=== PATIENT | male | born 1945 | race African-American/Black ===

== ENCOUNTER 2018-05-26 09:36 | Inpatient (IN) | payer BC, OTHER ==
--- NOTE | 2018-05-26 09:48 | PDOC ---
History of Present Illness - General Chief Complaint: Bleeding from Anus Stated Complaint: GI BLEED Time Seen by Provider: 05/26/18 09:47 - History of Present Illness Initial Comments: 05/26/18 09:48 Mr. Marina is a 73 yo male w/ pmh of Dementia, COPD, aflutter (on Eliquis), and prostate cancer who presents from [facility] for evaluation of episode of krunal red blood from rectum. Patient reports this has happened before however was very painful at this time when he has a bowel movement. Patient denies any abdominal pain, nausea, or vomiting. The patient denies chest pain, shortness of breath, headache and dizziness. Denies fever, chills, diarrhea and constipation. Denies dysuria, frequency, urgency and hematuria. Allergies: Penicillins, Sulfa drugs Past History - Past Medical History Allergies/Adverse Reactions: Allergies Allergy/AdvReac Type Severity Reaction Status Date / Time Penicillins Allergy Unknown "SWELL UP" Verified 05/26/18 09:41 Sulfa (Sulfonamide Allergy Unknown "SWELL UP" Verified 05/26/18 09:41 Antibiotics) Home Medications: Ambulatory Orders Acetaminophen [Tylenol] 650 mg PO Q6H PRN 05/26/18 Albuterol 2.5/Ipratropium 0.5 [Duoneb -] 1 neb NEB Q4H PRN 05/26/18 Apixaban [Eliquis] 5 mg PO BID 05/26/18 Atorvastatin Ca [Lipitor] 20 mg PO HS 05/26/18 Diltiazem HCl [Cardizem LA] 180 mg PO DAILY 05/26/18 Docusate Sodium 300 mg PO HS 05/26/18 Fluticasone Propionate [Flovent Diskus] 50 mcg IH DAILY PRN 05/26/18 Montelukast Sodium [Singulair] 10 mg PO HS 05/26/18 Nicotine [Nicoderm Cq] 1 each TD DAILY 05/26/18 Ranitidine HCl [Zantac] 150 mg PO DAILY 05/26/18 Sennosides [Senokot] 8.6 mg PO HS PRN 05/26/18 Travoprost [Travatan Z] 5 ml OP DAILY 05/26/18 Cancer: Yes (PROSTATE) Cardiac Disorders: Yes (A FLUTTER) CVA: Yes (NO RESIDUAL) COPD: Yes (SLEEP APNEA-USES CPAP) Dementia: Yes - Suicide/Smoking/Psychosocial Hx Smoking History: Former smoker Have you smoked in the past 12 months: Yes Number of Cigarettes Smoked Daily: 0 If you are a former smoker, when did you quit?: 1 YEAR Information on smoking cessation initiated: Yes 'Breaking Loose' booklet given: 03/20/15 Hx Alcohol Use: No Drug/Substance Use Hx: No Hx Substance Use Treatment: No Review of Systems - Review of Systems Comments:: 05/26/18 10:24 GENERAL/CONSTITUTIONAL: No fever or chills. No weakness. HEAD, EYES, EARS, NOSE AND THROAT: No change in vision. No ear pain or discharge. No sore throat. CARDIOVASCULAR: No chest pain or shortness of breath RESPIRATORY: No cough, wheezing, or hemoptysis. GASTROINTESTINAL: +Blood in stool with painful defacation. No nausea, vomiting, diarrhea or constipation. GENITOURINARY: No dysuria, frequency, or change in urination. MUSCULOSKELETAL: No joint or muscle swelling or pain. No neck or back pain. SKIN: No rash NEUROLOGIC: No headache, vertigo, loss of consciousness, or change in strength/ sensation. ENDOCRINE: No increased thirst. No abnormal weight change HEMATOLOGIC/LYMPHATIC: No anemia, easy bleeding, or history of blood clots. ALLERGIC/IMMUNOLOGIC: No hives or skin allergy. *Physical Exam - Vital Signs Last Vital Signs Temp Pulse Resp BP Pulse Ox 97.4 F L 122 H 22 121/78 97 05/26/18 09:41 05/26/18 09:41 05/26/18 09:41 05/26/18 09:41 05/26/18 09:41 - Physical Exam Comments: 05/26/18 10:25 GENERAL: Awake, alert, and fully oriented, in no acute distress HEAD: No signs of trauma, normocephalic, atraumatic EYES: PERRLA, EOMI, sclera anicteric, conjunctiva clear ENT: Auricles normal inspection, hearing grossly normal, nares patent, oropharynx clear without exudates. Moist mucosa NECK: Normal ROM, supple, no lymphadenopathy, JVD, or masses LUNGS: No distress, speaks full sentences, clear to auscultation bilaterally HEART: Regular rate and rhythm, normal S1 and S2, no murmurs, rubs or gallops, peripheral pulses normal and equal bilaterally. ABDOMEN: Soft, nontender, normoactive bowel sounds. No guarding, no rebound. No masses EXTREMITIES: Normal inspection, Normal range of motion, no edema. No clubbing or cyanosis. NEUROLOGICAL: Cranial nerves II through XII grossly intact. Normal speech, normal gait, no focal sensorimotor deficits SKIN: Warm, Dry, normal turgor, no rashes or lesions noted. RECTAL: Patient reporting significant pain w/ evaluation of rectum. No external hemmorhoids appreciated however exam limited by patient cooperation and masserated skin surrounding anus making further evaluation difficult. Foul smelling stool appreciated. ED Treatment Course - LABORATORY CBC & Chemistry Diagram: 05/26/18 10:27 05/26/18 10:27 Medical Decision Making - Medical Decision Making 05/26/18 10:40 Mr. Marina is a 73 yo male w/ pmh as described who presents for evaluation of bloody bowel movement w/ pain with defecation. Patient has no other complaints however endorses having a CT several weeks ago at [facility] although he does not know why. Discussed patient with [facility] who relates patient evaluated in February after a syncope and fall and had resultant MRI w/ no focal findings. Patient also was noted to have chest CT w/ RUL nodule elucidated. While in hospital patient developed ESBL UTI and was treated with immepenem. Hemoglobin in March at discharge was 14. 05/26/18 12:31 Patient continues to have rectal pain; also experienced additional episode of foul smelling stool with blood intermixed. CT abd/pelvis ordered for further evaluation of patient pain to r/o collection as well as evaluate for GI bleed. 05/26/18 13:09 Patient noted to have 3.5x2.7x2.3 cm fluid / air containing structure thought to be in prostate gland and possibly representing abscess. Also 3mm metallic body seen along left posterior lateral border of collection thought to be postsurgical finding vs. posttraumatic foreign body vs. radiation seed. Also, diffuse urinary bladder wall thickening acute or chronic cystitis and or chronic outlet obstruction. Air accumulation seen within urinary bladder lumen possibly post procedural and/or infectious. No rectal/perirectal pathology identified. Patient given IV ABX for prophylaxis; PCP paged for admission for further care. 05/26/18 14:44 Patient had E coli ESBL at [place] in past. Updating to contact bed. *DC/Admit/Observation/Transfer Diagnosis at time of Disposition: Rectal bleed, Abscess - Discharge Dispostion Decision to Admit order: Yes - Referrals - Patient Instructions - Post Discharge Activity
--- NOTE | 2018-05-26 10:18 | PDOC ---
Attending Attestation - Resident Resident Name: Joseph Ruiz - ED Attending Attestation I have performed the following: I have examined & evaluated the patient, The case was reviewed & discussed with the resident, I agree w/resident's findings & plan, Exceptions are as noted - HPI HPI: 05/26/18 11:02 73y M hx of dementia, copd, aflutter on eliquis, from [facility] presents from [facility], blood noticed in his diaper by aides. Reports pain around his rectal area. denies n/v, abd pain, f/c. on exam pt noted to have a soft abdomen unable to perform true rectal exam - as he was in significant pain when i moved his buttocks - there was significant tenderness/induration on his b/l buttocks ther was diarrhea that was blood tinged. ?abscess vs celluitis - unclear source of GIB will obtain blood work, ct abdomen, hbg stable here - Physicial Exam PE: 05/26/18 20:21 see above - Medical Decision Making ct showed nonspecific fliud and air containing tructure in the prostate gland - ?abscess vs collection. will admit for further management pt given abx. urology notified Heart Score/ECG Review - ECG Impressions Comment:: 05/26/18 13:08 Twelve-lead EKG was performed and reviewed by me. There is normal sinus rhythm with a normal rate. Rate of 90 Left axis deviation
[2018-05-26 10:32] LABS: BASO % 0.5 % (0-2.0); EOS % 3.4 % (0-4.5); HEMATOCRIT 41.1 % (35.4-49); HEMOGLOBIN 13.8 GM/dL (11.7-16.9); LYMPH % 23.3 % (8-40); MCHC 33.5 g/dl (32.0-35.9); MEAN CELL VOLUME 98.5 fl (80-96); MONO % 9.4 % (3.8-10.2); NEUT % 63.4 % (42.8-82.8); PLATELET COUNT 219 K/MM3 (134-434); RBC 4.17 M/mm3 (4.00-5.60); WHITE BLOOD COUNT 6.3 K/mm3 (4.0-10.0)
[2018-05-26 10:57] LABS: INR 1.19 (0.83-1.09); PROTHROMBIN TIME (PATIENT) 13.4 SEC (9.7-13.0)
[2018-05-26 11:06] LABS: ALBUMIN 3.6 g/dl (3.4-5.0); ALK PHOS 105 U/L (45-117); ANION GAP 9 MMOL/L (8-16); BILIRUBIN,TOTAL 0.8 mg/dL (0.2-1.0); BLOOD UREA NITROGEN 19 mg/dL (7-18); CALCIUM 9.1 mg/dL (8.5-10.1); CHLORIDE 110 mmol/L (98-107); CO2 28 mmol/L (21-32); CREATININE 1.1 mg/dL (0.7-1.3); GLUCOSE,RANDOM 101 mg/dL (74-106); SGOT/AST 15 U/L (15-37); SGPT/ALT 16 U/L (12-78); SODIUM 147 mmol/L (136-145); TOT PROT 6.2 g/dl (6.4-8.2)
[2018-05-26] MEDS ORDERED: morphine SULFATE 4 MG/ML VIAL ONE (11:40)
[2018-05-26] MEDS ORDERED: morphine CARPU-JECT 4 MG/1 ML DISP.SYRIN IVPUSH ONE (11:40)
[2018-05-26] MEDS ORDERED: VANCOMYCIN 1,500 MG in DEXTROSE 5%-WATER - 500 ML IVPB ONE (13:06)
--- NOTE | 2018-05-26 13:41 | EKG ---
Test Reason : Blood Pressure : / mmHG Vent. Rate : 090 BPM Atrial Rate : 090 BPM P-R Int : 146 ms QRS Dur : 080 ms QT Int : 362 ms P-R-T Axes : 077 -40 070 degrees QTc Int : 442 ms SINUS RHYTHM WITH PREMATURE ATRIAL COMPLEXES LEFT AXIS DEVIATION LOW VOLTAGE QRS NONSPECIFIC T WAVE ABNORMALITY ABNORMAL ECG NO PREVIOUS ECGS AVAILABLE Confirmed by AZRA ECHOLS MD ([id number]) on 05/26/2018 1:41:22 PM Referred By: Confirmed By:AZRA ECHOLS MD
--- NOTE | 2018-05-26 13:41 | HP ---
Admitting History and Physical - Primary Care Physician PCP: Shekhar Joseph - Admission History of Present Illness: Mr. Marina is a 73 yo male w/ pmh of Dementia, COPD, aflutter (on Eliquis), and prostate cancer who presents from [facility] for evaluation of episode of krunal red blood from rectum. Patient reports this has happened before however was very painful at this time when he has a bowel movement. Patient denies any abdominal pain, nausea, or vomiting.per patient the rectal bleeding started a few days ago with pain. The patient denies chest pain, shortness of breath, headache and dizziness. Denies fever, chills, diarrhea and constipation. Denies dysuria, frequency, urgency and hematuria. Allergies: Penicillins, Sulfa drugs History Source: Patient - Past Medical History OCCUPATIONAL THER: Yes: Dementia Cardiovascular: Yes: Other (aflutter) Pulmonary: Yes: COPD Heme/Onc: Yes: Other (prostate cancer) - Smoking History Smoking history: Former smoker Have you smoked in the past 12 months: Yes Aproximately how many cigarettes per day: 0 If you are a former smoker, when did you quit?: 1 YEAR - Alcohol/Substance Use Hx Alcohol Use: No Home Medications - Allergies Allergies/Adverse Reactions: Allergies Allergy/AdvReac Type Severity Reaction Status Date / Time Penicillins Allergy Unknown "SWELL UP" Verified 05/26/18 09:41 Sulfa (Sulfonamide Allergy Unknown "SWELL UP" Verified 05/26/18 09:41 Antibiotics) - Home Medications Home Medications: Ambulatory Orders Acetaminophen [Tylenol] 650 mg PO Q6H PRN 05/26/18 Albuterol 2.5/Ipratropium 0.5 [Duoneb -] 1 neb NEB Q4H PRN 05/26/18 Apixaban [Eliquis] 5 mg PO BID 05/26/18 Atorvastatin Ca [Lipitor] 20 mg PO HS 05/26/18 Diltiazem HCl [Cardizem LA] 180 mg PO DAILY 05/26/18 Docusate Sodium 300 mg PO HS 05/26/18 Fluticasone Propionate [Flovent Diskus] 50 mcg IH DAILY PRN 05/26/18 Montelukast Sodium [Singulair] 10 mg PO HS 05/26/18 Nicotine [Nicoderm Cq] 1 each TD DAILY 05/26/18 Ranitidine HCl [Zantac] 150 mg PO DAILY 05/26/18 Sennosides [Senokot] 8.6 mg PO HS PRN 05/26/18 Travoprost [Travatan Z] 5 ml OP DAILY 05/26/18 Review of Systems - Review of Systems Gastrointestinal: reports: Rectal Bleeding, Other (rectal pain) Physical Examination Vital Signs: Vital Signs Temperature 97.4 F L 05/26/18 09:41 Pulse Rate 73 05/26/18 12:00 Respiratory Rate 22 05/26/18 12:00 Blood Pressure 126/76 05/26/18 12:00 O2 Sat by Pulse Oximetry (%) 98 05/26/18 12:00 Constitutional: Yes: Mild Distress Cardiovascular: Yes: Regular Rate and Rhythm, S1, S2 Respiratory: Yes: CTA Bilaterally Gastrointestinal: Yes: Normal Bowel Sounds, Soft Renal/: Yes: Other (rectal and gluteal tenderness, diaper red stain) Labs: CBC, BMP 05/26/18 10:27 05/26/18 10:27 Imaging - Results Cat Scan: Report Reviewed (3/2.7/3 cm fluid and air containing structure seen within the prostate gland) Problem List - Problems (1) Abscess Assessment/Plan: surgical and urology evaluation broad spectrum iv abx ID consult pain control Code(s): L02.91 - CUTANEOUS ABSCESS, UNSPECIFIED (2) Rectal bleed Assessment/Plan: hold eliquis monitor h/h gi eval NPO till cleared by Gi Code(s): K62.5 - HEMORRHAGE OF ANUS AND RECTUM (3) Atrial flutter Assessment/Plan: hold eliquis given rectal bleed cardizem SCD cardio consult Code(s): I48.92 - UNSPECIFIED ATRIAL FLUTTER
--- NOTE | 2018-05-26 14:32 | PN ---
Progress Note (short form) - Note Progress Note: ID Consult dictated 73 y/o male admitted with rectal pain and bleeding. CT Abdomen /pelvis shows suspected prostatic abscess Hx ESBL UTI at [facility] ? Chronic postatitis/ prostate abscess secondary to ESBL Obtain BC, Urine c/s Empric ertapenem Urology evaluation
[2018-05-26] MEDS: DEXTROSE 5%-0.45% SALINE 1,000 ML IV SCH (14:35)
[2018-05-26] MEDS ORDERED: ERTAPENEM SODIUM 1 GM VIAL ONE (14:46)
--- NOTE | 2018-05-26 15:29 | CONS ---
DATE OF CONSULTATION: 05/26/2018 The patient is a 73-year-old male who is evaluated for a suspected prostatic abscess. History was obtained from the patient and from the chart. According to the notes, the patient had been hospitalized at [facility] in February of 2018, for a syncopal episode. According to the history, he was treated for an ESBL urinary tract infection at that time. He now is admitted from the senior living with rectal pain and bleeding. He was noted by the nursing staff to have blood in his diapers and was complaining of severe perirectal pain, especially on defecation. In the emergency room, a CAT scan of the abdomen and pelvis was performed and showed what appeared to be a prostatic abscess and thickened urinary bladder. Cultures are pending. He was empirically treated with vancomycin, Levaquin, and Flagyl. At the present time, he complains of perirectal pain and continued bleeding. He denies any dysuria or hematuria, and no complaints of fever or chills. Past medical history positive for prostate cancer, status post cystoscopy and cryoablation in 2014, history of mild dementia, COPD, atrial flutter. Allergies to PENICILLIN and SULFA. Patient is not aware of the nature of the allergy; he states it happened many years ago. According the notes, he has tolerated imipenem in the past. Medications include DuoNeb, Eliquis, Lipitor, Cardizem, Flomax, Singulair. SOCIAL HISTORY: He resides in a alf facility. He is a former smoker. SYSTEMS REVIEW: Neurologic: Positive for mild dementia. No loss of consciousness, seizure activity, or focal weakness. Cardiac: Negative chest pain or palpitations. Respiratory: Negative cough or sputum production. Gastrointestinal: As per HPI. Genitourinary: As per HPI. LABORATORY DATA: White count 8.3, hematocrit 41, platelet count 219, BUN 19, creatinine 1.1. PHYSICAL EXAMINATION: General: He is awake and alert. He is in moderate distress secondary to perirectal pain. Vital Signs: Temperature 97.4. Blood pressure 127/61. Pulse 72, regular. Respiration 22 per minute. Eyes: Sclerae anicteric. Heart Sounds: S1, S2. Lungs: Clear. Abdomen: Soft. Some mild suprapubic tenderness. Unable to examine the rectal area secondary to exquisite pain. Extremities: Positive for edema. IMPRESSION: 1. Suspected prostate abscess. 2. Possible urinary tract infection/sepsis secondary to urinary tract focus. 3. Rectal bleeding. Concern about the possibility of an ESBL, prostatic abscess, and urinary tract infection, in light of prior history of ESBL UTI. Obtain blood cultures, urine culture. Urology evaluation. Empiric antibiotic coverage with ertapenem 1 g IV piggyback daily. Thank you for the kind referral. CONCHA DICKERSON M.D. [id number]
--- NOTE | 2018-05-26 15:58 | CON.GI ---
Consult Consult Specialty:: GI Reason for Consultation:: hematochezia x 2 days - History of Present Illness History of Present Illness: Chart reviewed. Hematochezia x 2 days. described as pinkish discharge leading to BRBP. No abdominal pain, urgency, tenismus, fever, chills, nausea, vomiting, melena, hematemesis. Incontinent of stool at baseline. Very painful perianal exam with excoriated skin. Pt thinks he was bleeding "outside" the rectum. Last colonoscopy 5 y ago was normal. On Eliquis Home Medications Medication Instructions Recorded Acetaminophen [Tylenol] 650 mg PO Q6H PRN 05/26/18 Albuterol 2.5/Ipratropium 0.5 1 neb NEB Q4H PRN 05/26/18 [Duoneb -] Apixaban [Eliquis] 5 mg PO BID 05/26/18 Atorvastatin Ca [Lipitor] 20 mg PO HS 05/26/18 Diltiazem HCl [Cardizem LA] 180 mg PO DAILY 05/26/18 Docusate Sodium 300 mg PO HS 05/26/18 Fluticasone Propionate [Flovent 50 mcg IH DAILY PRN 05/26/18 Diskus] Montelukast Sodium [Singulair] 10 mg PO HS 05/26/18 Nicotine [Nicoderm Cq] 1 each TD DAILY 05/26/18 Ranitidine HCl [Zantac] 150 mg PO DAILY 05/26/18 Sennosides [Senokot] 8.6 mg PO HS PRN 05/26/18 Travoprost [Travatan Z] 5 ml OP DAILY 05/26/18 CT/ABDOMEN & PELVIS CT WITH CONTR Abdomen and pelvis CT (with contrast) Clinical information given: rectal pain, evaluate for collection/GI bleed Multiplanar imaging was performed following the intravenous administration of nonionic contrast. As requested enteric contrast was not administered. No prior imaging studies are available at this facility for direct comparison. An approximately 3.5 x 2.7 x 2.3 cm fluid and air containing structure is seen within the prostate gland. A 3 mm metallic density is seen along the left posterior lateral border of this fluid collection. Air accumulation is also seen within the urinary bladder lumen. There is mild diffuse urinary bladder wall thickening which may be acute and/or chronic in nature. Incidental note is made of several small air-filled urinary bladder diverticula. There is no definite CT evidence of rectal/perirectal pathology. No evidence of pneumoperitoneum, free intraperitoneal fluid, or bowel obstruction. The liver, spleen, pancreas, gallbladder, adrenal glands and kidneys demonstrate no discrete abnormality. There is no aortic aneurysm. There is probable partial visualization of the appendix which demonstrates no obvious pathology. No CT evidence of acute diverticulitis or colitis. Mild posterior bibasilar bronchiectasis. Minimal to mild right middle lobe discoid atelectasis/linear parenchymal scarring. The visualized osseous structures demonstrate no gross acute pathology. IMPRESSION: A 3.5 x 2.7 x 2.3 cm nonspecific fluid and air-containing structure is seen within the prostate gland - ? postsurgical collection and/or representing an abscess. A 3 mm metallic density seen along the left posterior lateral border of this fluid collection - ? postsurgical finding, posttraumatic foreign body, radiation seed. There is diffuse urinary bladder wall thickening which may be on the basis of acute and/or chronic cystitis and/or chronic outlet obstruction. Air accumulation is also seen within the urinary bladder lumen may be on a post procedural basis and/or infection. No obvious rectal/perirectal pathology is identified. - History Source History Provided By: Patient, Medical Record - Past Medical History AMBULANCE PARAMEDIC: Yes: Dementia Cardio/Vascular: Yes: Other (aflutter) Pulmonary: Yes: COPD - Alcohol/Substance Use Hx Alcohol Use: No - Smoking History Smoking history: Former smoker Have you smoked in the past 12 months: Yes Aproximately how many cigarettes per day: 0 If you are a former smoker, when did you quit?: 1 YEAR Home Medications - Allergies Allergies/Adverse Reactions: Allergies Allergy/AdvReac Type Severity Reaction Status Date / Time Penicillins Allergy Unknown "SWELL UP" Verified 05/26/18 09:41 Sulfa (Sulfonamide Allergy Unknown "SWELL UP" Verified 05/26/18 09:41 Antibiotics) - Home Medications Home Medications: Ambulatory Orders Acetaminophen [Tylenol] 650 mg PO Q6H PRN 05/26/18 Albuterol 2.5/Ipratropium 0.5 [Duoneb -] 1 neb NEB Q4H PRN 05/26/18 Apixaban [Eliquis] 5 mg PO BID 05/26/18 Atorvastatin Ca [Lipitor] 20 mg PO HS 05/26/18 Diltiazem HCl [Cardizem LA] 180 mg PO DAILY 05/26/18 Docusate Sodium 300 mg PO HS 05/26/18 Fluticasone Propionate [Flovent Diskus] 50 mcg IH DAILY PRN 05/26/18 Montelukast Sodium [Singulair] 10 mg PO HS 05/26/18 Nicotine [Nicoderm Cq] 1 each TD DAILY 05/26/18 Ranitidine HCl [Zantac] 150 mg PO DAILY 05/26/18 Sennosides [Senokot] 8.6 mg PO HS PRN 05/26/18 Travoprost [Travatan Z] 5 ml OP DAILY 05/26/18 Family Disease History - Family Disease History Family History: Unremarkable Review of Systems Findings/Remarks: as per HPI, ED, H&P Physical Exam-GI Vital Signs: Vital Signs Temperature 97.4 F L 05/26/18 09:41 Pulse Rate 71 05/26/18 13:30 Respiratory Rate 22 05/26/18 13:30 Blood Pressure 127/61 05/26/18 13:30 O2 Sat by Pulse Oximetry (%) 97 05/26/18 14:08 Constitutional: Yes: Well Nourished, No Distress, Calm Eyes: Yes: Conjunctiva Clear HENT: Yes: Atraumatic Neck: Yes: Supple Cardiovascular: Yes: Regular Rate and Rhythm Respiratory: Yes: Regular Gastrointestinal Inspection: No: Ascites, Distention ...Auscultate: Yes: Normoactive Bowel Sounds ...Palpate: Yes: Soft. No: Firm/Rigid, Guarding, Mass, Tenderness ...Rectal Exam: Yes: Other (see HPI) Neurological: Yes: Alert, Oriented Labs: CBC, BMP 05/26/18 10:27 05/26/18 10:27 INR, PTT INR 1.19 (0.83-1.09) H 05/26/18 10:27 Laboratory Last Values WBC 6.3 K/mm3 (4.0-10.0) 05/26/18 10:27 RBC 4.17 M/mm3 (4.00-5.60) 05/26/18 10:27 Hgb 13.8 GM/dL (11.7-16.9) 05/26/18 10:27 Hct 41.1 % (35.4-49) 05/26/18 10:27 MCV 98.5 fl (80-96) H 05/26/18 10:27 MCH 33.0 pg (25.7-33.7) 05/26/18 10:27 MCHC 33.5 g/dl (32.0-35.9) 05/26/18 10:27 RDW 14.0 % (11.9-15.9) 05/26/18 10:27 Plt Count 219 K/MM3 (134-434) 05/26/18 10:27 MPV 8.0 fl (7.5-11.1) 05/26/18 10:27 Absolute Neuts (auto) 4.0 K/mm3 (1.5-8.0) 05/26/18 10:27 Neutrophils % 63.4 % (42.8-82.8) 05/26/18 10:27 Lymphocytes % 23.3 % (8-40) 05/26/18 10:27 Monocytes % 9.4 % (3.8-10.2) 05/26/18 10:27 Eosinophils % 3.4 % (0-4.5) 05/26/18 10:27 Basophils % 0.5 % (0-2.0) 05/26/18 10:27 Nucleated RBC % 0 % (0-0) 05/26/18 10:27 PT with INR 13.40 SEC (9.7-13.0) H 05/26/18 10:27 INR 1.19 (0.83-1.09) H 05/26/18 10:27 Sodium 147 mmol/L (136-145) H 05/26/18 10:27 Potassium 4.0 mmol/L (3.5-5.1) 05/26/18 10:27 Chloride 110 mmol/L (98-107) H 05/26/18 10:27 Carbon Dioxide 28 mmol/L (21-32) 05/26/18 10:27 Anion Gap 9 MMOL/L (8-16) 05/26/18 10:27 BUN 19 mg/dL (7-18) H 05/26/18 10:27 Creatinine 1.1 mg/dL (0.7-1.3) 05/26/18 10:27 Creat Clearance w eGFR > 60 (>60) 05/26/18 10:27 Random Glucose 101 mg/dL (74-106) 05/26/18 10:27 Calcium 9.1 mg/dL (8.5-10.1) 05/26/18 10:27 Total Bilirubin 0.8 mg/dL (0.2-1.0) 05/26/18 10:27 AST 15 U/L (15-37) 05/26/18 10:27 ALT 16 U/L (12-78) 05/26/18 10:27 Alkaline Phosphatase 105 U/L (45-117) 05/26/18 10:27 Total Protein 6.2 g/dl (6.4-8.2) L 05/26/18 10:27 Albumin 3.6 g/dl (3.4-5.0) 05/26/18 10:27 Stool Occult Blood Positive (NEGATIVE) 05/26/18 10:06 Blood Type O POSITIVE 05/26/18 10:27 Antibody Screen Negative 05/26/18 10:27 Imaging - Results Cat Scan: Report Reviewed Assessment/Plan A 73M with the above prostate and urinary bladder CT findings. Normal hemoglobin , CMV, RDW, loiver chemistry. Hold Eliquis is possible Urology evaluation close monitoring for recurrent bleeding Colonoscopy was discussed with the patient. Will follow.
[2018-05-26] MEDS ORDERED: MORPHINE SULFATE 2 MG/ML VIAL ONE (16:34)
--- NOTE | 2018-05-26 16:52 | CON.CARD ---
Consult Consult Specialty:: Cardiology Referred by:: Dr. Miller Reason for Consultation:: rectal bleed on eliquis - History of Present Illness Chief Complaint: rectal bleeding History of Present Illness: 73 year old man pmh Dementia, COPD, aflutter on eliquis and prostate cancer admitted with rectal bleeding. pt seen and examined today in nad. states he continues to have loose stools with blood in them. denies chest pain, sob, palpitations, pnd, orthopnea, or LE edema. 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 Cardio/Vascular: Yes: Other (aflutter) Pulmonary: Yes: COPD - Alcohol/Substance Use Hx Alcohol Use: No - Smoking History Smoking history: Former smoker Have you smoked in the past 12 months: Yes Aproximately how many cigarettes per day: 0 If you are a former smoker, when did you quit?: 1 YEAR - Social History ADL: Independent History of Recent Travel: No Home Medications - Allergies Allergies/Adverse Reactions: Allergies Allergy/AdvReac Type Severity Reaction Status Date / Time Penicillins Allergy Unknown "SWELL UP" Verified 05/26/18 09:41 Sulfa (Sulfonamide Allergy Unknown "SWELL UP" Verified 05/26/18 09:41 Antibiotics) - Home Medications Home Medications: Ambulatory Orders Acetaminophen [Tylenol] 650 mg PO Q6H PRN 05/26/18 Albuterol 2.5/Ipratropium 0.5 [Duoneb -] 1 neb NEB Q4H PRN 05/26/18 Apixaban [Eliquis] 5 mg PO BID 05/26/18 Atorvastatin Ca [Lipitor] 20 mg PO HS 05/26/18 Diltiazem HCl [Cardizem LA] 180 mg PO DAILY 05/26/18 Docusate Sodium 300 mg PO HS 05/26/18 Fluticasone Propionate [Flovent Diskus] 50 mcg IH DAILY PRN 05/26/18 Montelukast Sodium [Singulair] 10 mg PO HS 05/26/18 Nicotine [Nicoderm Cq] 1 each TD DAILY 05/26/18 Ranitidine HCl [Zantac] 150 mg PO DAILY 05/26/18 Sennosides [Senokot] 8.6 mg PO HS PRN 05/26/18 Travoprost [Travatan Z] 5 ml OP DAILY 05/26/18 Family Disease History - Family Disease History Family History: Denies Review of Systems - Review of Systems Constitutional: denies: No Symptoms, Chills, Diaphoresis, Fever, Lethargy, Loss of Appetite, Malaise, Night Sweats, Unintentional Wgt. Loss, Weakness, Other Eyes: denies: No Symptoms, Blind Spots, Blurred Vision, Double Vision, Eye Pain , Floaters, Photophobia, Recent Change in Vision, Other HENT: denies: No Symptoms, Difficult Swallowing, Ear Discharge, Ear Pain, Epistaxis, Gingival Bleeding, Hearing Loss, Mouth Swelling, Nasal Congestion, Ocular Prosthesis, Throat Pain, Toothache, Ringing in Ears, Other Neck: denies: No Symptoms, Decreased ROM, Lumps, Pain on Movement, Stiffness, Swollen Glands, Tenderness, Other Cardiovascular: denies: No Symptoms, Chest Pain, Edema, Palpitations, Shortness of Breath, Other Respiratory: denies: No Symptoms, Cough, Exercise Intolerance, Hemoptysis, Orthopnea, PND, Snoring, SOB, SOB on Exertion, Wheezing, Other Gastrointestinal: reports: Diarrhea, Rectal Bleeding. denies: No Symptoms, Abdominal Pain, Bloating, Constipation, Dysphagia, Indigestion, Melena, Nausea, Vomiting, Vomiting Blood, Other Genitourinary: denies: No Symptoms, Burning, Discharge, Dysuria, Flank Pain, Frequency, Hematuria, Incontinence, Lesions, Menses, Pain, Testicular Mass, Testicular Pain, Testicular Swelling, Urgency, Vaginal Bleeding, Other Breasts: denies: No Symptoms Reported, See HPI, Breast Implants, Discharge from Nipple, Lumps, Pain, Skin Changes, Other Musculoskeletal: denies: No Symptoms, Back Pain, Crepitus, Decreased ROM, Extremity Pain, Joint Pain, Joint Swelling, Muscle Pain, Muscle Cramps, Muscle Weakness, Other Integumentary: denies: No Symptoms, Blister, Bruising, Change in Color, Eczema, Erythema, Incision, Lesions, Lump, Pallor, Pruritis, Rash, Wound, Other Neurological: denies: No Symptoms, Change in LOC, Change in Speech, Confusion, Dizziness, Headache, Incoordination, Numbness, Parasthesia, Pre-Existing Deficit , Seizure, Syncope, Tremors, Unsteady Gait, Weakness, Other Endocrine: denies: No Symptoms, Excessive Sweating, Flushing, Increased Hunger, Increased Thirst, Intolerance to Cold, Intolerance to Heat, Unexplained Weight Gain, Unexplained Weight Loss, Other Hematology/Lymphatic: reports: Excessive Bleeding. denies: No Symptoms, Easily Bruised, Swollen Glands, Other Psychiatric: denies: No Symptoms, Altered Sleep Pattern, Anxiety, Depression, Hallucinations, Panic, Paranoia, Suicidal, Other - Risk Factors Known Risk Factors: Yes: Age Vital Signs: Vital Signs Temperature 97.4 F L 05/26/18 09:41 Pulse Rate 71 05/26/18 13:30 Respiratory Rate 22 05/26/18 13:30 Blood Pressure 127/61 05/26/18 13:30 O2 Sat by Pulse Oximetry (%) 97 05/26/18 14:08 Constitutional: Yes: Well Nourished, No Distress, Calm Eyes: Yes: WNL, Conjunctiva Clear, EOM Intact, PERRL HENT: Yes: WNL, Atraumatic, Normocephalic Neck: Yes: WNL, Supple, Trachea Midline Respiratory: Yes: WNL, Regular, CTA Bilaterally. No: Rales, Rhonchi, Wheezes Gastrointestinal: Yes: WNL, Normal Bowel Sounds, Soft. No: Distention, Tenderness Cardiovascular: Yes: Regular Rate and Rhythm. No: Bradycardia, Tachycardia, Pulse Irregular, Gallop, Rub, Varicosities JVD: No Carotid Bruit: No PMI: Non-Displaced Heart Sounds: Yes: S1, S2. No: Split S2, S3, S4, Clicks, Gallop, Rub, Bruit Murmur: No: Systolic Murmur, Diastolic Murmur Musculoskeletal: Yes: WNL Extremities: Yes: WNL Edema: No Peripheral Pulses WNL: Yes Peripheral Pulses: 2+ Left Doralis Pedis, 2+ Right Dorsalis Pedis Neurological: Yes: Alert, Oriented Psychiatric: Yes: Alert, Oriented - Other Data Labs, Other Data: CBC, BMP 05/26/18 10:27 05/26/18 10:27 INR, PTT INR 1.19 (0.83-1.09) H 05/26/18 10:27 ekg-NSR with apcs 90bpm Imaging - Results Chest X-ray: Report Reviewed, Image Reviewed EKG: Report Reviewed, Image Reviewed Other: Report Reviewed, Image Reviewed Assessment/Plan 73 year old man pmh Dementia, COPD, aflutter on eliquis and prostate cancer admitted with rectal bleeding. H/o aflutter -NSR on admission ekg -stop AC in setting of rectal bleed -IVF and PRBC support if needed -cont home Cardizem dose of CD 180mg daily, if HR uncontrolled uptitrate Cardizem as needed -would not resume AC until source of bleed is determined and treated No additional cardiac work up is needed at this time. Please call with any additional questions.
[2018-05-26] MEDS ORDERED: ACETAMINOPHEN 1000 MG/100 ML VIAL (NON FORMULARY) IVPB ONE (17:10)
[2018-05-26] MEDS ORDERED: ACETAMINOPHEN INJECTION 100 ML IVPB ONE (17:11)
[2018-05-26] MEDS: ERTAPENEM SODIUM 1 GM in SODIUM CHLORIDE 50 ML IVPB SCH (17:38)
[2018-05-26] MEDS ORDERED: ATORVASTATIN CA 40 MG TABLET (FP) ONE (22:12)
[2018-05-26] MEDS: ATORVASTATIN CA 20 MG TABLET (FP) PO SCH (22:17)
[2018-05-27 07:05] LABS: BASO % 0.4 % (0-2.0); EOS % 4.4 % (0-4.5); HEMATOCRIT 39.5 % (35.4-49); HEMOGLOBIN 13.2 GM/dL (11.7-16.9); LYMPH % 20.7 % (8-40); MCH 32.5 pg (25.7-33.7); MCHC 33.3 g/dl (32.0-35.9); MEAN CELL VOLUME 97.6 fl (80-96); MEAN PLT VOLUME 7.8 fl (7.5-11.1); MONO % 9.5 % (3.8-10.2); PLATELET COUNT 195 K/MM3 (134-434); RBC 4.05 M/mm3 (4.00-5.60); WHITE BLOOD COUNT 6.2 K/mm3 (4.0-10.0)
[2018-05-27 07:32] LABS: INR 1.1 (0.83-1.09); PROTHROMBIN TIME (PATIENT) 12.4 SEC (9.7-13.0)
[2018-05-27 07:34] LABS: ACTIVATED PTT 32.5 SECONDS (25.2-36.5); ALBUMIN 3.4 g/dl (3.4-5.0); ANION GAP 6 MMOL/L (8-16); BLOOD UREA NITROGEN 12 mg/dL (7-18); CALCIUM 8.5 mg/dL (8.5-10.1); CHLORIDE 108 mmol/L (98-107); CO2 29 mmol/L (21-32); GLUCOSE,RANDOM 89 mg/dL (74-106); POTASSIUM 4.1 mmol/L (3.5-5.1); SODIUM 143 mmol/L (136-145)
[2018-05-27 07:39] LABS: ALK PHOS 101 U/L (45-117); BILIRUBIN,TOTAL 1.2 mg/dL (0.2-1.0); CREATININE 0.9 mg/dL (0.7-1.3); MAGNESIUM 1.8 mg/dL (1.8-2.4); PHOSPHOROUS 3.1 mg/dL (2.5-4.9); SGOT/AST 19 U/L (15-37); SGPT/ALT 14 U/L (12-78)
[2018-05-27] MEDS ORDERED: PANTOPRAZOLE SODIUM 40 MG VIAL ONE (07:39)
[2018-05-27] MEDS: PANTOPRAZOLE SODIUM 40 MG VIAL IVPUSH SCH (08:00)
[2018-05-27] MEDS: ERTAPENEM SODIUM 1 GM in SODIUM CHLORIDE 50 ML IVPB SCH (09:47)
--- NOTE | 2018-05-27 11:09 | PN ---
Progress Note, Physician Chief Complaint: patient seen and examined in bed no distress h/h stable - Current Medication List Current Medications: Active Medications Atorvastatin Calcium (Lipitor -) 20 mg PO HS [facility] Last Admin: 05/26/18 22:17 Dose: 20 mg Diltiazem HCl (Cardizem Cd -) 180 mg PO DAILY [facility] Last Admin: 05/27/18 10:00 Dose: 180 mg Dextrose/Sodium Chloride (D5-1/2ns -) 1,000 mls @ 75 mls/hr IV ASDIR [facility] Last Admin: 05/26/18 14:35 Dose: 75 mls/hr Metronidazole (Flagyl 500mg Premixed Ivpb -) 500 mg in 100 mls @ 100 mls/hr IVPB Q8H-IV [facility] Last Admin: 05/27/18 09:47 Dose: 100 mls/hr Ertapenem 1 gm/ Sodium (Chloride) 50 mls @ 50 mls/hr IVPB DAILY [facility]; Protocol Last Admin: 05/27/18 09:47 Dose: 50 mls/hr Morphine Sulfate (Morphine Sulfate) 4 mg IVPUSH Q4H PRN PRN Reason: PAIN LEVEL 7 - 10 Pantoprazole Sodium (Protonix Iv) 40 mg IVPUSH DAILY@0800 [facility] Last Admin: 05/27/18 08:00 Dose: 40 mg - Objective Vital Signs: Vital Signs Temperature 97.6 F 05/27/18 06:52 Pulse Rate 58 L 05/27/18 06:52 Respiratory Rate 20 05/27/18 06:52 Blood Pressure 126/82 05/27/18 06:52 O2 Sat by Pulse Oximetry (%) 98 05/27/18 06:52 Constitutional: Yes: Calm Neck: Yes: Trachea Midline Cardiovascular: Yes: Regular Rate and Rhythm, S1, S2 Respiratory: Yes: CTA Bilaterally Gastrointestinal: Yes: Normal Bowel Sounds, Soft Edema: No Neurological: Yes: Alert, Oriented Labs: CBC, BMP 05/27/18 06:20 05/27/18 06:20 INR, PTT INR 1.10 (0.83-1.09) H 05/27/18 06:20 Problem List - Problems (1) Abscess Assessment/Plan: awaiting urology evaluation ID consult note emperic ertrapenem pain control Code(s): L02.91 - CUTANEOUS ABSCESS, UNSPECIFIED (2) Rectal bleed Assessment/Plan: hold eliquis monitor h/h gi eval noted awaiting urology eval NPO till cleared by Gi Code(s): K62.5 - HEMORRHAGE OF ANUS AND RECTUM (3) Atrial flutter Assessment/Plan: hold eliquis given rectal bleed cardizem SCD cardio consult appreciated Code(s): I48.92 - UNSPECIFIED ATRIAL FLUTTER
[2018-05-27] MEDS ORDERED: morphine SULFATE 4 MG/ML VIAL ONE (11:11)
[2018-05-27] MEDS: morphine SULFATE 4 MG/ML VIAL IVPUSH PRN (11:27)
--- NOTE | 2018-05-27 11:35 | CON.GU ---
Consult Consult Specialty:: Referred by:: Jake Reason for Consultation:: prostatic abscess, rectal bleeding - History of Present Illness Chief Complaint: rectal bleeding History of Present Illness: 73 yo male w/ pmh of Dementia, COPD, aflutter (on Eliquis), and prostate cancer s/p cyber knife who presents from [facility] for evaluation of episode of krunal red blood from rectum. Patient reports this has happened before however was very painful at this time when he has a bowel movement. Patient denies any abdominal pain, nausea, or vomiting.per patient the rectal bleeding started a few days ago with pain. The patient denies chest pain, shortness of breath, headache and dizziness. Denies fever, chills, diarrhea and constipation. Denies dysuria, frequency, urgency and hematuria. He was found to have air in the bladder and possible prostatic abscess on CT A/P and cons req. 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 Cardio/Vascular: Yes: Other (aflutter) Pulmonary: Yes: COPD - Alcohol/Substance Use Hx Alcohol Use: No - Smoking History Smoking history: Former smoker Have you smoked in the past 12 months: Yes Aproximately how many cigarettes per day: 0 If you are a former smoker, when did you quit?: 1 YEAR - Social History ADL: Independent History of Recent Travel: No Home Medications - Allergies Allergies/Adverse Reactions: Allergies Allergy/AdvReac Type Severity Reaction Status Date / Time Penicillins Allergy Unknown "SWELL UP" Verified 05/26/18 09:41 Sulfa (Sulfonamide Allergy Unknown "SWELL UP" Verified 05/26/18 09:41 Antibiotics) - Home Medications Home Medications: Ambulatory Orders Acetaminophen [Tylenol] 650 mg PO Q6H PRN 05/26/18 Albuterol 2.5/Ipratropium 0.5 [Duoneb -] 1 neb NEB Q4H PRN 05/26/18 Apixaban [Eliquis] 5 mg PO BID 05/26/18 Atorvastatin Ca [Lipitor] 20 mg PO HS 05/26/18 Diltiazem HCl [Cardizem LA] 180 mg PO DAILY 05/26/18 Docusate Sodium 300 mg PO HS 05/26/18 Fluticasone Propionate [Flovent Diskus] 50 mcg IH DAILY PRN 05/26/18 Montelukast Sodium [Singulair] 10 mg PO HS 05/26/18 Nicotine [Nicoderm Cq] 1 each TD DAILY 05/26/18 Ranitidine HCl [Zantac] 150 mg PO DAILY 05/26/18 Sennosides [Senokot] 8.6 mg PO HS PRN 05/26/18 Travoprost [Travatan Z] 5 ml OP DAILY 05/26/18 Review of Systems - Review of Systems Genitourinary: reports: Incontinence Physical Exam- Vital Signs: Vital Signs Temperature 98.3 F 05/27/18 11:21 Pulse Rate 69 05/27/18 11:21 Respiratory Rate 16 05/27/18 11:21 Blood Pressure 125/73 05/27/18 11:21 O2 Sat by Pulse Oximetry (%) 93 L 05/27/18 11:22 Kidneys: Yes: WNL Pelvis: Yes: WNL Testicles: Yes: WNL Scrotum: Yes: WNL Penis: Yes: WNL Prostate Exam: Yes: Swollen, Tenderness Labs: CBC, BMP 05/27/18 06:20 05/27/18 06:20 Imaging - Results Cat Scan: Report Reviewed, Image Reviewed Problem List - Problems (1) Prostatic abscess Assessment/Plan: cont iv abxs, transurethral drainage of prostatic abscess Wednesday 05/30 Code(s): N41.2 - ABSCESS OF PROSTATE (2) Rectal bleed Code(s): K62.5 - HEMORRHAGE OF ANUS AND RECTUM (3) Prostate CA Assessment/Plan: PSA Code(s): C61 - MALIGNANT NEOPLASM OF PROSTATE
--- NOTE | 2018-05-27 11:43 | OP ---
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
--- NOTE | 2018-05-27 12:25 | CONSULT ---
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 Cardio/Vascular: Yes: Other (aflutter) Pulmonary: Yes: COPD - Alcohol/Substance Use Hx Alcohol Use: No - Smoking History Smoking history: Former smoker Have you smoked in the past 12 months: Yes Aproximately how many cigarettes per day: 0 If you are a former smoker, when did you quit?: 1 YEAR - Social History ADL: Independent History of Recent Travel: No Home Medications - Allergies Allergies/Adverse Reactions: Allergies Allergy/AdvReac Type Severity Reaction Status Date / Time Penicillins Allergy Unknown "SWELL UP" Verified 05/26/18 09:41 Sulfa (Sulfonamide Allergy Unknown "SWELL UP" Verified 05/26/18 09:41 Antibiotics) - Home Medications Home Medications: Ambulatory Orders Acetaminophen [Tylenol] 650 mg PO Q6H PRN 05/26/18 Albuterol 2.5/Ipratropium 0.5 [Duoneb -] 1 neb NEB Q4H PRN 05/26/18 Apixaban [Eliquis] 5 mg PO BID 05/26/18 Atorvastatin Ca [Lipitor] 20 mg PO HS 05/26/18 Diltiazem HCl [Cardizem LA] 180 mg PO DAILY 05/26/18 Docusate Sodium 300 mg PO HS 05/26/18 Fluticasone Propionate [Flovent Diskus] 50 mcg IH DAILY PRN 05/26/18 Montelukast Sodium [Singulair] 10 mg PO HS 05/26/18 Nicotine [Nicoderm Cq] 1 each TD DAILY 05/26/18 Ranitidine HCl [Zantac] 150 mg PO DAILY 05/26/18 Sennosides [Senokot] 8.6 mg PO HS PRN 05/26/18 Travoprost [Travatan Z] 5 ml OP DAILY 05/26/18 Family Disease History - Family Disease History Family History: Denies Review of Systems - Review of Systems Cardiovascular: reports: No Symptoms Respiratory: reports: No Symptoms Gastrointestinal: denies: Abdominal Pain Neurological: reports: No Symptoms Pain Intensity: 3 Physical Exam Vital Signs: Vital Signs Temperature 98.3 F 05/27/18 11:21 Pulse Rate 69 05/27/18 11:21 Respiratory Rate 16 05/27/18 11:21 Blood Pressure 125/73 05/27/18 11:21 O2 Sat by Pulse Oximetry (%) 93 L 05/27/18 11:22 Constitutional: Yes: Calm Cardiovascular: Yes: WNL Respiratory: Yes: Regular Gastrointestinal: Yes: Soft, Other (No rectal abscess noted). No: Distention Labs: CBC, BMP 05/27/18 06:20 05/27/18 06:20 Imaging - Results Cat Scan: Report Reviewed, Image Reviewed Assessment/Plan Prostate abscess No rectal abscess Urology consult No general surgery intervention Thank you
[2018-05-27] MEDS: DEXTROSE 5%-0.45% SALINE 1,000 ML IV SCH (21:58)
[2018-05-27] MEDS: ATORVASTATIN CA 20 MG TABLET (FP) PO SCH (21:58)
[2018-05-28 07:37] LABS: BASO % 0.5 % (0-2.0); HEMATOCRIT 39.7 % (35.4-49); HEMOGLOBIN 13.3 GM/dL (11.7-16.9); LYMPH % 23.4 % (8-40); MCH 32.9 pg (25.7-33.7); MCHC 33.5 g/dl (32.0-35.9); MEAN CELL VOLUME 98.1 fl (80-96); MEAN PLT VOLUME 8.2 fl (7.5-11.1); MONO % 9.4 % (3.8-10.2); NEUT % 60.7 % (42.8-82.8); PLATELET COUNT 199 K/MM3 (134-434); RBC 4.05 M/mm3 (4.00-5.60); RDW 13.7 % (11.9-15.9)
[2018-05-28 08:05] LABS: ALBUMIN 3.1 g/dl (3.4-5.0); ANION GAP 7 MMOL/L (8-16); BLOOD UREA NITROGEN 7 mg/dL (7-18); CALCIUM 8.3 mg/dL (8.5-10.1); CHLORIDE 109 mmol/L (98-107); CO2 30 mmol/L (21-32); CREATININE 0.8 mg/dL (0.7-1.3); GLUCOSE,RANDOM 92 mg/dL (74-106); POTASSIUM 3.7 mmol/L (3.5-5.1); SGOT/AST 15 U/L (15-37); SGPT/ALT 12 U/L (12-78); SODIUM 146 mmol/L (136-145)
[2018-05-28 08:06] LABS: ALK PHOS 96 U/L (45-117); BILIRUBIN,TOTAL 0.9 mg/dL (0.2-1.0); TOT PROT 5.7 g/dl (6.4-8.2)
[2018-05-28] MEDS ORDERED: PT OWN MED DRAWER 7, Y5N ONE (08:42)
[2018-05-28] MEDS: PANTOPRAZOLE SODIUM 40 MG VIAL IVPUSH SCH (09:02)
[2018-05-28] MEDS: ERTAPENEM SODIUM 1 GM in SODIUM CHLORIDE 50 ML IVPB SCH (10:12)
--- NOTE | 2018-05-28 11:29 | PN ---
Progres Note Chief Complaint: pt w/o c/o - Objective Vital Signs: Vital Signs Temperature 98 F 05/28/18 09:00 Pulse Rate 57 L 05/28/18 09:00 Respiratory Rate 05/28/18 09:00 Blood Pressure 113/66 05/28/18 09:00 O2 Sat by Pulse Oximetry (%) 96 05/28/18 09:00 Gastrointestinal: Yes: WNL Genitourinary: Yes: WNL Kidneys: Yes: WNL Pelvis: Yes: WNL Testicles: Yes: WNL Scrotum: Yes: WNL Penis: Yes: WNL Prostate Exam: Yes: WNL, Swollen Labs/Additional Data: CBC, BMP 05/28/18 06:00 05/28/18 06:00 INR, PTT INR 1.10 (0.83-1.09) H 05/27/18 06:20 Blood Type Blood Type O POSITIVE 05/26/18 15:20 Antibody Screen Negative 05/26/18 10:27 Problem List - Problems (1) Prostatic abscess Assessment/Plan: cont iv abxs, transurethral drainage of prostatic abscess Wednesday 05/30 Code(s): N41.2 - ABSCESS OF PROSTATE (2) Rectal bleed Code(s): K62.5 - HEMORRHAGE OF ANUS AND RECTUM (3) Prostate CA Assessment/Plan: PSA Code(s): C61 - MALIGNANT NEOPLASM OF PROSTATE
[2018-05-28] MEDS: morphine SULFATE 4 MG/ML VIAL IVPUSH PRN (11:39)
--- NOTE | 2018-05-28 12:59 | PN ---
Progress Note, Physician - Current Medication List Current Medications: Active Medications Atorvastatin Calcium (Lipitor -) 20 mg PO HS [facility] Last Admin: 05/27/18 21:58 Dose: 20 mg Diltiazem HCl (Cardizem Cd -) 180 mg PO DAILY [facility] Last Admin: 05/28/18 09:02 Dose: 180 mg Dextrose/Sodium Chloride (D5-1/2ns -) 1,000 mls @ 75 mls/hr IV ASDIR [facility] Last Admin: 05/27/18 21:58 Dose: 75 mls/hr Metronidazole (Flagyl 500mg Premixed Ivpb -) 500 mg in 100 mls @ 100 mls/hr IVPB Q8H-IV [facility] Last Admin: 05/28/18 09:02 Dose: 100 mls/hr Ertapenem 1 gm/ Sodium (Chloride) 50 mls @ 50 mls/hr IVPB DAILY [facility]; Protocol Last Admin: 05/28/18 10:12 Dose: 50 mls/hr Morphine Sulfate (Morphine Sulfate) 4 mg IVPUSH Q4H PRN PRN Reason: PAIN LEVEL 7 - 10 Last Admin: 05/28/18 11:39 Dose: 4 mg Pantoprazole Sodium (Protonix Iv) 40 mg IVPUSH DAILY@0800 [facility] Last Admin: 05/28/18 09:02 Dose: 40 mg - Objective Vital Signs: Vital Signs Temperature 98 F 05/28/18 09:00 Pulse Rate 57 L 05/28/18 09:00 Respiratory Rate 18 05/28/18 09:00 Blood Pressure 113/66 05/28/18 09:00 O2 Sat by Pulse Oximetry (%) 96 05/28/18 09:00 Cardiovascular: Yes: S1, S2 Respiratory: Yes: Regular, CTA Bilaterally Gastrointestinal: Yes: Normal Bowel Sounds, Soft Genitourinary: Yes: Hogan Present Labs: CBC, BMP 05/28/18 06:00 05/28/18 06:00 INR, PTT INR 1.10 (0.83-1.09) H 05/27/18 06:20 Problem List - Problems (1) Prostatic abscess Assessment/Plan: awaiting urology evaluation noted ID consult noted emperic ertrapenem pain control Code(s): N41.2 - ABSCESS OF PROSTATE (2) Atrial flutter Assessment/Plan: hold eliquis given rectal bleed cardizem SCD cardio consult appreciated Code(s): I48.92 - UNSPECIFIED ATRIAL FLUTTER (3) Rectal bleed Assessment/Plan: hold eliquis monitor h/h gi eval noted diet per gi Code(s): K62.5 - HEMORRHAGE OF ANUS AND RECTUM
[2018-05-28] MEDS: DEXTROSE 5%-0.45% SALINE 1,000 ML IV SCH (14:09)
[2018-05-28] MEDS: ATORVASTATIN CA 20 MG TABLET (FP) PO SCH (22:26)
[2018-05-29 07:19] LABS: BASO % 0.5 % (0-2.0); EOS % 4.9 % (0-4.5); HEMATOCRIT 40.9 % (35.4-49); HEMOGLOBIN 13.8 GM/dL (11.7-16.9); LYMPH % 31.3 % (8-40); MCH 32.6 pg (25.7-33.7); MCHC 33.7 g/dl (32.0-35.9); MEAN CELL VOLUME 96.7 fl (80-96); MONO % 8.9 % (3.8-10.2); NEUT % 54.4 % (42.8-82.8); PLATELET COUNT 215 K/MM3 (134-434); RBC 4.23 M/mm3 (4.00-5.60); RDW 13.6 % (11.9-15.9); WHITE BLOOD COUNT 5.3 K/mm3 (4.0-10.0)
[2018-05-29 08:33] LABS: ALBUMIN 3.2 g/dl (3.4-5.0); ANION GAP 9 MMOL/L (8-16); BLOOD UREA NITROGEN 5 mg/dL (7-18); CALCIUM 8.6 mg/dL (8.5-10.1); CHLORIDE 109 mmol/L (98-107); CO2 27 mmol/L (21-32); CREATININE 0.7 mg/dL (0.7-1.3); GLUCOSE,RANDOM 93 mg/dL (74-106); POTASSIUM 3.7 mmol/L (3.5-5.1); SGOT/AST 14 U/L (15-37); SGPT/ALT 13 U/L (12-78); SODIUM 145 mmol/L (136-145)
[2018-05-29 08:35] LABS: ALK PHOS 99 U/L (45-117); BILIRUBIN,TOTAL 0.8 mg/dL (0.2-1.0); TOT PROT 5.8 g/dl (6.4-8.2)
[2018-05-29] MEDS: PANTOPRAZOLE SODIUM 40 MG VIAL IVPUSH SCH (09:47)
[2018-05-29] MEDS: DEXTROSE 5%-0.45% SALINE 1,000 ML IV SCH (09:47)
[2018-05-29] MEDS: ERTAPENEM SODIUM 1 GM in SODIUM CHLORIDE 50 ML IVPB SCH (11:10)
--- NOTE | 2018-05-29 15:11 | PN ---
Progress Note, Physician - Current Medication List Current Medications: Active Medications Atorvastatin Calcium (Lipitor -) 20 mg PO HS [facility] Last Admin: 05/28/18 22:26 Dose: 20 mg Diltiazem HCl (Cardizem Cd -) 180 mg PO DAILY [facility] Last Admin: 05/29/18 09:47 Dose: 180 mg Dextrose/Sodium Chloride (D5-1/2ns -) 1,000 mls @ 75 mls/hr IV ASDIR [facility] Last Admin: 05/29/18 09:47 Dose: 75 mls/hr Metronidazole (Flagyl 500mg Premixed Ivpb -) 500 mg in 100 mls @ 100 mls/hr IVPB Q8H-IV [facility] Last Admin: 05/29/18 09:47 Dose: 100 mls/hr Ertapenem 1 gm/ Sodium (Chloride) 50 mls @ 50 mls/hr IVPB DAILY [facility]; Protocol Last Admin: 05/29/18 11:10 Dose: 50 mls/hr Morphine Sulfate (Morphine Sulfate) 4 mg IVPUSH Q4H PRN PRN Reason: PAIN LEVEL 7 - 10 Last Admin: 05/28/18 11:39 Dose: 4 mg Pantoprazole Sodium (Protonix Iv) 40 mg IVPUSH DAILY@0800 [facility] Last Admin: 05/29/18 09:47 Dose: 40 mg - Objective Vital Signs: Vital Signs Temperature 98.6 F 05/29/18 14:48 Pulse Rate 67 05/29/18 14:48 Respiratory Rate 20 05/29/18 14:48 Blood Pressure 106/73 05/29/18 14:48 O2 Sat by Pulse Oximetry (%) 95 05/29/18 09:00 Cardiovascular: Yes: S1, S2 Respiratory: Yes: Regular, CTA Bilaterally Gastrointestinal: Yes: Normal Bowel Sounds, Soft Labs: CBC, BMP 05/29/18 06:00 05/29/18 06:00 INR, PTT INR 1.10 (0.83-1.09) H 05/27/18 06:20 Problem List - Problems (1) Prostatic abscess Assessment/Plan: awaiting urology evaluation noted ID consult noted emperic ertrapenem pain control Code(s): N41.2 - ABSCESS OF PROSTATE (2) Atrial flutter Assessment/Plan: hold eliquis given rectal bleed cardizem SCD cardio consult appreciated Code(s): I48.92 - UNSPECIFIED ATRIAL FLUTTER (3) Rectal bleed Assessment/Plan: [facility]is monitor h[facility]h gi eval noted diet per gi Code(s): K62.5 - HEMORRHAGE OF ANUS AND RECTUM
[2018-05-29] MEDS: ATORVASTATIN CA 20 MG TABLET (FP) PO SCH (22:26)
[2018-05-30 07:27] LABS: BASO % 0.6 % (0-2.0); EOS % 5.1 % (0-4.5); HEMATOCRIT 41.1 % (35.4-49); HEMOGLOBIN 13.9 GM/dL (11.7-16.9); LYMPH % 35.5 % (8-40); MCH 32.9 pg (25.7-33.7); MCHC 33.8 g/dl (32.0-35.9); MEAN CELL VOLUME 97.1 fl (80-96); MONO % 9.6 % (3.8-10.2); NEUT % 49.2 % (42.8-82.8); PLATELET COUNT 220 K/MM3 (134-434); RBC 4.23 M/mm3 (4.00-5.60); RDW 13.6 % (11.9-15.9); WHITE BLOOD COUNT 4.6 K/mm3 (4.0-10.0)
[2018-05-30] MEDS: PANTOPRAZOLE SODIUM 40 MG VIAL IVPUSH SCH (07:48)
[2018-05-30 07:59] LABS: ALBUMIN 3.1 g/dl (3.4-5.0); ANION GAP 8 MMOL/L (8-16); BILIRUBIN,TOTAL 0.7 mg/dL (0.2-1.0); BLOOD UREA NITROGEN 5 mg/dL (7-18); CALCIUM 8.6 mg/dL (8.5-10.1); CHLORIDE 110 mmol/L (98-107); CO2 26 mmol/L (21-32); CREATININE 0.7 mg/dL (0.7-1.3); GLUCOSE,RANDOM 92 mg/dL (74-106); INR 1.13 (0.83-1.09); POTASSIUM 3.8 mmol/L (3.5-5.1); PROTHROMBIN TIME (PATIENT) 12.8 SEC (9.7-13.0); SGOT/AST 16 U/L (15-37); SGPT/ALT 13 U/L (12-78); SODIUM 144 mmol/L (136-145)
[2018-05-30 08:00] LABS: ALK PHOS 95 U/L (45-117); TOT PROT 5.5 g/dl (6.4-8.2)
[2018-05-30] MEDS ORDERED: PT OWN MED DRAWER 7, Y5N ONE (09:05)
[2018-05-30] MEDS: ERTAPENEM SODIUM 1 GM in SODIUM CHLORIDE 50 ML IVPB SCH (10:36)
[2018-05-30] MEDS: DEXTROSE 5%-0.45% SALINE 1,000 ML IV SCH ×2 (10:48→15:30)
[2018-05-30] MEDS ORDERED: LIDOCAINE HCL 2% JELLY 10 ML CARTRIDGE ONE (12:14)
[2018-05-30] MEDS ORDERED: MIDAZOLAM HCL 2 MG/2 ML SINGLE DOSE VIAL ONE (13:02)
--- NOTE | 2018-05-30 13:30 | OP ---
Operative Note - Note: Operative Date: 05/30/18 Pre-Operative Diagnosis: prostatic abscess Operation: SP cystostomy Findings: rectourethral fistula Post-Operative Diagnosis: Other (rectourethral fistula) Surgeon: Aurelio Amaral Anesthesiologist/SPRAY DRIER OPERATOR HELPER: Charlotte Londono Anesthesia: General Specimens Removed: none Estimated Blood Loss (mls): 0 Drains & Tubes with Location: 12 fr SP tube Operative Report Dictated: Yes
[2018-05-30] MEDS ORDERED: morphine SULFATE 4 MG/ML VIAL IVPUSH PRN (13:31)
--- NOTE | 2018-05-30 17:29 | PN ---
Progress Note, Physician Chief Complaint: NOTES REVIEWED AND EVENTS NOTED AWAKE ALERT PROSTATE MASS RECTAL FISTULA SCHEDULE TO SEE DR BRIDGES FOR POSSIBLE COLOSTOMY AND RESECTION - Current Medication List Current Medications: Active Medications Atorvastatin Calcium (Lipitor -) 20 mg PO HS [facility] Diltiazem HCl (Cardizem Cd -) 180 mg PO DAILY [facility] Fentanyl (Sublimaze Injection -) 25 mcg IVPUSH [id number] PRN PRN Reason: PAIN-PACU ORDER X 4 DOSES ONLY Dextrose/Sodium Chloride (D5-1/2ns -) 1,000 mls @ 75 mls/hr IV ASDIR [facility] Last Admin: 05/30/18 15:30 Dose: 0 mls Ertapenem 1 gm/ Sodium (Chloride) 100 mls @ 200 mls/hr IVPB DAILY [facility]; Protocol Metronidazole (Flagyl 500mg Premixed Ivpb -) 500 mg in 100 mls @ 100 mls/hr IVPB Q8H-IV [facility] Last Admin: 05/30/18 17:24 Dose: Not Given Morphine Sulfate (Morphine Sulfate) 4 mg IVPUSH Q4H PRN PRN Reason: PAIN LEVEL 7 - 10 Pantoprazole Sodium (Protonix Iv) 40 mg IVPUSH DAILY@0800 [facility] - Objective Vital Signs: Vital Signs Temperature 97.8 F 05/30/18 16:04 Pulse Rate 75 05/30/18 16:04 Respiratory Rate 20 05/30/18 16:04 Blood Pressure 141/81 05/30/18 16:04 O2 Sat by Pulse Oximetry (%) 96 05/30/18 16:04 Constitutional: Yes: Mild Distress Eyes: Yes: WNL HENT: Yes: WNL Neck: Yes: WNL Cardiovascular: Yes: WNL Respiratory: Yes: WNL Gastrointestinal: Yes: WNL Genitourinary: Yes: Koch Present, Other Musculoskeletal: Yes: Muscle Weakness Extremities: Yes: Other Edema: No Peripheral Pulses WNL: Yes Integumentary: Yes: Other Wound/Incision: Yes: Other Neurological: Yes: Pre-Existing Deficit ...Motor Strength: LLE, RLE Psychiatric: Yes: WNL Labs: CBC, BMP 05/30/18 06:00 05/30/18 06:00 INR, PTT INR 1.13 (0.83-1.09) H 05/30/18 06:00 Problem List - Problems (1) Abscess Code(s): L02.91 - CUTANEOUS ABSCESS, UNSPECIFIED (2) Atrial flutter Code(s): I48.92 - UNSPECIFIED ATRIAL FLUTTER (3) Prostate CA Code(s): C61 - MALIGNANT NEOPLASM OF PROSTATE (4) Prostatic abscess Code(s): N41.2 - ABSCESS OF PROSTATE (5) Rectal bleed Code(s): K62.5 - HEMORRHAGE OF ANUS AND RECTUM Assessment/Plan SURGICAL EVAL DR BRIDGES EVALUATION FOR COLOSTOMY [place] FOR RETENTION DVT PROPHYLAXIS CHECK LABS PT EVAL OOB TO CHAIR
--- NOTE | 2018-05-30 17:33 | PN ---
Progress Note, Physician - Current Medication List Current Medications: Active Medications Atorvastatin Calcium (Lipitor -) 20 mg PO HS [facility] Diltiazem HCl (Cardizem Cd -) 180 mg PO DAILY [facility] Fentanyl (Sublimaze Injection -) 25 mcg IVPUSH [id number] PRN PRN Reason: PAIN-PACU ORDER X 4 DOSES ONLY Dextrose/Sodium Chloride (D5-1/2ns -) 1,000 mls @ 75 mls/hr IV ASDIR [facility] Last Admin: 05/30/18 15:30 Dose: 0 mls Ertapenem 1 gm/ Sodium (Chloride) 100 mls @ 200 mls/hr IVPB DAILY [facility]; Protocol Metronidazole (Flagyl 500mg Premixed Ivpb -) 500 mg in 100 mls @ 100 mls/hr IVPB Q8H-IV [facility] Last Admin: 05/30/18 17:24 Dose: Not Given Morphine Sulfate (Morphine Sulfate) 4 mg IVPUSH Q4H PRN PRN Reason: PAIN LEVEL 7 - 10 Nystatin/Triamcinolone Acetonide (Mycolog Ii Cream -) 1 applic TP BID [facility] Pantoprazole Sodium (Protonix Iv) 40 mg IVPUSH DAILY@0800 [facility] - Objective Vital Signs: Vital Signs Temperature 97.8 F 05/30/18 16:04 Pulse Rate 75 05/30/18 16:04 Respiratory Rate 20 05/30/18 16:04 Blood Pressure 141/81 05/30/18 16:04 O2 Sat by Pulse Oximetry (%) 96 05/30/18 16:04 Labs: CBC, BMP 05/30/18 06:00 05/30/18 06:00 INR, PTT INR 1.13 (0.83-1.09) H 05/30/18 06:00
--- NOTE | 2018-05-30 20:27 | OP ---
DATE OF OPERATION: 05/30/2018 PREOPERATIVE DIAGNOSIS: Prostatic abscess. POSTOPERATIVE DIAGNOSIS: Rectourethral fistula. PROCEDURE: Suprapubic cystostomy. SURGEON: Aurelio Amaral MD NURSE PRACTITIONER HOSPITALIST: None. ANESTHESIA: General via laryngeal mask. ANESTHESIOLOGIST: SPECIMENS: None. CULTURES: None. DRAINS: A 12-Malawian suprapubic tube. ESTIMATED BLOOD LOSS: None. COMPLICATIONS: None. DESCRIPTION OF PROCEDURE: Patient was brought in the operating room, placed on the operating table in supine position after administration of general anesthesia via laryngeal mask. Intravenous antibiotics had been administered on the floor. The 26-Malawian resectoscope sheath with visualizing obturator was inserted into the anterior urethra. The anterior urethra was normal. At the level of the prostatic urethra, the posterior wall was noted a fistula into the rectum. The scope was now advanced into the bladder, and cystoscopy was performed. This demonstrated no foreign bodies, tumors, stones, inflammation. Both ureteral orifices were in their usual location with clear efflux bilaterally. There was significant cloudy, proteinaceous-appearing debris in the bladder, which was evacuated. Now, the bladder was left full. The lower abdomen had been previously prepped. Now, 2 fingerbreadths cephalad to the pubic bone in the midline, an 18-gauge needle was passed under direct vision into the bladder and clear irrigation fluid was aspirated. Now, a stab wound incision was placed in the same location, carried down through the fascia. Now, a 12-Malawian trocar suprapubic tube was inserted under cystoscopic guidance. The catheter was placed into the bladder, the trocar was removed, and the coil was tightened with its suture. Suprapubic tube was placed on gravity drainage. Decision was made not to drain the prostatic abscess at this time as the patient will need a diverting colostomy and will continue IV antibiotics. Teri [id number] cc: MD Russ Emerson MD
[2018-05-30] MEDS: NYSTATIN/TRIAMCINOLONE TOPICAL CREAM 15 GM TUBE TP SCH (22:15)
[2018-05-30] MEDS: ATORVASTATIN CA 20 MG TABLET (FP) PO SCH (22:15)
[2018-05-31] MEDS ORDERED: oxyCODONE HCL 5 MG TABLET PO ONE (00:39)
[2018-05-31] MEDS ORDERED: PT OWN MED DRAWER 7, Y5N ONE ×2 (05:15→10:16)
[2018-05-31] MEDS ORDERED: PANTOPRAZOLE SODIUM 40 MG VIAL IVPUSH SCH (08:00)
--- NOTE | 2018-05-31 09:25 | PN ---
Progres Note Chief Complaint: pt w/o c/o History of Present Illness: POD # 1 s/p sp cystostomy - Objective Vital Signs: Vital Signs Temperature 98 F 05/31/18 06:05 Pulse Rate 62 05/31/18 06:05 Respiratory Rate 18 05/31/18 06:05 Blood Pressure 104/60 05/31/18 06:05 O2 Sat by Pulse Oximetry (%) 96 05/30/18 21:00 Constitutional: Yes: Well Nourished Gastrointestinal: Yes: WNL, Normal Bowel Sounds, Soft Genitourinary: Yes: WNL (spt w clear yellow urine) Kidneys: Yes: WNL Pelvis: Yes: WNL Testicles: Yes: WNL Labs/Additional Data: CBC, BMP 05/30/18 06:00 05/30/18 06:00 INR, PTT INR 1.13 (0.83-1.09) H 05/30/18 06:00 Blood Type Blood Type O POSITIVE 05/26/18 15:20 Antibody Screen Negative 05/26/18 10:27 Problem List - Problems (1) Prostatic abscess Code(s): N41.2 - ABSCESS OF PROSTATE (2) Rectal bleed Code(s): K62.5 - HEMORRHAGE OF ANUS AND RECTUM (3) Prostate CA Code(s): C61 - MALIGNANT NEOPLASM OF PROSTATE (4) Rectourethral fistula Assessment/Plan: gen surg cons re diverting colostomy Code(s): N36.0 - URETHRAL FISTULA
[2018-05-31] MEDS: oxyCODONE HCL 5 MG TABLET PO PRN ×3 (09:40→22:03)
[2018-05-31] MEDS: ERTAPENEM SODIUM 1 GM in SODIUM CHLORIDE 100 ML IVPB SCH (09:45)
[2018-05-31] MEDS: NYSTATIN/TRIAMCINOLONE TOPICAL CREAM 15 GM TUBE TP SCH ×2 (10:00→21:15)
--- NOTE | 2018-05-31 11:19 | PN ---
Progress Note (short form) - Note Progress Note: Anesthesia post op Pt seen and examined S:Alert and awake O: Vital Signs Temperature 98.2 F 05/31/18 09:42 Pulse Rate 60 05/31/18 09:42 Respiratory Rate 18 05/31/18 09:42 Blood Pressure 111/61 05/31/18 09:42 O2 Sat by Pulse Oximetry (%) 96 05/30/18 21:00 CBC, BMP 05/30/18 06:00 05/30/18 06:00 A/P: Current Active Problems Abscess (Acute) Atrial flutter (Acute) Prostate CA (Acute) Prostatic abscess (Acute) Rectal bleed (Acute) Rectourethral fistula (Acute) s/p Supra pubic cystostomy, cysto Doing well post op Continue current care Shlomo Davidson MD
--- NOTE | 2018-05-31 16:10 | PN ---
Progress Note, Physician Chief Complaint: AWAKE ALERT DENIED IV ACCESS ATTEMPT BY NURSE DENIES FEVER OR CHILLS - Current Medication List Current Medications: Active Medications Atorvastatin Calcium (Lipitor -) 20 mg PO HS [facility] Last Admin: 05/30/18 22:15 Dose: 20 mg Diltiazem HCl (Cardizem Cd -) 180 mg PO DAILY [facility] Last Admin: 05/31/18 09:40 Dose: 180 mg Fentanyl (Sublimaze Injection -) 25 mcg IVPUSH [id number] PRN PRN Reason: PAIN-PACU ORDER X 4 DOSES ONLY Dextrose/Sodium Chloride (D5-1/2ns -) 1,000 mls @ 75 mls/hr IV ASDIR [facility] Last Admin: 05/30/18 15:30 Dose: 0 mls Ertapenem 1 gm/ Sodium (Chloride) 100 mls @ 200 mls/hr IVPB DAILY [facility]; Protocol Last Admin: 05/31/18 09:45 Dose: Not Given Metronidazole (Flagyl 500mg Premixed Ivpb -) 500 mg in 100 mls @ 100 mls/hr IVPB Q8H-IV [facility] Last Admin: 05/31/18 09:45 Dose: Not Given Morphine Sulfate (Morphine Sulfate) 4 mg IVPUSH Q4H PRN PRN Reason: PAIN LEVEL 7 - 10 Nystatin/Triamcinolone Acetonide (Mycolog Ii Cream -) 1 applic TP BID [facility] Last Admin: 05/31/18 10:00 Dose: 1 applic Oxycodone HCl (Roxicodone -) 5 mg PO Q6H PRN PRN Reason: PAIN SCALE 5-10 Last Admin: 05/31/18 15:48 Dose: 5 mg Pantoprazole Sodium (Protonix Iv) 40 mg IVPUSH DAILY@0800 [facility] Last Admin: 05/31/18 09:44 Dose: Not Given - Objective Vital Signs: Vital Signs Temperature 98.0 F 05/31/18 14:53 Pulse Rate 59 L 05/31/18 14:53 Respiratory Rate 18 05/31/18 14:53 Blood Pressure 99/53 05/31/18 14:53 O2 Sat by Pulse Oximetry (%) 96 05/31/18 09:00 Constitutional: Yes: Mild Distress Eyes: Yes: WNL HENT: Yes: WNL Neck: Yes: WNL Cardiovascular: Yes: WNL Respiratory: Yes: WNL Gastrointestinal: Yes: WNL Genitourinary: Yes: Koch Present Musculoskeletal: Yes: Muscle Weakness Extremities: Yes: WNL Edema: Yes Edema: LLE: Trace, RLE: Trace Peripheral Pulses WNL: Yes Integumentary: Yes: WNL Wound/Incision: Yes: Clean/Dry Neurological: Yes: Pre-Existing Deficit ...Motor Strength: LLE, RLE Psychiatric: Yes: Agitated Labs: CBC, BMP 05/30/18 06:00 05/30/18 06:00 INR, PTT INR 1.13 (0.83-1.09) H 05/30/18 06:00 Problem List - Problems (1) Abscess Code(s): L02.91 - CUTANEOUS ABSCESS, UNSPECIFIED (2) Atrial flutter Code(s): I48.92 - UNSPECIFIED ATRIAL FLUTTER (3) Prostate CA Code(s): C61 - MALIGNANT NEOPLASM OF PROSTATE (4) Prostatic abscess Code(s): N41.2 - ABSCESS OF PROSTATE (5) Rectal bleed Code(s): K62.5 - HEMORRHAGE OF ANUS AND RECTUM Assessment/Plan SURGICAL EVAL DR BRIDGES EVALUATION FOR COLOSTOMY KOCH FOR RETENTION DVT PROPHYLAXIS CHECK LABS PT EVAL OOB TO CHAIR D/W PATIENT FOR 20 MINS THE NEED FOR IV ACCESS FOR IV ABX HE AGREED TO ALLOW NURSES
[2018-05-31] MEDS: AMINO ACIDS/PROTEIN HYDROLYS 30 ML LIQUID.PKT PO SCH (17:46)
[2018-05-31] MEDS: DEXTROSE 5%-0.45% SALINE 1,000 ML IV SCH (17:55)
[2018-05-31] MEDS: ATORVASTATIN CA 20 MG TABLET (FP) PO SCH (21:09)
[2018-06-01] MEDS: oxyCODONE HCL 5 MG TABLET PO PRN ×3 (06:14→22:58)
[2018-06-01 07:03] LABS: HEMATOCRIT 38.3 % (35.4-49); HEMOGLOBIN 12.9 GM/dL (11.7-16.9); MCHC 33.8 g/dl (32.0-35.9); MEAN CELL VOLUME 97.7 fl (80-96); PLATELET COUNT 206 K/MM3 (134-434); RBC 3.92 M/mm3 (4.00-5.60); RDW 13.9 % (11.9-15.9); WHITE BLOOD COUNT 10.4 K/mm3 (4.0-10.0)
[2018-06-01 08:01] LABS: CHLORIDE 110 mmol/L (98-107); POTASSIUM 4.2 mmol/L (3.5-5.1); SODIUM 146 mmol/L (136-145)
[2018-06-01 08:09] LABS: ALBUMIN 2.8 g/dl (3.4-5.0); ALK PHOS 109 U/L (45-117); ANION GAP 8 MMOL/L (8-16); BILIRUBIN,TOTAL 0.4 mg/dL (0.2-1.0); BLOOD UREA NITROGEN 14 mg/dL (7-18); CALCIUM 8.2 mg/dL (8.5-10.1); CO2 28 mmol/L (21-32); CREATININE 0.8 mg/dL (0.7-1.3); GLUCOSE,RANDOM 94 mg/dL (74-106); SGOT/AST 15 U/L (15-37); SGPT/ALT 13 U/L (12-78)
[2018-06-01] MEDS: AMINO ACIDS/PROTEIN HYDROLYS 30 ML LIQUID.PKT PO SCH ×2 (08:19→16:30)
[2018-06-01] MEDS: ERTAPENEM SODIUM 1 GM in SODIUM CHLORIDE 100 ML IVPB SCH (09:05)
[2018-06-01] MEDS: NYSTATIN/TRIAMCINOLONE TOPICAL CREAM 15 GM TUBE TP SCH ×2 (09:07→23:04)
[2018-06-01] MEDS: PANTOPRAZOLE 40 MG TABLET (FP) PO SCH (09:26)
--- NOTE | 2018-06-01 11:53 | PN ---
Progress Note, Physician History of Present Illness: Developed generalized pruritis and noted to have hives on UE Last received flagyl at 1am Did not receive ertapenem today No c/o rectal pain or bleeding No fever/ chills WBC 10.4 BC (-) - Current Medication List Current Medications: Active Medications Amino Acids (Prosource No Carb Liquid Pkt) 30 ml PO BID@0800,1730 [facility] Last Admin: 06/01/18 08:19 Dose: 30 ml Atorvastatin Calcium (Lipitor -) 20 mg PO HS [facility] Last Admin: 05/31/18 21:09 Dose: 20 mg Diltiazem HCl (Cardizem Cd -) 180 mg PO DAILY [facility] Last Admin: 06/01/18 09:06 Dose: 180 mg Fentanyl (Sublimaze Injection -) 25 mcg IVPUSH [id number] PRN PRN Reason: PAIN-PACU ORDER X 4 DOSES ONLY Dextrose/Sodium Chloride (D5-1/2ns -) 1,000 mls @ 75 mls/hr IV ASDIR [facility] Last Admin: 05/31/18 17:55 Dose: 75 mls/hr Ertapenem 1 gm/ Sodium (Chloride) 100 mls @ 200 mls/hr IVPB DAILY [facility]; Protocol Last Admin: 06/01/18 09:05 Dose: 200 mls/hr Metronidazole (Flagyl 500mg Premixed Ivpb -) 500 mg in 100 mls @ 100 mls/hr IVPB Q8H-IV [facility] Last Admin: 06/01/18 09:07 Dose: 100 mls/hr Nystatin/Triamcinolone Acetonide (Mycolog Ii Cream -) 1 applic TP BID [facility] Last Admin: 06/01/18 09:07 Dose: 1 applic Oxycodone HCl (Roxicodone -) 5 mg PO Q6H PRN PRN Reason: PAIN SCALE 5-10 Last Admin: 06/01/18 06:14 Dose: 5 mg Pantoprazole Sodium (Protonix -) 40 mg PO DAILY [facility] Last Admin: 06/01/18 09:26 Dose: 40 mg - Objective Vital Signs: Vital Signs Temperature 98.1 F 06/01/18 08:25 Pulse Rate 57 L 06/01/18 09:48 Respiratory Rate 20 06/01/18 09:48 Blood Pressure 96/48 06/01/18 09:48 O2 Sat by Pulse Oximetry (%) 98 06/01/18 11:07 Constitutional: Yes: No Distress Eyes: Yes: Conjunctiva Clear Cardiovascular: Yes: Regular Rate and Rhythm, S1, S2 Respiratory: Yes: CTA Bilaterally Gastrointestinal: Yes: Normal Bowel Sounds, Soft. No: Tenderness Edema: Yes Edema: LLE: 1+, RLE: 1+ Integumentary: Yes: Other (No rash noted) Labs: CBC, BMP 06/01/18 06:15 06/01/18 06:15 INR, PTT INR 1.13 (0.83-1.09) H 05/30/18 06:00 Assessment/Plan ? Adverse drug reaction ?? agent POD#2 cysto, SPT Rectoureathral fistula PCN/ Sulfa allergies ? Carbapenem allergy Hold antibiotics Benadryl prn
[2018-06-01] MEDS ORDERED: diphenhydrAMINE HCL 25 MG CAPSULE (FP) PO PRN (11:54)
--- NOTE | 2018-06-01 12:09 | PN ---
Progress Note, Physician Chief Complaint: AWAKE ALERT LOST IV ACCESS DENIES FEVER OR CHILLS +APPETITE - Current Medication List Current Medications: Active Medications Amino Acids (Prosource No Carb Liquid Pkt) 30 ml PO BID@0800,1730 [facility] Last Admin: 06/01/18 08:19 Dose: 30 ml Atorvastatin Calcium (Lipitor -) 20 mg PO HS [facility] Last Admin: 05/31/18 21:09 Dose: 20 mg Diltiazem HCl (Cardizem Cd -) 180 mg PO DAILY [facility] Last Admin: 06/01/18 09:06 Dose: 180 mg Diphenhydramine HCl (Benadryl -) 25 mg PO Q8H PRN PRN Reason: FOR ITCHING Dextrose/Sodium Chloride (D5-1/2ns -) 1,000 mls @ 75 mls/hr IV ASDIR [facility] Last Admin: 05/31/18 17:55 Dose: 75 mls/hr Nystatin/Triamcinolone Acetonide (Mycolog Ii Cream -) 1 applic TP BID [facility] Last Admin: 06/01/18 09:07 Dose: 1 applic Oxycodone HCl (Roxicodone -) 5 mg PO Q6H PRN PRN Reason: PAIN SCALE 5-10 Last Admin: 06/01/18 06:14 Dose: 5 mg Pantoprazole Sodium (Protonix -) 40 mg PO DAILY [facility] Last Admin: 06/01/18 09:26 Dose: 40 mg - Objective Vital Signs: Vital Signs Temperature 98.1 F 06/01/18 08:25 Pulse Rate 57 L 06/01/18 09:48 Respiratory Rate 20 06/01/18 09:48 Blood Pressure 96/48 06/01/18 09:48 O2 Sat by Pulse Oximetry (%) 98 06/01/18 11:07 Constitutional: Yes: No Distress Eyes: Yes: WNL HENT: Yes: WNL Neck: Yes: WNL Cardiovascular: Yes: WNL Respiratory: Yes: WNL Gastrointestinal: Yes: Other Genitourinary: Yes: Koch Present Musculoskeletal: Yes: Muscle Weakness Extremities: Yes: WNL Edema: No Peripheral Pulses WNL: Yes Integumentary: Yes: Other Wound/Incision: Yes: Clean/Dry Neurological: Yes: Pre-Existing Deficit ...Motor Strength: LLE, RLE Psychiatric: Yes: Agitated Labs: CBC, BMP 06/01/18 06:15 06/01/18 06:15 INR, PTT INR 1.13 (0.83-1.09) H 05/30/18 06:00 Problem List - Problems (1) Abscess Code(s): L02.91 - CUTANEOUS ABSCESS, UNSPECIFIED (2) Atrial flutter Code(s): I48.92 - UNSPECIFIED ATRIAL FLUTTER (3) Prostate CA Code(s): C61 - MALIGNANT NEOPLASM OF PROSTATE (4) Prostatic abscess Code(s): N41.2 - ABSCESS OF PROSTATE (5) Rectal bleed Code(s): K62.5 - HEMORRHAGE OF ANUS AND RECTUM Assessment/Plan SURGICAL EVAL DR TOSCANO FOR EVALUATION FOR COLOSTOMY [place] FOR RETENTION DVT PROPHYLAXIS CHECK LABS PT EVAL OOB TO CHAIR D/W PATIENT FOR 20 MINS THE NEED FOR IV ACCESS FOR IV ABX HE AGREED TO ALLOW NURSES IV ABX PER ID PT EVAL
--- NOTE | 2018-06-01 14:54 | PN ---
Progress Note (short form) - Note Progress Note: Pain-free. No bleeding. Tolerating reg. diet. Urology findings noted. The fistula management as per urology and surgery.
[2018-06-01] MEDS: DEXTROSE 5%-0.45% SALINE 1,000 ML IV SCH (15:07)
--- NOTE | 2018-06-01 18:46 | PN ---
Progress Note (short form) - Note Progress Note: Patient seen + Prostate abscess Discussed with Urology- recommended diverting colostomy for enterocutaneous fistula seen No pain On diet AVSS Abd soft, NT Recommend colorectal surgery evaluation
[2018-06-01] MEDS: ATORVASTATIN CA 20 MG TABLET (FP) PO SCH (22:59)
[2018-06-02] MEDS: oxyCODONE HCL 5 MG TABLET PO PRN ×3 (04:39→22:03)
[2018-06-02] MEDS: AMINO ACIDS/PROTEIN HYDROLYS 30 ML LIQUID.PKT PO SCH ×2 (08:48→16:38)
[2018-06-02] MEDS ORDERED: PT OWN MED DRAWER 7, Y5N ONE (09:07)
--- NOTE | 2018-06-02 09:31 | PN ---
Progress Note, Physician Chief Complaint: AWAKE MORE ALERT D/W PATIENT THAT HE MAY NEED A DIVERTING COLOSTOMY FOR RECTAL/COLO FISTULA HE UNDERSTANDS AND IS PROCESSING INFORMATION ASKED I SPEAK TO GAVI HIS DAUGHTER - Current Medication List Current Medications: Active Medications Amino Acids (Prosource No Carb Liquid Pkt) 30 ml PO BID@0800,1730 [facility] Last Admin: 06/02/18 08:48 Dose: 30 ml Atorvastatin Calcium (Lipitor -) 20 mg PO HS [facility] Last Admin: 06/01/18 22:59 Dose: 20 mg Diltiazem HCl (Cardizem Cd -) 180 mg PO DAILY [facility] Last Admin: 06/01/18 09:06 Dose: 180 mg Diphenhydramine HCl (Benadryl -) 25 mg PO Q8H PRN PRN Reason: FOR ITCHING Last Admin: 06/01/18 16:25 Dose: 25 mg Nystatin/Triamcinolone Acetonide (Mycolog Ii Cream -) 1 applic TP BID [facility] Last Admin: 06/01/18 23:04 Dose: 1 applic Oxycodone HCl (Roxicodone -) 5 mg PO Q6H PRN PRN Reason: PAIN SCALE 5-10 Last Admin: 06/02/18 04:39 Dose: 5 mg Pantoprazole Sodium (Protonix -) 40 mg PO DAILY [facility] Last Admin: 06/01/18 09:26 Dose: 40 mg - Objective Vital Signs: Vital Signs Temperature 98.1 F 06/02/18 05:53 Pulse Rate 61 06/02/18 05:53 Respiratory Rate 20 06/02/18 05:53 Blood Pressure 110/72 06/02/18 05:53 O2 Sat by Pulse Oximetry (%) 97 06/01/18 21:00 Constitutional: Yes: Mild Distress Eyes: Yes: WNL HENT: Yes: WNL Neck: Yes: WNL Cardiovascular: Yes: WNL Respiratory: Yes: WNL Gastrointestinal: Yes: WNL Genitourinary: Yes: Hogan Present Musculoskeletal: Yes: Muscle Weakness Extremities: Yes: Other Edema: No Peripheral Pulses WNL: Yes Integumentary: Yes: WNL, Tenting Neurological: Yes: Pre-Existing Deficit ...Motor Strength: LLE, RLE Psychiatric: Yes: Other Labs: CBC, BMP 06/01/18 06:15 06/01/18 06:15 INR, PTT INR 1.13 (0.83-1.09) H 05/30/18 06:00 Problem List - Problems (1) Abscess Code(s): L02.91 - CUTANEOUS ABSCESS, UNSPECIFIED (2) Atrial flutter Code(s): I48.92 - UNSPECIFIED ATRIAL FLUTTER (3) Prostate CA Code(s): C61 - MALIGNANT NEOPLASM OF PROSTATE (4) Prostatic abscess Code(s): N41.2 - ABSCESS OF PROSTATE (5) Rectal bleed Code(s): K62.5 - HEMORRHAGE OF ANUS AND RECTUM (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 Assessment/Plan DISCUSSED WITH GAVI ABRAHAM THE DAUGHTER OF THE PATIENT I EXPLAINED THAT HER DAD MAY NEED A DIVERTING COLOSTOMY DUE TO THE RECTOFISTULA AND IS A MEDIUM RISK-HIGH RISK SURGERY AT HIS AGE AND COMORBIDITIES DR TOSCANO WAS CALLED FOR SURGERY AND I DISCUSSED WITH HER BRIEFLY THE OUTCOMES OF OBSERVING VS HAVING THE SURGERY SHE WILL BE HERE TODAY TO EVALUATE THE PATIENT AND THEN DECIDE WITH FAMILY HOW TO PROCEED AND IF THEIR ARE ANY OTHER OPTIONS. CONTINUE CURRENT MANAGEMENT AT THIS TIME
[2018-06-02] MEDS: NYSTATIN/TRIAMCINOLONE TOPICAL CREAM 15 GM TUBE TP SCH ×2 (09:33→22:03)
[2018-06-02] MEDS: PANTOPRAZOLE 40 MG TABLET (FP) PO SCH (09:33)
[2018-06-02] MEDS ORDERED: BISACODYL 5 MG TABLET.DR (FP) PO ONE (11:19)
[2018-06-02] MEDS ORDERED: PEG 3350/NA SULF BICARB CL/KCL 4000 ML SOLN.RECON PO ONE (11:19)
[2018-06-02 13:03] VITALS: BMI 23.3
--- NOTE | 2018-06-02 17:19 | CONSULT ---
Consult Consult Specialty:: General Surgery Referred by:: Dr. Joseph Reason for Consultation:: rectourethral fistula - History of Present Illness Chief Complaint: pain with BM, rectal bleeding (on admission) History of Present Illness: 73yoM with multiple medical problems, including atrial flutter on Eliquis - currently held - (pt thinks he was on aspirin but not every day), and prostate CA treated ~5yrs ago with Cyberknife radiation therapy, had recent UTI with ESBL organism and was at [facility], then at [facility], from where he was sent in with rectal bleeding last week. Since then, workup has included GI and urologic consultation after CT showed possible prostatic abscess and air in bladder. He had cystoscopy with Dr. Amaral, which revealed a rectourethral fistula at the level of the prostatic urethra, and in lieu of abscess drainage at this time, a suprapubic catheter was placed percutaneously intraoperatively. Surgery is consulted to evaluate for diverting colostomy. The patient is currently stable, without fever or elevated wbc, but reports incontinence of urine and stool at baseline. He is seen and examined in bed. He is only a fair historian, forgetful but cooperative. He speaks slowly and is slow to answer questions at times. He denies fever or chills, nausea or vomiting associated with admitting complaint of rectal bleeding, but admits to pain with defecation at the time. No significant abdominal pain prior to recent procedure, but he does now have pain there at the SP site. He notes an episode of dizziness a few weeks ago, during which he fell, but no recent headache or dizziness now. He is tolerating diet. His daughter Miriam is not currently present, and the nurse left voicemail to inquire as to when she might be here for discussion. The patient is aware of the possibility of colostomy, but insight seems only fair, and he does want it discussed with his daughter as well. - History Source History Provided By: Patient, Medical Record, Caregiver Limitations to Obtaining History: Poor Historian - Past Medical History SECURITY AND PRIVACY CONSULTANT: Yes: CVA (no residual), Dementia Cardio/Vascular: Yes: HTN, Hyperlipdemia, Other (aflutter) Pulmonary: Yes: COPD Renal/: Yes: Cancer (prostate s/p cyberknife/radiation ~5 yrs ago and "some other surgery"), UTI, Other (incontinence) Infectious Disease: Yes: Other (ESBL) Psych: Yes: Depression - Past Surgical History Past Surgical History: Yes: Colonoscopy Additional Surgical History: ? some kind of prostate surgery? - pt thinks he had something but cannot recall what (after radiation treatment); cystoscopy with percutaneous SP tube placement few days ago - Alcohol/Substance Use Hx Alcohol Use: Yes (occasional but not for a while) History of Substance Use: reports: None - Smoking History Smoking history: Former smoker Have you smoked in the past 12 months: No Aproximately how many cigarettes per day: 0 (1+ppd for 40+ yrs) If you are a former smoker, when did you quit?: 4-5 mos ago - Social History Usual Living Arrangement: [facility] (came from [facility]) ADL: Independent History of Recent Travel: No Home Medications - Allergies Allergies/Adverse Reactions: Allergies Allergy/AdvReac Type Severity Reaction Status Date / Time Penicillins Allergy Unknown "SWELL UP" Verified 05/26/18 09:41 Sulfa (Sulfonamide Allergy Unknown "SWELL UP" Verified 05/26/18 09:41 Antibiotics) - Home Medications Home Medications: Ambulatory Orders Acetaminophen [Tylenol] 650 mg PO Q6H PRN 05/26/18 Albuterol 2.5/Ipratropium 0.5 [Duoneb -] 1 neb NEB Q4H PRN 05/26/18 Apixaban [Eliquis] 5 mg PO BID 05/26/18 Atorvastatin Ca [Lipitor] 20 mg PO HS 05/26/18 Diltiazem HCl [Cardizem LA] 180 mg PO DAILY 05/26/18 Docusate Sodium 300 mg PO HS 05/26/18 Fluticasone Propionate [Flovent Diskus] 50 mcg IH DAILY PRN 05/26/18 Montelukast Sodium [Singulair] 10 mg PO HS 05/26/18 Nicotine [Nicoderm Cq] 1 each TD DAILY 05/26/18 Ranitidine HCl [Zantac] 150 mg PO DAILY 05/26/18 Sennosides [Senokot] 8.6 mg PO HS PRN 05/26/18 Travoprost [Travatan Z] 5 ml OP DAILY 05/26/18 Family Disease History - Family Disease History Family History: Unable to Obtain (noncontributory to fistula) Review of Systems - Review of Systems Constitutional: denies: Chills, Fever Eyes: denies: Blurred Vision, Recent Change in Vision HENT: denies: Difficult Swallowing, Throat Pain Neck: denies: Swollen Glands, Tenderness Cardiovascular: denies: Chest Pain, Palpitations Respiratory: denies: Cough, SOB Gastrointestinal: reports: Abdominal Pain, Rectal Bleeding. denies: Constipation, Diarrhea, Nausea, Vomiting Genitourinary: reports: Incontinence, Other (doesn't know if discolored or air bubbles). denies: Burning Musculoskeletal: denies: Back Pain, Joint Pain, Muscle Pain Integumentary: denies: Change in Color, Rash Neurological: reports: Dizziness (couple weeks ago, fell). denies: Headache Psychiatric: reports: Depression. denies: Anxiety Physical Exam Vital Signs: Vital Signs Temperature 98.4 F 06/02/18 14:26 Pulse Rate 62 06/02/18 14:26 Respiratory Rate 18 06/02/18 14:26 Blood Pressure 103/57 06/02/18 14:26 O2 Sat by Pulse Oximetry (%) 3 L 06/02/18 09:00 Constitutional: Yes: Well Nourished, No Distress, Calm Eyes: Yes: Conjunctiva Clear, EOM Intact HENT: Yes: Atraumatic, Normocephalic Neck: Yes: Supple, Trachea Midline Cardiovascular: Yes: Regular Rate and Rhythm. No: Murmur Respiratory: Yes: Regular, CTA Bilaterally Gastrointestinal: Yes: Soft, Tenderness (mild incisional/lower near SP site), Other (ABD pad/dressing over suprapubic area, not removed). No: Distention, Tenderness, Epigastrium, Tenderness, Rebound ...Rectal Exam: Yes: Deferred (no FELICIA), Other (barrier cream present in area, skin moist). No: Hemorrhoids/External Renal/: Yes: Other (suprapubic catheter present). No: Hematuria Musculoskeletal: No: Joint Stiffness, Joint Swelling Extremities: No: Cool, Cyanosis Edema: No Peripheral Pulses WNL: Yes Integumentary: No: Jaundice, Rash Wound/Incision: Yes: Dressing Dry and Intact. No: Dressing Removed Neurological: Yes: Alert, Oriented (mostly), Confusion (forgetful) Psychiatric: Yes: Alert, Other (slow speech, slow to answer) Labs: CBC, BMP 06/01/18 06:15 06/01/18 06:15 INR, PTT INR 1.13 (0.83-1.09) H 05/30/18 06:00 no more current labs Imaging - Results Cat Scan: Report Reviewed (prostatic abscess/collection noted), Image Reviewed ( images (from admission) personally reviewed - air in bladder, suggestion of close association of rectum with prostate, no free fluid or air) Problem List - Problems (1) Rectourethral fistula Assessment/Plan: rectourethral fistula at level of prostatic urethra by cystoscopy urine diverted by suprapubic catheter no current systemic symptoms of infection, though urine is contaminated antibiotics per ID discussed with Dr. Amaral (urology) - no plans for fistula takedown at this time would need to be referred for that procedure could drain abscess cystoscopically once diverted at time of open colostomy procedure, he would consider formalizing suprapubic cystostomy pt may benefit from fecal diversion, but would most likely involve permanent end colostomy, requiring daily ostomy care and management, which I'm not sure patient will be able to do himself I can offer open procedure, not laparoscopic, and it is not emergent pt seems unsure of what he wants to do will need to discuss with daughter as well, and talk with both about R/B/A depending on when last colonoscopy was, would consider having that done before proceeding Code(s): N36.0 - URETHRAL FISTULA (2) Presence of suprapubic catheter Assessment/Plan: see above Code(s): Z93.59 - OTHER CYSTOSTOMY STATUS (3) Prostatic abscess Assessment/Plan: not drained abx per ID see above Code(s): N41.2 - ABSCESS OF PROSTATE (4) H/O prostate cancer Assessment/Plan: elevated PSA s/p Cyberknife defer to urology Code(s): Z85.46 - PERSONAL HISTORY OF MALIGNANT NEOPLASM OF PROSTATE (5) Atrial flutter Assessment/Plan: Eliquis currently being held would need to continue holding for surgery and until cleared after to resume Code(s): I48.92 - UNSPECIFIED ATRIAL FLUTTER Qualifiers: Atrial flutter type: typical Qualified Code(s): I48.3 - Typical atrial flutter (6) Hypertension Assessment/Plan: controlled on meds Code(s): I10 - ESSENTIAL (PRIMARY) HYPERTENSION Qualifiers: Hypertension type: essential hypertension Qualified Code(s): I10 - Essential (primary) hypertension
[2018-06-02] MEDS: ATORVASTATIN CA 20 MG TABLET (FP) PO SCH (22:03)
[2018-06-03] MEDS: oxyCODONE HCL 5 MG TABLET PO PRN ×3 (04:56→21:59)
--- NOTE | 2018-06-03 08:21 | PN ---
Progress Note, Physician - Current Medication List Current Medications: Active Medications Amino Acids (Prosource No Carb Liquid Pkt) 30 ml PO BID@0800,1730 [facility] Last Admin: 06/02/18 16:38 Dose: 30 ml Atorvastatin Calcium (Lipitor -) 20 mg PO HS [facility] Last Admin: 06/02/18 22:03 Dose: 20 mg Diltiazem HCl (Cardizem Cd -) 180 mg PO DAILY [facility] Last Admin: 06/02/18 09:33 Dose: 180 mg Diphenhydramine HCl (Benadryl -) 25 mg PO Q8H PRN PRN Reason: FOR ITCHING Last Admin: 06/01/18 16:25 Dose: 25 mg Nystatin/Triamcinolone Acetonide (Mycolog Ii Cream -) 1 applic TP BID [facility] Last Admin: 06/02/18 22:03 Dose: 1 applic Oxycodone HCl (Roxicodone -) 5 mg PO Q6H PRN PRN Reason: PAIN SCALE 5-10 Last Admin: 06/03/18 04:56 Dose: 5 mg Pantoprazole Sodium (Protonix -) 40 mg PO DAILY [facility] Last Admin: 06/02/18 09:33 Dose: 40 mg - Objective Vital Signs: Vital Signs Temperature 97.6 F 06/03/18 05:45 Pulse Rate 59 L 06/03/18 05:45 Respiratory Rate 18 06/03/18 05:45 Blood Pressure 116/65 06/03/18 05:45 O2 Sat by Pulse Oximetry (%) 95 06/02/18 21:00 Labs: CBC, BMP 06/01/18 06:15 06/01/18 06:15 INR, PTT INR 1.13 (0.83-1.09) H 05/30/18 06:00 Problem List - Problems (1) Abscess Code(s): L02.91 - CUTANEOUS ABSCESS, UNSPECIFIED (2) Atrial flutter Code(s): I48.92 - UNSPECIFIED ATRIAL FLUTTER (3) Prostate CA Code(s): C61 - MALIGNANT NEOPLASM OF PROSTATE (4) Prostatic abscess Code(s): N41.2 - ABSCESS OF PROSTATE (5) Rectal bleed Code(s): K62.5 - HEMORRHAGE OF ANUS AND RECTUM (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
[2018-06-03] MEDS: AMINO ACIDS/PROTEIN HYDROLYS 30 ML LIQUID.PKT PO SCH ×2 (08:33→17:01)
[2018-06-03] MEDS: PANTOPRAZOLE 40 MG TABLET (FP) PO SCH (09:54)
[2018-06-03] MEDS: NYSTATIN/TRIAMCINOLONE TOPICAL CREAM 15 GM TUBE TP SCH ×2 (09:54→22:00)
--- NOTE | 2018-06-03 14:40 | DS ---
Physical Examination Vital Signs: Vital Signs Temperature 98.0 F 06/03/18 13:42 Pulse Rate 71 06/03/18 13:42 Respiratory Rate 18 06/03/18 13:42 Blood Pressure 107/58 06/03/18 13:42 O2 Sat by Pulse Oximetry (%) 92 L 06/03/18 09:00 Constitutional: Yes: No Distress Eyes: Yes: WNL HENT: Yes: WNL Neck: Yes: WNL Cardiovascular: Yes: Pulse Irregular Respiratory: Yes: WNL Gastrointestinal: Yes: WNL Renal/: Yes: WNL Musculoskeletal: Yes: Muscle Weakness Extremities: Yes: WNL Edema: No Peripheral Pulses WNL: Yes Integumentary: Yes: WNL Wound/Incision: Yes: Clean/Dry Neurological: Yes: Pre-Existing Deficit ...Motor Strength: LLE, RLE Psychiatric: Yes: Other Labs: CBC, BMP 06/01/18 06:15 06/01/18 06:15 Discharge Summary Reason For Visit: ABSCESS,RECTAL HEMORRHAGE Current Active Problems Abscess (Acute) Atrial flutter (Acute) H/O prostate cancer (Acute) Hypertension (Acute) Presence of suprapubic catheter (Acute) Prostate CA (Acute) Prostatic abscess (Acute) Rectal bleed (Acute) Rectourethral fistula (Acute) Procedures: Principal: CT SCAN Hospital Course: CYSTOSCOPY DONE AND UROLOGY WORKUP, WILL NEED COLOSTOMY. CAN MONITOR FOR NOW AND WORKUP WITH UROLOGY OUTPATIENT CONTINUED UNTIL DECISION MADE BY UROLOGY AND SURGERY Condition: Improved - Instructions Diet, Activity, Other Instructions: UROLGOY F/U DR TAMEZ FOR URETHROFISTULA Referrals: Rio Bernal MD [Primary Care Provider] - [facility] - Home Medications Comprehensive Discharge Medication List: Ambulatory Orders Acetaminophen [Tylenol] 650 mg PO Q6H PRN 05/26/18 Albuterol 2.5/Ipratropium 0.5 [Duoneb -] 1 neb NEB Q4H PRN 05/26/18 Apixaban [Eliquis] 5 mg PO BID 05/26/18 Atorvastatin Ca [Lipitor] 20 mg PO HS 05/26/18 Diltiazem HCl [Cardizem LA] 180 mg PO DAILY 05/26/18 Docusate Sodium 300 mg PO HS 05/26/18 Fluticasone Propionate [Flovent Diskus] 50 mcg IH DAILY PRN 05/26/18 Montelukast Sodium [Singulair] 10 mg PO HS 05/26/18 Nicotine [Nicoderm Cq] 1 each TD DAILY 05/26/18 Ranitidine HCl [Zantac] 150 mg PO DAILY 05/26/18 Sennosides [Senokot] 8.6 mg PO HS PRN 05/26/18 Travoprost [Travatan Z] 5 ml OP DAILY 05/26/18 Amino Acids/Protein Hydrolys [Prosource No Carb Liquid Pkt] 30 ml PO BID@0800, 1730 packet 06/03/18 Atorvastatin Ca [Lipitor] 20 mg PO HS tablet 06/03/18 Diltiazem Cd [Cardizem Cd -] 180 mg PO DAILY cap.cd.24h 06/03/18 Diphenhydramine HCl [Benadryl Capsule -] 25 mg PO Q8H PRN capsule 06/03/18 Nystatin/Triamcinolone Top Cr [Mycolog II -] 1 applic TP BID applic 06/03/18 oxyCODONE HCL [Roxicodone -] 5 mg PO Q6H PRN tablet MDD 4 06/03/18
--- NOTE | 2018-06-03 16:09 | PN ---
Progress Note (short form) - Note Progress Note: Gen. Surgical assessment noted. A Colonoscopy was discussed with the surgeon and pt's daughter, Miriam. She is leaving the final decision to the patient. 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 No records of colonoscopy on file.
--- NOTE | 2018-06-03 17:04 | PN ---
Progress Note, Physician History of Present Illness: Pt with rectourethral fistula and prostate abscess, s/p Cyberknife radiation therapy for prostate cancer at least 5 yrs ago. Now with suprapubic catheter s/ p cystoscopy by Dr. Amaral. Last colonoscopy is unknown by pt or daughter. He is being evaluated for possible diverting (permanent end) colostomy, with no plan for fistula takedown at this time. He is seen and examined in bed, eating dinner. No specific complaints other than pain from the SP tube site. Asked if he has been out of bed, he states, "they don't want me to walk." He was ambulating with PT at rehab with assistance. SP catheter is draining light yellow urine. Spoke with his daughter Miriam at length by phone to discuss his diagnosis, possible interventions, and postoperative care needs associated with these. She expressed her concern that her father currently has no long-term stable housing plan in place for when he is able to leave a rehab setting, regardless of interventions. They are working on finding him a place to live with appropriate care assistance/attendants as he is eligible and to ensure his needs are met, but are having trouble achieving that goal. - Current Medication List Current Medications: Active Medications Amino Acids (Prosource No Carb Liquid Pkt) 30 ml PO BID@0800,1730 [facility] Last Admin: 06/03/18 08:33 Dose: 30 ml Atorvastatin Calcium (Lipitor -) 20 mg PO HS [facility] Last Admin: 06/02/18 22:03 Dose: 20 mg Bisacodyl (Dulcolax -) 20 mg PO ONCE ONE Stop: 06/05/18 15:01 Diltiazem HCl (Cardizem Cd -) 180 mg PO DAILY [facility] Last Admin: 06/03/18 09:54 Dose: 180 mg Diphenhydramine HCl (Benadryl -) 25 mg PO Q8H PRN PRN Reason: FOR ITCHING Last Admin: 06/01/18 16:25 Dose: 25 mg Nystatin/Triamcinolone Acetonide (Mycolog Ii Cream -) 1 applic TP BID [facility] Last Admin: 06/03/18 09:54 Dose: 1 applic Oxycodone HCl (Roxicodone -) 5 mg PO Q6H PRN PRN Reason: PAIN SCALE 5-10 Last Admin: 06/03/18 15:18 Dose: 5 mg Pantoprazole Sodium (Protonix -) 40 mg PO DAILY [facility] Last Admin: 06/03/18 09:54 Dose: 40 mg Polyethylene Glycol/Electrolytes (Golytely Solution -) 4,000 ml PO ONCE ONE Stop: 06/05/18 18:01 - Objective Vital Signs: Vital Signs Temperature 98.0 F 06/03/18 13:42 Pulse Rate 71 06/03/18 13:42 Respiratory Rate 18 06/03/18 13:42 Blood Pressure 107/58 06/03/18 13:42 O2 Sat by Pulse Oximetry (%) 92 L 06/03/18 09:00 Constitutional: Yes: Well Nourished, No Distress, Calm Eyes: Yes: Conjunctiva Clear, EOM Intact HENT: Yes: Atraumatic, Normocephalic Gastrointestinal: Yes: Soft, Tenderness (suprapubic area), Other (SP tube in place, lt yellow urine in tubing and bag) ...Rectal Exam: Yes: Deferred Genitourinary: Yes: Other (suprapubic catheter present). No: Hematuria Extremities: No: Cool, Cyanosis Integumentary: No: Jaundice, Rash Wound/Incision: Yes: Dressing Dry and Intact (suprapubic). 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 Mata and Jake pt seems unsure of what he wants to do Had long discussion (~20 minutes) with Miriam Marina, pt's daughter by phone, including explaining the fistula, current status of urinary diversion with suprapubic catheter, and possibility of colostomy placement for fecal diversion. We discussed that it would almost certainly be permanent, and would require regular stoma care and management for bag emptying, appliance/base changes and to protect skin from irritation/breakdown. She agreed he would not be able to manage this himself. Her primary concern at this point is determining a living situation for Mr. Marina for when he leaves rehab, with whatever care and assistance he requires on a regular basis, as she does not live close to him, and he has care needs related to his dementia, incontinence, ambulation and now the new catheter , which require outside help. Although she agrees that colonoscopy may be appropriate in any case, she feels she cannot advise her father regarding any other invasive interventions resulting in additional care needs, until they can be sure of his long-term housing stability. She plans to ask further questions of case management when they are available regarding this. We also discussed that although he may not currently have a designated health care proxy or surrogate, he may not fully be capable of understanding and retaining an explanation of the risks, benefits and alternatives of procedures, along with their implications for postop care, in order to give his fully informed consent. She will discuss some of these issues with her father, and have him consider the colonoscopy with GI while in the hospital, though would likely defer decision on further interventions at this time. She has my office number and can reach me through there or through her father's nurse if needed for any other questions. Will follow up peripherally and remain available as needed by primary team. Code(s): N36.0 - URETHRAL FISTULA (2) Presence of suprapubic catheter Assessment/Plan: see above Code(s): Z93.59 - OTHER CYSTOSTOMY STATUS (3) Prostatic abscess Assessment/Plan: not drained off abx per ID at this time see above Code(s): N41.2 - ABSCESS OF PROSTATE (4) H/O prostate cancer Assessment/Plan: elevated PSA s/p Cyberknife several years ago defer to urology Code(s): Z85.46 - PERSONAL HISTORY OF MALIGNANT NEOPLASM OF PROSTATE (5) Atrial flutter Assessment/Plan: Eliquis currently being held would need to continue holding for colonoscopy and/or surgery and until cleared after to resume Code(s): I48.92 - UNSPECIFIED ATRIAL FLUTTER Qualifiers: Atrial flutter type: typical Qualified Code(s): I48.3 - Typical atrial flutter (6) Hypertension Assessment/Plan: controlled on meds Code(s): I10 - ESSENTIAL (PRIMARY) HYPERTENSION Qualifiers: Hypertension type: essential hypertension Qualified Code(s): I10 - Essential (primary) hypertension (7) Dementia without behavioral disturbance Code(s): F03.90 - UNSPECIFIED DEMENTIA WITHOUT BEHAVIORAL DISTURBANCE Qualifiers: Dementia type: unspecified type Qualified Code(s): F03.90 - Unspecified dementia without behavioral disturbance
[2018-06-03] MEDS: ATORVASTATIN CA 20 MG TABLET (FP) PO SCH (21:59)
--- NOTE | 2018-06-04 07:51 | PN ---
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
[2018-06-04] MEDS ORDERED: PT OWN MED DRAWER 7, Y5N ONE (10:48)
[2018-06-04] MEDS: PANTOPRAZOLE 40 MG TABLET (FP) PO SCH (10:50)
[2018-06-04] MEDS: AMINO ACIDS/PROTEIN HYDROLYS 30 ML LIQUID.PKT PO SCH ×2 (10:51→18:40)
[2018-06-04] MEDS: NYSTATIN/TRIAMCINOLONE TOPICAL CREAM 15 GM TUBE TP SCH ×2 (10:52→22:56)
--- NOTE | 2018-06-04 13:15 | PN ---
Progress Note, Physician History of Present Illness: awake and alert. Appears comfortable at rest in bed No c/o rectal pain or bleeding No fever/ chills WBC 10.4 BC (-) - Current Medication List Current Medications: Active Medications Amino Acids (Prosource No Carb Liquid Pkt) 30 ml PO BID@0800,1730 [facility] Last Admin: 06/04/18 10:51 Dose: 30 ml Atorvastatin Calcium (Lipitor -) 20 mg PO HS [facility] Last Admin: 06/03/18 21:59 Dose: 20 mg Bisacodyl (Dulcolax -) 20 mg PO ONCE ONE Stop: 06/05/18 15:01 Diltiazem HCl (Cardizem Cd -) 180 mg PO DAILY [facility] Last Admin: 06/04/18 10:50 Dose: 180 mg Diphenhydramine HCl (Benadryl -) 25 mg PO Q8H PRN PRN Reason: FOR ITCHING Last Admin: 06/01/18 16:25 Dose: 25 mg Nystatin/Triamcinolone Acetonide (Mycolog Ii Cream -) 1 applic TP BID [facility] Last Admin: 06/04/18 10:52 Dose: 1 applic Oxycodone HCl (Roxicodone -) 5 mg PO Q6H PRN PRN Reason: PAIN SCALE 5-10 Last Admin: 06/03/18 21:59 Dose: 5 mg Pantoprazole Sodium (Protonix -) 40 mg PO DAILY [facility] Last Admin: 06/04/18 10:50 Dose: 40 mg Polyethylene Glycol/Electrolytes (Golytely Solution -) 4,000 ml PO ONCE ONE Stop: 06/05/18 18:01 - Objective Vital Signs: Vital Signs Temperature 98.1 F 06/04/18 09:54 Pulse Rate 74 06/04/18 09:54 Respiratory Rate 18 06/04/18 09:54 Blood Pressure 122/63 06/04/18 09:54 O2 Sat by Pulse Oximetry (%) 98 06/04/18 09:00 Constitutional: Yes: No Distress, Thin Eyes: Yes: Conjunctiva Clear Cardiovascular: Yes: Regular Rate and Rhythm, S1, S2 Respiratory: Yes: CTA Bilaterally Gastrointestinal: Yes: Normal Bowel Sounds, Soft. No: Tenderness Genitourinary: Yes: Other (+ suprapubic catheter) Edema: No Labs: CBC, BMP 06/01/18 06:15 06/01/18 06:15 INR, PTT INR 1.13 (0.83-1.09) H 05/30/18 06:00 Assessment/Plan Rectoureathral fistula Prostatic abscess S/P cysto/ SPT PCN/ Sulfa allergies ? Carbapenem allergy CT scans reviewed with radiologist IR drainage does not appear to be an option Pt afebrile. Not septic appearing Will continue to observe off antibiotics
--- NOTE | 2018-06-04 17:34 | PN ---
Progress Note (short form) - Note Progress Note: Go events. No gross bleeding. Comfortable. Benign abdomen on exam. Agreed to colonoscopy on Wednesday. Will follow tomorrow.
[2018-06-04] MEDS: ATORVASTATIN CA 20 MG TABLET (FP) PO SCH (22:56)
[2018-06-05] MEDS: AMINO ACIDS/PROTEIN HYDROLYS 30 ML LIQUID.PKT PO SCH ×2 (08:05→16:57)
--- NOTE | 2018-06-05 10:22 | PN ---
Progress Note, Physician Chief Complaint: AWAKE AND MORE ALERT READY FOR COLONOSCOPY TOMORROW PATIENT IS ALLOWED OOB TO CHAIR WITH ASSIST - Current Medication List Current Medications: Active Medications Amino Acids (Prosource No Carb Liquid Pkt) 30 ml PO BID@0800,1730 [facility] Last Admin: 06/05/18 08:05 Dose: Not Given Atorvastatin Calcium (Lipitor -) 20 mg PO HS [facility] Last Admin: 06/04/18 22:56 Dose: 20 mg Bisacodyl (Dulcolax -) 20 mg PO ONCE ONE Stop: 06/05/18 15:01 Diltiazem HCl (Cardizem Cd -) 180 mg PO DAILY [facility] Last Admin: 06/04/18 10:50 Dose: 180 mg Diphenhydramine HCl (Benadryl -) 25 mg PO Q8H PRN PRN Reason: FOR ITCHING Last Admin: 06/01/18 16:25 Dose: 25 mg Nystatin/Triamcinolone Acetonide (Mycolog Ii Cream -) 1 applic TP BID [facility] Last Admin: 06/04/18 22:56 Dose: 1 applic Pantoprazole Sodium (Protonix -) 40 mg PO DAILY [facility] Last Admin: 06/04/18 10:50 Dose: 40 mg Polyethylene Glycol/Electrolytes (Golytely Solution -) 4,000 ml PO ONCE ONE Stop: 06/05/18 18:01 - Objective Vital Signs: Vital Signs Temperature 97.8 F 06/04/18 22:00 Pulse Rate 88 06/04/18 22:00 Respiratory Rate 18 06/04/18 22:00 Blood Pressure 127/60 06/04/18 22:00 O2 Sat by Pulse Oximetry (%) 96 06/04/18 21:00 Constitutional: Yes: Mild Distress Eyes: Yes: WNL HENT: Yes: WNL Neck: Yes: WNL Cardiovascular: Yes: WNL Respiratory: Yes: WNL Gastrointestinal: Yes: WNL Genitourinary: Yes: Hogan Present Musculoskeletal: Yes: Muscle Weakness Extremities: Yes: Other Edema: No Peripheral Pulses WNL: Yes Integumentary: Yes: WNL Wound/Incision: Yes: Clean/Dry Neurological: Yes: Pre-Existing Deficit ...Motor Strength: LLE, RLE Psychiatric: Yes: Agitated Labs: CBC, BMP 06/01/18 06:15 06/01/18 06:15 INR, PTT INR 1.13 (0.83-1.09) H 05/30/18 06:00 Problem List - Problems (1) Abscess Code(s): L02.91 - CUTANEOUS ABSCESS, UNSPECIFIED (2) Atrial flutter Code(s): I48.92 - UNSPECIFIED ATRIAL FLUTTER Qualifiers: Atrial flutter type: typical Qualified Code(s): I48.3 - Typical atrial flutter (3) Prostate CA Code(s): C61 - MALIGNANT NEOPLASM OF PROSTATE (4) Prostatic abscess Code(s): N41.2 - ABSCESS OF PROSTATE (5) Rectal bleed Code(s): K62.5 - HEMORRHAGE OF ANUS AND RECTUM (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
[2018-06-05] MEDS: PANTOPRAZOLE 40 MG TABLET (FP) PO SCH (11:10)
[2018-06-05] MEDS: NYSTATIN/TRIAMCINOLONE TOPICAL CREAM 15 GM TUBE TP SCH ×2 (11:11→21:57)
[2018-06-05] MEDS ORDERED: BISACODYL 5 MG TABLET.DR (FP) PO ONE (15:00)
--- NOTE | 2018-06-05 15:54 | PN ---
Progress Note (short form) - Note Progress Note: Go events. No gross bleeding. Comfortable. Benign abdomen on exam. Agreed to colonoscopy on Wednesday. Prep as ordered.
[2018-06-05] MEDS ORDERED: PEG 3350/NA SULF BICARB CL/KCL 4000 ML SOLN.RECON PO ONE (18:00)
[2018-06-05] MEDS: ATORVASTATIN CA 20 MG TABLET (FP) PO SCH (21:57)
[2018-06-06] MEDS ORDERED: ACETAMINOPHEN 1000 MG/100 ML VIAL (NON FORMULARY) IVPB ONE (04:44)
[2018-06-06 06:42] LABS: HEMATOCRIT 44.1 % (35.4-49); HEMOGLOBIN 14.8 GM/dL (11.7-16.9); MCH 32.8 pg (25.7-33.7); MCHC 33.5 g/dl (32.0-35.9); MEAN CELL VOLUME 97.9 fl (80-96); MEAN PLT VOLUME 8.4 fl (7.5-11.1); PLATELET COUNT 225 K/MM3 (134-434); WHITE BLOOD COUNT 10.1 K/mm3 (4.0-10.0)
[2018-06-06 07:09] LABS: ALBUMIN 3.3 g/dl (3.4-5.0); ANION GAP 13 MMOL/L (8-16); BLOOD UREA NITROGEN 14 mg/dL (7-18); CALCIUM 8.8 mg/dL (8.5-10.1); CHLORIDE 105 mmol/L (98-107); CO2 25 mmol/L (21-32); GLUCOSE,RANDOM 119 mg/dL (74-106); POTASSIUM 3.4 mmol/L (3.5-5.1); SODIUM 143 mmol/L (136-145)
[2018-06-06 07:14] LABS: ALK PHOS 99 U/L (45-117); BILIRUBIN,TOTAL 1.7 mg/dL (0.2-1.0); CREATININE 0.9 mg/dL (0.55-1.3); SGOT/AST 11 U/L (15-37); SGPT/ALT 10 U/L (13-61); TOT PROT 6.4 g/dl (6.4-8.2)
--- NOTE | 2018-06-06 08:34 | PN ---
Progress Note, Physician Chief Complaint: DIFFICULTY WITH PREP BECAUSE HE IS NOT SURE WHAT IT WAS FOR I EXPLAINED TO HIM HE NEEDS THE PREP TO BE COMPLETED BEFORE WE CAN MOVE FORWARD WITH OUR WORKUP BEGINNING WITH A COLONOSCOPY - Current Medication List Current Medications: Active Medications Amino Acids (Prosource No Carb Liquid Pkt) 30 ml PO BID@0800,1730 [facility] Last Admin: 06/05/18 16:57 Dose: Not Given Atorvastatin Calcium (Lipitor -) 20 mg PO HS [facility] Last Admin: 06/05/18 21:57 Dose: 20 mg Diltiazem HCl (Cardizem Cd -) 180 mg PO DAILY [facility] Last Admin: 06/05/18 11:11 Dose: 180 mg Diphenhydramine HCl (Benadryl -) 25 mg PO Q8H PRN PRN Reason: FOR ITCHING Last Admin: 06/01/18 16:25 Dose: 25 mg Nystatin/Triamcinolone Acetonide (Mycolog Ii Cream -) 1 applic TP BID [facility] Last Admin: 06/05/18 21:57 Dose: 1 applic Pantoprazole Sodium (Protonix -) 40 mg PO DAILY [facility] Last Admin: 06/05/18 11:10 Dose: 40 mg - Objective Vital Signs: Vital Signs Temperature 98.2 F 06/06/18 06:00 Pulse Rate 99 H 06/06/18 06:00 Respiratory Rate 18 06/06/18 06:00 Blood Pressure 118/71 06/06/18 06:00 O2 Sat by Pulse Oximetry (%) 98 06/05/18 21:00 Constitutional: Yes: Mild Distress Eyes: Yes: WNL HENT: Yes: WNL Neck: Yes: WNL Cardiovascular: Yes: WNL Respiratory: Yes: WNL Gastrointestinal: Yes: WNL Genitourinary: Yes: Hogan Present Musculoskeletal: Yes: Muscle Weakness Edema: Yes Edema: LLE: Trace, RLE: Trace Peripheral Pulses WNL: Yes Integumentary: Yes: WNL Wound/Incision: Yes: Clean/Dry Neurological: Yes: Pre-Existing Deficit ...Motor Strength: LLE, RLE Psychiatric: Yes: Other Labs: CBC, BMP 06/06/18 06:00 06/06/18 06:00 INR, PTT INR 1.13 (0.83-1.09) H 05/30/18 06:00 Problem List - Problems (1) Abscess Code(s): L02.91 - CUTANEOUS ABSCESS, UNSPECIFIED (2) Atrial flutter Code(s): I48.92 - UNSPECIFIED ATRIAL FLUTTER Qualifiers: Atrial flutter type: typical Qualified Code(s): I48.3 - Typical atrial flutter (3) Prostate CA Code(s): C61 - MALIGNANT NEOPLASM OF PROSTATE (4) Prostatic abscess Code(s): N41.2 - ABSCESS OF PROSTATE (5) Rectal bleed Code(s): K62.5 - HEMORRHAGE OF ANUS AND RECTUM (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
[2018-06-06] MEDS: AMINO ACIDS/PROTEIN HYDROLYS 30 ML LIQUID.PKT PO SCH ×3 (08:59→17:23)
[2018-06-06] MEDS: morphine SULFATE 4 MG/ML VIAL IVPUSH PRN ×2 (09:49→18:07)
[2018-06-06] MEDS: NYSTATIN/TRIAMCINOLONE TOPICAL CREAM 15 GM TUBE TP SCH ×3 (10:10→22:47)
[2018-06-06] MEDS: PANTOPRAZOLE 40 MG TABLET (FP) PO SCH (10:10)
--- NOTE | 2018-06-06 11:43 | PN ---
Progress Note (short form) - Note Progress Note: Refused to compete bowel prep. Had solid bm this am, per nurse. Resumde previous diet. Colonoscopy prep as OP.
--- NOTE | 2018-06-06 12:26 | PN ---
Progress Note, Physician History of Present Illness: Pt with rectourethral fistula and prostate abscess, s/p Cyberknife radiation therapy for prostate cancer at least 5 yrs ago. Now with suprapubic catheter s/ p cystoscopy by Dr. Amaral. Last colonoscopy is unknown by pt or daughter. He is being evaluated for possible diverting (permanent end) colostomy, with no plan for fistula takedown at this time. He is seen and examined in bed, eating lunch. No specific complaints other than pain from the SP tube site. SP catheter is draining yellow urine. Per Dr. Mata' s note, he did not complete bowel prep (refused) and had solid BM this am. Asked if he had a BM this morning, the pt states, "No, I wish I had." Asked what happened with the plan for colonoscopy, he does not know, only that his diet was changed. He thought it was rescheduled for tomorrow. I explained that it would not be possible if he was eating today; that the prep and clear liquids were required the day before. I told him that the same prep required for the colonoscopy would also be required for surgery, and he said, "it would have to be cleaned out by IV." I clarified to say 'no, by drinking all that fluid until the stool comes out as clear as it goes in.' He said simply, "I get confused." Per nursing, GI plans to try again for Wednesday. - Current Medication List Current Medications: Active Medications Amino Acids (Prosource No Carb Liquid Pkt) 30 ml PO BID@0800,1730 [facility] Last Admin: 06/06/18 10:10 Dose: 30 ml Atorvastatin Calcium (Lipitor -) 20 mg PO HS [facility] Last Admin: 06/05/18 21:57 Dose: 20 mg Bisacodyl (Dulcolax -) 20 mg PO ONCE ONE Stop: 06/07/18 12:04 Diltiazem HCl (Cardizem Cd -) 180 mg PO DAILY [facility] Last Admin: 06/06/18 10:10 Dose: 180 mg Diphenhydramine HCl (Benadryl -) 25 mg PO Q8H PRN PRN Reason: FOR ITCHING Last Admin: 06/01/18 16:25 Dose: 25 mg Morphine Sulfate (Morphine Sulfate) 4 mg IVPUSH Q6H PRN PRN Reason: PAIN LEVEL 7 - 10 Last Admin: 06/06/18 09:49 Dose: 4 mg Nystatin/Triamcinolone Acetonide (Mycolog Ii Cream -) 1 applic TP BID [facility] Last Admin: 06/06/18 10:10 Dose: Not Given Pantoprazole Sodium (Protonix -) 40 mg PO DAILY [facility] Last Admin: 06/06/18 10:10 Dose: 40 mg Polyethylene Glycol/Electrolytes (Golytely Solution -) 4,000 ml PO ONCE ONE Stop: 06/07/18 17:01 - Objective Vital Signs: Vital Signs Temperature 97.5 F L 06/06/18 09:10 Pulse Rate 84 06/06/18 09:10 Respiratory Rate 18 06/06/18 09:10 Blood Pressure 146/89 06/06/18 09:10 O2 Sat by Pulse Oximetry (%) 92 L 06/06/18 09:00 Constitutional: Yes: Well Nourished, No Distress, Calm Eyes: Yes: Conjunctiva Clear, EOM Intact HENT: Yes: Atraumatic, Normocephalic Gastrointestinal: Yes: Soft, Tenderness (mild, suprapubic) ...Rectal Exam: Yes: Deferred Genitourinary: Yes: Other (suprapubic catheter in place). No: Hematuria Extremities: No: Cool, Cyanosis Integumentary: No: Jaundice, Rash Wound/Incision: Yes: Dressing Dry and Intact (suprapubic). No: Dressing Removed Neurological: Yes: Alert, Confusion Psychiatric: Yes: Alert, Other (flat affect) Labs: CBC, BMP 06/06/18 06:00 06/06/18 06:00 Problem List - Problems (1) Rectourethral fistula Assessment/Plan: rectourethral fistula at level of prostatic urethra by cystoscopy urine diverted by suprapubic catheter no current systemic symptoms of infection currently off antibiotics per ID pain meds prn - avoid NSAIDs Pt may benefit from fecal diversion, which would involve permanent end colostomy , requiring daily ostomy care and ongoing management, which would require skilled assistance - pt would not be able to manage independently. His daughter is working on a permanent housing arrangement for him, which is not in place at this time, for when he gets out of rehab. Pt should have colonoscopy prior to operation; pt agreeable, but refused to drink prep yesterday per nursing. He doesn't seem to remember this today, and may not even remember in the moment why he needs to be drinking...GI plans to retry prep tomorrow for scope on Wednesday. Would start prep early in day to be able to continue, anticipating difficulty with cooperation. I can offer open procedure, not laparoscopic, and it is not emergent. He does not seem at all sure of wanting the operation or to have a full understanding of its ramifications and aftercare. He does not retain information well at all. I am concerned about him being able to make an informed decision for consent, even if he decides to go ahead with colostomy. I left my card with Mr. Marina. Will follow up peripherally and remain available as needed by primary team. Code(s): N36.0 - URETHRAL FISTULA (2) Presence of suprapubic catheter Assessment/Plan: per nursing, he gets confused at night, and has been disconnecting catheter from [place] most likely, will need supervision and an escalated level of care in a home situation Code(s): Z93.59 - OTHER CYSTOSTOMY STATUS (3) Prostatic abscess Assessment/Plan: not drained off abx per ID at this time see above Code(s): N41.2 - ABSCESS OF PROSTATE (4) H/O prostate cancer Assessment/Plan: elevated PSA s/p Cyberknife several years ago defer to urology Code(s): Z85.46 - PERSONAL HISTORY OF MALIGNANT NEOPLASM OF PROSTATE (5) Atrial flutter Assessment/Plan: Eliquis currently being held would need to continue holding for colonoscopy and/or surgery and until cleared after to resume Code(s): I48.92 - UNSPECIFIED ATRIAL FLUTTER Qualifiers: Atrial flutter type: typical Qualified Code(s): I48.3 - Typical atrial flutter (6) Hypertension Assessment/Plan: controlled on meds Code(s): I10 - ESSENTIAL (PRIMARY) HYPERTENSION Qualifiers: Hypertension type: essential hypertension Qualified Code(s): I10 - Essential (primary) hypertension (7) Dementia without behavioral disturbance Code(s): F03.90 - UNSPECIFIED DEMENTIA WITHOUT BEHAVIORAL DISTURBANCE Qualifiers: Dementia type: unspecified type Qualified Code(s): F03.90 - Unspecified dementia without behavioral disturbance
[2018-06-06] MEDS: ATORVASTATIN CA 20 MG TABLET (FP) PO SCH (22:47)
[2018-06-07] MEDS: morphine SULFATE 4 MG/ML VIAL IVPUSH PRN ×3 (03:32→23:56)
--- NOTE | 2018-06-07 08:54 | PN ---
Progress Note (short form) - Note Progress Note: DISCUSSED WITH PATIENT AND NURSE TO COMPLETE HIS BOWEL PREP TODAY FOR COLONOSCOPY TOMORROW NO FURTHER ISSUES AT THIS TIME Problem List - Problems (1) Abscess Code(s): L02.91 - CUTANEOUS ABSCESS, UNSPECIFIED (2) Atrial flutter Code(s): I48.92 - UNSPECIFIED ATRIAL FLUTTER Qualifiers: Atrial flutter type: typical Qualified Code(s): I48.3 - Typical atrial flutter (3) Prostate CA Code(s): C61 - MALIGNANT NEOPLASM OF PROSTATE (4) Prostatic abscess Code(s): N41.2 - ABSCESS OF PROSTATE (5) Rectal bleed Code(s): K62.5 - HEMORRHAGE OF ANUS AND RECTUM (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
[2018-06-07] MEDS: AMINO ACIDS/PROTEIN HYDROLYS 30 ML LIQUID.PKT PO SCH ×2 (09:43→17:31)
[2018-06-07] MEDS: NYSTATIN/TRIAMCINOLONE TOPICAL CREAM 15 GM TUBE TP SCH ×2 (09:43→21:28)
[2018-06-07] MEDS: PANTOPRAZOLE 40 MG TABLET (FP) PO SCH (09:43)
[2018-06-07 10:11] LABS: ANION GAP 9 MMOL/L (8-16); BLOOD UREA NITROGEN 19 mg/dL (7-18); CALCIUM 8.6 mg/dL (8.5-10.1); CHLORIDE 106 mmol/L (98-107); CO2 30 mmol/L (21-32); CREATININE 0.9 mg/dL (0.55-1.3); GLUCOSE,RANDOM 107 mg/dL (74-106); POTASSIUM 4.1 mmol/L (3.5-5.1); SODIUM 145 mmol/L (136-145)
[2018-06-07] MEDS ORDERED: BISACODYL 5 MG TABLET.DR (FP) PO ONE (12:03)
[2018-06-07] MEDS: PEG 3350/NA SULF BICARB CL/KCL 4000 ML SOLN.RECON PO ONE ×2 (15:01→16:47)
[2018-06-07] MEDS: ATORVASTATIN CA 20 MG TABLET (FP) PO SCH (21:28)
[2018-06-08 07:38] LABS: ANION GAP 6 MMOL/L (8-16); BLOOD UREA NITROGEN 18 mg/dL (7-18); CALCIUM 8.6 mg/dL (8.5-10.1); CHLORIDE 105 mmol/L (98-107); CO2 33 mmol/L (21-32); CREATININE 0.9 mg/dL (0.55-1.3); GLUCOSE,RANDOM 102 mg/dL (74-106); MAGNESIUM 2.3 mg/dL (1.8-2.4); POTASSIUM 3.8 mmol/L (3.5-5.1); SODIUM 144 mmol/L (136-145)
[2018-06-08] MEDS: AMINO ACIDS/PROTEIN HYDROLYS 30 ML LIQUID.PKT PO SCH ×2 (07:47→17:25)
--- NOTE | 2018-06-08 09:25 | PN ---
Progress Note, Physician Chief Complaint: SCHEDULED COLONOSCOPY TODAY DRINKING PREP NAD - Current Medication List Current Medications: Active Medications Amino Acids (Prosource No Carb Liquid Pkt) 30 ml PO BID@0800,1730 [facility] Last Admin: 06/08/18 07:47 Dose: Not Given Atorvastatin Calcium (Lipitor -) 20 mg PO HS [facility] Last Admin: 06/07/18 21:28 Dose: 20 mg Diltiazem HCl (Cardizem Cd -) 180 mg PO DAILY [facility] Last Admin: 06/07/18 09:43 Dose: 180 mg Diphenhydramine HCl (Benadryl -) 25 mg PO Q8H PRN PRN Reason: FOR ITCHING Last Admin: 06/01/18 16:25 Dose: 25 mg Morphine Sulfate (Morphine Sulfate) 4 mg IVPUSH Q6H PRN PRN Reason: PAIN LEVEL 7 - 10 Last Admin: 06/07/18 23:56 Dose: 4 mg Nystatin/Triamcinolone Acetonide (Mycolog Ii Cream -) 1 applic TP BID [facility] Last Admin: 06/07/18 21:28 Dose: 1 applic Pantoprazole Sodium (Protonix -) 40 mg PO DAILY [facility] Last Admin: 06/07/18 09:43 Dose: 40 mg - Objective Vital Signs: Vital Signs Temperature 97.8 F 06/08/18 05:28 Pulse Rate 80 06/08/18 05:28 Respiratory Rate 20 06/08/18 05:28 Blood Pressure 115/60 06/08/18 05:28 O2 Sat by Pulse Oximetry (%) 92 L 06/07/18 21:31 Constitutional: Yes: Mild Distress Eyes: Yes: WNL HENT: Yes: WNL Neck: Yes: WNL Cardiovascular: Yes: WNL Respiratory: Yes: WNL Gastrointestinal: Yes: WNL Genitourinary: Yes: Other Musculoskeletal: Yes: Muscle Weakness Extremities: Yes: Other Edema: Yes Edema: LLE: 1+, RLE: 1+ Integumentary: Yes: Other Wound/Incision: Yes: Clean/Dry Neurological: Yes: Pre-Existing Deficit ...Motor Strength: LLE, RLE Psychiatric: Yes: Other Labs: CBC, BMP 06/06/18 06:00 06/08/18 06:30 INR, PTT INR 1.13 (0.83-1.09) H 05/30/18 06:00 Problem List - Problems (1) Abscess Code(s): L02.91 - CUTANEOUS ABSCESS, UNSPECIFIED (2) Atrial flutter Code(s): I48.92 - UNSPECIFIED ATRIAL FLUTTER Qualifiers: Atrial flutter type: typical Qualified Code(s): I48.3 - Typical atrial flutter (3) Prostate CA Code(s): C61 - MALIGNANT NEOPLASM OF PROSTATE (4) Prostatic abscess Code(s): N41.2 - ABSCESS OF PROSTATE (5) Rectal bleed Code(s): K62.5 - HEMORRHAGE OF ANUS AND RECTUM (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
[2018-06-08] MEDS: PANTOPRAZOLE 40 MG TABLET (FP) PO SCH (09:58)
[2018-06-08] MEDS: NYSTATIN/TRIAMCINOLONE TOPICAL CREAM 15 GM TUBE TP SCH ×2 (09:58→23:18)
[2018-06-08] MEDS ORDERED: HALOPERIDOL LACTATE 5 MG/ML IM ONE (10:30)
[2018-06-08] MEDS ORDERED: MIDAZOLAM HCL 2 MG/2 ML SINGLE DOSE VIAL ONE (12:01)
--- NOTE | 2018-06-08 12:48 | PROC ---
Endoscopy Procedure Endoscopy procedure completed. Please see scanned procedure report. Rectal fistula with friable, bleeding on contact mucosa, otherwise normal colonoscopy to the rectum Clear liquid diet SX follow up (findings discussed)
[2018-06-08 21:10] LABS: BASO % 0.3 % (0-2.0); HEMOGLOBIN 13.6 GM/dL (11.7-16.9); LYMPH % 14.4 % (8-40); MCH 33.4 pg (25.7-33.7); MEAN CELL VOLUME 98.5 fl (80-96); MEAN PLT VOLUME 8.5 fl (7.5-11.1); MONO % 13.3 % (3.8-10.2); PLATELET COUNT 180 K/MM3 (134-434); RBC 4.06 M/mm3 (4.00-5.60); RDW 13.9 % (11.9-15.9); WHITE BLOOD COUNT 10.5 K/mm3 (4.0-10.0)
[2018-06-08 21:38] LABS: ALBUMIN 2.9 g/dl (3.4-5.0); ALK PHOS 91 U/L (45-117); ANION GAP 10 MMOL/L (8-16); BILIRUBIN,TOTAL 1.4 mg/dL (0.2-1); BLOOD UREA NITROGEN 15 mg/dL (7-18); CALCIUM 8.7 mg/dL (8.5-10.1); CHLORIDE 107 mmol/L (98-107); CO2 28 mmol/L (21-32); CREATININE 0.8 mg/dL (0.55-1.3); GLUCOSE,RANDOM 104 mg/dL (74-106); MAGNESIUM 2.2 mg/dL (1.8-2.4); POTASSIUM 3.3 mmol/L (3.5-5.1); SGOT/AST 22 U/L (15-37); SGPT/ALT 18 U/L (13-61); SODIUM 145 mmol/L (136-145)
[2018-06-08] MEDS ORDERED: POTASSIUM CHLORIDE ORAL LIQUID 20 MEQ/15 ML PO ONE ×2 (21:53→21:54)
--- NOTE | 2018-06-08 23:15 | HOSP ---
Subjective - Review of Symptoms Events since last encounter: Hospitalist Encounter Notified by RN to read EKG that was done tonight Subjective: 22:15-Arrived to bedside, patient is awake, alert oriented to name- baseline. Patient has no complaints, denies CP, palpitations, SOB, AP. EKG reviewed- ST 144, poor quality tracing Will obtain repeat EKG showed-Atrial Flutter 154 bpm with 2:1 AV conduction 73 y/o man with a PMHx: Dementia, Aflutter (on Cardizem), CVA, COPD, Prostate Ca. Admitted for GI Bleed. s/p colonoscopy today- Rectal Fistula Plan: Repeat EKG Add on Troponin I Transfer pt to Telemetry Call placed to [facility]- awaiting call back Physical Examination Vital Signs: Vital Signs Temperature 99.8 F H 06/08/18 18:51 Pulse Rate 131 H 06/08/18 18:51 Respiratory Rate 20 06/08/18 18:51 Blood Pressure 133/97 06/08/18 18:51 O2 Sat by Pulse Oximetry (%) 98 06/08/18 13:10 Constitutional: Yes: No Distress, Calm Eyes: Yes: Conjunctiva Clear, PERRL HENT: Yes: WNL, Atraumatic, Normocephalic Neck: Yes: WNL, Supple, Trachea Midline Cardiovascular: Yes: Pulse Irregular, S1, S2 Respiratory: Yes: WNL, Regular, CTA Bilaterally Gastrointestinal: Yes: Normal Bowel Sounds, Soft. No: Tenderness, Tenderness, Epigastrium Edema: Yes Edema: LLE: Trace, RLE: Trace Peripheral Pulses WNL: Yes Psychiatric: Yes: Alert, Oriented (to name) Labs: CBC, BMP 06/08/18 20:25 06/08/18 20:25 Laboratory Results - last 24 hr 06/08/18 06/08/18 06/08/18 06:30 20:25 20:25 WBC 10.5 H RBC 4.06 Hgb 13.6 Hct 40.0 MCV 98.5 H MCH 33.4 MCHC 34.0 RDW 13.9 Plt Count 180 MPV 8.5 Absolute Neuts (auto) 7.4 Neutrophils % 71.0 D Lymphocytes % 14.4 D Monocytes % 13.3 H Eosinophils % 1.0 D Basophils % 0.3 Nucleated RBC % 0 Sodium 144 145 Potassium 3.8 3.3 L Chloride 105 107 Carbon Dioxide 33 H 28 Anion Gap 6 L 10 BUN 18 15 Creatinine 0.9 0.8 Creat Clearance w eGFR > 60 > 60 Random Glucose 102 104 Calcium 8.6 8.7 Magnesium 2.3 2.2 Total Bilirubin 1.4 H AST 22 ALT 18 Alkaline Phosphatase 91 Troponin I < 0.02 Total Protein 6.0 L Albumin 2.9 L Blood Type Antibody Screen 06/08/18 06/08/18 20:25 23:02 WBC RBC Hgb Hct MCV MCH MCHC RDW Plt Count MPV Absolute Neuts (auto) Neutrophils % Lymphocytes % Monocytes % Eosinophils % Basophils % Nucleated RBC % Sodium Potassium Chloride Carbon Dioxide Anion Gap BUN Creatinine Creat Clearance w eGFR Random Glucose Calcium Magnesium Total Bilirubin AST ALT Alkaline Phosphatase Troponin I < 0.02 Total Protein Albumin Blood Type O POSITIVE Antibody Screen Negative Hospitalist Encounter Outcome: 23:40- Patient pending transfer to Telemetry, resting comfortably at bedside Vitals taken by RN: BP 104/56, P 98, R 18, T 97.5
[2018-06-08] MEDS: ATORVASTATIN CA 20 MG TABLET (FP) PO SCH (23:19)
[2018-06-09 06:25] LABS: HEMATOCRIT 40.6 % (35.4-49); HEMOGLOBIN 13.6 GM/dL (11.7-16.9); MCH 33.1 pg (25.7-33.7); MCHC 33.5 g/dl (32.0-35.9); MEAN CELL VOLUME 98.8 fl (80-96); MEAN PLT VOLUME 8.5 fl (7.5-11.1); PLATELET COUNT 182 K/MM3 (134-434); RBC 4.11 M/mm3 (4.00-5.60); WHITE BLOOD COUNT 10.2 K/mm3 (4.0-10.0)
[2018-06-09 06:44] LABS: ANION GAP 8 MMOL/L (8-16); BLOOD UREA NITROGEN 15 mg/dL (7-18); CALCIUM 8.8 mg/dL (8.5-10.1); CHLORIDE 109 mmol/L (98-107); CO2 30 mmol/L (21-32); GLUCOSE,RANDOM 111 mg/dL (74-106); POTASSIUM 3.7 mmol/L (3.5-5.1); SODIUM 147 mmol/L (136-145)
[2018-06-09 06:48] LABS: CREATININE 0.9 mg/dL (0.55-1.3)
--- NOTE | 2018-06-09 07:49 | PN ---
Progress Note, Physician History of Present Illness: had an episode of atrial flutter--concerted to sinus pt in bed - Current Medication List Current Medications: Active Medications Amino Acids (Prosource No Carb Liquid Pkt) 30 ml PO BID@0800,1730 [facility] Atorvastatin Calcium (Lipitor -) 20 mg PO HS [facility] Diltiazem HCl (Cardizem Cd -) 180 mg PO DAILY [facility] Diphenhydramine HCl (Benadryl -) 25 mg PO Q8H PRN PRN Reason: FOR ITCHING Morphine Sulfate (Morphine Sulfate) 4 mg IVPUSH Q6H PRN PRN Reason: PAIN LEVEL 7 - 10 Nystatin/Triamcinolone Acetonide (Mycolog Ii Cream -) 1 applic TP BID [facility] Pantoprazole Sodium (Protonix -) 40 mg PO DAILY [facility] - Objective Vital Signs: Vital Signs Temperature 98.1 F 06/09/18 06:00 Pulse Rate 89 06/09/18 06:00 Respiratory Rate 20 06/09/18 06:00 Blood Pressure 127/69 06/09/18 06:00 O2 Sat by Pulse Oximetry (%) 97 06/09/18 01:39 Cardiovascular: Yes: Murmur, S1, S2 Respiratory: Yes: Regular, CTA Bilaterally Gastrointestinal: Yes: Normal Bowel Sounds, Soft Labs: CBC, BMP 06/09/18 06:00 06/09/18 06:00 INR, PTT INR 1.13 (0.83-1.09) H 05/30/18 06:00 Problem List - Problems (1) Prostatic abscess Code(s): N41.2 - ABSCESS OF PROSTATE (2) Atrial flutter Assessment/Plan: ac on hold cardizem cardio follow up Code(s): I48.92 - UNSPECIFIED ATRIAL FLUTTER Qualifiers: Atrial flutter type: typical Qualified Code(s): I48.3 - Typical atrial flutter (3) Rectal bleed Assessment/Plan: monitor h/h gi eval noted ---colon--friable rectal area diet per gi Code(s): K62.5 - HEMORRHAGE OF ANUS AND RECTUM (4) Rectourethral fistula Assessment/Plan: Had colonoscopy results noted --surgical follow up Code(s): N36.0 - URETHRAL FISTULA
[2018-06-09] MEDS ORDERED: PT OWN MED DRAWER 7, Y5N ONE (08:35)
[2018-06-09] MEDS: AMINO ACIDS/PROTEIN HYDROLYS 30 ML LIQUID.PKT PO SCH ×2 (09:00→17:42)
--- NOTE | 2018-06-09 09:56 | EKG ---
Test Reason : Blood Pressure : / mmHG Vent. Rate : 090 BPM Atrial Rate : 090 BPM P-R Int : 146 ms QRS Dur : 080 ms QT Int : 344 ms P-R-T Axes : 076 -56 081 degrees QTc Int : 420 ms NORMAL SINUS RHYTHM LOW VOLTAGE QRS LEFT ANTERIOR FASCICULAR BLOCK ABNORMAL ECG WHEN COMPARED WITH ECG OF 08-JUN-2018 22:37, SIGNIFICANT CHANGES HAVE OCCURRED Confirmed by ONESIMO MCGUIRE, AZRA ([id number]) on 06/09/2018 9:56:21 AM Referred By: INGE SCHULZ Confirmed By:AZRA ECHOLS MD
--- NOTE | 2018-06-09 09:56 | EKG ---
Test Reason : Blood Pressure : / mmHG Vent. Rate : 154 BPM Atrial Rate : 308 BPM P-R Int : 000 ms QRS Dur : 076 ms QT Int : 318 ms P-R-T Axes : 000 -60 010 degrees QTc Int : 509 ms ATRIAL FLUTTER WITH 2:1 A-V CONDUCTION LEFT AXIS DEVIATION INFERIOR INFARCT , AGE UNDETERMINED ABNORMAL ECG WHEN COMPARED WITH ECG OF 26-MAY-2018 10:05, SIGNIFICANT CHANGES HAVE OCCURRED Confirmed by ONESIMO MCGUIRE, AZRA ([id number]) on 06/09/2018 9:56:05 AM Referred By: Confirmed By:AZRA ECHOLS MD
[2018-06-09] MEDS: PANTOPRAZOLE 40 MG TABLET (FP) PO SCH (11:16)
[2018-06-09] MEDS: NYSTATIN/TRIAMCINOLONE TOPICAL CREAM 15 GM TUBE TP SCH ×2 (11:20→21:41)
[2018-06-09] MEDS ORDERED: POTASSIUM CHLORIDE ORAL LIQUID 20 MEQ/15 ML PO ONE (13:49)
--- NOTE | 2018-06-09 14:35 | PN ---
Progress Note, Physician Chief Complaint: Cardiology FU Had transient rapid Aflutter converted to NSR History of Present Illness: 73 year old man pmh Dementia, COPD, aflutter on eliquis and prostate cancer admitted with rectal bleeding. denies chest pain, sob, palpitations, pnd, orthopnea, or LE edema. He underwent EGD without complications. Had recurrent rapid Aflutter post procedure. - Current Medication List Current Medications: Active Medications Amino Acids (Prosource No Carb Liquid Pkt) 30 ml PO BID@0800,1730 [facility] Last Admin: 06/09/18 09:00 Dose: Not Given Atorvastatin Calcium (Lipitor -) 20 mg PO HS [facility] Diltiazem HCl (Cardizem Cd -) 180 mg PO DAILY [facility] Last Admin: 06/09/18 11:16 Dose: 180 mg Diphenhydramine HCl (Benadryl -) 25 mg PO Q8H PRN PRN Reason: FOR ITCHING Morphine Sulfate (Morphine Sulfate) 4 mg IVPUSH Q6H PRN PRN Reason: PAIN LEVEL 7 - 10 Nystatin/Triamcinolone Acetonide (Mycolog Ii Cream -) 1 applic TP BID [facility] Last Admin: 06/09/18 11:20 Dose: 1 applic Pantoprazole Sodium (Protonix -) 40 mg PO DAILY [facility] Last Admin: 06/09/18 11:16 Dose: 40 mg Potassium Chloride (Potassium Chloride Oral Liquid) 40 meq PO ONCE ONE Stop: 06/09/18 13:50 - Objective Vital Signs: Vital Signs Temperature 98.1 F 06/09/18 06:00 Pulse Rate 89 06/09/18 06:00 Respiratory Rate 20 06/09/18 06:00 Blood Pressure 127/69 06/09/18 06:00 O2 Sat by Pulse Oximetry (%) 95 06/09/18 09:00 Constitutional: Yes: No Distress, Calm Eyes: Yes: Conjunctiva Clear, EOM Intact HENT: Yes: Atraumatic, Normocephalic Neck: Yes: Supple, Trachea Midline Cardiovascular: Yes: Regular Rate and Rhythm Respiratory: Yes: Regular, CTA Bilaterally Gastrointestinal: Yes: Normal Bowel Sounds, Soft Edema: No Labs: CBC, BMP 06/09/18 06:00 06/09/18 06:00 INR, PTT INR 1.13 (0.83-1.09) H 05/30/18 06:00 Problem List - Problems (1) Atrial flutter Code(s): I48.92 - UNSPECIFIED ATRIAL FLUTTER Qualifiers: Atrial flutter type: typical Qualified Code(s): I48.3 - Typical atrial flutter Assessment/Plan 73 year old man pmh Dementia, COPD, aflutter on eliquis and prostate cancer admitted with rectal bleeding. Paroxysmal Aflutter in setting of hypokalemia and post procedure. -Suggest increasing Diltiazem CD 240mg qd. If recurrent arrhythmia, may need to consider antiarrhythmics therapy. -Check Mg and phos level. Follow K. -would not resume AC until source of bleed is determined and treated
--- NOTE | 2018-06-09 18:11 | PN ---
Progress Note, Physician History of Present Illness: Pt with rectourethral fistula and prostate abscess, s/p Cyberknife radiation therapy for prostate cancer at least 5 yrs ago. Now with suprapubic catheter s/ p cystoscopy by Dr. Amaral. Had colonoscopy yesterday by Dr. Mata showing no remarkable findings except large rectal fistula, very low, consistent with known rectourethral fistula, with friable mucosa at edges. He is being evaluated for possible diverting (permanent end) colostomy, with no plan for fistula takedown at this time. Events noted of aflutter post-scope, transfer to telemetry, and reversion to sinus rhythm this morning. Cardiology note seen. He is seen and examined in bed, eating dinner. No specific complaints other than pain from the SP tube site. SP catheter is draining yellow urine. He does not engage well, and seems frustrated about not having been given more than clear liquids yet. He is observed to cough strongly, with some clear phlegm brought up, after drinking thin liquids, multiple times. He states that is not new, it has been going on "for a while." When asked if he had thought more about the colostomy, he stated, "No." Asked to clarify if that meant he wasn't thinking about it, or had thought but decided against it, he asked, "is there a deadline?" I explained that there is not, but that if surgery would not happen soon, and he resumed a diet instead of clear liquids, he would need to repeat the bowel prep again before surgery itself, if decided upon. He had no answer to that. I also called and spoke with his daughter Miriam, who visited him yesterday and spoke with MICHAELLE/EMIL. She is comfortable with him going back to [facility] from [facility], but long-term housing plans are not yet in place. She would like to consider having a conversation with him and myself in person, but may not be able to do so until Wednesday. I am happy to meet with her then, or over the weekend, if that becomes possible, to discuss possible surgery. She will talk to him again, but does not think he is ready to make a decision yet. She is also hoping someone from psychiatry or psychology will be able to meet with him on an ongoing basis. She also mentioned that he usually uses CPAP for sleep apnea, which has not been utilized thus far this admission. - Current Medication List Current Medications: Active Medications Amino Acids (Prosource No Carb Liquid Pkt) 30 ml PO BID@0800,1730 [facility] Last Admin: 06/09/18 17:42 Dose: 30 ml Atorvastatin Calcium (Lipitor -) 20 mg PO HS [facility] Diltiazem HCl (Cardizem Cd -) 240 mg PO DAILY [facility] Diphenhydramine HCl (Benadryl -) 25 mg PO Q8H PRN PRN Reason: FOR ITCHING Morphine Sulfate (Morphine Sulfate) 4 mg IVPUSH Q6H PRN PRN Reason: PAIN LEVEL 7 - 10 Nystatin/Triamcinolone Acetonide (Mycolog Ii Cream -) 1 applic TP BID [facility] Last Admin: 06/09/18 11:20 Dose: 1 applic Pantoprazole Sodium (Protonix -) 40 mg PO DAILY [facility] Last Admin: 06/09/18 11:16 Dose: 40 mg - Objective Vital Signs: Vital Signs Temperature 98.1 F 06/09/18 06:00 Pulse Rate 89 06/09/18 06:00 Respiratory Rate 20 06/09/18 06:00 Blood Pressure 127/69 06/09/18 06:00 O2 Sat by Pulse Oximetry (%) 95 06/09/18 09:00 Constitutional: Yes: Well Nourished, No Distress, Calm Eyes: Yes: Conjunctiva Clear, EOM Intact HENT: Yes: Atraumatic, Normocephalic Respiratory: Yes: Cough (productive of clear sputum, after drinking thin liquids ), On Nasal O2 Gastrointestinal: Yes: Soft, Tenderness (at SP site) ...Rectal Exam: Yes: Deferred Genitourinary: Yes: Other (suprapubic catheter present, yellow urine draining). No: Hematuria Extremities: No: Cool, Cyanosis Integumentary: No: Jaundice, Rash Wound/Incision: Yes: Dressing Dry and Intact (at SP site). No: Dressing Removed Neurological: Yes: Alert, Confusion Labs: CBC, BMP 06/09/18 06:00 06/09/18 06:00 - ....Imaging Cat Scan: Report Reviewed (head CT without evidence of acute process) Problem List - Problems (1) Rectourethral fistula Assessment/Plan: rectourethral fistula at level of prostatic urethra by cystoscopy and now colonoscopy Pt's colonoscopy showed no lesions except low, large rectal fistula with friable edges. urine diverted by suprapubic catheter no current systemic symptoms of infection currently off antibiotics per ID pain meds prn - avoid NSAIDs Pt may benefit from fecal diversion, which would involve permanent end colostomy , requiring daily ostomy care and ongoing management, which would require skilled assistance - pt would not be able to manage independently. His daughter is working on a permanent housing arrangement for him, which is not in place at this time, for when he gets out of rehab. I can offer open procedure, not laparoscopic, and it is not emergent. He does not seem at all sure of wanting the operation or to have a full understanding of its ramifications and aftercare. He does not retain information well at all. I am concerned about him being able to make an informed decision for consent, even if he decides to go ahead with colostomy. Will plan to meet with him and daughter Wednesday to discuss surgical options. Ordered regular diet for am, as operation would not happen tomorrow. He would need bowel prep repeated prior to surgery if it is pursued. Code(s): N36.0 - URETHRAL FISTULA (2) Presence of suprapubic catheter Code(s): Z93.59 - OTHER CYSTOSTOMY STATUS (3) Prostatic abscess Assessment/Plan: not drained off abx per ID at this time see above Code(s): N41.2 - ABSCESS OF PROSTATE (4) H/O prostate cancer Assessment/Plan: elevated PSA s/p Cyberknife several years ago defer to urology Code(s): Z85.46 - PERSONAL HISTORY OF MALIGNANT NEOPLASM OF PROSTATE (5) Atrial flutter Assessment/Plan: Eliquis currently being held Cardiology note indicates would hold until bleeding source is definitively addressed - presuming it is the rectal side of the fistula, that would mean extensive surgery, not currently being considered. Will need to be held for colostomy operation as well, if he decides to have it. Would continue to hold for now. Cardiology following On telemetry Code(s): I48.92 - UNSPECIFIED ATRIAL FLUTTER Qualifiers: Atrial flutter type: typical Qualified Code(s): I48.3 - Typical atrial flutter (6) Hypertension Assessment/Plan: controlled on meds Code(s): I10 - ESSENTIAL (PRIMARY) HYPERTENSION Qualifiers: Hypertension type: essential hypertension Qualified Code(s): I10 - Essential (primary) hypertension (7) Dementia without behavioral disturbance Assessment/Plan: consider Psychiatry evaluation consider swallow study/evaluation for possible aspiration Code(s): F03.90 - UNSPECIFIED DEMENTIA WITHOUT BEHAVIORAL DISTURBANCE Qualifiers: Dementia type: unspecified type Qualified Code(s): F03.90 - Unspecified dementia without behavioral disturbance
--- NOTE | 2018-06-09 18:18 | HOSP ---
Subjective - Review of Symptoms General: Yes: Malaise Neurological: Yes: Confusion Physical Examination Vital Signs: Vital Signs Temperature 98.1 F 06/09/18 06:00 Pulse Rate 89 06/09/18 06:00 Respiratory Rate 20 06/09/18 06:00 Blood Pressure 127/69 06/09/18 06:00 O2 Sat by Pulse Oximetry (%) 95 06/09/18 09:00 Constitutional: Yes: Anxious Cardiovascular: Yes: Pulse Irregular Respiratory: Yes: Accessory Muscle Use, Cough, Other (refused lung auscultation) Labs: CBC, BMP 06/09/18 06:00 06/09/18 06:00 Hospitalist Encounter Assessment: called to see patient for acute respiratory distress after drinking thin liquids. patient is s/p colonoscopy yesterday and transferred to for atrial flutter. On exam, patient is laying in the bed, respiratory therapist at the bedside. NRB placed for shortness of breath. Patient yelling., agitated "get out of here", "everyone leave me alone" did not allow me to auscultate lungs vitals: nrb 95% @ 15 liters, 22 breaths per minute, atrial fib on residential housekeeper 107 afib, 155/75 bp approached patient again, he allowed a limited exam: lungs diminished bilaterally, dyspnea on exam with nrb. patient has thin liquid iced tea at bedside and was drinking it, developed respiratory distress after. denies chest pain. plan stat chest xray swallow eval for increased coughing with thin liquids (kelly cadet consulted) duoneb x 1 continuous pulse ox ordered monitor
--- NOTE | 2018-06-09 18:50 | CONSULT ---
Consult - text type - Consultation Consultation Note: NEUROLOGY CONSULTATION is greatly appreciated: This 73 yo RH, div man is a [facility] resident with h/o HTN, Chol, COPD, ASHD, AFib and "dementia." Maintained on: Acetaminophen; Albuterol; Apixaban; Atorvastatin; Diltiazem; Fluticasone; Montelukast; Nicotine; Ranitidine; Travoprost. Admitted with GI bleeding. CT of head (reviewed): Mild atrophy and scattered microvascular changes. SOLO: Thin. RR=25. No bruits. Cor irreg. NEURO: Awake, alert, cooperative. Ox [facility], [place], 2017. No frontal release findings. Recalls 2 of 3 @ 3. CN: II-XII: Normal. Full kirby. No facial. Gag OK Motor: No drift or tremor. Normal strength, bulk and tone. Normal reflexes except decreased AJ's.. Toes downgoing. Coord: No FTN dystaxia Sensory: Reduced vib over toes. Normal at ankles. IMP: Non-focal neurological exam. A significant OMS (dementia) is NOT present. A mild peripheral neuropathy may be present. Changes in cognition or LOC most likely suggest Toxic-Metabolic encephalopathy (ie: Infection, hypoxemia, drugs/morphine) SUGGEST: Continue current regimen. Consider possible, occult, infection Check B12, TSH, T4, RPR, ABG Avoid opioid analgesics and sedative/hypnotics. Thank you very much, Daniel Dallas MD
[2018-06-09] MEDS ORDERED: ALBUTEROL SO4 2.5/IPRATROPIUM 0.5 INH SOL 3 ML VIAL.NEB. NEB ONE (19:35)
[2018-06-09] MEDS: ATORVASTATIN CA 20 MG TABLET (FP) PO SCH (21:41)
[2018-06-09 21:58] LABS: ALBUMIN 2.8 g/dl (3.4-5.0); ALK PHOS 109 U/L (45-117); ANION GAP 9 MMOL/L (8-16); BILIRUBIN,TOTAL 1.2 mg/dL (0.2-1); BLOOD UREA NITROGEN 16 mg/dL (7-18); CALCIUM 8.8 mg/dL (8.5-10.1); CHLORIDE 109 mmol/L (98-107); CO2 27 mmol/L (21-32); CREATININE 0.9 mg/dL (0.55-1.3); GLUCOSE,RANDOM 120 mg/dL (74-106); POTASSIUM 4.3 mmol/L (3.5-5.1); SGOT/AST 55 U/L (15-37); SGPT/ALT 41 U/L (13-61); SODIUM 146 mmol/L (136-145)
[2018-06-10] MEDS: morphine SULFATE 4 MG/ML VIAL IVPUSH PRN ×2 (02:08→17:30)
[2018-06-10] MEDS: diphenhydrAMINE HCL 25 MG CAPSULE (FP) PO PRN (03:32)
[2018-06-10 07:18] LABS: MAGNESIUM 2.3 mg/dL (1.8-2.4); PHOSPHOROUS 3.6 mg/dL (2.5-4.9)
[2018-06-10] MEDS ORDERED: PT OWN MED DRAWER 7, Y5N ONE (09:23)
[2018-06-10] MEDS: PANTOPRAZOLE 40 MG TABLET (FP) PO SCH (10:10)
[2018-06-10] MEDS: AMINO ACIDS/PROTEIN HYDROLYS 30 ML LIQUID.PKT PO SCH ×2 (10:13→17:10)
--- NOTE | 2018-06-10 10:50 | CONSULT ---
Admitting History and Physical - Primary Care Physician PCP: Shekhar Joseph - Admission History of Present Illness: Chart reviewed/Pt examined. Pt referred for swallowing evaluation, after observed coughing while drinking. 06/09/18 06/09/18 06/09/18 01:42 06:00 12:06 Breakfast 0 Lunch 50% Supper Temperature 97.6 F 98.1 F 06/09/18 06/09/18 06/10/18 18:00 19:20 02:00 Breakfast Lunch Supper 0 Temperature 98.0 F 98.8 F 06/10/18 06:00 Breakfast Lunch Supper Temperature 98.2 F Laboratory Tests 06/06/18 06/08/18 06/09/18 06:00 20:25 06:00 WBC 10.1 H 10.5 H 10.2 H Pt reports that he has coughed while eating solid food daily for the last 4-5 months. History Source: Patient Limitations to Obtaining History: No Limitations ([id number] to questions but seems oriented.) - Past Medical History [employer]: Yes: CVA (no residual), Dementia Cardiovascular: Yes: HTN, Hyperlipdemia, Other (aflutter) Pulmonary: Yes: COPD Renal/: Yes: Cancer (prostate s/p cyberknife/radiation ~5 yrs ago and "some other surgery"), UTI, Other (incontinence) Heme/Onc: Yes: Other (prostate cancer) Infectious Disease: Yes: Other (ESBL) Psych: Yes: Depression - Past Surgical History Past Surgical History: Yes: Colonoscopy - Advance Directives Advance Directives: Yes: Health Care Proxy - Smoking History Smoking history: Former smoker Have you smoked in the past 12 months: No Aproximately how many cigarettes per day: 0 (1+ppd for 40+ yrs) If you are a former smoker, when did you quit?: 4-5 mos ago - Alcohol/Substance Use Hx Alcohol Use: Yes (occasional but not for a while) History of Substance Use: reports: None - Social History ADL: Independent History of Recent Travel: No History - Admission Reason For Visit: ABSCESS,RECTAL HEMORRHAGE - Diagnostics X-ray: Report Reviewed (NAD. On non rebreather after desatting last night.) - General Mental Status: Alert and Oriented, Awake and Alert, Able to Follow Commands, Vague Attention: Intact Ability to Follow Directions: Good Head/Neck Control: WFL - Hearing Hearing: Normal Hearing Aide: No With Patient: No Speech Evaluation - Communication Primary Language: SPANISH Communication: Yes: Within Normal Limits Oral Expression Ability: Yes: No Impairment - Speech Production Able to Make Needs Known: Yes: WNL Intelligibility: Yes: WNL - Speech Characteristics Voice Loudness: Normal Voice Pitch: Yes: Normal Voice Phonatory-based Quality: Yes: Normal Speech Pattern: Normal Speech Clarity: < 100% Nasal Resonance: Normal Articulation: Yes: Precise Rate of Speech: Intact - Language/Auditory Comprehension Follows: Yes: 2 Stage Simple Commands - Language/Verbal Expression Able to Respond to Simple Queries: Yes: WNL Able to Communicate Wants and Needs: Yes: WNL Functional Communication Status: Yes: WNL Attention: Yes: Intact - Swallow Evaluation/Bedside Assessment Current Nutritional Intake: Regular, Thin Liquids Dentition: Yes: Missing Teeth (posteriorally bilaterally, adversely affecting masication.) Facial Symmetry at Rest: Symmetrical Facial Symmetry on Retraction: Symmetrical Facial Movement: Controlled Against Resistance Opening: Normal Against Resistance Closing: Normal Pucker Lips: Normal Smile: Normal Lingual Movement: Normal, Symmetric Lingual Speed of Movement: Normal Lingual Movement Strgth Against Opposition: Normal Lingual Movement Characteristics: Normal Velopharyngeal Movement: Normal Laryngeal Elevation: WFL Laryngeal Movement: Able to Palpate Rate of Intake: WFL, Impulsive (Took huge bite of bread, chewed indefinitely, ( atleast 2 full minutes), c/o of it stickinhg in his throat when questioned.) Bolus Size: Large Labial Seal: WFL Chewing: Impaired Oral Prep Time: Increased A-P Transit: WFL Pocketing: None Timing of Swallow: WFL Coughing/Throat Clear: No Change in Voice: No Recommendations - Speech Evaluation, Impression/Plan Impression: Missing dentition posteriorally, bilaterally, adversely affecting masication. Took huge bite of bread, chewed indefinitely, (atleast 2 full minutes), c/o of it sticking in his throat when questioned. Resistent to questions.Insight? - Dysphagia Impressions/Plan Swallowing Skills: Impaired *Silent aspiration: cannot be R/O at bedside Dysphagia Treatment Plan: Small Bites, Chin Tuck/Down, Facilitative Feeding, Safe Rate, OOB for meals, OOB for 1 h. after meals Recommendations: Modified Barium Swallow (Refused for today.) - Recommendations Diet Consistency: Other (Chopped diet) Liquids: Thin Liquids Supplement: Ensure, Magic Cup
--- NOTE | 2018-06-10 10:59 | PN ---
Progress Note, Physician Chief Complaint: AWAKE ALERT PASSED SWALLOW EVAL WITH CHOPPED DIET RECOMMENDATION NO FEVERS +BM - Current Medication List Current Medications: Active Medications Amino Acids (Prosource No Carb Liquid Pkt) 30 ml PO BID@0800,1730 [facility] Last Admin: 06/10/18 10:13 Dose: 30 ml Atorvastatin Calcium (Lipitor -) 20 mg PO HS [facility] Last Admin: 06/09/18 21:41 Dose: 20 mg Diltiazem HCl (Cardizem Cd -) 240 mg PO DAILY [facility] Last Admin: 06/10/18 10:10 Dose: 240 mg Diphenhydramine HCl (Benadryl -) 25 mg PO Q8H PRN PRN Reason: FOR ITCHING Morphine Sulfate (Morphine Sulfate) 4 mg IVPUSH Q6H PRN PRN Reason: PAIN LEVEL 7 - 10 Last Admin: 06/10/18 02:08 Dose: 4 mg Nystatin/Triamcinolone Acetonide (Mycolog Ii Cream -) 1 applic TP BID [facility] Last Admin: 06/09/18 21:41 Dose: 1 applic Pantoprazole Sodium (Protonix -) 40 mg PO DAILY [facility] Last Admin: 06/10/18 10:10 Dose: 40 mg - Objective Vital Signs: Vital Signs Temperature 98.2 F 06/10/18 06:00 Pulse Rate 96 H 06/10/18 06:00 Respiratory Rate 18 06/10/18 06:00 Blood Pressure 105/64 06/10/18 06:00 O2 Sat by Pulse Oximetry (%) 95 06/09/18 21:00 Constitutional: Yes: No Distress Eyes: Yes: WNL HENT: Yes: WNL Neck: Yes: WNL Cardiovascular: Yes: WNL Respiratory: Yes: On Nasal O2, Wheezes Gastrointestinal: Yes: WNL Genitourinary: Yes: Hogan Present Musculoskeletal: Yes: Muscle Weakness Extremities: Yes: Other Edema: No Peripheral Pulses WNL: Yes Integumentary: Yes: WNL Wound/Incision: Yes: Clean/Dry Neurological: Yes: Pre-Existing Deficit ...Motor Strength: LLE, RLE Psychiatric: Yes: Agitated Labs: CBC, BMP 06/09/18 06:00 06/09/18 20:15 INR, PTT INR 1.13 (0.83-1.09) H 05/30/18 06:00 Problem List - Problems (1) Abscess Code(s): L02.91 - CUTANEOUS ABSCESS, UNSPECIFIED (2) Atrial flutter Code(s): I48.92 - UNSPECIFIED ATRIAL FLUTTER Qualifiers: Atrial flutter type: typical Qualified Code(s): I48.3 - Typical atrial flutter (3) Prostate CA Code(s): C61 - MALIGNANT NEOPLASM OF PROSTATE (4) Prostatic abscess Code(s): N41.2 - ABSCESS OF PROSTATE (5) Rectal bleed Code(s): K62.5 - HEMORRHAGE OF ANUS AND RECTUM (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 Assessment/Plan OFF ABX [facility] NO FEVERS IN PAST 48HRS ON 02 SUPPORT FOR RESPIRATORY DISTRESS DENIES CHEST PAIN SWALLOE EVAL APPRECIATED ON CHOPPED DIET ONCE RESPIRATORY STATUS STABLE CAN DW DR TOSCANO ABOUT SURGICAL RECOMMENDATIONS FOR GI FISTULA
[2018-06-10] MEDS: NYSTATIN/TRIAMCINOLONE TOPICAL CREAM 15 GM TUBE TP SCH ×2 (13:33→21:38)
--- NOTE | 2018-06-10 14:30 | PN ---
Progress Note, Physician Chief Complaint: Cardiology FU Telem showing Aflutter with HR 150s. No palpitations History of Present Illness: 73 year old man pmh Dementia, COPD, aflutter on eliquis and prostate cancer admitted with rectal bleeding. denies chest pain, sob, palpitations, pnd, orthopnea, or LE edema. He underwent EGD without complications. Had recurrent rapid Aflutter post procedure. - Current Medication List Current Medications: Active Medications Amino Acids (Prosource No Carb Liquid Pkt) 30 ml PO BID@0800,1730 [facility] Last Admin: 06/10/18 10:13 Dose: 30 ml Atorvastatin Calcium (Lipitor -) 20 mg PO HS [facility] Last Admin: 06/09/18 21:41 Dose: 20 mg Diltiazem HCl (Cardizem Cd -) 240 mg PO DAILY [facility] Last Admin: 06/10/18 10:10 Dose: 240 mg Diphenhydramine HCl (Benadryl -) 25 mg PO Q8H PRN PRN Reason: FOR ITCHING Haloperidol (Haldol Injection (Fast Acting) -) 2 mg IM Q4H PRN PRN Reason: AGITATION Morphine Sulfate (Morphine Sulfate) 4 mg IVPUSH Q6H PRN PRN Reason: PAIN LEVEL 7 - 10 Last Admin: 06/10/18 02:08 Dose: 4 mg Nystatin/Triamcinolone Acetonide (Mycolog Ii Cream -) 1 applic TP BID [facility] Last Admin: 06/10/18 13:33 Dose: 1 applic Pantoprazole Sodium (Protonix -) 40 mg PO DAILY [facility] Last Admin: 06/10/18 10:10 Dose: 40 mg - Objective Vital Signs: Vital Signs Temperature 97.7 F 06/10/18 10:00 Pulse Rate 137 H 06/10/18 10:00 Respiratory Rate 20 06/10/18 10:00 Blood Pressure 93/69 06/10/18 10:00 O2 Sat by Pulse Oximetry (%) 95 06/09/18 21:00 Constitutional: Yes: No Distress, Calm Eyes: Yes: Conjunctiva Clear HENT: Yes: Atraumatic, Normocephalic Neck: Yes: Trachea Midline Cardiovascular: Yes: Tachycardia, S1, S2 Respiratory: Yes: Regular, CTA Bilaterally Gastrointestinal: Yes: Normal Bowel Sounds, Soft Edema: No Labs: CBC, BMP 06/09/18 06:00 06/09/18 20:15 INR, PTT INR 1.13 (0.83-1.09) H 05/30/18 06:00 Problem List - Problems (1) Atrial flutter Code(s): I48.92 - UNSPECIFIED ATRIAL FLUTTER Qualifiers: Atrial flutter type: typical Qualified Code(s): I48.3 - Typical atrial flutter Assessment/Plan 73 year old man pmh Dementia, COPD, aflutter on eliquis and prostate cancer admitted with rectal bleeding. Persistent Aflutter with RVR and mild hypotension. -Amiodarone 400mg TID Reduce Diltiazem dose. Check ECG daily. -Monitor LFT -Off AC due to risk of bleeding.
[2018-06-10] MEDS: AMIODARONE HCL 200 MG TABLET (FP) PO SCH ×2 (15:51→21:38)
[2018-06-10] MEDS: ATORVASTATIN CA 20 MG TABLET (FP) PO SCH (21:38)
[2018-06-11] MEDS: morphine SULFATE 4 MG/ML VIAL IVPUSH PRN ×3 (01:15→15:16)
[2018-06-11] MEDS: AMIODARONE HCL 200 MG TABLET (FP) PO SCH ×3 (06:14→22:00)
[2018-06-11] MEDS: PANTOPRAZOLE 40 MG TABLET (FP) PO SCH (09:15)
[2018-06-11] MEDS: NYSTATIN/TRIAMCINOLONE TOPICAL CREAM 15 GM TUBE TP SCH ×2 (09:15→22:01)
[2018-06-11] MEDS: AMINO ACIDS/PROTEIN HYDROLYS 30 ML LIQUID.PKT PO SCH ×2 (09:15→17:42)
--- NOTE | 2018-06-11 15:27 | EKG ---
Test Reason : Blood Pressure : / mmHG Vent. Rate : 133 BPM Atrial Rate : 286 BPM P-R Int : 000 ms QRS Dur : 088 ms QT Int : 384 ms P-R-T Axes : 000 -61 065 degrees QTc Int : 571 ms ATRIAL FLUTTER LEFT AXIS DEVIATION LOW VOLTAGE QRS INFERIOR INFARCT , AGE UNDETERMINED T WAVE ABNORMALITY, CONSIDER ANTERIOR ISCHEMIA ABNORMAL ECG WHEN COMPARED WITH ECG OF 09-JUN-2018 08:12, SIGNIFICANT CHANGES HAVE OCCURRED Confirmed by MD Carson, Farshad ([id number]) on 06/11/2018 3:26:41 PM Referred By: Mauro IVEY Confirmed By:Farshad Byrd MD
--- NOTE | 2018-06-11 16:38 | PN ---
Progress Note, Physician Chief Complaint: Atrial Flutter History of Present Illness: This is a 73 year old man pmh Dementia, COPD, aflutter on eliquis and prostate cancer admitted with rectal bleeding. denies chest pain, sob, palpitations, pnd , orthopnea, or LE edema. He underwent EGD without complications. Had recurrent rapid Aflutter post procedure. - Current Medication List Current Medications: Active Medications Amino Acids (Prosource No Carb Liquid Pkt) 30 ml PO BID@0800,1730 [facility] Last Admin: 06/11/18 09:15 Dose: 30 ml Amiodarone HCl (Cordarone -) 400 mg PO TID [facility] Last Admin: 06/11/18 14:59 Dose: 400 mg Atorvastatin Calcium (Lipitor -) 20 mg PO HS [facility] Last Admin: 06/10/18 21:38 Dose: 20 mg Diltiazem HCl (Cardizem Cd -) 180 mg PO DAILY [facility] Last Admin: 06/11/18 09:14 Dose: 180 mg Diphenhydramine HCl (Benadryl -) 25 mg PO Q8H PRN PRN Reason: FOR ITCHING Haloperidol (Haldol Injection (Fast Acting) -) 2 mg IM Q4H PRN PRN Reason: AGITATION Morphine Sulfate (Morphine Sulfate) 4 mg IVPUSH Q6H PRN PRN Reason: PAIN LEVEL 7 - 10 Last Admin: 06/11/18 15:16 Dose: 4 mg Nystatin/Triamcinolone Acetonide (Mycolog Ii Cream -) 1 applic TP BID [facility] Last Admin: 06/11/18 09:15 Dose: Not Given Pantoprazole Sodium (Protonix -) 40 mg PO DAILY [facility] Last Admin: 06/11/18 09:15 Dose: 40 mg - Objective Vital Signs: Vital Signs Temperature 98.7 F 06/11/18 14:49 Pulse Rate 142 H 06/11/18 14:49 Respiratory Rate 20 06/11/18 14:49 Blood Pressure 114/74 06/11/18 14:49 O2 Sat by Pulse Oximetry (%) 92 L 06/11/18 10:00 Constitutional: Yes: No Distress Eyes: Yes: WNL HENT: Yes: WNL Neck: Yes: WNL Cardiovascular: Yes: Regular Rate and Rhythm Respiratory: Yes: CTA Bilaterally Gastrointestinal: Yes: Soft Extremities: Yes: WNL Edema: No Neurological: Yes: Alert (Dementia as noted) Labs: CBC, BMP 06/09/18 06:00 06/09/18 20:15 INR, PTT INR 1.13 (0.83-1.09) H 05/30/18 06:00 Assessment/Plan 73 year old man pmh Dementia, COPD, aflutter on eliquis and prostate cancer admitted with rectal bleeding. Persistent Aflutter with RVR and mild hypotension. Continue Amiodarone 400mg TID Continue Diltiazem 180 mg PO daily. Check ECG daily. Monitor LFT Off AC due to risk of bleeding.
--- NOTE | 2018-06-11 21:14 | PN ---
Progress Note, Physician Chief Complaint: Rectourethral fistula Prostatic abscess History of Present Illness: NAD in bed replies in short answers, no c/o pain Seen by Surgery, cardiology and GI Suprapubic tube by Urology Dr Amaral on 05/30/18 Colonoscopy on 06/09/[address] Mata- showing large bleeding fistula H/H stable, although guaiac positive - Current Medication List Current Medications: Active Medications Amino Acids (Prosource No Carb Liquid Pkt) 30 ml PO BID@0800,1730 [facility] Last Admin: 06/11/18 17:42 Dose: 30 ml Amiodarone HCl (Cordarone -) 400 mg PO TID [facility] Last Admin: 06/11/18 14:59 Dose: 400 mg Atorvastatin Calcium (Lipitor -) 20 mg PO HS [facility] Last Admin: 06/10/18 21:38 Dose: 20 mg Diltiazem HCl (Cardizem Cd -) 180 mg PO DAILY [facility] Last Admin: 06/11/18 09:14 Dose: 180 mg Diphenhydramine HCl (Benadryl -) 25 mg PO Q8H PRN PRN Reason: FOR ITCHING Haloperidol (Haldol Injection (Fast Acting) -) 2 mg IM Q4H PRN PRN Reason: AGITATION Morphine Sulfate (Morphine Sulfate) 4 mg IVPUSH Q6H PRN PRN Reason: PAIN LEVEL 7 - 10 Last Admin: 06/11/18 15:16 Dose: 4 mg Nystatin/Triamcinolone Acetonide (Mycolog Ii Cream -) 1 applic TP BID [facility] Last Admin: 06/11/18 09:15 Dose: Not Given Pantoprazole Sodium (Protonix -) 40 mg PO DAILY [facility] Last Admin: 06/11/18 09:15 Dose: 40 mg - Objective Vital Signs: Vital Signs Temperature 98.7 F 06/11/18 14:49 Pulse Rate 142 H 06/11/18 14:49 Respiratory Rate 20 06/11/18 14:49 Blood Pressure 114/74 06/11/18 14:49 O2 Sat by Pulse Oximetry (%) 92 L 06/11/18 10:00 Constitutional: Yes: Well Nourished, No Distress, Calm Cardiovascular: Yes: Regular Rate and Rhythm Respiratory: Yes: Regular Gastrointestinal: Yes: Normal Bowel Sounds, Soft Genitourinary: Yes: Other (suprapubic catheter) Musculoskeletal: Yes: Muscle Weakness Neurological: Yes: Alert, Pre-Existing Deficit Psychiatric: Yes: Alert Labs: CBC, BMP 06/09/18 06:00 06/09/18 20:15 INR, PTT INR 1.13 (0.83-1.09) H 05/30/18 06:00 Problem List - Problems (1) Rectal bleed Code(s): K62.5 - HEMORRHAGE OF ANUS AND RECTUM (2) Atrial flutter Assessment/Plan: tele monitoring -Seen by cardiology -eliquis on hold Code(s): I48.92 - UNSPECIFIED ATRIAL FLUTTER Qualifiers: Atrial flutter type: typical Qualified Code(s): I48.3 - Typical atrial flutter (3) Prostatic abscess Assessment/Plan: -Seen by surgeon Code(s): N41.2 - ABSCESS OF PROSTATE (4) Rectourethral fistula Assessment/Plan: -seen by surgery -decision for surgery to be made Code(s): N36.0 - URETHRAL FISTULA (5) H/O prostate cancer Code(s): Z85.46 - PERSONAL HISTORY OF MALIGNANT NEOPLASM OF PROSTATE (6) Presence of suprapubic catheter Assessment/Plan: -draining clear urine Code(s): Z93.59 - OTHER CYSTOSTOMY STATUS (7) Dementia without behavioral disturbance Assessment/Plan: -Psychiatry consult Code(s): F03.90 - UNSPECIFIED DEMENTIA WITHOUT BEHAVIORAL DISTURBANCE Qualifiers: Dementia type: unspecified type Qualified Code(s): F03.90 - Unspecified dementia without behavioral disturbance Assessment/Plan see problem list
[2018-06-11] MEDS: ATORVASTATIN CA 20 MG TABLET (FP) PO SCH (22:01)
[2018-06-11] MEDS: oxyCODONE HCL 5 MG TABLET PO PRN (22:22)
[2018-06-11] MEDS: ACETAMINOPHEN 325 MG TABLET (FP) PO PRN (22:34)
[2018-06-12] MEDS: oxyCODONE HCL 5 MG TABLET PO PRN ×2 (05:56→18:25)
[2018-06-12] MEDS: AMIODARONE HCL 200 MG TABLET (FP) PO SCH ×3 (05:57→21:14)
[2018-06-12] MEDS: ACETAMINOPHEN 325 MG TABLET (FP) PO PRN ×2 (09:03→18:26)
[2018-06-12] MEDS: AMINO ACIDS/PROTEIN HYDROLYS 30 ML LIQUID.PKT PO SCH ×2 (09:03→18:25)
[2018-06-12] MEDS: PANTOPRAZOLE 40 MG TABLET (FP) PO SCH (09:03)
[2018-06-12] MEDS: traMADol HCL 50 MG TABLET PO PRN (09:04)
[2018-06-12] MEDS: NYSTATIN/TRIAMCINOLONE TOPICAL CREAM 15 GM TUBE TP SCH ×2 (10:48→21:14)
[2018-06-12] MEDS: HALOPERIDOL LACTATE 5 MG/ML IM PRN ×2 (10:48→18:25)
--- NOTE | 2018-06-12 12:28 | PN ---
Progress Note, Physician Chief Complaint: Rectourethral fistula Prostatic abscess History of Present Illness: NAD in bed replies in short answers, no c/o pain Seen by Surgery, cardiology and GI Suprapubic tube by Urology Dr Amaral on 05/30/18 Colonoscopy on 06/09/[address] Mata- showing large bleeding fistula H/H stable, although guaiac positive - Current Medication List Current Medications: Active Medications Acetaminophen (Tylenol -) 650 mg PO Q4H PRN PRN Reason: PAIN LEVEL 1 - 3 Last Admin: 06/12/18 09:03 Dose: 650 mg Amino Acids (Prosource No Carb Liquid Pkt) 30 ml PO BID@0800,1730 [facility] Last Admin: 06/12/18 09:03 Dose: 30 ml Amiodarone HCl (Cordarone -) 400 mg PO TID [facility] Last Admin: 06/12/18 05:57 Dose: 400 mg Atorvastatin Calcium (Lipitor -) 20 mg PO HS [facility] Last Admin: 06/11/18 22:01 Dose: 20 mg Diltiazem HCl (Cardizem Cd -) 180 mg PO DAILY [facility] Last Admin: 06/12/18 09:03 Dose: 180 mg Diphenhydramine HCl (Benadryl -) 25 mg PO Q8H PRN PRN Reason: FOR ITCHING Haloperidol (Haldol Injection (Fast Acting) -) 2 mg IM Q4H PRN PRN Reason: AGITATION Last Admin: 06/12/18 10:48 Dose: 2 mg Nystatin/Triamcinolone Acetonide (Mycolog Ii Cream -) 1 applic TP BID [facility] Last Admin: 06/12/18 10:48 Dose: 1 applic Oxycodone HCl (Roxicodone -) 5 mg PO Q6H PRN PRN Reason: PAIN LEVEL 7 - 10 Last Admin: 06/12/18 05:56 Dose: 5 mg Pantoprazole Sodium (Protonix -) 40 mg PO DAILY [facility] Last Admin: 06/12/18 09:03 Dose: 40 mg Tramadol HCl (Ultram -) 50 mg PO Q8H PRN PRN Reason: PAIN LEVEL 4 - 6 Last Admin: 06/12/18 09:04 Dose: 50 mg - Objective Vital Signs: Vital Signs Temperature 97.7 F 06/12/18 09:11 Pulse Rate 140 H 06/12/18 09:11 Respiratory Rate 20 06/12/18 09:11 Blood Pressure 112/71 06/12/18 09:11 O2 Sat by Pulse Oximetry (%) 98 06/12/18 09:00 Constitutional: Yes: Well Nourished, No Distress, Calm Cardiovascular: Yes: Regular Rate and Rhythm Respiratory: Yes: Regular Gastrointestinal: Yes: Normal Bowel Sounds, Soft Musculoskeletal: Yes: Muscle Weakness Neurological: Yes: Alert, Pre-Existing Deficit Psychiatric: Yes: Alert Labs: CBC, BMP 06/09/18 06:00 06/09/18 20:15 INR, PTT INR 1.13 (0.83-1.09) H 05/30/18 06:00 Problem List - Problems (1) Rectal bleed Code(s): K62.5 - HEMORRHAGE OF ANUS AND RECTUM (2) Atrial flutter Assessment/Plan: tele monitoring -Seen by cardiology -eliquis on hold Code(s): I48.92 - UNSPECIFIED ATRIAL FLUTTER Qualifiers: Atrial flutter type: typical Qualified Code(s): I48.3 - Typical atrial flutter (3) Prostatic abscess Assessment/Plan: -Seen by surgeon Code(s): N41.2 - ABSCESS OF PROSTATE (4) Rectourethral fistula Assessment/Plan: -seen by surgery -decision for surgery to be made Code(s): N36.0 - URETHRAL FISTULA (5) H/O prostate cancer Code(s): Z85.46 - PERSONAL HISTORY OF MALIGNANT NEOPLASM OF PROSTATE (6) Presence of suprapubic catheter Assessment/Plan: -draining clear urine Code(s): Z93.59 - OTHER CYSTOSTOMY STATUS (7) Dementia without behavioral disturbance Assessment/Plan: -Psychiatry consult Code(s): F03.90 - UNSPECIFIED DEMENTIA WITHOUT BEHAVIORAL DISTURBANCE Qualifiers: Dementia type: unspecified type Qualified Code(s): F03.90 - Unspecified dementia without behavioral disturbance Assessment/Plan see problem list
[2018-06-12] MEDS: ATORVASTATIN CA 20 MG TABLET (FP) PO SCH (21:14)
[2018-06-13] MEDS: oxyCODONE HCL 5 MG TABLET PO PRN (01:00)
[2018-06-13] MEDS: ACETAMINOPHEN 325 MG TABLET (FP) PO PRN ×2 (01:01→13:29)
[2018-06-13] MEDS: AMIODARONE HCL 200 MG TABLET (FP) PO SCH ×3 (05:55→23:15)
[2018-06-13 07:04] LABS: BASO % 0.3 % (0-2.0); HEMATOCRIT 36.5 % (35.4-49); HEMOGLOBIN 12.4 GM/dL (11.7-16.9); LYMPH % 12.3 % (8-40); MCH 33.4 pg (25.7-33.7); MCHC 33.9 g/dl (32.0-35.9); MEAN CELL VOLUME 98.4 fl (80-96); MEAN PLT VOLUME 9.2 fl (7.5-11.1); MONO % 8.4 % (3.8-10.2); PLATELET COUNT 184 K/MM3 (134-434); RBC 3.71 M/mm3 (4.00-5.60); RDW 13.8 % (11.9-15.9); WHITE BLOOD COUNT 9.8 K/mm3 (4.0-10.0)
[2018-06-13 07:45] LABS: ALBUMIN 2.8 g/dl (3.4-5.0); ALK PHOS 105 U/L (45-117); ANION GAP 6 MMOL/L (8-16); BILIRUBIN,TOTAL 0.6 mg/dL (0.2-1); BLOOD UREA NITROGEN 35 mg/dL (7-18); CALCIUM 8.7 mg/dL (8.5-10.1); CHLORIDE 105 mmol/L (98-107); CO2 32 mmol/L (21-32); CREATININE 1.2 mg/dL (0.55-1.3); GLUCOSE,RANDOM 105 mg/dL (74-106); SGOT/AST 49 U/L (15-37); SGPT/ALT 50 U/L (13-61); SODIUM 144 mmol/L (136-145); TOT PROT 6.2 g/dl (6.4-8.2)
[2018-06-13] MEDS: HALOPERIDOL LACTATE 5 MG/ML IM PRN ×2 (07:53→16:18)
[2018-06-13] MEDS: AMINO ACIDS/PROTEIN HYDROLYS 30 ML LIQUID.PKT PO SCH ×2 (07:53→17:58)
--- NOTE | 2018-06-13 08:54 | PN ---
Progress Note, Physician - Current Medication List Current Medications: Active Medications Acetaminophen (Tylenol -) 650 mg PO Q4H PRN PRN Reason: PAIN LEVEL 1 - 3 Last Admin: 06/13/18 01:01 Dose: 650 mg Amino Acids (Prosource No Carb Liquid Pkt) 30 ml PO BID@0800,1730 [facility] Last Admin: 06/13/18 07:53 Dose: 30 ml Amiodarone HCl (Cordarone -) 400 mg PO TID [facility] Last Admin: 06/13/18 05:55 Dose: 400 mg Atorvastatin Calcium (Lipitor -) 20 mg PO HS [facility] Last Admin: 06/12/18 21:14 Dose: 20 mg Diltiazem HCl (Cardizem Cd -) 180 mg PO DAILY [facility] Last Admin: 06/12/18 09:03 Dose: 180 mg Diphenhydramine HCl (Benadryl -) 25 mg PO Q8H PRN PRN Reason: FOR ITCHING Haloperidol (Haldol Injection (Fast Acting) -) 2 mg IM Q4H PRN PRN Reason: AGITATION Last Admin: 06/13/18 07:53 Dose: 2 mg Nystatin/Triamcinolone Acetonide (Mycolog Ii Cream -) 1 applic TP BID [facility] Last Admin: 06/12/18 21:14 Dose: 1 applic Pantoprazole Sodium (Protonix -) 40 mg PO DAILY [facility] Last Admin: 06/12/18 09:03 Dose: 40 mg Tramadol HCl (Ultram -) 50 mg PO Q8H PRN PRN Reason: PAIN LEVEL 4 - 6 Last Admin: 06/12/18 09:04 Dose: 50 mg - Objective Vital Signs: Vital Signs Temperature 97.8 F 06/13/18 07:15 Pulse Rate 75 06/13/18 07:15 Respiratory Rate 20 06/13/18 07:15 Blood Pressure 123/59 L 06/13/18 07:15 O2 Sat by Pulse Oximetry (%) 94 L 06/12/18 21:00 Cardiovascular: Yes: S1, S2 Respiratory: Yes: Regular, CTA Bilaterally Gastrointestinal: Yes: Normal Bowel Sounds, Soft Labs: CBC, BMP 06/13/18 06:00 06/13/18 06:00 INR, PTT INR 1.13 (0.83-1.09) H 05/30/18 06:00 Problem List - Problems (1) Prostatic abscess Assessment/Plan: Urology on case spt draining clear Code(s): N41.2 - ABSCESS OF PROSTATE (2) Atrial flutter Assessment/Plan: ac on hold due to bleeding cardizem cardio follow up noted--monitor bp Code(s): I48.92 - UNSPECIFIED ATRIAL FLUTTER Qualifiers: Atrial flutter type: typical Qualified Code(s): I48.3 - Typical atrial flutter (3) Rectal bleed Assessment/Plan: monitor h/h gi eval noted ---colon--friable rectal area diet per gi Code(s): K62.5 - HEMORRHAGE OF ANUS AND RECTUM (4) Rectourethral fistula Assessment/Plan: Had colonoscopy results noted --surgical follow up noted Code(s): N36.0 - URETHRAL FISTULA (5) Renal insufficiency Assessment/Plan: -Increase oral intake -dietary consult bmp Code(s): N28.9 - DISORDER OF KIDNEY AND URETER, UNSPECIFIED
[2018-06-13] MEDS: PANTOPRAZOLE 40 MG TABLET (FP) PO SCH (09:39)
[2018-06-13] MEDS: NYSTATIN/TRIAMCINOLONE TOPICAL CREAM 15 GM TUBE TP SCH ×2 (09:39→23:15)
--- NOTE | 2018-06-13 11:42 | PN ---
Progress Note, [employer] - Note Progress Note: Selected Entries 06/11/18 06/11/18 06/12/18 09:41 10:00 00:36 Breakfast 100% 100% Supper Temperature 97.8 F 06/12/18 06/12/18 06/12/18 02:00 06:00 09:11 Breakfast Supper Temperature 97.5 F L 98.8 F 97.7 F 06/12/18 06/12/18 06/12/18 14:50 15:41 19:20 Breakfast 100% Supper 75% Temperature 98.3 F 06/12/18 06/13/18 06/13/18 23:00 02:00 07:15 Breakfast Supper Temperature 98.4 F 97.5 F L 97.8 F 06/13/18 09:51 Breakfast Supper Temperature 97.6 F Laboratory Tests 06/13/18 06:00 WBC 9.8 Diet downgraded to chopped per my rec with improved tolerance and increased PO intake, when cooperative. REC: Please order Chopped diet
[2018-06-13] MEDS: traMADol HCL 50 MG TABLET PO PRN (13:29)
--- NOTE | 2018-06-13 13:47 | PN ---
Progress Note, Physician Chief Complaint: No chest pain, sob, or palpitations. +pain HR better controlled History of Present Illness: This is a 73 year old man pmh Dementia, COPD, aflutter on eliquis and prostate cancer admitted with rectal bleeding. denies chest pain, sob, palpitations, pnd , orthopnea, or LE edema. He underwent EGD without complications. Had recurrent rapid Aflutter post procedure. - Current Medication List Current Medications: Active Medications Acetaminophen (Tylenol -) 650 mg PO Q4H PRN PRN Reason: PAIN LEVEL 1 - 3 Last Admin: 06/13/18 13:29 Dose: 650 mg Amino Acids (Prosource No Carb Liquid Pkt) 30 ml PO BID@0800,1730 [facility] Last Admin: 06/13/18 07:53 Dose: 30 ml Amiodarone HCl (Cordarone -) 400 mg PO TID [facility] Last Admin: 06/13/18 13:29 Dose: 400 mg Atorvastatin Calcium (Lipitor -) 20 mg PO HS [facility] Last Admin: 06/12/18 21:14 Dose: 20 mg Diltiazem HCl (Cardizem Cd -) 180 mg PO DAILY [facility] Last Admin: 06/13/18 09:39 Dose: 180 mg Diphenhydramine HCl (Benadryl -) 25 mg PO Q8H PRN PRN Reason: FOR ITCHING Haloperidol (Haldol Injection (Fast Acting) -) 2 mg IM Q4H PRN PRN Reason: AGITATION Last Admin: 06/13/18 07:53 Dose: 2 mg Nystatin/Triamcinolone Acetonide (Mycolog Ii Cream -) 1 applic TP BID [facility] Last Admin: 06/13/18 09:39 Dose: 1 applic Pantoprazole Sodium (Protonix -) 40 mg PO DAILY [facility] Last Admin: 06/13/18 09:39 Dose: 40 mg Tramadol HCl (Ultram -) 50 mg PO Q8H PRN PRN Reason: PAIN LEVEL 4 - 6 Last Admin: 06/13/18 13:29 Dose: 50 mg - Objective Vital Signs: Vital Signs Temperature 97.6 F 06/13/18 09:51 Pulse Rate 92 H 06/13/18 09:51 Respiratory Rate 19 06/13/18 09:51 Blood Pressure 123/73 06/13/18 09:51 O2 Sat by Pulse Oximetry (%) 94 L 06/13/18 09:00 Constitutional: Yes: No Distress Neck: Yes: Supple Cardiovascular: Yes: S1, S2. No: JVD, Murmur Respiratory: Yes: CTA Bilaterally Edema: No Labs: CBC, BMP 06/13/18 06:00 06/13/18 06:00 INR, PTT INR 1.13 (0.83-1.09) H 05/30/18 06:00 Assessment/Plan This is a 73 year old man pmh Dementia, COPD, aflutter on eliquis and prostate cancer admitted with rectal bleeding. denies chest pain, sob, palpitations, pnd , orthopnea, or LE edema. He underwent EGD without complications. Had recurrent rapid Aflutter post procedure. Aflutter -rates better controlled Continue on amiodarone and diltiazem Currently AC is on hold due to bleeding risk -Adequate pain control as needed. Also getting haldol as per primary team for agitation.
[2018-06-13] MEDS: SODIUM CHLORIDE 0.45% 1,000 ML IV SCH (15:00)
[2018-06-13 15:14] LABS: URINE APPEARANCE TURBID; URINE COLOR YELLOW; URINE GLUCOSE (UA) NEGATIVE (NEGATIVE); URINE KETONE NEGATIVE (NEGATIVE); URINE NITRITE NEGATIVE (NEGATIVE)
[2018-06-13 15:23] LABS: URINE LEUK ESTERASE 2+ (NEGATIVE); URINE PROTEIN 3+ (NEGATIVE)
[2018-06-13 15:30] LABS: CALCIUM OXALATE CRYSTALS MANY /hpf (NONE SEEN); URINE MUCUS MANY
--- NOTE | 2018-06-13 17:49 | CON.PSY ---
Psychiatry Consult Chief Complaint: Patient is very aggressive, pulling off iv etc. Symptoms: reports: Memory Impairment, Excessive Energy, Disorganized/Disruptive Thoughts - Previous Psychiatric Treatment Outpatient: None Inpatient: None - Previous Substance Abuse Treatment Outpatient: None Inpatient: None - Current Medications Current Medications: Active Medications Acetaminophen (Tylenol -) 650 mg PO Q4H PRN PRN Reason: PAIN LEVEL 1 - 3 Last Admin: 06/13/18 13:29 Dose: 650 mg Amino Acids (Prosource No Carb Liquid Pkt) 30 ml PO BID@0800,1730 [facility] Last Admin: 06/13/18 07:53 Dose: 30 ml Amiodarone HCl (Cordarone -) 400 mg PO TID [facility] Last Admin: 06/13/18 13:29 Dose: 400 mg Atorvastatin Calcium (Lipitor -) 20 mg PO HS [facility] Last Admin: 06/12/18 21:14 Dose: 20 mg Diltiazem HCl (Cardizem Cd -) 180 mg PO DAILY [facility] Last Admin: 06/13/18 09:39 Dose: 180 mg Diphenhydramine HCl (Benadryl -) 25 mg PO Q8H PRN PRN Reason: FOR ITCHING Haloperidol (Haldol Injection (Fast Acting) -) 2 mg IM Q4H PRN PRN Reason: AGITATION Last Admin: 06/13/18 16:18 Dose: 2 mg Sodium Chloride (1/2 Normal Saline) 1,000 mls @ 75 mls/hr IV ASDIR [facility] Nystatin/Triamcinolone Acetonide (Mycolog Ii Cream -) 1 applic TP BID [facility] Last Admin: 06/13/18 09:39 Dose: 1 applic Pantoprazole Sodium (Protonix -) 40 mg PO DAILY [facility] Last Admin: 06/13/18 09:39 Dose: 40 mg Tramadol HCl (Ultram -) 50 mg PO Q8H PRN PRN Reason: PAIN LEVEL 4 - 6 Last Admin: 06/13/18 13:29 Dose: 50 mg - Allergies Allergies: Allergies Allergy/AdvReac Type Severity Reaction Status Date / Time Carbapenems Allergy Mild Verified 06/07/18 04:58 Penicillins Allergy Unknown "SWELL UP" Verified 05/26/18 09:41 Sulfa (Sulfonamide Allergy Unknown "SWELL UP" Verified 05/26/18 09:41 Antibiotics) - Current Living Status Usual Living Arrangement: With Significant Other - Current Mental Status Evaluation Appearance: Disheveled Attitude: Guarded - Affect Affect: Constrictive Appropriateness: Not Appropriate - Mood Mood: Irritable - Speech/Language Expressive: Delayed - Psychomotor Activity Psychomotor Activity: Hyperactive - Thought Process Thought Process: Circumstantial - Thought Content Hallucinations: Absent Delusions: Absent - Self Perception Self Perception: Depersonalization - Cognition Attention: Diminished Memory, Immediate Recall: Impaired Memory, Short Term: 1/3 Memory, Remote with Promptin/3 - Concentration Serial Sevens Intact: No Simple Calculations Intact: No - Abstraction Proverb Interpretation: [place] Judgement: Severely Impaired - Insight Insight: Impaired - Impulse Control Impulse Control: Severly Impaired - Suicidal Ideation Suicidal Ideation: No - Homicidal Ideation Homicidal Ideation: No Assessment/Plan 1) zyprexa 10mg po hs for aggressive behaviour.
[2018-06-13] MEDS: ALBUTEROL SO4 2.5/IPRATROPIUM 0.5 INH SOL 3 ML VIAL.NEB. NEB PRN (18:16)
[2018-06-13] MEDS: OLANZapine 10 MG TABLET PO SCH (23:15)
[2018-06-13] MEDS: ATORVASTATIN CA 20 MG TABLET (FP) PO SCH (23:15)
[2018-06-14] MEDS: HALOPERIDOL LACTATE 5 MG/ML IM PRN (01:15)
[2018-06-14] MEDS: traMADol HCL 50 MG TABLET PO PRN (01:15)
[2018-06-14] MEDS: SODIUM CHLORIDE 0.45% 1,000 ML IV SCH ×2 (01:27→15:00)
[2018-06-14] MEDS: AMIODARONE HCL 200 MG TABLET (FP) PO SCH ×2 (06:22→11:37)
[2018-06-14 06:45] LABS: ANION GAP 11 MMOL/L (8-16); BLOOD UREA NITROGEN 25 mg/dL (7-18); CALCIUM 9.1 mg/dL (8.5-10.1); CHLORIDE 108 mmol/L (98-107); CO2 27 mmol/L (21-32); GLUCOSE,RANDOM 103 mg/dL (74-106); POTASSIUM 3.8 mmol/L (3.5-5.1); SODIUM 146 mmol/L (136-145)
[2018-06-14] MEDS: ALBUTEROL SO4 2.5/IPRATROPIUM 0.5 INH SOL 3 ML VIAL.NEB. NEB PRN (08:06)
--- NOTE | 2018-06-14 09:14 | PN ---
Progress Note, Physician - Current Medication List Current Medications: Active Medications Acetaminophen (Tylenol -) 650 mg PO Q4H PRN PRN Reason: PAIN LEVEL 1 - 3 Last Admin: 06/13/18 13:29 Dose: 650 mg Albuterol/Ipratropium (Duoneb -) 1 amp NEB Q4H PRN PRN Reason: SHORTNESS OF BREATH Last Admin: 06/14/18 08:06 Dose: 1 amp Amino Acids (Prosource No Carb Liquid Pkt) 30 ml PO BID@0800,1730 [facility] Last Admin: 06/13/18 17:58 Dose: Not Given Amiodarone HCl (Cordarone -) 400 mg PO TID [facility] Last Admin: 06/14/18 06:22 Dose: 400 mg Atorvastatin Calcium (Lipitor -) 20 mg PO HS [facility] Last Admin: 06/13/18 23:15 Dose: 20 mg Diltiazem HCl (Cardizem Cd -) 180 mg PO DAILY [facility] Last Admin: 06/13/18 09:39 Dose: 180 mg Diphenhydramine HCl (Benadryl -) 25 mg PO Q8H PRN PRN Reason: FOR ITCHING Haloperidol (Haldol Injection (Fast Acting) -) 2 mg IM Q4H PRN PRN Reason: AGITATION Last Admin: 06/14/18 01:15 Dose: 2 mg Sodium Chloride (1/2 Normal Saline) 1,000 mls @ 75 mls/hr IV ASDIR [facility] Last Admin: 06/14/18 01:27 Dose: 75 mls/hr Nystatin/Triamcinolone Acetonide (Mycolog Ii Cream -) 1 applic TP BID [facility] Last Admin: 06/13/18 23:15 Dose: 1 applic Olanzapine (Zyprexa -) 10 mg PO HS [facility] Last Admin: 06/13/18 23:15 Dose: 10 mg Pantoprazole Sodium (Protonix -) 40 mg PO DAILY [facility] Last Admin: 06/13/18 09:39 Dose: 40 mg Tramadol HCl (Ultram -) 50 mg PO Q8H PRN PRN Reason: PAIN LEVEL 4 - 6 Last Admin: 06/14/18 01:15 Dose: 50 mg - Objective Vital Signs: Vital Signs Temperature 97.8 F 06/14/18 06:00 Pulse Rate 82 06/14/18 06:00 Respiratory Rate 20 06/14/18 06:00 Blood Pressure 134/62 06/14/18 06:00 O2 Sat by Pulse Oximetry (%) 94 L 06/13/18 22:00 Labs: CBC, BMP 06/13/18 06:00 06/14/18 06:00 INR, PTT INR 1.13 (0.83-1.09) H 05/30/18 06:00 Problem List - Problems (1) Abscess Code(s): L02.91 - CUTANEOUS ABSCESS, UNSPECIFIED (2) Atrial flutter Code(s): I48.92 - UNSPECIFIED ATRIAL FLUTTER Qualifiers: Atrial flutter type: typical Qualified Code(s): I48.3 - Typical atrial flutter (3) Prostate CA Code(s): C61 - MALIGNANT NEOPLASM OF PROSTATE (4) Prostatic abscess Code(s): N41.2 - ABSCESS OF PROSTATE (5) Rectal bleed Code(s): K62.5 - HEMORRHAGE OF ANUS AND RECTUM (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
--- NOTE | 2018-06-14 09:22 | DS ---
Physical Examination Vital Signs: Vital Signs Temperature 97.8 F 06/14/18 06:00 Pulse Rate 82 06/14/18 06:00 Respiratory Rate 20 06/14/18 06:00 Blood Pressure 134/62 06/14/18 06:00 O2 Sat by Pulse Oximetry (%) 94 L 06/13/18 22:00 Findings/Remarks: DISCUSSED WITH GAVI HIS DAUGHTER, WE WILL TRANSFER TO [facility] AND MONITOR OUTPATIENT. WILL NOT HAVE SURGERY DUE TO RISKS OF PULLING THE COLOSTOMY BAG HE DOES TO HIS SUPRAPUBIC [place]. IF SURGERY IS NEEDED WILL ELECT TO DO AN OUTPATIENT AT [facility]. Constitutional: Yes: No Distress Eyes: Yes: WNL HENT: Yes: WNL Neck: Yes: WNL Cardiovascular: Yes: WNL Respiratory: Yes: WNL Gastrointestinal: Yes: WNL Renal/: Yes: Koch Present Musculoskeletal: Yes: Muscle Weakness Extremities: Yes: WNL Edema: No Peripheral Pulses WNL: Yes Integumentary: Yes: WNL Wound/Incision: Yes: Open to air Neurological: Yes: Confusion, Pre-Existing Deficit ...Motor Strength: LLE, RLE Psychiatric: Yes: Other Labs: CBC, BMP 06/13/18 06:00 06/14/18 06:00 Discharge Summary Reason For Visit: ABSCESS,RECTAL HEMORRHAGE Current Active Problems Abscess (Acute) Atrial flutter (Acute) Dementia without behavioral disturbance (Acute) H/O prostate cancer (Acute) Hypertension (Acute) Presence of suprapubic catheter (Acute) Prostate CA (Acute) Prostatic abscess (Acute) Rectal bleed (Acute) Rectourethral fistula (Acute) Renal insufficiency (Acute) Procedures: Principal: CT SCAN Hospital Course: COLONOSCOPY/CYSTOSCOPY/ WORKUP FOR URETHR/COLO FISTULA WILL MONITOR OUTPATIENT AND SCHEDULE SURGERY WHEN NEEDED AND PATIENT CAN TOLERATE AND CLEAR ANY INFECTIONS PRIOR TO SURGERY Condition: Improved - Instructions Diet, Activity, Other Instructions: UROLGOY F/U DR TAMEZ [facility] FOR LAPROSCOPIC COLOSTOMY CHECK WEEKLY CBC WEEKLY UA CX Referrals: Rio Bernal MD [Primary Care Provider] - Disposition: [facility] - Home Medications Comprehensive Discharge Medication List: Ambulatory Orders Acetaminophen [Tylenol] 650 mg PO Q6H PRN 05/26/18 Albuterol 2.5/Ipratropium 0.5 [Duoneb -] 1 neb NEB Q4H PRN 05/26/18 Apixaban [Eliquis] 5 mg PO BID 05/26/18 Atorvastatin Ca [Lipitor] 20 mg PO HS 05/26/18 Diltiazem HCl [Cardizem LA] 180 mg PO DAILY 05/26/18 Docusate Sodium 300 mg PO HS 05/26/18 Fluticasone Propionate [Flovent Diskus] 50 mcg IH DAILY PRN 05/26/18 Montelukast Sodium [Singulair] 10 mg PO HS 05/26/18 Nicotine [Nicoderm Cq] 1 each TD DAILY 05/26/18 Ranitidine HCl [Zantac] 150 mg PO DAILY 05/26/18 Sennosides [Senokot] 8.6 mg PO HS PRN 05/26/18 Travoprost [Travatan Z] 5 ml OP DAILY 05/26/18 Amino Acids/Protein Hydrolys [Prosource No Carb Liquid Pkt] 30 ml PO BID@0800, 1730 packet 06/03/18 Atorvastatin Ca [Lipitor] 20 mg PO HS tablet 06/03/18 Diltiazem Cd [Cardizem Cd -] 180 mg PO DAILY cap.cd.24h 06/03/18 Diphenhydramine HCl [Benadryl Capsule -] 25 mg PO Q8H PRN capsule 06/03/18 Nystatin/Triamcinolone Top Cr [Mycolog II -] 1 applic TP BID applic 06/03/18 oxyCODONE HCL [Roxicodone -] 5 mg PO Q6H PRN tablet MDD 4 06/03/18
--- NOTE | 2018-06-14 10:21 | PN ---
Progress Note, Physician History of Present Illness: seen and examined today in nad. awake and alert but confused. no overnight events. no new complaints. - Current Medication List Current Medications: Active Medications Acetaminophen (Tylenol -) 650 mg PO Q4H PRN PRN Reason: PAIN LEVEL 1 - 3 Last Admin: 06/13/18 13:29 Dose: 650 mg Albuterol/Ipratropium (Duoneb -) 1 amp NEB Q4H PRN PRN Reason: SHORTNESS OF BREATH Last Admin: 06/14/18 08:06 Dose: 1 amp Amino Acids (Prosource No Carb Liquid Pkt) 30 ml PO BID@0800,1730 [facility] Last Admin: 06/13/18 17:58 Dose: Not Given Amiodarone HCl (Cordarone -) 400 mg PO TID [facility] Last Admin: 06/14/18 06:22 Dose: 400 mg Atorvastatin Calcium (Lipitor -) 20 mg PO HS [facility] Last Admin: 06/13/18 23:15 Dose: 20 mg Diltiazem HCl (Cardizem Cd -) 180 mg PO DAILY [facility] Last Admin: 06/13/18 09:39 Dose: 180 mg Diphenhydramine HCl (Benadryl -) 25 mg PO Q8H PRN PRN Reason: FOR ITCHING Haloperidol (Haldol Injection (Fast Acting) -) 2 mg IM Q4H PRN PRN Reason: AGITATION Last Admin: 06/14/18 01:15 Dose: 2 mg Sodium Chloride (1/2 Normal Saline) 1,000 mls @ 75 mls/hr IV ASDIR [facility] Last Admin: 06/14/18 01:27 Dose: 75 mls/hr Nystatin/Triamcinolone Acetonide (Mycolog Ii Cream -) 1 applic TP BID [facility] Last Admin: 06/13/18 23:15 Dose: 1 applic Olanzapine (Zyprexa -) 10 mg PO HS [facility] Last Admin: 06/13/18 23:15 Dose: 10 mg Pantoprazole Sodium (Protonix -) 40 mg PO DAILY [facility] Last Admin: 06/13/18 09:39 Dose: 40 mg Tramadol HCl (Ultram -) 50 mg PO Q8H PRN PRN Reason: PAIN LEVEL 4 - 6 Last Admin: 06/14/18 01:15 Dose: 50 mg - Objective Vital Signs: Vital Signs Temperature 97.8 F 06/14/18 06:00 Pulse Rate 82 06/14/18 06:00 Respiratory Rate 20 06/14/18 06:00 Blood Pressure 134/62 06/14/18 06:00 O2 Sat by Pulse Oximetry (%) 94 L 06/13/18 22:00 Constitutional: Yes: No Distress, Calm Eyes: Yes: Conjunctiva Clear, EOM Intact HENT: Yes: Atraumatic, Normocephalic Neck: Yes: Supple, Trachea Midline Cardiovascular: Yes: Regular Rate and Rhythm, Murmur, S1, S2. No: Bradycardia, Tachycardia, Pulse Irregular, Bruit, JVD, Gallop, Rub, S3, S4, Varicosities Respiratory: Yes: Regular, CTA Bilaterally. No: Rales, Rhonchi, Wheezes Gastrointestinal: Yes: Normal Bowel Sounds, Soft. No: Distention, Tenderness Edema: No Peripheral Pulses WNL: Yes Neurological: Yes: Alert Psychiatric: Yes: Alert Labs: CBC, BMP 06/13/18 06:00 06/14/18 06:00 INR, PTT INR 1.13 (0.83-1.09) H 05/30/18 06:00 - ....Imaging Chest X-ray: Report Reviewed, Image Reviewed EKG: Report Reviewed, Image Reviewed Other: Report Reviewed, Image Reviewed (tele-NSR with frequent apcs, no further aflutter) Assessment/Plan 73 year old man pmh Dementia, COPD, aflutter on eliquis and prostate cancer admitted with rectal bleeding. denies chest pain, sob, palpitations, pnd, orthopnea, or LE edema. He underwent EGD without complications. Had recurrent rapid Aflutter post procedure. Aflutter -remains in nsr with frequent apcs -HR adequately controlled -transition amiodarone to maintenance dose of 200mg daily -cont diltiazem at current dose -Currently AC is on hold due to bleeding risk, risk vs benefit can be re- evaluated as outpatient No other planned inpatient cardiac work up at this time, please call with any additional questions.
[2018-06-14] MEDS: PANTOPRAZOLE 40 MG TABLET (FP) PO SCH (11:36)
[2018-06-14] MEDS: NYSTATIN/TRIAMCINOLONE TOPICAL CREAM 15 GM TUBE TP SCH ×2 (11:37→23:01)
[2018-06-14] MEDS: AMINO ACIDS/PROTEIN HYDROLYS 30 ML LIQUID.PKT PO SCH ×2 (11:37→17:54)
[2018-06-14] MEDS ORDERED: PT OWN MED DRAWER 7, Y5N ONE ×2 (20:20→23:20)
[2018-06-14] MEDS: ATORVASTATIN CA 20 MG TABLET (FP) PO SCH ×2 (23:01→23:11)
[2018-06-14] MEDS: OLANZapine 10 MG TABLET PO SCH ×2 (23:01→23:11)
[2018-06-15] MEDS: SODIUM CHLORIDE 0.45% 1,000 ML IV SCH ×2 (04:35→17:47)
--- NOTE | 2018-06-15 05:49 | PN ---
Progress Note (short form) - Note Progress Note: PATIENT IS A 73 Y/O MALE HERE WITH A RECTO/URETHRAL FISTULA. I HAVE DISCUSSED MULTIPLE TIMES WITH HIS DAUGHTER GAVI AND THE PATIENT THAT HAVING A SURGICAL REPAIR AT THIS TIME IS TO HIGH OF A RISK. THE PATIENT IS CONSTANTLY PULLING OUT HIS IV'S AND SUPRAPUBIC [place] CATHETER. MR. ABRAHAM SUFFERS FROM MILD DEMENTIA AND FORGETS WHERE HE IS AND LOSES SIGHT OF HIS MEDICAL CONDITION AND BEGINS TO BECOME AGITATED AND SCREAMS BECAUSE OF HIS ALTERED MENTAL STATUS. PATIENT WAS SEEN BY PSYCHIATRY AND DEEMED NOT COMPETENT TO MAKE ANY MEDICAL DECISIONS. THE FACT THE PATIENT IS UNABLE TO MENTALLY DIGEST HIS ILLNESS, INADHERENT TO MEDICAL AND SURGICAL FOLLOW UP. THE SURGICAL OPTION OF REPAIRING THE FISTULA WILL REQUIRE AT THE MINIMUM A COLOSTOMY BAG WHICH WILL BE EXPOSED ON THE PATIENTS ABDOMEN. THE PATIENT HAS CURRENTLY A SUPRAPUBIC CATHETER THAT HE PULLS OUT ALL THE TIME BECAUSE OF HIS DEMENTIA. IF MR. ABRAHAM HAS THE SURGICAL REPAIR OF THE FISTULA HE WOULD REQUIRE POST-SURGICAL CARE TO THE COLOSTOMY AREA AND WOULD AT THE [facility] INVASIVE OPEN SURGERY FOR THIS (NOT LAPROSCOPIC). AT THIS TIME I HAVE TOLD GAVI THE PATIENT'S DAUGHTER THERE IS NO IMMEDIATE DANGER AND IF NEEDED WE CAN TRANSFER HER DAD TO A [facility] TO HAVE THIS REPAIRED AN OUTPATIENT. DR TAMEZ FROM HAS SCHEDULED MR ABRAHAM TO REPLACE THE SUPRAPUBIC CATHETER THAT THE PATIENT PULLED OUT ON WednesdayMay. ONCE THE CATHETER IS SECURED I WILL TRANSFER THE PATIENT BACK TO [facility] TO OPTIMIZE HIS OTHER QUALITIES OF LIFE WITH PHYSICAL THERAPY, NOURISHMENT AND PSYCHIATRY FOLLOW UPS. ONCE ALL MEDICAL INTERVENTIONS HAVE BEEN FULLY REACHED AND THE PATIENT IS STILL IN NEED OF HIS URETHRAL/RECTAL FISTULA REPAIRED SURGICALLY I WILL THEN TRANSFER TO [facility]ITHER [facility] OR [facility] WHERE THEY HAVE THE SURGICAL MEANS OF REPAIRING THE FISTULA LAPROSCOPICALLY. PLAN: MONITOR LABS NUTRITIONAL SUPPLEMENT MYCOLOG TO GROIN AREA FOR DERMATITIS PSYCHIATRY FOLLOW UP ON ZYPREXA QHS BIPOLAR DISORDER MAY NEED DEPAKOTE SUPRAPUBIC CATHETER CHANGE CHECK URINE AND BLOOD CULTURES (WILL NEED ALL INFECTIONS TREATED BEFORE ANY SURGICAL INTERVENTIONS FOR FISTULA REPAIR) OOB TO CHAIR/WITH PT Problem List - Problems (1) Abscess Code(s): L02.91 - CUTANEOUS ABSCESS, UNSPECIFIED (2) Atrial flutter Code(s): I48.92 - UNSPECIFIED ATRIAL FLUTTER Qualifiers: Atrial flutter type: typical Qualified Code(s): I48.3 - Typical atrial flutter (3) Prostate CA Code(s): C61 - MALIGNANT NEOPLASM OF PROSTATE (4) Prostatic abscess Code(s): N41.2 - ABSCESS OF PROSTATE (5) Rectal bleed Code(s): K62.5 - HEMORRHAGE OF ANUS AND RECTUM (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
[2018-06-15] MEDS: APIXABAN 5 MG TABLET PO SCH ×2 (09:45→22:53)
[2018-06-15] MEDS: AMIODARONE HCL 200 MG TABLET (FP) PO SCH (09:46)
[2018-06-15] MEDS: AMINO ACIDS/PROTEIN HYDROLYS 30 ML LIQUID.PKT PO SCH ×2 (09:46→17:47)
[2018-06-15] MEDS: DIVALPROEX SODIUM 125 MG SPRINKLE CAPS PO SCH (09:46)
[2018-06-15] MEDS: PANTOPRAZOLE 40 MG TABLET (FP) PO SCH (09:46)
[2018-06-15] MEDS: NYSTATIN/TRIAMCINOLONE TOPICAL CREAM 15 GM TUBE TP SCH ×2 (09:48→22:53)
[2018-06-15] MEDS: ALBUTEROL SO4 2.5/IPRATROPIUM 0.5 INH SOL 3 ML VIAL.NEB. NEB PRN (11:10)
--- NOTE | 2018-06-15 12:10 | PN ---
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 Encourage supplements b/n meals. Ensure Enlive/magic cup L/D
--- NOTE | 2018-06-15 12:11 | PN ---
Progress Note, Physician History of Present Illness: seen and examined. no overnight events. no new complaints. - Current Medication List Current Medications: Active Medications Acetaminophen (Tylenol -) 650 mg PO Q4H PRN PRN Reason: PAIN LEVEL 1 - 3 Last Admin: 06/13/18 13:29 Dose: 650 mg Albuterol/Ipratropium (Duoneb -) 1 amp NEB Q4H PRN PRN Reason: SHORTNESS OF BREATH Last Admin: 06/15/18 11:10 Dose: 1 amp Amino Acids (Prosource No Carb Liquid Pkt) 30 ml PO BID@0800,1730 [facility] Last Admin: 06/15/18 09:46 Dose: Not Given Amiodarone HCl (Cordarone -) 200 mg PO DAILY [facility] Last Admin: 06/15/18 09:46 Dose: 200 mg Apixaban (Eliquis -) 5 mg PO BID [facility] Last Admin: 06/15/18 09:45 Dose: 5 mg Atorvastatin Calcium (Lipitor -) 20 mg PO HS [facility] Last Admin: 06/14/18 23:11 Dose: 20 mg Diltiazem HCl (Cardizem Cd -) 180 mg PO DAILY [facility] Last Admin: 06/15/18 09:46 Dose: 180 mg Diphenhydramine HCl (Benadryl -) 25 mg PO Q8H PRN PRN Reason: FOR ITCHING Divalproex Sodium (Depakote Sprinkle Caps -) 125 mg PO DAILY [facility] Last Admin: 06/15/18 09:46 Dose: 125 mg Haloperidol (Haldol Injection (Fast Acting) -) 2 mg IM Q4H PRN PRN Reason: AGITATION Last Admin: 06/14/18 01:15 Dose: 2 mg Sodium Chloride (1/2 Normal Saline) 1,000 mls @ 75 mls/hr IV ASDIR [facility] Last Admin: 06/15/18 04:35 Dose: 75 mls/hr Nystatin/Triamcinolone Acetonide (Mycolog Ii Cream -) 1 applic TP BID [facility] Last Admin: 06/15/18 09:48 Dose: 1 applic Olanzapine (Zyprexa -) 10 mg PO HS [facility] Last Admin: 06/14/18 23:11 Dose: 10 mg Pantoprazole Sodium (Protonix -) 40 mg PO DAILY [facility] Last Admin: 06/15/18 09:46 Dose: 40 mg Tramadol HCl (Ultram -) 50 mg PO Q8H PRN PRN Reason: PAIN LEVEL 4 - 6 Last Admin: 06/14/18 01:15 Dose: 50 mg - Objective Vital Signs: Vital Signs Temperature 97.6 F 06/15/18 09:00 Pulse Rate 90 06/15/18 09:00 Respiratory Rate 20 06/15/18 09:00 Blood Pressure 117/75 06/15/18 09:00 O2 Sat by Pulse Oximetry (%) 99 06/15/18 09:00 Constitutional: Yes: No Distress, Calm HENT: Yes: Atraumatic, Normocephalic Cardiovascular: Yes: Regular Rate and Rhythm, S1, S2. No: Bradycardia, Tachycardia, Pulse Irregular, Bruit, JVD, Gallop, Murmur, Rub, S3, S4, Varicosities Respiratory: Yes: Regular, Diminished. No: Rales, Rhonchi, SOB, Wheezes Gastrointestinal: Yes: Normal Bowel Sounds, Soft Edema: No Peripheral Pulses WNL: Yes Neurological: No: Oriented Psychiatric: No: Oriented Labs: CBC, BMP 06/13/18 06:00 06/14/18 06:00 INR, PTT INR 1.13 (0.83-1.09) H 05/30/18 06:00 - ....Imaging Chest X-ray: Report Reviewed, Image Reviewed EKG: Report Reviewed, Image Reviewed Other: Report Reviewed, Image Reviewed Assessment/Plan 73 year old man pmh Dementia, COPD, aflutter on eliquis and prostate cancer admitted with rectal bleeding. denies chest pain, sob, palpitations, pnd, orthopnea, or LE edema. He underwent EGD without complications. Had recurrent rapid Aflutter post procedure. Aflutter -remains in nsr with frequent apcs -HR adequately controlled -cont amiodarone 200mg daily -cont diltiazem at current dose -Currently AC is on hold due to bleeding risk, risk vs benefit can be re- evaluated as outpatient No other planned inpatient cardiac work up at this time, please call with any additional questions.
[2018-06-15] MEDS: ATORVASTATIN CA 20 MG TABLET (FP) PO SCH (22:53)
[2018-06-15] MEDS: OLANZapine 10 MG TABLET PO SCH (22:53)
[2018-06-15] MEDS ORDERED: PT OWN MED DRAWER 7, Y5N ONE (22:53)
[2018-06-16] MEDS ORDERED: PT OWN MED DRAWER 7, Y5N ONE (08:57)
[2018-06-16] MEDS: APIXABAN 5 MG TABLET PO SCH ×2 (09:38→22:46)
[2018-06-16] MEDS: AMINO ACIDS/PROTEIN HYDROLYS 30 ML LIQUID.PKT PO SCH ×2 (09:38→16:32)
[2018-06-16] MEDS: AMIODARONE HCL 200 MG TABLET (FP) PO SCH (09:38)
[2018-06-16] MEDS: DIVALPROEX SODIUM 125 MG SPRINKLE CAPS PO SCH (09:38)
[2018-06-16] MEDS: PANTOPRAZOLE 40 MG TABLET (FP) PO SCH (09:38)
[2018-06-16] MEDS: NYSTATIN/TRIAMCINOLONE TOPICAL CREAM 15 GM TUBE TP SCH ×2 (09:38→23:41)
--- NOTE | 2018-06-16 10:17 | PN ---
Progress Note, Physician Chief Complaint: patient seen in bed with restraints awake - Current Medication List Current Medications: Active Medications Acetaminophen (Tylenol -) 650 mg PO Q4H PRN PRN Reason: PAIN LEVEL 1 - 3 Last Admin: 06/13/18 13:29 Dose: 650 mg Albuterol/Ipratropium (Duoneb -) 1 amp NEB Q4H PRN PRN Reason: SHORTNESS OF BREATH Last Admin: 06/15/18 11:10 Dose: 1 amp Amino Acids (Prosource No Carb Liquid Pkt) 30 ml PO BID@0800,1730 [facility] Last Admin: 06/16/18 09:38 Dose: Not Given Amiodarone HCl (Cordarone -) 200 mg PO DAILY [facility] Last Admin: 06/16/18 09:38 Dose: 200 mg Apixaban (Eliquis -) 5 mg PO BID [facility] Last Admin: 06/16/18 09:38 Dose: 5 mg Atorvastatin Calcium (Lipitor -) 20 mg PO HS [facility] Last Admin: 06/15/18 22:53 Dose: 20 mg Diltiazem HCl (Cardizem Cd -) 180 mg PO DAILY [facility] Last Admin: 06/16/18 09:38 Dose: 180 mg Diphenhydramine HCl (Benadryl -) 25 mg PO Q8H PRN PRN Reason: FOR ITCHING Divalproex Sodium (Depakote Sprinkle Caps -) 125 mg PO DAILY [facility] Last Admin: 06/16/18 09:38 Dose: 125 mg Haloperidol (Haldol Injection (Fast Acting) -) 2 mg IM Q4H PRN PRN Reason: AGITATION Last Admin: 06/14/18 01:15 Dose: 2 mg Sodium Chloride (1/2 Normal Saline) 1,000 mls @ 75 mls/hr IV ASDIR [facility] Last Admin: 06/15/18 17:47 Dose: Not Given Nystatin/Triamcinolone Acetonide (Mycolog Ii Cream -) 1 applic TP BID [facility] Last Admin: 06/16/18 09:38 Dose: 1 applic Olanzapine (Zyprexa -) 10 mg PO HS [facility] Last Admin: 06/15/18 22:53 Dose: 10 mg Pantoprazole Sodium (Protonix -) 40 mg PO DAILY [facility] Last Admin: 06/16/18 09:38 Dose: 40 mg Tramadol HCl (Ultram -) 50 mg PO Q8H PRN PRN Reason: PAIN LEVEL 4 - 6 Last Admin: 06/14/18 01:15 Dose: 50 mg - Objective Vital Signs: Vital Signs Temperature 98.3 F 06/16/18 05:21 Pulse Rate 79 06/16/18 05:21 Respiratory Rate 22 H 06/16/18 05:21 Blood Pressure 118/87 06/16/18 05:21 O2 Sat by Pulse Oximetry (%) 99 06/15/18 09:00 Constitutional: Yes: Moderate Distress Cardiovascular: Yes: Regular Rate and Rhythm, S1, S2 Respiratory: Yes: Diminished Gastrointestinal: Yes: Normal Bowel Sounds, Soft Edema: No Labs: CBC, BMP 06/13/18 06:00 06/14/18 06:00 INR, PTT INR 1.13 (0.83-1.09) H 05/30/18 06:00 Problem List - Problems (1) Abscess Assessment/Plan: completed abx course wbc count is normal no fever Code(s): L02.91 - CUTANEOUS ABSCESS, UNSPECIFIED (2) Rectal bleed Assessment/Plan: hold eliquis monitor h/h gi eval noted awaiting urology eval NPO till cleared by Gi Code(s): K62.5 - HEMORRHAGE OF ANUS AND RECTUM (3) Atrial flutter Assessment/Plan: restart eliquis on cardizem and amiodarone Code(s): I48.92 - UNSPECIFIED ATRIAL FLUTTER Qualifiers: Atrial flutter type: typical Qualified Code(s): I48.3 - Typical atrial flutter (4) Dementia without behavioral disturbance Assessment/Plan: psych on obard started on zyprexa started on depakoted as well Code(s): F03.90 - UNSPECIFIED DEMENTIA WITHOUT BEHAVIORAL DISTURBANCE Qualifiers: Dementia type: unspecified type Qualified Code(s): F03.90 - Unspecified dementia without behavioral disturbance (5) Presence of suprapubic catheter Assessment/Plan: to be change by Code(s): Z93.59 - OTHER CYSTOSTOMY STATUS Assessment/Plan after suprapubic cath changed then will go to [facility]
--- NOTE | 2018-06-16 10:27 | PN ---
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 Tolerating diet. Interment cooperation secondary to confusion.
[2018-06-16] MEDS: HALOPERIDOL LACTATE 5 MG/ML IM PRN ×2 (10:55→20:14)
--- NOTE | 2018-06-16 11:04 | PN ---
Progress Note (short form) - Note Progress Note: patient ripped off restraints 1:1 ordered follow up with dr ronda segura prn Problem List - Problems (1) Abscess Code(s): L02.91 - CUTANEOUS ABSCESS, UNSPECIFIED (2) Rectal bleed Code(s): K62.5 - HEMORRHAGE OF ANUS AND RECTUM (3) Atrial flutter Code(s): I48.92 - UNSPECIFIED ATRIAL FLUTTER Qualifiers: Atrial flutter type: typical Qualified Code(s): I48.3 - Typical atrial flutter (4) Dementia without behavioral disturbance Code(s): F03.90 - UNSPECIFIED DEMENTIA WITHOUT BEHAVIORAL DISTURBANCE Qualifiers: Dementia type: unspecified type Qualified Code(s): F03.90 - Unspecified dementia without behavioral disturbance (5) Presence of suprapubic catheter Code(s): Z93.59 - OTHER CYSTOSTOMY STATUS
--- NOTE | 2018-06-16 12:02 | PN ---
Progress Note, Physician Chief Complaint: No chest pain or sob Tele: afib with relative rate control History of Present Illness: This is a 73 year old man pmh Dementia, COPD, aflutter on eliquis and prostate cancer admitted with rectal bleeding. denies chest pain, sob, palpitations, pnd , orthopnea, or LE edema. He underwent EGD without complications. Had recurrent rapid Aflutter post procedure. - Current Medication List Current Medications: Active Medications Acetaminophen (Tylenol -) 650 mg PO Q4H PRN PRN Reason: PAIN LEVEL 1 - 3 Last Admin: 06/13/18 13:29 Dose: 650 mg Albuterol/Ipratropium (Duoneb -) 1 amp NEB Q4H PRN PRN Reason: SHORTNESS OF BREATH Last Admin: 06/15/18 11:10 Dose: 1 amp Amino Acids (Prosource No Carb Liquid Pkt) 30 ml PO BID@0800,1730 [facility] Last Admin: 06/16/18 09:38 Dose: Not Given Amiodarone HCl (Cordarone -) 200 mg PO DAILY [facility] Last Admin: 06/16/18 09:38 Dose: 200 mg Apixaban (Eliquis -) 5 mg PO BID [facility] Last Admin: 06/16/18 09:38 Dose: 5 mg Atorvastatin Calcium (Lipitor -) 20 mg PO HS [facility] Last Admin: 06/15/18 22:53 Dose: 20 mg Diltiazem HCl (Cardizem Cd -) 180 mg PO DAILY [facility] Last Admin: 06/16/18 09:38 Dose: 180 mg Diphenhydramine HCl (Benadryl -) 25 mg PO Q8H PRN PRN Reason: FOR ITCHING Divalproex Sodium (Depakote Sprinkle Caps -) 125 mg PO DAILY [facility] Last Admin: 06/16/18 09:38 Dose: 125 mg Haloperidol (Haldol Injection (Fast Acting) -) 2 mg IM Q4H PRN PRN Reason: AGITATION Last Admin: 06/16/18 10:55 Dose: 2 mg Sodium Chloride (1/2 Normal Saline) 1,000 mls @ 75 mls/hr IV ASDIR [facility] Last Admin: 06/15/18 17:47 Dose: Not Given Nystatin/Triamcinolone Acetonide (Mycolog Ii Cream -) 1 applic TP BID [facility] Last Admin: 06/16/18 09:38 Dose: 1 applic Olanzapine (Zyprexa -) 10 mg PO HS [facility] Last Admin: 06/15/18 22:53 Dose: 10 mg Pantoprazole Sodium (Protonix -) 40 mg PO DAILY [facility] Last Admin: 06/16/18 09:38 Dose: 40 mg Tramadol HCl (Ultram -) 50 mg PO Q8H PRN PRN Reason: PAIN LEVEL 4 - 6 Last Admin: 06/14/18 01:15 Dose: 50 mg - Objective Vital Signs: Vital Signs Temperature 98.3 F 06/16/18 05:21 Pulse Rate 79 06/16/18 05:21 Respiratory Rate 22 H 06/16/18 05:21 Blood Pressure 118/87 06/16/18 05:21 O2 Sat by Pulse Oximetry (%) 99 06/15/18 09:00 Constitutional: Yes: No Distress Neck: Yes: Supple Cardiovascular: Yes: Pulse Irregular, S1. No: JVD Respiratory: Yes: CTA Bilaterally Gastrointestinal: Yes: Soft Edema: No Labs: CBC, BMP 06/13/18 06:00 06/14/18 06:00 INR, PTT INR 1.13 (0.83-1.09) H 05/30/18 06:00 Problem List - Problems (1) Atrial flutter Code(s): I48.92 - UNSPECIFIED ATRIAL FLUTTER Qualifiers: Atrial flutter type: typical Qualified Code(s): I48.3 - Typical atrial flutter Assessment/Plan This is a 73 year old man pmh Dementia, COPD, aflutter on eliquis and prostate cancer admitted with rectal bleeding. denies chest pain, sob, palpitations, pnd , orthopnea, or LE edema. He underwent EGD without complications. Had recurrent rapid Aflutter post procedure. Aflutter -rates are controlled on current regimen Continue on amiodarone and diltiazem Apixaban was restarted as per primary team. H/h currently stable. -Adequate pain control as needed.
[2018-06-16] MEDS: SODIUM CHLORIDE 0.45% 1,000 ML IV SCH (16:27)
[2018-06-16] MEDS: diphenhydrAMINE HCL 25 MG CAPSULE (FP) PO PRN (22:45)
[2018-06-16] MEDS: OLANZapine 10 MG TABLET PO SCH (22:45)
[2018-06-16] MEDS: ATORVASTATIN CA 20 MG TABLET (FP) PO SCH (22:46)
[2018-06-17] MEDS: HALOPERIDOL LACTATE 5 MG/ML IM PRN ×2 (01:42→18:09)
[2018-06-17] MEDS: AMINO ACIDS/PROTEIN HYDROLYS 30 ML LIQUID.PKT PO SCH ×2 (08:20→18:10)
[2018-06-17] MEDS: PANTOPRAZOLE 40 MG TABLET (FP) PO SCH (10:00)
[2018-06-17] MEDS: APIXABAN 5 MG TABLET PO SCH ×2 (10:00→21:59)
[2018-06-17] MEDS: AMIODARONE HCL 200 MG TABLET (FP) PO SCH (10:00)
[2018-06-17] MEDS: DIVALPROEX SODIUM 125 MG SPRINKLE CAPS PO SCH (10:00)
--- NOTE | 2018-06-17 10:39 | PN ---
Progress Note, Physician - Current Medication List Current Medications: Active Medications Acetaminophen (Tylenol -) 650 mg PO Q4H PRN PRN Reason: PAIN LEVEL 1 - 3 Last Admin: 06/13/18 13:29 Dose: 650 mg Albuterol/Ipratropium (Duoneb -) 1 amp NEB Q4H PRN PRN Reason: SHORTNESS OF BREATH Last Admin: 06/15/18 11:10 Dose: 1 amp Amino Acids (Prosource No Carb Liquid Pkt) 30 ml PO BID@0800,1730 [facility] Last Admin: 06/16/18 16:32 Dose: Not Given Amiodarone HCl (Cordarone -) 200 mg PO DAILY [facility] Last Admin: 06/16/18 09:38 Dose: 200 mg Apixaban (Eliquis -) 5 mg PO BID [facility] Last Admin: 06/16/18 22:46 Dose: 5 mg Atorvastatin Calcium (Lipitor -) 20 mg PO HS [facility] Last Admin: 06/16/18 22:46 Dose: 20 mg Diltiazem HCl (Cardizem Cd -) 180 mg PO DAILY [facility] Last Admin: 06/16/18 09:38 Dose: 180 mg Diphenhydramine HCl (Benadryl -) 25 mg PO Q8H PRN PRN Reason: FOR ITCHING Last Admin: 06/16/18 22:45 Dose: 25 mg Divalproex Sodium (Depakote Sprinkle Caps -) 125 mg PO DAILY [facility] Last Admin: 06/16/18 09:38 Dose: 125 mg Haloperidol (Haldol Injection (Fast Acting) -) 2 mg IM Q4H PRN PRN Reason: AGITATION Last Admin: 06/17/18 01:42 Dose: 2 mg Sodium Chloride (1/2 Normal Saline) 1,000 mls @ 75 mls/hr IV ASDIR [facility] Last Admin: 06/16/18 16:27 Dose: 75 mls/hr Nystatin/Triamcinolone Acetonide (Mycolog Ii Cream -) 1 applic TP BID [facility] Last Admin: 06/16/18 23:41 Dose: Not Given Olanzapine (Zyprexa -) 10 mg PO HS [facility] Last Admin: 06/16/18 22:45 Dose: 10 mg Pantoprazole Sodium (Protonix -) 40 mg PO DAILY [facility] Last Admin: 06/16/18 09:38 Dose: 40 mg Tramadol HCl (Ultram -) 50 mg PO Q8H PRN PRN Reason: PAIN LEVEL 4 - 6 Last Admin: 06/14/18 01:15 Dose: 50 mg - Objective Vital Signs: Vital Signs Temperature 97.8 F 06/16/18 18:00 Pulse Rate 83 06/16/18 18:00 Respiratory Rate 20 06/16/18 18:00 Blood Pressure 127/62 06/16/18 18:00 O2 Sat by Pulse Oximetry (%) 99 06/15/18 09:00 Cardiovascular: Yes: S1, S2 Respiratory: Yes: Regular, CTA Bilaterally Gastrointestinal: Yes: Normal Bowel Sounds, Soft Labs: CBC, BMP 06/13/18 06:00 06/14/18 06:00 INR, PTT INR 1.13 (0.83-1.09) H 05/30/18 06:00 Problem List - Problems (1) Prostatic abscess Code(s): N41.2 - ABSCESS OF PROSTATE (2) Atrial flutter Code(s): I48.92 - UNSPECIFIED ATRIAL FLUTTER Qualifiers: Atrial flutter type: typical Qualified Code(s): I48.3 - Typical atrial flutter (3) Rectal bleed Code(s): K62.5 - HEMORRHAGE OF ANUS AND RECTUM (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 - URETHRAL FISTULA (5) Renal insufficiency Code(s): N28.9 - DISORDER OF KIDNEY AND URETER, UNSPECIFIED Assessment/Plan - Problems (1) Abscess Assessment/Plan: completed abx course wbc count is normal no fever Code(s): L02.91 - CUTANEOUS ABSCESS, UNSPECIFIED (2) Rectal bleed Assessment/Plan: hold eliquis monitor h/h gi eval noted awaiting urology eval NPO till cleared by Gi Code(s): K62.5 - HEMORRHAGE OF ANUS AND RECTUM (3) Atrial flutter Assessment/Plan: restart eliquis on cardizem and amiodarone Code(s): I48.92 - UNSPECIFIED ATRIAL FLUTTER Qualifiers: Atrial flutter type: typical Qualified Code(s): I48.3 - Typical atrial flutter (4) Dementia without behavioral disturbance Assessment/Plan: psych on obard started on zyprexa started on depakoted as well Code(s): F03.90 - UNSPECIFIED DEMENTIA WITHOUT BEHAVIORAL DISTURBANCE Qualifiers: Dementia type: unspecified type Qualified Code(s): F03.90 - Unspecified dementia without behavioral disturbance (5) Presence of suprapubic catheter Assessment/Plan: to be change by then dc to snf Code(s): Z93.59 - OTHER CYSTOSTOMY STATUS
--- NOTE | 2018-06-17 12:56 | OP ---
Operative Note - Note: Operative Date: 06/17/18 Pre-Operative Diagnosis: rectourethral fistula Operation: cystoscopy and suprapubic cystostomy Surgeon: Aurelio Amaral Anesthesiologist/INVERFORM MACHINE OPERATOR: Shlomo Davidson Anesthesia: General, Local Estimated Blood Loss (mls): 0 Drains & Tubes with Location: 24 fr 30 ml balloon gil/SP tube Operative Report Dictated: Yes
[2018-06-17] MEDS ORDERED: PHENYLEPHRINE HCL 10 MG/1 ML SINGLE DOSE VIAL ONE (13:23)
[2018-06-17] MEDS ORDERED: PROPOFOL 20 ML ONE (13:23)
[2018-06-17] MEDS ORDERED: LIDOCAINE HCL/PF 2% SDV 5ML VIAL ONE (13:23)
[2018-06-17] MEDS ORDERED: ONDANSETRON 4 MG/2 ML VIAL IVPUSH PRN (14:22)
[2018-06-17] MEDS ORDERED: PROMETHAZINE HCL 25 MG/1 ML VIAL IVPUSH PRN (14:22)
[2018-06-17] MEDS ORDERED: oxyCODONE HCL 5 MG TABLET PO PRN (14:22)
[2018-06-17] MEDS ORDERED: ALBUTEROL SO4 2.5/IPRATROPIUM 0.5 INH SOL 3 ML VIAL.NEB. NEB PRN (14:47)
[2018-06-17] MEDS ORDERED: traMADol HCL 50 MG TABLET PO PRN (14:47)
[2018-06-17] MEDS ORDERED: diphenhydrAMINE HCL 25 MG CAPSULE (FP) PO PRN (14:47)
[2018-06-17] MEDS: SODIUM CHLORIDE 0.45% 1,000 ML IV SCH (15:10)
[2018-06-17] MEDS: NYSTATIN/TRIAMCINOLONE TOPICAL CREAM 15 GM TUBE TP SCH (21:59)
[2018-06-17] MEDS: OLANZapine 10 MG TABLET PO SCH (21:59)
[2018-06-17] MEDS: ATORVASTATIN CA 20 MG TABLET (FP) PO SCH (21:59)
[2018-06-18] MEDS ORDERED: PT OWN MED DRAWER 7, Y5N ONE (07:57)
[2018-06-18] MEDS: AMINO ACIDS/PROTEIN HYDROLYS 30 ML LIQUID.PKT PO SCH ×2 (09:08→16:41)
[2018-06-18] MEDS: APIXABAN 5 MG TABLET PO SCH ×2 (09:09→21:21)
[2018-06-18] MEDS: AMIODARONE HCL 200 MG TABLET (FP) PO SCH (09:09)
[2018-06-18] MEDS: NYSTATIN/TRIAMCINOLONE TOPICAL CREAM 15 GM TUBE TP SCH ×2 (09:09→21:26)
[2018-06-18] MEDS: DIVALPROEX SODIUM 125 MG SPRINKLE CAPS PO SCH (09:09)
[2018-06-18] MEDS: PANTOPRAZOLE 40 MG TABLET (FP) PO SCH (09:09)
--- NOTE | 2018-06-18 09:36 | PN ---
Progress Note (short form) - Note Progress Note: Post op day#1.S/p Cystoscopy with suprapubic tube replacement under GA uneventful.Patient stable.No any anesthesia related problem.Patient DC from the anesthesia care.
--- NOTE | 2018-06-18 11:01 | DS ---
Physical Examination Vital Signs: Vital Signs Temperature 97.8 F 06/18/18 10:00 Pulse Rate 72 06/18/18 10:00 Respiratory Rate 20 06/18/18 10:00 Blood Pressure 153/91 06/18/18 10:00 O2 Sat by Pulse Oximetry (%) 94 L 06/18/18 09:00 Cardiovascular: Yes: S1, S2 Respiratory: Yes: Regular, CTA Bilaterally Gastrointestinal: Yes: Normal Bowel Sounds, Soft Renal/: Yes: Other (spt in place -area clean no bleeding) Labs: CBC, BMP 06/13/18 06:00 06/14/18 06:00 Discharge Summary Reason For Visit: ABSCESS,RECTAL HEMORRHAGE Current Active Problems Abscess (Acute) Atrial flutter (Acute) Dementia without behavioral disturbance (Acute) H/O prostate cancer (Acute) Hypertension (Acute) Presence of suprapubic catheter (Acute) Prostate CA (Acute) Prostatic abscess (Acute) Rectal bleed (Acute) Rectourethral fistula (Acute) Renal insufficiency (Acute) Hospital Course: - Problems (1) Abscess Assessment/Plan: completed abx course wbc count is normal no fever Code(s): L02.91 - CUTANEOUS ABSCESS, UNSPECIFIED (2) Rectal bleed Assessment/Plan: hold eliquis monitor h/h gi eval noted awaiting urology eval NPO till cleared by Gi Code(s): K62.5 - HEMORRHAGE OF ANUS AND RECTUM (3) Atrial flutter Assessment/Plan: restart eliquis on cardizem and amiodarone Code(s): I48.92 - UNSPECIFIED ATRIAL FLUTTER Qualifiers: Atrial flutter type: typical Qualified Code(s): I48.3 - Typical atrial flutter (4) Dementia without behavioral disturbance Assessment/Plan: psych on obard started on zyprexa started on depakoted as well Code(s): F03.90 - UNSPECIFIED DEMENTIA WITHOUT BEHAVIORAL DISTURBANCE Qualifiers: Dementia type: unspecified type Qualified Code(s): F03.90 - Unspecified dementia without behavioral disturbance (5) Presence of suprapubic catheter Assessment/Plan: to be change by then dc to snf Operative Date: 06/17/18 Pre-Operative Diagnosis: rectourethral fistula Operation: cystoscopy and suprapubic cystostomy Surgeon: Aurelio Tamez Code(s): Z93.59 - OTHER CYSTOSTOMY STATUS Condition: Improved - Instructions Diet, Activity, Other Instructions: UROLGOY F/U DR TAMEZ FOR [facility]RAL [facility] OR [facility] FOR LAPROSCOPIC COLOSTOMY CHECK WEEKLY CBC WEEKLY UA CX Referrals: Rio Bernal MD [Primary Care Provider] - Disposition: RETIREMENT FACILITY - Home Medications Comprehensive Discharge Medication List: Ambulatory Orders Acetaminophen [Tylenol] 650 mg PO Q6H PRN 05/26/18 Albuterol 2.5/Ipratropium 0.5 [Duoneb -] 1 neb NEB Q4H PRN 05/26/18 Apixaban [Eliquis] 5 mg PO BID 05/26/18 Atorvastatin Ca [Lipitor] 20 mg PO HS 05/26/18 Docusate Sodium 300 mg PO HS 05/26/18 Fluticasone Propionate [Flovent Diskus] 50 mcg IH DAILY PRN 05/26/18 Montelukast Sodium [Singulair] 10 mg PO HS 05/26/18 Sennosides [Senokot] 8.6 mg PO HS PRN 05/26/18 Amino Acids/Protein Hydrolys [Prosource No Carb Liquid Pkt] 30 ml PO BID@0800, 1730 packet 06/03/18 Atorvastatin Ca [Lipitor] 20 mg PO HS tablet 06/03/18 oxyCODONE HCL [Roxicodone -] 5 mg PO Q6H PRN tablet MDD 4 06/03/18 Acetaminophen [Tylenol .Regular Strength -] 650 mg PO Q4H PRN tablet 06/18/18 Amiodarone HCl [Cordarone -] 200 mg PO DAILY tablet 06/18/18 Diltiazem Cd [Cardizem Cd -] 180 mg PO DAILY cap.cd.24h 06/18/18 Diphenhydramine HCl [Benadryl Capsule -] 25 mg PO Q8H PRN capsule 06/18/18 Divalproex Sprinkle [Depakote Sprinkle -] 125 mg PO DAILY cap.sprink 06/18/18 Nystatin/Triamcinolone Top Cr [Mycolog II -] 1 applic TP BID applic 06/18/18 Olanzapine [ZyPREXA -] 10 mg PO HS tablet 06/18/18 Pantoprazole Sodium [Protonix -] 40 mg PO DAILY tablet.ec 06/18/18
--- NOTE | 2018-06-18 12:25 | OP ---
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 PROCEDURE: Cystoscopy and suprapubic cystostomy. SURGEON: Aurelio Tamez MD LVN HOME HEALTH: None. ANESTHESIA: General via mask. ANESTHESIOLOGIST: Shlomo Davidson MD SPECIMENS: None. CULTURES: None. DRAINS: A 24-Thai suprapubic Hogan catheter, 30-mL balloon. ESTIMATED BLOOD LOSS: None. COMPLICATIONS: None. DESCRIPTION OF PROCEDURE: Patient was brought in the operating room, placed on the operating table in supine position. After the administration of general anesthesia via mask, intravenous antibiotics were administered, and general anesthesia was administered via laryngeal mask. The genitals, lower abdomen, and perineum were prepped and draped in usual sterile manner. A number 18-Thai Hogan catheter was inserted into the bladder. The bladder was filled with approximately 350 mL of sterile normal saline. Now, the Hogan catheter was removed, and the curved Lowsley retractor was inserted into the bladder. It was raised up against the anterior abdominal wall, and a 1-cm incision 2 fingerbreadths cephalad to the pubic bone in the midline was made with a number-10 scalpel. Now, using Bovie electrocautery, the underlying tissue was divided on top of the tip of the Lowsley retractor which then was brought out through the skin. Using a 0 silk tie, the 24-Thai Hogan was tied to the Lowsley retractor and then brought down into the bladder and out the urethra. A silk stitch was cut, and now, the Hogan catheter was retracted into the bladder under cystoscopic guidance using the 23-Thai rigid cystoscope. Once the Hogan catheter was in the bladder, the balloon was filled with 30 mL of sterile water and placed on gravity drainage. The fistula was visualized upon cystoscopy. He tolerated the procedure well. The Hogan suprapubic tube was sutured to the skin with interrupted 2-0 silk stitches. The wound was sterilely dressed. He tolerated the procedure well, was awoken from anesthesia in the operating room, and transferred to the recovery room in stable condition. AURELIO TAMEZ M.D. [id number]
[2018-06-18] MEDS: SODIUM CHLORIDE 0.45% 1,000 ML IV SCH (14:00)
[2018-06-18] MEDS: ACETAMINOPHEN 325 MG TABLET (FP) PO PRN ×2 (14:46→21:22)
[2018-06-18] MEDS: ATORVASTATIN CA 20 MG TABLET (FP) PO SCH (21:21)
[2018-06-18] MEDS: OLANZapine 10 MG TABLET PO SCH (21:21)
[2018-06-19] MEDS: ACETAMINOPHEN 325 MG TABLET (FP) PO PRN ×2 (08:41→22:55)
[2018-06-19] MEDS: AMINO ACIDS/PROTEIN HYDROLYS 30 ML LIQUID.PKT PO SCH ×2 (08:41→17:35)
[2018-06-19] MEDS: PANTOPRAZOLE 40 MG TABLET (FP) PO SCH (09:21)
[2018-06-19] MEDS: AMIODARONE HCL 200 MG TABLET (FP) PO SCH (09:21)
[2018-06-19] MEDS: APIXABAN 5 MG TABLET PO SCH ×2 (09:21→22:46)
[2018-06-19] MEDS: NYSTATIN/TRIAMCINOLONE TOPICAL CREAM 15 GM TUBE TP SCH ×2 (09:21→22:48)
[2018-06-19] MEDS: DIVALPROEX SODIUM 125 MG SPRINKLE CAPS PO SCH (09:21)
--- NOTE | 2018-06-19 10:23 | DS ---
Physical Examination Vital Signs: Vital Signs Temperature 98.2 F 06/19/18 08:59 Pulse Rate 60 06/19/18 08:59 Respiratory Rate 18 06/19/18 08:59 Blood Pressure 123/63 06/19/18 08:59 O2 Sat by Pulse Oximetry (%) 94 L 06/19/18 08:59 Cardiovascular: Yes: S1, S2 Respiratory: Yes: Regular, CTA Bilaterally Gastrointestinal: Yes: Normal Bowel Sounds, Soft. No: Tenderness Renal/: Yes: Other (SPT --URINE CLEAR) Labs: CBC, BMP 06/13/18 06:00 06/14/18 06:00 Discharge Summary Reason For Visit: ABSCESS,RECTAL HEMORRHAGE Current Active Problems Abscess (Acute) Atrial flutter (Acute) Dementia without behavioral disturbance (Acute) H/O prostate cancer (Acute) Hypertension (Acute) Presence of suprapubic catheter (Acute) Prostate CA (Acute) Prostatic abscess (Acute) Rectal bleed (Acute) Rectourethral fistula (Acute) Renal insufficiency (Acute) Hospital Course: 73y/o with multiple medical problems, including atrial flutter on Eliquis - and prostate CA treated ~5yrs ago with Cyberknife radiation therapy, had recent UTI with ESBL organism and was at [facility], then at [facility], from where he was sent in with rectal bleeding last week. Since then, workup has included GI and urologic consultation after CT showed possible prostatic abscess and air in bladder. He had cystoscopy with Dr. Tamez, which revealed a rectourethral fistula at the level of the prostatic urethra, and in lieu of abscess drainage at this time, a suprapubic catheter was placed - Problems (1) Abscess Assessment/Plan: completed abx course wbc count is normal no fever Code(s): L02.91 - CUTANEOUS ABSCESS, UNSPECIFIED (2) Rectal bleed Assessment/Plan: hold eliquis monitor h/h gi eval noted awaiting urology eval NPO till cleared by Gi Code(s): K62.5 - HEMORRHAGE OF ANUS AND RECTUM (3) Atrial flutter Assessment/Plan: restart eliquis on cardizem and amiodarone Code(s): I48.92 - UNSPECIFIED ATRIAL FLUTTER Qualifiers: Atrial flutter type: typical Qualified Code(s): I48.3 - Typical atrial flutter (4) Dementia without behavioral disturbance Assessment/Plan: psych on obard started on zyprexa started on depakoted as well Code(s): F03.90 - UNSPECIFIED DEMENTIA WITHOUT BEHAVIORAL DISTURBANCE Qualifiers: Dementia type: unspecified type Qualified Code(s): F03.90 - Unspecified dementia without behavioral disturbance (5) Presence of suprapubic catheter Assessment/Plan: - changed by Operative Date: 06/17/18 Pre-Operative Diagnosis: rectourethral fistula Operation: cystoscopy and suprapubic cystostomy Surgeon: Aurelio Tamez Code(s): Z93.59 - OTHER CYSTOSTOMY STATUS dc planning--snf Condition: Improved - Instructions Diet, Activity, Other Instructions: UROLGOY F/U DR TAMEZ FOR RE[facility]RAL [facility] OR [facility] FOR LAPROSCOPIC COLOSTOMY CHECK WEEKLY CBC WEEKLY UA CX Referrals: Rio Bernal MD [Primary Care Provider] - Disposition: [facility] - Home Medications Comprehensive Discharge Medication List: Ambulatory Orders Acetaminophen [Tylenol] 650 mg PO Q6H PRN 05/26/18 Albuterol 2.5/Ipratropium 0.5 [Duoneb -] 1 neb NEB Q4H PRN 05/26/18 Apixaban [Eliquis] 5 mg PO BID 05/26/18 Atorvastatin Ca [Lipitor] 20 mg PO HS 05/26/18 Docusate Sodium 300 mg PO HS 05/26/18 Fluticasone Propionate [Flovent Diskus] 50 mcg IH DAILY PRN 05/26/18 Montelukast Sodium [Singulair] 10 mg PO HS 05/26/18 Sennosides [Senokot] 8.6 mg PO HS PRN 05/26/18 Amino Acids/Protein Hydrolys [Prosource No Carb Liquid Pkt] 30 ml PO BID@0800, 1730 packet 06/03/18 Atorvastatin Ca [Lipitor] 20 mg PO HS tablet 06/03/18 oxyCODONE HCL [Roxicodone -] 5 mg PO Q6H PRN tablet MDD 4 06/03/18 Acetaminophen [Tylenol .Regular Strength -] 650 mg PO Q4H PRN tablet 06/18/18 Amiodarone HCl [Cordarone -] 200 mg PO DAILY tablet 06/18/18 Diltiazem Cd [Cardizem Cd -] 180 mg PO DAILY cap.cd.24h 06/18/18 Diphenhydramine HCl [Benadryl Capsule -] 25 mg PO Q8H PRN capsule 06/18/18 Divalproex Sprinkle [Depakote Sprinkle -] 125 mg PO DAILY cap.sprink 06/18/18 Nystatin/Triamcinolone Top Cr [Mycolog II -] 1 applic TP BID applic 06/18/18 Olanzapine [ZyPREXA -] 10 mg PO HS tablet 06/18/18 Pantoprazole Sodium [Protonix -] 40 mg PO DAILY tablet.ec 06/18/18
[2018-06-19] MEDS: ATORVASTATIN CA 20 MG TABLET (FP) PO SCH (22:46)
[2018-06-19] MEDS: OLANZapine 10 MG TABLET PO SCH (22:46)
[2018-06-20] MEDS: ACETAMINOPHEN 325 MG TABLET (FP) PO PRN ×4 (06:44→21:25)
[2018-06-20] MEDS: AMIODARONE HCL 200 MG TABLET (FP) PO SCH (09:53)
[2018-06-20] MEDS: DIVALPROEX SODIUM 125 MG SPRINKLE CAPS PO SCH (09:53)
[2018-06-20] MEDS: NYSTATIN/TRIAMCINOLONE TOPICAL CREAM 15 GM TUBE TP SCH ×2 (09:53→21:28)
[2018-06-20] MEDS: PANTOPRAZOLE 40 MG TABLET (FP) PO SCH (09:53)
[2018-06-20] MEDS: AMINO ACIDS/PROTEIN HYDROLYS 30 ML LIQUID.PKT PO SCH ×2 (09:53→16:50)
[2018-06-20] MEDS: APIXABAN 5 MG TABLET PO SCH ×2 (09:53→21:25)
--- NOTE | 2018-06-20 11:12 | PN ---
Progress Note, Physician Chief Complaint: Rectourethral fistula Prostatic abscess History of Present Illness: NAD in bed replies in short answers, no c/o pain Seen by Surgery, cardiology and GI Suprapubic tube by Urology Dr Amaral on 05/30/18 Colonoscopy on 06/09/[address] Mata- showing large bleeding fistula H/H stable, although guaiac positive Operative Date: 06/17/18 Pre-Operative Diagnosis: rectourethral fistula Operation: cystoscopy and suprapubic cystostomy Surgeon: Aurelio Amaral Anesthesiologist/ROLL UP GUIDER OPERATOR: Shlomo Davidson Post op day#3.S/p Cystoscopy with suprapubic tube replacement under [place] uneventful.Patient stable. - Current Medication List Current Medications: Active Medications Acetaminophen (Tylenol -) 650 mg PO Q4H PRN PRN Reason: PAIN LEVEL 1 - 3 Last Admin: 06/20/18 11:02 Dose: 650 mg Albuterol/Ipratropium (Duoneb -) 1 amp NEB Q4H PRN PRN Reason: SHORTNESS OF BREATH Amino Acids (Prosource No Carb Liquid Pkt) 30 ml PO BID@0800,1730 [facility] Last Admin: 06/20/18 09:53 Dose: 30 ml Amiodarone HCl (Cordarone -) 200 mg PO DAILY [facility] Last Admin: 06/20/18 09:53 Dose: 200 mg Apixaban (Eliquis -) 5 mg PO BID [facility] Last Admin: 06/20/18 09:53 Dose: 5 mg Atorvastatin Calcium (Lipitor -) 20 mg PO HS [facility] Last Admin: 06/19/18 22:46 Dose: 20 mg Diltiazem HCl (Cardizem Cd -) 180 mg PO DAILY [facility] Last Admin: 06/20/18 09:53 Dose: 180 mg Diphenhydramine HCl (Benadryl -) 25 mg PO Q8H PRN PRN Reason: FOR ITCHING Divalproex Sodium (Depakote Sprinkle Caps -) 125 mg PO DAILY [facility] Last Admin: 06/20/18 09:53 Dose: 125 mg Fentanyl (Sublimaze Injection -) 25 mcg IVPUSH [id number] PRN PRN Reason: PAIN-PACU ORDER X 4 DOSES ONLY Haloperidol (Haldol Injection (Fast Acting) -) 2 mg IM Q4H PRN PRN Reason: AGITATION Last Admin: 06/17/18 18:09 Dose: 2 mg Nystatin/Triamcinolone Acetonide (Mycolog Ii Cream -) 1 applic TP BID [facility] Last Admin: 06/20/18 09:53 Dose: 1 applic Olanzapine (Zyprexa -) 10 mg PO HS [facility] Last Admin: 06/19/18 22:46 Dose: 10 mg Ondansetron HCl (Zofran Injection) 4 mg IVPUSH Q6H PRN PRN Reason: NAUSEA AND/OR VOMITING Pantoprazole Sodium (Protonix -) 40 mg PO DAILY [facility] Last Admin: 06/20/18 09:53 Dose: 40 mg Promethazine HCl (Phenergan Injection -) 12.5 mg IVPUSH Q6H PRN PRN Reason: NAUSEA-FOR RESCUE AFTER 15 MIN Tramadol HCl (Ultram -) 50 mg PO Q8H PRN PRN Reason: PAIN LEVEL 4 - 6 Last Admin: 06/18/18 16:42 Dose: 50 mg - Objective Vital Signs: Vital Signs Temperature 97.3 F L 06/20/18 09:10 Pulse Rate 68 06/20/18 09:10 Respiratory Rate 18 06/20/18 09:10 Blood Pressure 132/61 06/20/18 09:10 O2 Sat by Pulse Oximetry (%) 96 06/20/18 09:03 Constitutional: Yes: Well Nourished, No Distress, Calm Cardiovascular: Yes: Regular Rate and Rhythm Respiratory: Yes: Regular Gastrointestinal: Yes: Normal Bowel Sounds, Soft Genitourinary: Yes: Other (Suprapubic catheter) Musculoskeletal: Yes: Muscle Weakness Edema: No Peripheral Pulses WNL: Yes Neurological: Yes: Alert, Pre-Existing Deficit Psychiatric: Yes: Alert Labs: CBC, BMP 06/13/18 06:00 06/14/18 06:00 INR, PTT INR 1.13 (0.83-1.09) H 05/30/18 06:00 Problem List - Problems (1) Rectal bleed Code(s): K62.5 - HEMORRHAGE OF ANUS AND RECTUM (2) Atrial flutter Assessment/Plan: tele monitoring -Seen by cardiology -[facility] Code(s): I48.92 - UNSPECIFIED ATRIAL FLUTTER Qualifiers: Atrial flutter type: typical Qualified Code(s): I48.3 - Typical atrial flutter (3) Prostatic abscess Assessment/Plan: -Seen by surgeon Code(s): N41.2 - ABSCESS OF PROSTATE (4) Rectourethral fistula Assessment/Plan: -seen by surgery Code(s): N36.0 - URETHRAL FISTULA (5) H/O prostate cancer Code(s): Z85.46 - PERSONAL HISTORY OF MALIGNANT NEOPLASM OF PROSTATE (6) Presence of suprapubic catheter Assessment/Plan: -replaced on 06/17/18 -draining clear urine Code(s): Z93.59 - OTHER CYSTOSTOMY STATUS (7) Dementia without behavioral disturbance Assessment/Plan: -Psychiatry consult -Started on Zyprexxa 10 mg po HS Code(s): F03.90 - UNSPECIFIED DEMENTIA WITHOUT BEHAVIORAL DISTURBANCE Qualifiers: Dementia type: unspecified type Qualified Code(s): F03.90 - Unspecified dementia without behavioral disturbance Assessment/Plan see problem list Seen by PT- walked 25 feet unsteady Dispo: return to SNF
[2018-06-20] MEDS: OLANZapine 10 MG TABLET PO SCH (21:25)
[2018-06-20] MEDS: ATORVASTATIN CA 20 MG TABLET (FP) PO SCH (21:25)
[2018-06-21] MEDS: HALOPERIDOL LACTATE 5 MG/ML IM PRN (00:05)
[2018-06-21] MEDS: ACETAMINOPHEN 325 MG TABLET (FP) PO PRN ×4 (04:37→22:36)
[2018-06-21] MEDS ORDERED: PT OWN MED DRAWER 7, Y5N ONE (10:17)
[2018-06-21] MEDS: DIVALPROEX SODIUM 125 MG SPRINKLE CAPS PO SCH (10:22)
[2018-06-21] MEDS: AMINO ACIDS/PROTEIN HYDROLYS 30 ML LIQUID.PKT PO SCH ×2 (10:22→17:35)
[2018-06-21] MEDS: AMIODARONE HCL 200 MG TABLET (FP) PO SCH (10:23)
[2018-06-21] MEDS: APIXABAN 5 MG TABLET PO SCH ×2 (10:23→22:37)
[2018-06-21] MEDS: PANTOPRAZOLE 40 MG TABLET (FP) PO SCH (10:23)
[2018-06-21] MEDS: NYSTATIN/TRIAMCINOLONE TOPICAL CREAM 15 GM TUBE TP SCH ×2 (10:24→22:39)
--- NOTE | 2018-06-21 11:17 | PN ---
Progress Note, Physician Chief Complaint: Rectourethral fistula Prostatic abscess History of Present Illness: NAD in bed replies in short answers, no c/o pain Seen by Surgery, cardiology and GI Suprapubic tube by Urology Dr Amaral on 05/30/18 Colonoscopy on 06/09/[address] Mata- showing large bleeding fistula H/H stable, although guaiac positive Operative Date: 06/17/18 Pre-Operative Diagnosis: rectourethral fistula Operation: cystoscopy and suprapubic cystostomy Surgeon: Aurelio Amaral Anesthesiologist/LITHOGRAPH PRESS OPERATOR: Shlomo Davidson Post op day#3.S/p Cystoscopy with suprapubic tube replacement under [place] uneventful.Patient stable. - Current Medication List Current Medications: Active Medications Acetaminophen (Tylenol -) 650 mg PO Q4H PRN PRN Reason: PAIN LEVEL 1 - 3 Last Admin: 06/21/18 10:20 Dose: 650 mg Albuterol/Ipratropium (Duoneb -) 1 amp NEB Q4H PRN PRN Reason: SHORTNESS OF BREATH Amino Acids (Prosource No Carb Liquid Pkt) 30 ml PO BID@0800,1730 [facility] Last Admin: 06/21/18 10:22 Dose: 30 ml Amiodarone HCl (Cordarone -) 200 mg PO DAILY [facility] Last Admin: 06/21/18 10:23 Dose: 200 mg Apixaban (Eliquis -) 5 mg PO BID [facility] Last Admin: 06/21/18 10:23 Dose: 5 mg Atorvastatin Calcium (Lipitor -) 20 mg PO HS [facility] Last Admin: 06/20/18 21:25 Dose: 20 mg Diltiazem HCl (Cardizem Cd -) 180 mg PO DAILY [facility] Last Admin: 06/21/18 10:23 Dose: 180 mg Diphenhydramine HCl (Benadryl -) 25 mg PO Q8H PRN PRN Reason: FOR ITCHING Divalproex Sodium (Depakote Sprinkle Caps -) 125 mg PO DAILY [facility] Last Admin: 06/21/18 10:22 Dose: 125 mg Fentanyl (Sublimaze Injection -) 25 mcg IVPUSH [id number] PRN PRN Reason: PAIN-PACU ORDER X 4 DOSES ONLY Haloperidol (Haldol Injection (Fast Acting) -) 2 mg IM Q4H PRN PRN Reason: AGITATION Last Admin: 10/02/18 00:05 Dose: 2 mg Nystatin/Triamcinolone Acetonide (Mycolog Ii Cream -) 1 applic TP BID [facility] Last Admin: 06/21/18 10:24 Dose: 1 applic Olanzapine (Zyprexa -) 10 mg PO HS [facility] Last Admin: 06/20/18 21:25 Dose: 10 mg Ondansetron HCl (Zofran Injection) 4 mg IVPUSH Q6H PRN PRN Reason: NAUSEA AND/OR VOMITING Pantoprazole Sodium (Protonix -) 40 mg PO DAILY [facility] Last Admin: 06/21/18 10:23 Dose: 40 mg Promethazine HCl (Phenergan Injection -) 12.5 mg IVPUSH Q6H PRN PRN Reason: NAUSEA-FOR RESCUE AFTER 15 MIN - Objective Vital Signs: Vital Signs Temperature 98.2 F 06/21/18 06:07 Pulse Rate 64 06/21/18 06:07 Respiratory Rate 18 06/21/18 06:07 Blood Pressure 121/59 L 06/21/18 06:07 O2 Sat by Pulse Oximetry (%) 96 06/20/18 21:00 Constitutional: Yes: Well Nourished, No Distress, Calm Cardiovascular: Yes: Regular Rate and Rhythm Respiratory: Yes: Regular Gastrointestinal: Yes: Normal Bowel Sounds, Soft Genitourinary: Yes: Other (supra pubic catheter) Musculoskeletal: Yes: Muscle Weakness Edema: No Peripheral Pulses WNL: Yes Neurological: Yes: Alert, Pre-Existing Deficit Psychiatric: Yes: Alert Labs: CBC, BMP 06/13/18 06:00 06/14/18 06:00 INR, PTT INR 1.13 (0.83-1.09) H 05/30/18 06:00 Problem List - Problems (1) Rectal bleed Code(s): K62.5 - HEMORRHAGE OF ANUS AND RECTUM (2) Atrial flutter Assessment/Plan: tele monitoring -Seen by cardiology -[facility] Code(s): I48.92 - UNSPECIFIED ATRIAL FLUTTER Qualifiers: Atrial flutter type: typical Qualified Code(s): I48.3 - Typical atrial flutter (3) Prostatic abscess Assessment/Plan: -Seen by surgeon Code(s): N41.2 - ABSCESS OF PROSTATE (4) Rectourethral fistula Assessment/Plan: -seen by surgery Code(s): N36.0 - URETHRAL FISTULA (5) H/O prostate cancer Code(s): Z85.46 - PERSONAL HISTORY OF MALIGNANT NEOPLASM OF PROSTATE (6) Presence of suprapubic catheter Assessment/Plan: -replaced on 06/17/18 -draining clear urine Code(s): Z93.59 - OTHER CYSTOSTOMY STATUS (7) Dementia without behavioral disturbance Assessment/Plan: -Psychiatry consult -Started on Zyprexxa 10 mg po HS Code(s): F03.90 - UNSPECIFIED DEMENTIA WITHOUT BEHAVIORAL DISTURBANCE Qualifiers: Dementia type: unspecified type Qualified Code(s): F03.90 - Unspecified dementia without behavioral disturbance Assessment/Plan see problem list Seen by PT- walked 25 feet unsteady Dispo: return to SNF
[2018-06-21] MEDS: ATORVASTATIN CA 20 MG TABLET (FP) PO SCH (22:37)
[2018-06-21] MEDS: OLANZapine 10 MG TABLET PO SCH (22:37)
[2018-06-22] MEDS: ACETAMINOPHEN 325 MG TABLET (FP) PO PRN ×4 (04:54→21:36)
[2018-06-22] MEDS ORDERED: PT OWN MED DRAWER 7, Y5N ONE (09:21)
[2018-06-22] MEDS: NYSTATIN/TRIAMCINOLONE TOPICAL CREAM 15 GM TUBE TP SCH ×2 (09:30→21:39)
[2018-06-22] MEDS: PANTOPRAZOLE 40 MG TABLET (FP) PO SCH (09:32)
[2018-06-22] MEDS: AMIODARONE HCL 200 MG TABLET (FP) PO SCH (09:32)
[2018-06-22] MEDS: APIXABAN 5 MG TABLET PO SCH ×2 (09:32→21:36)
[2018-06-22] MEDS: DIVALPROEX SODIUM 125 MG SPRINKLE CAPS PO SCH (09:33)
[2018-06-22] MEDS: AMINO ACIDS/PROTEIN HYDROLYS 30 ML LIQUID.PKT PO SCH ×2 (09:33→17:45)
--- NOTE | 2018-06-22 14:02 | PN ---
Progress Note, Physician Chief Complaint: Rectourethral fistula Prostatic abscess History of Present Illness: NAD in bed replies in short answers, no c/o pain Seen by Surgery, cardiology and GI Suprapubic tube by Urology Dr Amaral on 05/30/18 Colonoscopy on 06/09/[address] Mata- showing large bleeding fistula H/H stable, although guaiac positive Operative Date: 06/17/18 Pre-Operative Diagnosis: rectourethral fistula Operation: cystoscopy and suprapubic cystostomy Surgeon: Aurelio Amaral Anesthesiologist/DOMAIN ARCHITECT: Shlomo Davidson S/p Cystoscopy with suprapubic tube replacement under [place] uneventful.Patient stable. Awaiting discharge - Current Medication List Current Medications: Active Medications Acetaminophen (Tylenol -) 650 mg PO Q4H PRN PRN Reason: PAIN LEVEL 1 - 3 Last Admin: 06/22/18 09:33 Dose: 650 mg Albuterol/Ipratropium (Duoneb -) 1 amp NEB Q4H PRN PRN Reason: SHORTNESS OF BREATH Amino Acids (Prosource No Carb Liquid Pkt) 30 ml PO BID@0800,1730 [facility] Last Admin: 06/22/18 09:33 Dose: 30 ml Amiodarone HCl (Cordarone -) 200 mg PO DAILY [facility] Last Admin: 06/22/18 09:32 Dose: 200 mg Apixaban (Eliquis -) 5 mg PO BID [facility] Last Admin: 06/22/18 09:32 Dose: 5 mg Atorvastatin Calcium (Lipitor -) 20 mg PO HS [facility] Last Admin: 06/21/18 22:37 Dose: 20 mg Diltiazem HCl (Cardizem Cd -) 180 mg PO DAILY [facility] Last Admin: 06/22/18 09:32 Dose: 180 mg Diphenhydramine HCl (Benadryl -) 25 mg PO Q8H PRN PRN Reason: FOR ITCHING Divalproex Sodium (Depakote Sprinkle Caps -) 125 mg PO DAILY [facility] Last Admin: 06/22/18 09:33 Dose: 125 mg Fentanyl (Sublimaze Injection -) 25 mcg IVPUSH [id number] PRN PRN Reason: PAIN-PACU ORDER X 4 DOSES ONLY Haloperidol (Haldol Injection (Fast Acting) -) 2 mg IM Q4H PRN PRN Reason: AGITATION Last Admin: 06/21/18 00:05 Dose: 2 mg Nystatin/Triamcinolone Acetonide (Mycolog Ii Cream -) 1 applic TP BID [facility] Last Admin: 06/22/18 09:30 Dose: 1 applic Olanzapine (Zyprexa -) 10 mg PO HS [facility] Last Admin: 06/21/18 22:37 Dose: 10 mg Ondansetron HCl (Zofran Injection) 4 mg IVPUSH Q6H PRN PRN Reason: NAUSEA AND/OR VOMITING Pantoprazole Sodium (Protonix -) 40 mg PO DAILY [facility] Last Admin: 06/22/18 09:32 Dose: 40 mg Promethazine HCl (Phenergan Injection -) 12.5 mg IVPUSH Q6H PRN PRN Reason: NAUSEA-FOR RESCUE AFTER 15 MIN - Objective Vital Signs: Vital Signs Temperature 98.4 F 06/22/18 09:30 Pulse Rate 85 06/22/18 09:30 Respiratory Rate 18 06/22/18 09:30 Blood Pressure 126/75 06/22/18 09:30 O2 Sat by Pulse Oximetry (%) 95 06/21/18 21:00 Constitutional: Yes: Well Nourished, No Distress, Calm Cardiovascular: Yes: Regular Rate and Rhythm Respiratory: Yes: Regular Gastrointestinal: Yes: Normal Bowel Sounds, Soft Genitourinary: Yes: Other (supra pubic caatheter) Musculoskeletal: Yes: Muscle Weakness Neurological: Yes: Alert, Pre-Existing Deficit Psychiatric: Yes: Alert Labs: CBC, BMP 06/13/18 06:00 06/14/18 06:00 INR, PTT INR 1.13 (0.83-1.09) H 05/30/18 06:00 Problem List - Problems (1) Rectal bleed Code(s): K62.5 - HEMORRHAGE OF ANUS AND RECTUM (2) Atrial flutter Assessment/Plan: tele monitoring -Seen by cardiology -[facility] Code(s): I48.92 - UNSPECIFIED ATRIAL FLUTTER Qualifiers: Atrial flutter type: typical Qualified Code(s): I48.3 - Typical atrial flutter (3) Prostatic abscess Assessment/Plan: -Seen by surgeon Code(s): N41.2 - ABSCESS OF PROSTATE (4) Rectourethral fistula Assessment/Plan: -seen by surgery Code(s): N36.0 - URETHRAL FISTULA (5) H/O prostate cancer Code(s): Z85.46 - PERSONAL HISTORY OF MALIGNANT NEOPLASM OF PROSTATE (6) Presence of suprapubic catheter Assessment/Plan: -replaced on 06/17/18 -draining clear urine Code(s): Z93.59 - OTHER CYSTOSTOMY STATUS (7) Dementia without behavioral disturbance Assessment/Plan: -Psychiatry consult -Started on Zyprexxa 10 mg po HS Code(s): F03.90 - UNSPECIFIED DEMENTIA WITHOUT BEHAVIORAL DISTURBANCE Qualifiers: Dementia type: unspecified type Qualified Code(s): F03.90 - Unspecified dementia without behavioral disturbance Assessment/Plan see problem list Seen by PT- walked 25 feet unsteady Dispo: return to SNF Awaiting discharge
[2018-06-22] MEDS: ATORVASTATIN CA 20 MG TABLET (FP) PO SCH (21:36)
[2018-06-22] MEDS: OLANZapine 10 MG TABLET PO SCH (21:36)
[2018-06-23] MEDS ORDERED: PT OWN MED DRAWER 7, Y5N ONE (08:49)
[2018-06-23] MEDS: AMIODARONE HCL 200 MG TABLET (FP) PO SCH (09:43)
[2018-06-23] MEDS: ACETAMINOPHEN 325 MG TABLET (FP) PO PRN (09:43)
[2018-06-23] MEDS: APIXABAN 5 MG TABLET PO SCH (09:43)
[2018-06-23] MEDS: PANTOPRAZOLE 40 MG TABLET (FP) PO SCH (09:43)
[2018-06-23] MEDS: AMINO ACIDS/PROTEIN HYDROLYS 30 ML LIQUID.PKT PO SCH (09:43)
[2018-06-23] MEDS: DIVALPROEX SODIUM 125 MG SPRINKLE CAPS PO SCH (09:43)
[2018-06-23] MEDS: NYSTATIN/TRIAMCINOLONE TOPICAL CREAM 15 GM TUBE TP SCH (10:02)
--- NOTE | 2018-06-23 10:36 | PN ---
Progress Note, Physician Chief Complaint: Rectourethral fistula Prostatic abscess History of Present Illness: NAD in bed replies in short answers, no c/o pain Seen by Surgery, cardiology and GI Suprapubic tube by Urology Dr Amaral on 05/30/18 Colonoscopy on 06/09/[address] Mata- showing large bleeding fistula H/H stable, although guaiac positive Operative Date: 06/17/18 Pre-Operative Diagnosis: rectourethral fistula Operation: cystoscopy and suprapubic cystostomy Surgeon: Aurelio Amaral Anesthesiologist/NETTING INSPECTOR: Shlomo Davidson S/p Cystoscopy with suprapubic tube replacement under [place] uneventful.Patient stable. Awaiting discharge - Current Medication List Current Medications: Active Medications Acetaminophen (Tylenol -) 650 mg PO Q4H PRN PRN Reason: PAIN LEVEL 1 - 3 Last Admin: 06/23/18 09:43 Dose: 650 mg Amino Acids (Prosource No Carb Liquid Pkt) 30 ml PO BID@0800,1730 [facility] Last Admin: 06/23/18 09:43 Dose: 30 ml Amiodarone HCl (Cordarone -) 200 mg PO DAILY [facility] Last Admin: 06/23/18 09:43 Dose: 200 mg Apixaban (Eliquis -) 5 mg PO BID [facility] Last Admin: 06/23/18 09:43 Dose: 5 mg Atorvastatin Calcium (Lipitor -) 20 mg PO HS [facility] Last Admin: 06/22/18 21:36 Dose: 20 mg Diltiazem HCl (Cardizem Cd -) 180 mg PO DAILY [facility] Last Admin: 06/23/18 09:43 Dose: 180 mg Diphenhydramine HCl (Benadryl -) 25 mg PO Q8H PRN PRN Reason: FOR ITCHING Divalproex Sodium (Depakote Sprinkle Caps -) 125 mg PO DAILY [facility] Last Admin: 06/23/18 09:43 Dose: 125 mg Fentanyl (Sublimaze Injection -) 25 mcg IVPUSH [id number] PRN PRN Reason: PAIN-PACU ORDER X 4 DOSES ONLY Haloperidol (Haldol Injection (Fast Acting) -) 2 mg IM Q4H PRN PRN Reason: AGITATION Last Admin: 06/21/18 00:05 Dose: 2 mg Nystatin/Triamcinolone Acetonide (Mycolog Ii Cream -) 1 applic TP BID [facility] Last Admin: 06/23/18 10:02 Dose: 1 applic Olanzapine (Zyprexa -) 10 mg PO HS [facility] Last Admin: 06/22/18 21:36 Dose: 10 mg Ondansetron HCl (Zofran Injection) 4 mg IVPUSH Q6H PRN PRN Reason: NAUSEA AND/OR VOMITING Pantoprazole Sodium (Protonix -) 40 mg PO DAILY [facility] Last Admin: 06/23/18 09:43 Dose: 40 mg Promethazine HCl (Phenergan Injection -) 12.5 mg IVPUSH Q6H PRN PRN Reason: NAUSEA-FOR RESCUE AFTER 15 MIN - Objective Vital Signs: Vital Signs Temperature 98.0 F 06/23/18 06:00 Pulse Rate 69 06/23/18 06:00 Respiratory Rate 18 06/23/18 06:00 Blood Pressure 106/59 L 06/23/18 06:00 O2 Sat by Pulse Oximetry (%) 95 06/22/18 21:00 Constitutional: Yes: Well Nourished, No Distress, Calm Cardiovascular: Yes: Regular Rate and Rhythm Respiratory: Yes: Regular Gastrointestinal: Yes: Normal Bowel Sounds, Soft Musculoskeletal: Yes: Muscle Weakness Neurological: Yes: Alert, Pre-Existing Deficit Psychiatric: Yes: Alert Labs: CBC, BMP 06/13/18 06:00 06/14/18 06:00 INR, PTT INR 1.13 (0.83-1.09) H 05/30/18 06:00 Problem List - Problems (1) Rectal bleed Code(s): K62.5 - HEMORRHAGE OF ANUS AND RECTUM (2) Atrial flutter Assessment/Plan: tele monitoring -Seen by cardiology -eliquis Code(s): I48.92 - UNSPECIFIED ATRIAL FLUTTER Qualifiers: Atrial flutter type: typical Qualified Code(s): I48.3 - Typical atrial flutter (3) Prostatic abscess Assessment/Plan: -Seen by surgeon Code(s): N41.2 - ABSCESS OF PROSTATE (4) Rectourethral fistula Assessment/Plan: -seen by surgery Code(s): N36.0 - URETHRAL FISTULA (5) H/O prostate cancer Code(s): Z85.46 - PERSONAL HISTORY OF MALIGNANT NEOPLASM OF PROSTATE (6) Presence of suprapubic catheter Assessment/Plan: -replaced on 06/17/18 -draining clear urine Code(s): Z93.59 - OTHER CYSTOSTOMY STATUS (7) Dementia without behavioral disturbance Assessment/Plan: -Psychiatry consult -Started on Zyprexxa 10 mg po HS Code(s): F03.90 - UNSPECIFIED DEMENTIA WITHOUT BEHAVIORAL DISTURBANCE Qualifiers: Dementia type: unspecified type Qualified Code(s): F03.90 - Unspecified dementia without behavioral disturbance Assessment/Plan see problem list Seen by PT- walked 25 feet unsteady Dispo: return to SNF Awaiting discharge
[2018-06-23 14:45] VITALS: BP 101/51; PULSE 80; TEMP 97.9
[2018-06-23] MEDS ORDERED: DOCUSATE SODIUM 100 MG CAPSULE (FP) PO SCH (22:00)
== END 2018-06-23 14:35 | DRG 698 ==
LOC: JER 09:36 → JERBED 13:16 → J7W 05-27 11:41 → J4S 06-09 01:30
PROVIDERS: ADMIT Family Medicine; ATTEND Family Medicine
PROC: 0T9B40Z Drainage of Bladder with Drainage Device, Percutaneous Endoscopic Approach (ICD-10-PCS; principal; 2018-05-30 14:00)
PROC: 0DJD8ZZ Inspection of Lower Intestinal Tract, Via Natural or Artificial Opening Endoscopic (ICD-10-PCS; 2018-06-08)
PROC: 0T2BX0Z Change Drainage Device in Bladder, External Approach (ICD-10-PCS; 2018-06-17)
PROC: 0TJB8ZZ Inspection of Bladder, Via Natural or Artificial Opening Endoscopic (ICD-10-PCS; 2018-06-17)
DX: N36.0 Urethral fistula (principal); G92 Toxic encephalopathy; K62.5 Hemorrhage of anus and rectum; N41.2 Abscess of prostate; N30.00 Acute cystitis without hematuria; I48.3 Typical atrial flutter; I97.89 Other postprocedural complications and disorders of the circulatory system, not elsewhere classified; F03.90 Unspecified dementia, unspecified severity, without behavioral disturbance, psychotic disturbance, mood disturbance, and anxiety; C61 Malignant neoplasm of prostate; L29.8 Other pruritus; T37.3X5A Adverse effect of other antiprotozoal drugs, initial encounter; Z93.59 Other cystostomy status; J44.9 Chronic obstructive pulmonary disease, unspecified; Z79.01 Long term (current) use of anticoagulants; Z88.0 Allergy status to penicillin; Z86.73 Personal history of transient ischemic attack (TIA), and cerebral infarction without residual deficits; G47.30 Sleep apnea, unspecified; Z99.89 Dependence on other enabling machines and devices; Z87.891 Personal history of nicotine dependence; Z16.12 Extended spectrum beta lactamase (ESBL) resistance; R32 Unspecified urinary incontinence; E87.6 Hypokalemia; E78.5 Hyperlipidemia, unspecified; I25.10 Atherosclerotic heart disease of native coronary artery without angina pectoris; I10 Essential (primary) hypertension; Z78.1 Physical restraint status
CPT/HCPCS: 36415; 70450-TC; 71045-TC-FY; 74177-TC; 76856-TC; 80048; 80053; 81003; 81015; 82272; 83735; 84100; 84153; 84484; 85025; 85027; 85610; 85730; 86850; 86900; 86901; 87040; 87086; 87186; 93005; 93010; 94640; 94760; 97116-GP; 99284-25; J0131; J7620

== ENCOUNTER 2019-01-14 09:28 | Inpatient (IN) | payer OTHER ==
--- NOTE | 2019-01-14 10:14 | PDOC ---
History of Present Illness - General History Source: Patient, Other (longterm records) Exam Limitations: Dementia <Hanane Hedrick - Last Filed: 01/14/19 19:09> <Yris Ferguson - Last Filed: 01/15/19 07:21> - General Chief Complaint: Hematuria Stated Complaint: BLEEDING Time Seen by Provider: 01/14/19 09:39 Past History - Past Medical History Anemia: No Asthma: No Cancer: Yes (PROSTATE) Cardiac Disorders: Yes (A FLUTTER) CVA: Yes (NO RESIDUAL) COPD: Yes (SLEEP APNEA-USES CPAP) CHF: No Dementia: Yes Diabetes: No GI Disorders: Yes Disorders: Yes HTN: No Hypercholesterolemia: Yes Liver Disease: No Seizures: No Thyroid Disease: No - Surgical History Abdominal Surgery: No Appendectomy: No Cardiac Surgery: No Cholecystectomy: No Lung Surgery: No Neurologic Surgery: No Orthopedic Surgery: No - Suicide/Smoking/Psychosocial Hx Smoking History: Unknown if ever smoked Have you smoked in the past 12 months: No Number of Cigarettes Smoked Daily: 0 (1+ppd for 40+ yrs) If you are a former smoker, when did you quit?: 4-5 mos ago 'Breaking Loose' booklet given: 03/20/15 Hx Alcohol Use: Yes (occasional but not for a while) Drug/Substance Use Hx: No Substance Use Type: None Hx Substance Use Treatment: No <Hanane Hedrick - Last Filed: 01/14/19 19:09> <Yris Ferguson - Last Filed: 01/15/19 07:21> - Past Medical History Allergies/Adverse Reactions: Allergies Allergy/AdvReac Type Severity Reaction Status Date / Time Carbapenems Allergy Mild Verified 01/14/19 09:46 Penicillins Allergy Unknown "SWELL UP" Verified 01/14/19 09:46 Sulfa (Sulfonamide Allergy Unknown "SWELL UP" Verified 01/14/19 09:46 Antibiotics) Home Medications: Ambulatory Orders Acetaminophen [Tylenol] 650 mg PO Q6H PRN 05/26/18 Albuterol 2.5/Ipratropium 0.5 [Duoneb -] 1 neb NEB Q4H PRN 05/26/18 Apixaban [Eliquis] 5 mg PO BID 05/26/18 Atorvastatin Ca [Lipitor] 20 mg PO HS 05/26/18 Docusate Sodium 300 mg PO HS 05/26/18 Fluticasone Propionate [Flovent Diskus] 50 mcg IH DAILY PRN 05/26/18 Montelukast Sodium [Singulair] 10 mg PO HS 05/26/18 Sennosides [Senokot] 8.6 mg PO HS PRN 05/26/18 oxyCODONE HCL [Roxicodone -] 5 mg PO Q6H PRN tablet MDD 4 06/03/18 Amiodarone HCl [Cordarone -] 200 mg PO DAILY tablet 06/18/18 Diltiazem Cd [Cardizem Cd -] 180 mg PO DAILY cap.cd.24h 06/18/18 Divalproex Sprinkle [Depakote Sprinkle -] 125 mg PO DAILY cap.sprink 06/18/18 Nystatin/Triamcinolone Top Cr [Mycolog II -] 1 applic TP BID applic 06/18/18 Olanzapine [ZyPREXA -] 10 mg PO HS tablet 06/18/18 Pantoprazole Sodium [Protonix -] 40 mg PO DAILY tablet.ec 06/18/18 Guaifenesin 100 mg PO PRN PRN 01/14/19 Olanzapine [Zyprexa] 7.5 mg PO DAILY 01/14/19 *Physical Exam - Vital Signs Last Vital Signs Temp Pulse Resp BP Pulse Ox 98.8 F 85 16 104/62 95 01/14/19 09:30 01/14/19 09:30 01/14/19 09:30 01/14/19 09:30 01/14/19 09:30 - Physical Exam General Appearance: No: Apparent Distress Respiratory/Chest: positive: Lungs Clear, Normal Breath Sounds. negative: Respiratory Distress Cardiovascular: positive: Regular Rhythm, Regular Rate, S1, S2. negative: Murmur Gastrointestinal/Abdominal: positive: Soft, Other (site around suprapubic catheter appears clean, no redness surrounding site; gil bag with +hematuria) . negative: Tender, Distended, Guarding, Mass Male Genitalia: positive: other (+L groin swelling, no erythema, mild TTP to touch; slight blood at tip of penis). negative: testicular tenderness, testicular mass Integumentary: positive: Normal Color Neurologic: positive: Alert, Normal Mood/Affect <Hanane Hedrick - Last Filed: 01/14/19 19:09> - Vital Signs Last Vital Signs Temp Pulse Resp BP Pulse Ox 98.2 F 59 L 16 111/69 96 01/15/19 00:30 01/15/19 00:30 01/15/19 00:30 01/15/19 00:30 01/15/19 00:30 <Yris Ferguson - Last Filed: 01/15/19 07:21> ED Treatment Course - LABORATORY CBC & Chemistry Diagram: 01/14/19 10:18 01/14/19 10:18 - RADIOLOGY Radiology Studies Ordered: Category Date Time Status SCROTUM AND CONTENTS US [US] Stat Ultrasound 01/14/19 10:07 Ordered <Hanane Hedrick - Last Filed: 01/14/19 19:09> - LABORATORY CBC & Chemistry Diagram: 01/14/19 10:18 01/14/19 10:18 - ADDITIONAL ORDERS Additional order review: 01/14/19 10:18 RBC 3.93 L MCV 99.3 H MCHC 34.0 RDW 15.0 MPV 7.9 D Neutrophils % 66.7 Lymphocytes % 19.3 D Monocytes % 10.3 H Eosinophils % 3.2 Basophils % 0.5 - Medications Given in the ED: ED Medications Discontinued Medications Generic Name Dose Route Start Last Admin Trade Name Kia PRN Reason Stop Dose Admin Sodium Chloride 500 mls @ 500 mls/hr 01/14/19 12:15 01/14/19 12:34 Normal Saline - IV 01/14/19 13:14 500 mls/hr ASDIR STA Administration Sodium Chloride 500 mls @ 500 mls/hr 01/14/19 15:52 01/14/19 16:07 Normal Saline - IV 01/14/19 16:51 500 mls/hr ASDIR STA Administration <Yris Ferguson - Last Filed: 01/15/19 07:21> Medical Decision Making - Medical Decision Making 73 y/o M hx of HTN, HLD, COPD, GERD, dementia, atrial flutter (on Eliquis), prostate CA around 6 years ago s/p cyberknife radiation, ESBL UTI, prostatic abscess, rectouretheral fistula s/p suprapubic catheter placement presents from [facility] for krunal hematuria noted today. Patient mentions he noticed some blood down his pants and also at tip of penis. Denies fever, chills , sob, cp, abd pain, n/v/d. Consider infection, ?inguinal hernia Plan: Labs, UA, UCx, testicular US 01/14/19 10:18 Laboratory Tests 01/14/19 10:18 BUN 28 H Creatinine 1.5 H Labs reviewed; notable for slightly elevated BUN/Cr from prior After initial bag of hematuria was drained, no further hematuria was noted Patient was given 500 cc bolus of IVF, but only small urine output noted Will give another 500 cc bolus of IVF to collect UA and UCx Testicular US showed no acute findings CT A/P showed new left inguinal hernia, with no evidence of incarceration or obstruction Also noted with 3 cm air collection in prostate (seen in prior CT) with air tracking adjacent to the shaft of the penis Findings were d/w patient's urologist, Dr Aurelio Amaral (had seen patient when he was last admitted as well) - air is likely due to the rectourtheral fistula; per Dr. Amaral, patient needs diverting colostomy, but patient's family had not agreed at the time; states patient does not need to be admitted for this and recommends outpatient surgery follow-up Also discussed with patient's PCP, Dr. Agusto Bernal (contact number [phone]) , who suggested patient can likely go back to SNF, hold off on Eliquis for [address] on antibiotics; there will later be discussed with family regarding diverting colostomy Dr. Bernal states he will f/u on results of urine culture Pending collection of urine 01/14/19 17:06 Patient noted to have been urinating in his diaper +strong odor to urine As was d/w with Dr. Bernal and attending, they are okay with starting antibiotics without collecting urine test Prior urine culture was reviewed; showed sensitivity to levaquin, but wanted to avoid fluoroquinolones in elderly patient Patient allergic to carbapenems, penicillins and sulfa ID, Dr. Michelle, paged to get an idea of what is the best antibiotic of choice Pending to hear back from Dr. Michelle Patient signed out to Dr. Duncan 01/14/19 19:09 <Hanane Hedrick - Last Filed: 01/14/19 19:09> *DC/Admit/Observation/Transfer <Hanane Hedrick - Last Filed: 01/14/19 19:09> - Attestations Physician Attestion: I reviewed the case with the mid-level practitioner and agree with the mid- level practitioner's assessment, diagnosis and disposition. <Yris Ferguson - Last Filed: 01/15/19 07:21> Diagnosis at time of Disposition: JASIEL (acute kidney injury) Hematuria Qualifiers: Hematuria type: gross Qualified Code(s): R31.0 - Gross hematuria Suprapubic catheter dysfunction Qualifiers: Encounter type: initial encounter Qualified Code(s): T83.010A - Breakdown ( mechanical) of cystostomy catheter, initial encounter - Discharge Dispostion Condition at time of disposition: Stable
[2019-01-14 10:38] LABS: BASO % 0.5 % (0-2.0); EOS % 3.2 % (0-4.5); HEMATOCRIT 39.1 % (35.4-49); HEMOGLOBIN 13.3 GM/dL (11.7-16.9); LYMPH % 19.3 % (8-40); MCH 33.8 pg (25.7-33.7); MEAN CELL VOLUME 99.3 fl (80-96); MEAN PLT VOLUME 7.9 fl (7.5-11.1); MONO % 10.3 % (3.8-10.2); NEUT % 66.7 % (42.8-82.8); PLATELET COUNT 227 K/MM3 (134-434); RBC 3.93 M/mm3 (4.00-5.60); WHITE BLOOD COUNT 7.1 K/mm3 (4.0-10.0)
[2019-01-14 11:03] LABS: ALBUMIN 3.2 g/dl (3.4-5.0); ALK PHOS 97 U/L (45-117); ANION GAP 6 MMOL/L (8-16); BILIRUBIN,TOTAL 0.6 mg/dL (0.2-1); BLOOD UREA NITROGEN 28 mg/dL (7-18); CALCIUM 8.9 mg/dL (8.5-10.1); CHLORIDE 110 mmol/L (98-107); CO2 30 mmol/L (21-32); CREATININE 1.5 mg/dL (0.55-1.3); GLUCOSE,RANDOM 102 mg/dL (74-106); POTASSIUM 4.4 mmol/L (3.5-5.1); SGOT/AST 12 U/L (15-37); SGPT/ALT 10 U/L (13-61); SODIUM 146 mmol/L (136-145); TOT PROT 5.9 g/dl (6.4-8.2)
[2019-01-14] MEDS ORDERED: SODIUM CHLORIDE 500 ML IV STA ×2 (12:15→15:52)
--- NOTE | 2019-01-14 19:34 | PDOC ---
*Physical Exam - Vital Signs Last Vital Signs Temp Pulse Resp BP Pulse Ox 98.3 F 68 18 120/73 95 01/14/19 14:45 01/14/19 14:45 01/14/19 14:45 01/14/19 14:45 01/14/19 14:45 ED Treatment Course - LABORATORY CBC & Chemistry Diagram: 01/14/19 10:18 01/14/19 10:18 - ADDITIONAL ORDERS Additional order review: Laboratory Results 01/14/19 01/14/19 10:18 10:18 WBC 7.1 RBC 3.93 L Hgb 13.3 Hct 39.1 MCV 99.3 H MCH 33.8 H MCHC 34.0 RDW 15.0 Plt Count 227 D MPV 7.9 D Absolute Neuts (auto) 4.7 Neutrophils % 66.7 Lymphocytes % 19.3 D Monocytes % 10.3 H Eosinophils % 3.2 Basophils % 0.5 Nucleated RBC % 0 Sodium 146 H Potassium 4.4 Chloride 110 H Carbon Dioxide 30 Anion Gap 6 L BUN 28 H Creatinine 1.5 H Creat Clearance w eGFR 45.87 Random Glucose 102 Calcium 8.9 Total Bilirubin 0.6 AST 12 L ALT 10 L Alkaline Phosphatase 97 Total Protein 5.9 L Albumin 3.2 L 01/14/19 10:18 RBC 3.93 L MCV 99.3 H MCHC 34.0 RDW 15.0 MPV 7.9 D Neutrophils % 66.7 Lymphocytes % 19.3 D Monocytes % 10.3 H Eosinophils % 3.2 Basophils % 0.5 - Medications Given in the ED: ED Medications Discontinued Medications Generic Name Dose Route Start Last Admin Trade Name Houstonq PRN Reason Stop Dose Admin Sodium Chloride 500 mls @ 500 mls/hr 01/14/19 12:15 01/14/19 12:34 Normal Saline - IV 01/14/19 13:14 500 mls/hr ASDIR STA Administration Sodium Chloride 500 mls @ 500 mls/hr 01/14/19 15:52 01/14/19 16:07 Normal Saline - IV 01/14/19 16:51 500 mls/hr ASDIR STA Administration Medical Decision Making - Medical Decision Making 01/14/19 19:29 73 y/o M hx of HTN, HLD, COPD, GERD, dementia, atrial flutter (on Eliquis), prostate CA around 6 years ago s/p cyberknife radiation, ESBL UTI, prostatic abscess, rectouretheral fistula s/p suprapubic catheter placement presents from [facility] for krunal hematuria VS re viewed, wnl no systemic findings, no fever pt signed out and worked in conjunction with CANDI Hedrick. prior testicular/ scrotal sono and CT imaging reviewed as documented. no testicular/scrotal process, left inguinal hernia, not obstructed. labs and lytes remarkable for normal wbc ct. Cr mildly elevated 1.5, GFR 45. mild JASIEL likely dehydration, found to have urinated on the bed, not oliguric or anuric. suprapubic catheter in place PA had discussed with PMD Dr Bernal - does not wish for patient to be admitted at this time PA called Dr Aurelio Amaral (had seen patient when he was last admitted as well) - air is likely due to the rectouretheral fistula; per Dr. Amaral, patient needs diverting colostomy, spoke with ID Dr Lancaster for recs on abx - given multiple allergies to carbapenem and pcn and sulfa prior urine cultures provided. prior cx from 2018 with Provendicia and Enterococcus. no use to prior urine culture, doubt systemic or pyelo here resistances were reviewed, does have resistance to bactrim/macrobid/ ok for quinolones. no quinolones due to side effect profile. likely colonizer, will attempt urine culture and follow results. called back to Dr Bernal, as I personally reevaluated the patient. pt not comfortable with discharge back to [facility], with his hematuria and failure to drain from the suprapubic catheter, +malodorous. possible obstruction, kink should get changed out by urology - leg bag with <5cc of dark brown urine, but the bed is wet with his urine, not draining properly. defer abx for now, obtain official UA and culture place on maintenance fluids, recheck labs and lytes/Cr in the AM maintenance fluids. admit observation to overnight hospitalist team, to Dr Joseph service tomorrow. 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 01/14/19 20:19 01/14/19 21:29 *DC/Admit/Observation/Transfer Diagnosis at time of Disposition: JASILE (acute kidney injury), Suprapubic catheter dysfunction Hematuria Qualifiers: Hematuria type: gross Qualified Code(s): R31.0 - Gross hematuria - Discharge Dispostion Condition at time of disposition: Stable Decision to Admit order: Yes Decision to Admit order Date/Time: 01/14/19 21:29 Decision to Admit Order Category Date Time Status Decision to Admit to Hospital Routine Admission 01/14/19 20:20 Active - Referrals Referrals: Rio Bernal MD [Primary Care Provider] - 2 Days - Patient Instructions Additional Instructions: - Post Discharge Activity
[2019-01-14] MEDS: SODIUM CHLORIDE 1,000 ML IV SCH (21:54)
[2019-01-14] MEDS ORDERED: SENNOSIDES 8.6MG TABLET (FP) PO PRN (22:01)
[2019-01-14] MEDS ORDERED: ALBUTEROL SO4 2.5/IPRATROPIUM 0.5 INH SOL 3 ML VIAL.NEB. NEB PRN (22:01)
[2019-01-14] MEDS ORDERED: oxyCODONE HCL 5 MG TABLET PO PRN (22:01)
--- NOTE | 2019-01-15 00:19 | HP ---
Admitting History and Physical - Primary Care Physician PCP: Shekhar Joseph - Admission Chief Complaint: suprapubic pain and catheter leak History of Present Illness: 73 yo male w/ pmh of Dementia, COPD, aflutter (on Eliquis), and prostate CA s/ p cyberknife radiation, ESBL UTI, prostatic abscess, rectouretheral fistula s/p suprapubic catheter placement who presents from [facility] for evaluation of episode of suprapubic pain and hematuria. Patient reports that upon awakening on the morning of 01/14, he noted blood in catheter bag. Mr. Marina alerted medical staff who decided to refer him to ED for evaluation. His associated complaints are chronic suprapubic pain, PAS 10/10, and leakage or urine onto diaper and bedding. He denies fever/chills/N/V/Malaise/D. In ED: Vitals were: T 98.2, BP 102/47, HR 76, RR 18, O2 sat 96% Scrotal Sono: Heterogenous echotexture to the right testis. CT abd.pelvis: 3cm fluid and air collection seen in the region of the prostate or prostate bed, which could represent postsurgical change, but an abscess cannot be excluded. There is tracking adjacent to the shaft suspicious for SC infection extending in this region. New LEft inguinal hernia of significant size containing distal left colon w/o evidence of incarceration or obstruction. Urology consulted for air collection seen on CT, which is thought to be due to rectouretheral fistula; per Dr. Amaral, patient needs diverting colostomy. ID consulted for malodorous urine and recommendation was to send UCX, without initiating abx since pt be colonized. History Source: Patient, Medical Record - Past Medical History MANAGER OF SELECTION AND ASSESSMENT: Yes: CVA (no residual), Dementia Cardiovascular: Yes: HTN, Hyperlipdemia, Other (aflutter) Pulmonary: Yes: COPD Renal/: Yes: Cancer (prostate s/p cyberknife/radiation ~5 yrs ago and "some other surgery"), UTI, Other (incontinence) Heme/Onc: Yes: Other (prostate cancer) Infectious Disease: Yes: Other (ESBL) Psych: Yes: Depression Additional Past Medical History: hemorrhoids right eye blindness - Past Surgical History Past Surgical History: Yes: Colonoscopy Additional Past Surgical History: cataract surgery prostate CA s/p cyberknife radiation, rectouretheral fistula s/p suprapubic catheter placement - Smoking History Smoking history: Former smoker Have you smoked in the past 12 months: No Aproximately how many cigarettes per day: 0 (1+ppd for 40+ yrs) - Alcohol/Substance Use Hx Alcohol Use: Yes (occasional but not for a while) History of Substance Use: reports: None - Social History Usual Living Arrangement: Yes: Detention ADL: Independent History of Recent Travel: No Home Medications - Allergies Allergies/Adverse Reactions: Allergies Allergy/AdvReac Type Severity Reaction Status Date / Time Carbapenems Allergy Mild Verified 01/14/19 09:46 Penicillins Allergy Unknown "SWELL UP" Verified 01/14/19 09:46 Sulfa (Sulfonamide Allergy Unknown "SWELL UP" Verified 01/14/19 09:46 Antibiotics) - Home Medications Home Medications: Ambulatory Orders Acetaminophen [Tylenol] 650 mg PO Q6H PRN 05/26/18 Albuterol 2.5/Ipratropium 0.5 [Duoneb -] 1 neb NEB Q4H PRN 05/26/18 Apixaban [Eliquis] 5 mg PO BID 05/26/18 Atorvastatin Ca [Lipitor] 20 mg PO HS 05/26/18 Docusate Sodium 300 mg PO HS 05/26/18 Fluticasone Propionate [Flovent Diskus] 50 mcg IH DAILY PRN 05/26/18 Montelukast Sodium [Singulair] 10 mg PO HS 05/26/18 Sennosides [Senokot] 8.6 mg PO HS PRN 05/26/18 oxyCODONE HCL [Roxicodone -] 5 mg PO Q6H PRN tablet MDD 4 06/03/18 Amiodarone HCl [Cordarone -] 200 mg PO DAILY tablet 06/18/18 Diltiazem Cd [Cardizem Cd -] 180 mg PO DAILY cap.cd.24h 06/18/18 Divalproex Sprinkle [Depakote Sprinkle -] 125 mg PO DAILY cap.sprink 06/18/18 Nystatin/Triamcinolone Top Cr [Mycolog II -] 1 applic TP BID applic 06/18/18 Olanzapine [ZyPREXA -] 10 mg PO HS tablet 06/18/18 Pantoprazole Sodium [Protonix -] 40 mg PO DAILY tablet.ec 06/18/18 Guaifenesin 100 mg PO PRN PRN 01/14/19 Olanzapine [Zyprexa] 7.5 mg PO DAILY 01/14/19 Family Disease History - Family Disease History Family Disease History: Other: Father ( (78) lung cancer), Mother ( (82) lung cancer), Brother (alive (84) well) Review of Systems - Review of Systems Constitutional: reports: No Symptoms Eyes: reports: Blind Spots HENT: reports: No Symptoms Neck: reports: No Symptoms Cardiovascular: reports: No Symptoms Respiratory: reports: No Symptoms Gastrointestinal: reports: No Symptoms Genitourinary: reports: Burning, Hematuria Musculoskeletal: reports: No Symptoms Integumentary: reports: No Symptoms Neurological: reports: Unsteady Gait Endocrine: reports: No Symptoms Hematology/Lymphatic: reports: No Symptoms Psychiatric: reports: No Symptoms Physical Examination Vital Signs: Vital Signs Temperature 98.3 F 01/14/19 14:45 Pulse Rate 68 01/14/19 14:45 Respiratory Rate 18 01/14/19 14:45 Blood Pressure 120/73 01/14/19 14:45 O2 Sat by Pulse Oximetry (%) 95 01/14/19 14:45 Constitutional: Yes: No Distress, Calm Eyes: Yes: Conjunctiva Clear HENT: Yes: Atraumatic, Normocephalic Neck: Yes: Supple, Trachea Midline Cardiovascular: Yes: Regular Rate and Rhythm Respiratory: Yes: Regular, CTA Bilaterally Gastrointestinal: Yes: Normal Bowel Sounds, Soft Renal/: Yes: Hogan Present (suprapubic), Other (bed is soiled with red-brown foul smelling urine) Musculoskeletal: Yes: WNL Edema: No Peripheral Pulses WNL: Yes Peripheral Pulses: Left Radial: 2+, Right Radial: 2+, Left Doralis Pedis: 2+, Right Dorsalis Pedis: 2+ Integumentary: Yes: Other (dry scaly skin to face and ears) Neurological: Yes: Alert, Oriented, Unsteady Gait ...Motor Strength: WNL Psychiatric: Yes: Alert, Oriented Labs: CBC, BMP 01/14/19 10:18 01/14/19 10:18 Problem List - Problems (1) Inguinal hernia Assessment/Plan: not currently incarcerate- but consider surgical consult for repair in the near future Code(s): K40.90 - UNIL INGUINAL HERNIA, W/O OBST OR GANGR, NOT SPCF RECUR (2) COPD (chronic obstructive pulmonary disease) Assessment/Plan: continue asmanex, singulair Robitussin PRN cough PRN nebs Code(s): J44.9 - CHRONIC OBSTRUCTIVE PULMONARY DISEASE, UNSPECIFIED (3) Prophylactic measure Assessment/Plan: hold eliquis due to hematuria OOB to chair reposition Q2hrs skin care to prevent breakdown, continue topical nystatin oint PPI senna/colace for bowel regimen Code(s): Z29.9 - ENCOUNTER FOR PROPHYLACTIC MEASURES, UNSPECIFIED (4) Hematuria Assessment/Plan: consult placed for urology, but they to be recalled in AM due to not being aware of obstructed catheter which needs to be changed gentle IVF overnight Code(s): R31.9 - HEMATURIA, UNSPECIFIED Qualifiers: Hematuria type: gross Qualified Code(s): R31.0 - Gross hematuria (5) Suprapubic catheter dysfunction Assessment/Plan: urology to evaluate pt for new catheter UCX pending Code(s): T83.010A - BREAKDOWN (MECHANICAL) OF CYSTOSTOMY CATHETER, INIT ENCNTR (6) Atrial flutter Assessment/Plan: continue amio and cardizem EKG PRN Code(s): I48.92 - UNSPECIFIED ATRIAL FLUTTER Qualifiers: Atrial flutter type: typical Qualified Code(s): I48.3 - Typical atrial flutter (7) Dementia without behavioral disturbance Assessment/Plan: continue depakote and Olanzapine pt needs constant reassurance Code(s): F03.90 - UNSPECIFIED DEMENTIA WITHOUT BEHAVIORAL DISTURBANCE Qualifiers: Dementia type: unspecified type Qualified Code(s): F03.90 - Unspecified dementia without behavioral disturbance Assessment/Plan DISPO: SW will follow for d/c to [place] once stable Code: Full Visit type - Emergency Visit Emergency Visit: Yes ED Registration Date: 01/14/19 Care time: The patient presented to the Emergency Department on the above date and was hospitalized for further evaluation of their emergent condition. - New Patient This patient is new to me today: Yes Date on this admission: 01/15/19 - Critical Care Critical Care patient: No
[2019-01-15] MEDS ORDERED: ALBUTEROL SO4 0.083% IH SOL 2.5 MG/3 ML VIAL.NEB. NEB PRN (00:28)
[2019-01-15] MEDS ORDERED: guaiFENesin 200 MG/10 ML 10 ML UNIT-DOSE CUPS ONE (04:13)
[2019-01-15] MEDS ORDERED: ACETAMINOPHEN 325 MG TABLET (FP) ONE (04:13)
[2019-01-15] MEDS: ACETAMINOPHEN 325 MG TABLET (FP) PO PRN (04:15)
[2019-01-15] MEDS: guaiFENesin 200 MG/10 ML 10 ML UNIT-DOSE CUPS PO PRN ×2 (04:15→13:23)
[2019-01-15] MEDS ORDERED: ALBUTEROL SO4 2.5/IPRATROPIUM 0.5 INH SOL 3 ML VIAL.NEB. NEB ONE (04:44)
[2019-01-15 07:48] LABS: HEMATOCRIT 39.3 % (35.4-49); HEMOGLOBIN 13.4 GM/dL (11.7-16.9); MCH 33.9 pg (25.7-33.7); MCHC 34.1 g/dl (32.0-35.9); MEAN CELL VOLUME 99.3 fl (80-96); MEAN PLT VOLUME 8.6 fl (7.5-11.1); PLATELET COUNT 221 K/MM3 (134-434); RBC 3.96 M/mm3 (4.00-5.60); RDW 14.9 % (11.9-15.9); WHITE BLOOD COUNT 6.5 K/mm3 (4.0-10.0)
[2019-01-15 08:47] LABS: ANION GAP 6 MMOL/L (8-16); BLOOD UREA NITROGEN 17 mg/dL (7-18); CALCIUM 8.6 mg/dL (8.5-10.1); CHLORIDE 112 mmol/L (98-107); CO2 28 mmol/L (21-32); GLUCOSE,RANDOM 84 mg/dL (74-106); MAGNESIUM 2.2 mg/dL (1.8-2.4); PHOSPHOROUS 2.8 mg/dL (2.5-4.9); POTASSIUM 4.2 mmol/L (3.5-5.1); SODIUM 146 mmol/L (136-145)
[2019-01-15] MEDS ORDERED: OLANZapine 7.5 MG TABLET PO SCH (10:00)
[2019-01-15] MEDS: PANTOPRAZOLE 40 MG TABLET (FP) PO SCH (12:07)
[2019-01-15] MEDS: AMIODARONE HCL 200 MG TABLET (FP) PO SCH (12:07)
[2019-01-15] MEDS: DIVALPROEX SODIUM 125 MG SPRINKLE CAPS PO SCH (13:23)
[2019-01-15] MEDS: OLANZAPINE 5 MG, OLANZAPINE 2.5 MG PO SCH (13:23)
[2019-01-15] MEDS: SODIUM CHLORIDE 1,000 ML IV SCH (13:24)
[2019-01-15] MEDS: NYSTATIN/TRIAMCINOLONE TOPICAL CREAM 15 GM TUBE TP SCH (13:24)
--- NOTE | 2019-01-15 17:52 | PN ---
Progress Note, Physician Chief Complaint: JASIEL Suprapubic pain History of Present Illness: Previous notes and events reviewed awake and alert NAD complain of pain to suprapubic area foul smell to suprapubic catheter area, dark color urine noted in leg bag - Current Medication List Current Medications: Active Medications Acetaminophen (Tylenol -) 650 mg PO Q6H PRN PRN Reason: PAIN LEVEL 1 - 3 Last Admin: 01/15/19 04:15 Dose: 650 mg Albuterol Sulfate (Ventolin 0.083% Nebulizer Soln -) 1 amp NEB Q6H PRN PRN Reason: SHORT OF BREATH/WHEEZING Albuterol/Ipratropium (Duoneb -) 1 amp NEB Q4H PRN PRN Reason: ASTHMA Amiodarone HCl (Cordarone -) 200 mg PO DAILY [facility] Last Admin: 01/15/19 12:07 Dose: 200 mg Atorvastatin Calcium (Lipitor -) 20 mg PO HS [facility] Diltiazem HCl (Cardizem Cd -) 180 mg PO DAILY [facility] Last Admin: 01/15/19 12:07 Dose: 180 mg Divalproex Sodium (Depakote Sprinkle Caps -) 125 mg PO DAILY [facility] Last Admin: 01/15/19 13:23 Dose: 125 mg Docusate Sodium (Colace -) 300 mg PO HS [facility] Guaifenesin (Robitussin -) 5 ml PO Q6H PRN PRN Reason: COUGH Last Admin: 01/15/19 13:23 Dose: 5 ml Sodium Chloride (Normal Saline -) 1,000 mls @ 75 mls/hr IV ASDIR [facility] Last Admin: 01/15/19 13:24 Dose: 75 mls/hr Mometasone Furoate (Asmanex 220mcg -) 1 puff IH HS [facility] Montelukast Sodium (Singulair -) 10 mg PO HS [facility] Nystatin/Triamcinolone Acetonide (Mycolog Ii Cream -) 1 applic TP BID [facility] Last Admin: 01/15/19 13:24 Dose: 1 applic Olanzapine (Zyprexa -) 10 mg PO HS [facility] Olanzapine 5 mg/ Olanzapine 2. (5 mg) 7.5 mg PO DAILY [facility] Last Admin: 01/15/19 13:23 Dose: 7.5 mg Oxycodone HCl (Roxicodone -) 5 mg PO Q6H PRN PRN Reason: PAIN LEVEL 7 - 10 Pantoprazole Sodium (Protonix -) 40 mg PO DAILY [facility] Last Admin: 01/15/19 12:07 Dose: 40 mg Senna (Senna -) 1 tab PO HS PRN PRN Reason: CONSTIPATION - Objective Vital Signs: Vital Signs Temperature 97.6 F 01/15/19 14:00 Pulse Rate 60 01/15/19 14:00 Respiratory Rate 20 01/15/19 14:00 Blood Pressure 118/60 01/15/19 14:00 O2 Sat by Pulse Oximetry (%) 96 01/15/19 14:00 Constitutional: Yes: No Distress, Calm Eyes: Yes: Conjunctiva Clear HENT: Yes: Atraumatic Cardiovascular: Yes: Regular Rate and Rhythm Respiratory: Yes: Regular, CTA Bilaterally Gastrointestinal: Yes: Normal Bowel Sounds, Soft, Tenderness (suprapubic) Genitourinary: Yes: Other (suprapubic catheter) Musculoskeletal: Yes: Muscle Weakness Extremities: Yes: WNL Edema: No Neurological: Yes: Alert, Pre-Existing Deficit Psychiatric: Yes: Alert Labs: CBC, BMP 01/15/19 06:38 01/15/19 06:38 Problem List - Problems (1) JASIEL (acute kidney injury) Assessment/Plan: -improved -BUN/Cr 17/1.0 -monitor renal function daily Code(s): N17.9 - ACUTE KIDNEY FAILURE, UNSPECIFIED (2) COPD (chronic obstructive pulmonary disease) Assessment/Plan: -Bronchodilators -Asmanex + Singulair -O2 via NC -keep SpO2 >90% Code(s): J44.9 - CHRONIC OBSTRUCTIVE PULMONARY DISEASE, UNSPECIFIED (3) Hematuria Assessment/Plan: -Urology consult -Hg stable at 13.4 Code(s): R31.9 - HEMATURIA, UNSPECIFIED Qualifiers: Hematuria type: gross Qualified Code(s): R31.0 - Gross hematuria (4) Inguinal hernia Assessment/Plan: -surgical consult -A/P CT scan shows left inguinal hernia of significant size containing distal left colon without evidence of incarceration or obstruction Code(s): K40.90 - UNIL INGUINAL HERNIA, W/O OBST OR GANGR, NOT SPCF RECUR (5) Suprapubic catheter dysfunction Assessment/Plan: -urology consult Code(s): T83.010A - BREAKDOWN (MECHANICAL) OF CYSTOSTOMY CATHETER, INIT ENCNTR Qualifiers: Encounter type: initial encounter Qualified Code(s): T83.010A - Breakdown ( mechanical) of cystostomy catheter, initial encounter (6) Rectourethral fistula Assessment/Plan: -surgery consult Code(s): N36.0 - URETHRAL FISTULA (7) Abscess Assessment/Plan: -A/P CT scan shows 3cm fluid and air filled collection seen in prostate region or prostate bed, can represent a post surgical change but abscess cannot be ruled out Code(s): L02.91 - CUTANEOUS ABSCESS, UNSPECIFIED (8) Atrial flutter Assessment/Plan: -continue Amiodarone and Cardizem Code(s): I48.92 - UNSPECIFIED ATRIAL FLUTTER Qualifiers: Atrial flutter type: typical Qualified Code(s): I48.3 - Typical atrial flutter Assessment/Plan see problem list dvt ppx
--- NOTE | 2019-01-15 23:46 | HOSP ---
Subjective - Review of Symptoms Events since last encounter: Hospitalist Encounter Notified by the RN that the patient pulled out his supra pubic catheter and IV site Subjective: Arrived to bedside, patient is awake but confused. Patient has no complaints PE performed see EMR Plan Ordered sterile Hogan to keep opening patent IV site Wrist restraints Physical Examination Vital Signs: Vital Signs Temperature 97.6 F 01/15/19 23:26 Pulse Rate 56 L 01/15/19 23:26 Respiratory Rate 18 01/15/19 23:26 Blood Pressure 115/68 01/15/19 23:26 O2 Sat by Pulse Oximetry (%) 96 01/15/19 14:00 Constitutional: Yes: No Distress, Calm Eyes: Yes: Conjunctiva Clear, PERRL HENT: Yes: WNL, Atraumatic, Normocephalic Neck: Yes: WNL, Supple, Trachea Midline Cardiovascular: Yes: Regular Rate and Rhythm, S1, S2 Respiratory: Yes: WNL, Regular, CTA Bilaterally Gastrointestinal: Yes: Other (no active bleed to suprapubic site Bulky dressing noted) Neurological: Yes: Alert, Confusion Psychiatric: Yes: Alert Labs: CBC, BMP 01/15/19 06:38 01/15/19 06:38
[2019-01-16] MEDS: MONTELUKAST NA 10 MG TABLET PO SCH ×2 (00:01→21:49)
[2019-01-16] MEDS: ATORVASTATIN CA 20 MG TABLET (FP) PO SCH ×2 (00:01→21:48)
[2019-01-16] MEDS: OLANZapine 10 MG TABLET PO SCH ×2 (00:01→21:48)
[2019-01-16] MEDS: DOCUSATE SODIUM 100 MG CAPSULE (FP) PO SCH ×2 (00:01→21:47)
[2019-01-16] MEDS: MOMETASONE FUROATE 220 MCG/IH INHALER IH SCH ×2 (00:02→21:49)
[2019-01-16] MEDS: NYSTATIN/TRIAMCINOLONE TOPICAL CREAM 15 GM TUBE TP SCH ×3 (00:07→21:50)
[2019-01-16] MEDS: SODIUM CHLORIDE 1,000 ML IV SCH ×3 (02:56→21:47)
--- NOTE | 2019-01-16 09:12 | CONSULT ---
Consult Consult Specialty:: Surgery Reason for Consultation:: Inguinal hernia and recto-urethral fistula - History of Present Illness Chief Complaint: hematuria History of Present Illness: 73 yo male w/ pmh of Dementia, COPD, aflutter (on Eliquis), and prostate CA s/ p cyberknife radiation, ESBL UTI, prostatic abscess, rectouretheral fistula s/p suprapubic catheter placement who presents from [facility] for evaluation of episode of suprapubic pain and hematuria. Patient reports that upon awakening on the morning of 01/14, he noted blood in catheter bag. Mr. Marina alerted medical staff who decided to refer him to ED for evaluation. His associated complaints are chronic suprapubic pain, PAS 10/10, and leakage or urine onto diaper and bedding. He denies fever/chills/N/V/Malaise/D. In ED: Vitals were: T 98.2, BP 102/47, HR 76, RR 18, O2 sat 96% Scrotal Sono: Heterogenous echotexture to the right testis. CT abd.pelvis: 3cm fluid and air collection seen in the region of the prostate or prostate bed, which could represent postsurgical change, but an abscess cannot be excluded. There is tracking adjacent to the shaft suspicious for SC infection extending in this region. New LEft inguinal hernia of significant size containing distal left colon w/o evidence of incarceration or obstruction. Urology consulted for air collection seen on CT, which is thought to be due to rectouretheral fistula; per Dr. Amaral, patient needs diverting colostomy. ID consulted for malodorous urine and recommendation was to send UCX, without initiating abx since pt be colonized. 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 CAN: Yes: CVA (no residual), Dementia Cardio/Vascular: Yes: HTN, Hyperlipdemia, Other (aflutter) Pulmonary: Yes: COPD Renal/: Yes: Cancer (prostate s/p cyberknife/radiation ~5 yrs ago and "some other surgery"), UTI, Other (incontinence) Infectious Disease: Yes: Other (ESBL) Psych: Yes: Depression - Past Surgical History Past Surgical History: Yes: Colonoscopy - Alcohol/Substance Use Hx Alcohol Use: No History of Substance Use: reports: None - Smoking History Smoking history: Former smoker Have you smoked in the past 12 months: No Aproximately how many cigarettes per day: 0 If you are a former smoker, when did you quit?: 4-5 mos ago - Social History Usual Living Arrangement: With Significant Other ADL: Independent History of Recent Travel: No Home Medications - Allergies Allergies/Adverse Reactions: Allergies Allergy/AdvReac Type Severity Reaction Status Date / Time Carbapenems Allergy Mild Verified 01/14/19 09:46 Penicillins Allergy Unknown "SWELL UP" Verified 01/14/19 09:46 Sulfa (Sulfonamide Allergy Unknown "SWELL UP" Verified 01/14/19 09:46 Antibiotics) - Home Medications Home Medications: Ambulatory Orders Acetaminophen [Tylenol] 650 mg PO Q6H PRN 05/26/18 Albuterol 2.5/Ipratropium 0.5 [Duoneb -] 1 neb NEB Q4H PRN 05/26/18 Apixaban [Eliquis] 5 mg PO BID 05/26/18 Atorvastatin Ca [Lipitor] 20 mg PO HS 05/26/18 Docusate Sodium 300 mg PO HS 05/26/18 Fluticasone Propionate [Flovent Diskus] 50 mcg IH DAILY PRN 05/26/18 Montelukast Sodium [Singulair] 10 mg PO HS 05/26/18 Sennosides [Senokot] 8.6 mg PO HS PRN 05/26/18 oxyCODONE HCL [Roxicodone -] 5 mg PO Q6H PRN tablet MDD 4 06/03/18 Amiodarone HCl [Cordarone -] 200 mg PO DAILY tablet 06/18/18 Diltiazem Cd [Cardizem Cd -] 180 mg PO DAILY cap.cd.24h 06/18/18 Divalproex Sprinkle [Depakote Sprinkle -] 125 mg PO DAILY cap.sprink 06/18/18 Nystatin/Triamcinolone Top Cr [Mycolog II -] 1 applic TP BID applic 06/18/18 Olanzapine [ZyPREXA -] 10 mg PO HS tablet 06/18/18 Pantoprazole Sodium [Protonix -] 40 mg PO DAILY tablet.ec 06/18/18 Guaifenesin 100 mg PO PRN PRN 01/14/19 Olanzapine [Zyprexa] 7.5 mg PO DAILY 01/14/19 Family Disease History - Family Disease History Family Disease History: Other: Father ( (78) lung cancer), Mother ( (82) lung cancer), Brother (alive (84) well) Review of Systems - Review of Systems Neck: reports: No Symptoms Cardiovascular: reports: No Symptoms Respiratory: reports: No Symptoms Gastrointestinal: reports: No Symptoms Genitourinary: reports: Hematuria Physical Exam Vital Signs: Vital Signs Temperature 98.4 F 01/16/19 06:00 Pulse Rate 53 L 01/16/19 06:00 Respiratory Rate 18 01/16/19 06:00 Blood Pressure 112/67 01/16/19 06:00 O2 Sat by Pulse Oximetry (%) 96 01/15/19 14:00 Constitutional: Yes: No Distress HENT: Yes: Normocephalic Neck: Yes: Supple Cardiovascular: Yes: Regular Rate and Rhythm Respiratory: Yes: CTA Bilaterally Gastrointestinal: Yes: Soft Renal/: Yes: Hogan Present (inserted at suprapubic cystostomy with cloudy urine) Labs: CBC, BMP 01/15/19 06:38 01/15/19 06:38 Imaging - Results Cat Scan: Report Reviewed, Image Reviewed Problem List - Problems (1) Inguinal hernia Assessment/Plan: Left inguinal hernia is relatively asymptomatic Recommend elective LIH repair when the more pressing problem of recto-urethral fistula is resolved Code(s): K40.90 - UNIL INGUINAL HERNIA, W/O OBST OR GANGR, NOT SPCF RECUR (2) Recto-urethral fistula Assessment/Plan: Agree with laparoscopic diverting colostomy Discussed plan of management with patient's daughter - undecided at this time Will follow Code(s): N36.0 - URETHRAL FISTULA
[2019-01-16] MEDS: AMIODARONE HCL 200 MG TABLET (FP) PO SCH (10:27)
[2019-01-16] MEDS: OLANZAPINE 5 MG, OLANZAPINE 2.5 MG PO SCH (10:28)
[2019-01-16] MEDS: DIVALPROEX SODIUM 125 MG SPRINKLE CAPS PO SCH (10:28)
[2019-01-16] MEDS: PANTOPRAZOLE 40 MG TABLET (FP) PO SCH (10:28)
--- NOTE | 2019-01-16 12:05 | PN ---
Progress Note (short form) - Note Progress Note: ID consult dictated Chart and prior admission reviewed history of prostate cancer/rectourethral fistula/prostatic abscess diverting colostomy was reccd by urology in the past no fever no chills normal wbc suspect urine will always be "dirty" as he has a fistula await urology and surgery f/u contact isolation-history of ecoli esbl urinary colonization case d/w daughter at bedside ct scan reivewed with radiologist d/w urologist as well Problem List - Problems (1) Recto-urethral fistula Code(s): N36.0 - URETHRAL FISTULA (2) Allergy to multiple antibiotics Code(s): Z88.1 - ALLERGY STATUS TO OTHER ANTIBIOTIC AGENTS STATUS (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
[2019-01-16 13:14] LABS: PH,URINE 6.5 (5.0-8.0); URINE APPEARANCE TURBID; URINE BACTERIA 6614.5 /hpf (NEGATIVE); URINE BILIRUBIN NEGATIVE (NEGATIVE); URINE CASTS 63 /lpf (0-8); URINE COLOR YELLOW; URINE GLUCOSE (UA) NEGATIVE (NEGATIVE); URINE KETONE NEGATIVE (NEGATIVE); URINE LEUK ESTERASE 3+ (NEGATIVE); URINE NITRITE NEGATIVE (NEGATIVE); URINE PROTEIN 2+ (NEGATIVE); URINE RBC 359 /hpf (0-4); URINE UROBILINOGEN 0.2 mg/dL (0.2-1.0); URINE WBC 2698 /hpf (0-5)
--- NOTE | 2019-01-16 14:13 | CON.GU ---
Consult Consult Specialty:: Reason for Consultation:: rectourethral fistula, hematuria - History of Present Illness Chief Complaint: hematuria History of Present Illness: 73 yo male w/ pmh of Dementia, COPD, aflutter (on Eliquis), and prostate CA s/p cyberknife radiation, ESBL UTI, prostatic abscess, rectouretheral fistula s/p suprapubic catheter placement who presents from [facility] for evaluation of episode of suprapubic pain and hematuria. Patient reports that upon awakening on the morning of 01/14, he noted blood in catheter bag. Mr. Marina alerted medical staff who decided to refer him to ED for evaluation. His associated complaints are chronic suprapubic pain, PAS 10/10, and leakage or urine onto diaper and bedding. He denies fever/chills/N/V/Malaise/D. In ED: Vitals were: T 98.2, BP 102/47, HR 76, RR 18, O2 sat 96% Scrotal Sono: Heterogenous echotexture to the right testis. CT abd.pelvis: 3cm fluid and air collection seen in the region of the prostate or prostate bed, which could represent postsurgical change, but an abscess cannot be excluded. There is tracking adjacent to the shaft suspicious for SC infection extending in this region. New LEft inguinal hernia of significant size containing distal left colon w/o evidence of incarceration or obstruction. Urology consulted for air collection seen on CT, which is thought to be due to rectouretheral fistula; per Dr. Amaral, patient needs diverting colostomy. ID consulted for malodorous urine and recommendation was to send UCX, without initiating abx since pt be colonized. cons req. 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: CVA (no residual), Dementia Cardio/Vascular: Yes: HTN, Hyperlipdemia, Other (aflutter) Pulmonary: Yes: COPD Renal/: Yes: Cancer (prostate s/p cyberknife/radiation ~5 yrs ago and "some other surgery"), Hematuria, UTI, Other (incontinence, rectourethral fistula) Infectious Disease: Yes: Other (ESBL) Psych: Yes: Depression - Past Surgical History Past Surgical History: Yes: Colonoscopy - Alcohol/Substance Use Hx Alcohol Use: No History of Substance Use: reports: None - Smoking History Smoking history: Former smoker Have you smoked in the past 12 months: No Aproximately how many cigarettes per day: 0 If you are a former smoker, when did you quit?: 4-5 mos ago - Social History Usual Living Arrangement: With Significant Other ADL: Independent History of Recent Travel: No Home Medications - Allergies Allergies/Adverse Reactions: Allergies Allergy/AdvReac Type Severity Reaction Status Date / Time Carbapenems Allergy Mild Verified 01/14/19 09:46 Penicillins Allergy Unknown "SWELL UP" Verified 01/14/19 09:46 Sulfa (Sulfonamide Allergy Unknown "SWELL UP" Verified 01/14/19 09:46 Antibiotics) - Home Medications Home Medications: Ambulatory Orders Acetaminophen [Tylenol] 650 mg PO Q6H PRN 05/26/18 Albuterol 2.5/Ipratropium 0.5 [Duoneb -] 1 neb NEB Q4H PRN 05/26/18 Apixaban [Eliquis] 5 mg PO BID 05/26/18 Atorvastatin Ca [Lipitor] 20 mg PO HS 05/26/18 Docusate Sodium 300 mg PO HS 05/26/18 Fluticasone Propionate [Flovent Diskus] 50 mcg IH DAILY PRN 05/26/18 Montelukast Sodium [Singulair] 10 mg PO HS 05/26/18 Sennosides [Senokot] 8.6 mg PO HS PRN 05/26/18 oxyCODONE HCL [Roxicodone -] 5 mg PO Q6H PRN tablet MDD 4 06/03/18 Amiodarone HCl [Cordarone -] 200 mg PO DAILY tablet 06/18/18 Diltiazem Cd [Cardizem Cd -] 180 mg PO DAILY cap.cd.24h 06/18/18 Divalproex Sprinkle [Depakote Sprinkle -] 125 mg PO DAILY cap.sprink 06/18/18 Nystatin/Triamcinolone Top Cr [Mycolog II -] 1 applic TP BID applic 06/18/18 Olanzapine [ZyPREXA -] 10 mg PO HS tablet 06/18/18 Pantoprazole Sodium [Protonix -] 40 mg PO DAILY tablet.ec 06/18/18 Guaifenesin 100 mg PO PRN PRN 01/14/19 Olanzapine [Zyprexa] 7.5 mg PO DAILY 01/14/19 Family Disease History - Family Disease History Family Disease History: Other: Father ( (78) lung cancer), Mother ( (82) lung cancer), Brother (alive (84) well) Review of Systems - Review of Systems Genitourinary: reports: Hematuria Physical Exam- Vital Signs: Vital Signs Temperature 98.4 F 01/16/19 06:00 Pulse Rate 53 L 01/16/19 06:00 Respiratory Rate 18 01/16/19 06:00 Blood Pressure 112/67 01/16/19 06:00 O2 Sat by Pulse Oximetry (%) 96 01/15/19 14:00 Renal/: Yes: Other (SPT w cloudy urine). No: Bladder Distention, CVA Tenderness - Left, CVA Tenderness - Right Labs: CBC, BMP 01/15/19 06:38 01/15/19 06:38 Imaging - Results Cat Scan: Report Reviewed, Image Reviewed Problem List - Problems (1) Hematuria Code(s): R31.9 - HEMATURIA, UNSPECIFIED Qualifiers: Hematuria type: gross Qualified Code(s): R31.0 - Gross hematuria (2) Inguinal hernia Code(s): K40.90 - UNIL INGUINAL HERNIA, W/O OBST OR GANGR, NOT SPCF RECUR (3) Rectourethral fistula Assessment/Plan: pt needs diverting laparoscopic sigmoid colostomy, change SPT monthly Code(s): N36.0 - URETHRAL FISTULA
--- NOTE | 2019-01-16 14:32 | PN ---
Progress Note, Physician Chief Complaint: patient seen and examined pus from penis per aide who changed patient - Current Medication List Current Medications: Active Medications Acetaminophen (Tylenol -) 650 mg PO Q6H PRN PRN Reason: PAIN LEVEL 1 - 3 Last Admin: 01/15/19 04:15 Dose: 650 mg Albuterol Sulfate (Ventolin 0.083% Nebulizer Soln -) 1 amp NEB Q6H PRN PRN Reason: SHORT OF BREATH/WHEEZING Albuterol/Ipratropium (Duoneb -) 1 amp NEB Q4H PRN PRN Reason: ASTHMA Amiodarone HCl (Cordarone -) 200 mg PO DAILY [facility] Last Admin: 01/16/19 10:27 Dose: 200 mg Atorvastatin Calcium (Lipitor -) 20 mg PO [facility] Last Admin: 01/16/19 00:01 Dose: 20 mg Diltiazem HCl (Cardizem Cd -) 180 mg PO DAILY [facility] Last Admin: 01/16/19 10:27 Dose: 180 mg Divalproex Sodium (Depakote Sprinkle Caps -) 125 mg PO DAILY [facility] Last Admin: 01/16/19 10:28 Dose: 125 mg Docusate Sodium (Colace -) 300 mg PO [facility] Last Admin: 01/16/19 00:01 Dose: 300 mg Guaifenesin (Robitussin -) 5 ml PO Q6H PRN PRN Reason: COUGH Last Admin: 01/15/19 13:23 Dose: 5 ml Sodium Chloride (Normal Saline -) 1,000 mls @ 75 mls/hr IV ASDIR [facility] Last Admin: 01/16/19 14:14 Dose: 75 mls/hr Mometasone Furoate (Asmanex 220mcg -) 1 puff IH [facility] Last Admin: 01/16/19 00:02 Dose: 1 puff Montelukast Sodium (Singulair -) 10 mg PO [facility] Last Admin: 01/16/19 00:01 Dose: 10 mg Nystatin/Triamcinolone Acetonide (Mycolog Ii Cream -) 1 applic TP BID [facility] Last Admin: 01/16/19 10:28 Dose: 1 applic Olanzapine (Zyprexa -) 10 mg PO [facility] Last Admin: 01/16/19 00:01 Dose: 10 mg Olanzapine 5 mg/ Olanzapine 2. (5 mg) 7.5 mg PO DAILY [facility] Last Admin: 01/16/19 10:28 Dose: 7.5 mg Oxycodone HCl (Roxicodone -) 5 mg PO Q6H PRN PRN Reason: PAIN LEVEL 7 - 10 Pantoprazole Sodium (Protonix -) 40 mg PO DAILY [facility] Last Admin: 01/16/19 10:28 Dose: 40 mg Senna (Senna -) 1 tab PO HS PRN PRN Reason: CONSTIPATION - Objective Vital Signs: Vital Signs Temperature 98.4 F 01/16/19 06:00 Pulse Rate 53 L 01/16/19 06:00 Respiratory Rate 18 01/16/19 06:00 Blood Pressure 112/67 01/16/19 06:00 O2 Sat by Pulse Oximetry (%) 96 01/15/19 14:00 Constitutional: Yes: Calm Cardiovascular: Yes: Regular Rate and Rhythm, S1, S2 Respiratory: Yes: CTA Bilaterally Gastrointestinal: Yes: Normal Bowel Sounds, Soft Genitourinary: Yes: Other (suprapubic) Edema: No Neurological: Yes: Alert Labs: CBC, BMP 01/15/19 06:38 01/15/19 06:38 Problem List - Problems (1) JASIEL (acute kidney injury) Assessment/Plan: improved with ivf Code(s): N17.9 - ACUTE KIDNEY FAILURE, UNSPECIFIED (2) Hematuria Assessment/Plan: urology consult noted change SPT montly iD eval urine culture ordered ct scan noted Code(s): R31.9 - HEMATURIA, UNSPECIFIED Qualifiers: Hematuria type: gross Qualified Code(s): R31.0 - Gross hematuria (3) Inguinal hernia Assessment/Plan: surgical eval Code(s): K40.90 - UNIL INGUINAL HERNIA, W/O OBST OR GANGR, NOT SPCF RECUR
[2019-01-16] MEDS: guaiFENesin 200 MG/10 ML 10 ML UNIT-DOSE CUPS PO PRN ×2 (16:10→22:07)
[2019-01-16] MEDS: ACETAMINOPHEN 325 MG TABLET (FP) PO PRN (16:11)
--- NOTE | 2019-01-16 18:22 | CONS ---
DATE OF CONSULTATION: DATE OF DICTATION: 01/16/2019 INFECTIOUS DISEASE CONSULTATION REQUESTING PHYSICIAN: Shekhar Joseph M.D. CONSULTING PHYSICIAN: Clau Knapp M.D. HISTORY OF PRESENT ILLNESS: This is a 73-year-old man admitted from the intermediate. He was last in the hospital in the fall, he was here in May. He stayed for about a month. At that time, he was diagnosed with a fistula that went from his rectum to his urethra. He has a history of prostate cancer and that had fibrinized many years ago. During the prior admission in May as well, he had a suprapubic tube placed. He had been at the intermediate where the daughter reports he has been doing quite well. He has been ambulating and has been up out of bed. He suffers from mild dementia. He presented to the ER with complaints of hematuria. He notes he has chronic pain at the suprapubic site. He has no fevers and chills, otherwise feels well. PAST MEDICAL HISTORY: Notable for history of prostate cancer. He has a history of dementia, COPD, atrial flutter, and a history of prosthetic abscess, rectourethral fistula, and suprapubic catheter placement. His prostate cancer, he has had fibrinized radiation about 5 years ago. He has a history of dementia and has had cataract surgery as well. SOCIAL HISTORY: He is living at the intermediate. 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 No history of any travel. He stopped smoking. There is no history of any alcohol or substance use. ALLERGIES: He is allergic to PENICILLIN and SULFA. He does not know the nature of the allergy, per the chart it says "swells up". He received carbapenem last admission and had some mild itching. REVIEW OF SYSTEMS: He is awake and alert. He actually has no complaints. The prior itching was a generalized pruritus, and he had received both Flagyl and ertapenem. PHYSICAL EXAMINATION: GENERAL: He is awake and alert. VITAL SIGNS: Temperature is 98.4, pulse of 53, blood pressure 112/67, respiratory rate 18. HEENT: Normocephalic. Eyes are anicteric. NECK: Supple. LUNGS: Clear to auscultation. HEART: Regular rate and rhythm. ABDOMEN: Soft, nontender. Suprapubic tube is draining cloudy urine. EXTREMITIES: Without edema. LABORATORY: White count is 6.5, hemoglobin 13.4, platelets of 221. BUN and creatinine are 17 and 1. They were 28 and 1.5 yesterday. His urinalysis has 268 white cells, 3+ leukocyte esterase. His prior urine culture grew Providencia and enterococcus in May of 2018. He had a CAT scan done in the emergency room that was essentially unchanged from prior, showed a prostatic collection that was unchanged from prior and air in the bladder, but he has a suprapubic tube. He also has a new left inguinal hernia. IMPRESSION: In summary, this is a 73-year-old man with a history of a rectourethral fistula that was not repaired, a history of a prostatic abscess that is unchanged with no fevers or chills, no change in clinical status, admitted for further evaluation. He is clinically stable Would suggest at this time given his multiple antibiotic allergies that we do not treat him, and we await a plan from urology and general surgery. If he does need surgery, would suggest we give him tygacil and gentamicin. there is a prior history of ecoli esbl in the urine from the fall of 2017. Continue contact isolation. Further recommendations to follow. CAT scan was reviewed with radiology, and it is essentially unchanged from prior. CLAU KNAPP M.D. [id number] MTDD
[2019-01-16] MEDS ORDERED: PT OWN MED DRAWER 7, Y5N ONE (21:40)
[2019-01-17] MEDS: SODIUM CHLORIDE 1,000 ML IV SCH ×2 (04:18→20:01)
[2019-01-17 10:14] LABS: ALBUMIN 2.8 g/dl (3.4-5.0); ALK PHOS 92 U/L (45-117); ANION GAP 4 MMOL/L (8-16); BILIRUBIN,TOTAL 0.6 mg/dL (0.2-1); BLOOD UREA NITROGEN 11 mg/dL (7-18); CHLORIDE 112 mmol/L (98-107); CO2 29 mmol/L (21-32); GLUCOSE,RANDOM 105 mg/dL (74-106); POTASSIUM 4.2 mmol/L (3.5-5.1); SGOT/AST 12 U/L (15-37); SGPT/ALT 9 U/L (13-61); SODIUM 146 mmol/L (136-145); TOT PROT 5.5 g/dl (6.4-8.2)
[2019-01-17] MEDS ORDERED: PT OWN MED DRAWER 7, Y5N ONE (10:35)
[2019-01-17] MEDS: PANTOPRAZOLE 40 MG TABLET (FP) PO SCH (10:45)
[2019-01-17] MEDS: AMIODARONE HCL 200 MG TABLET (FP) PO SCH (10:45)
[2019-01-17] MEDS: DIVALPROEX SODIUM 125 MG SPRINKLE CAPS PO SCH (10:45)
[2019-01-17] MEDS: OLANZAPINE 5 MG, OLANZAPINE 2.5 MG PO SCH (10:46)
[2019-01-17] MEDS: NYSTATIN/TRIAMCINOLONE TOPICAL CREAM 15 GM TUBE TP SCH ×2 (10:47→21:48)
--- NOTE | 2019-01-17 11:35 | PN ---
Progress Note, Physician Chief Complaint: rectourethral fistula, hematuria History of Present Illness: NAD in bed Seen by and general surgery Needs laparoscopic diverting colostomy - Current Medication List Current Medications: Active Medications Acetaminophen (Tylenol -) 650 mg PO Q6H PRN PRN Reason: PAIN LEVEL 1 - 3 Last Admin: 01/16/19 16:11 Dose: 650 mg Albuterol Sulfate (Ventolin 0.083% Nebulizer Soln -) 1 amp NEB Q6H PRN PRN Reason: SHORT OF BREATH/WHEEZING Albuterol/Ipratropium (Duoneb -) 1 amp NEB Q4H PRN PRN Reason: ASTHMA Amiodarone HCl (Cordarone -) 200 mg PO DAILY [facility] Last Admin: 01/17/19 10:45 Dose: 200 mg Atorvastatin Calcium (Lipitor -) 20 mg PO [facility] Last Admin: 01/16/19 21:48 Dose: 20 mg Diltiazem HCl (Cardizem Cd -) 180 mg PO DAILY [facility] Last Admin: 01/17/19 10:45 Dose: 180 mg Divalproex Sodium (Depakote Sprinkle Caps -) 125 mg PO DAILY [facility] Last Admin: 01/17/19 10:45 Dose: 125 mg Docusate Sodium (Colace -) 300 mg PO [facility] Last Admin: 01/16/19 21:47 Dose: 300 mg Guaifenesin (Robitussin -) 5 ml PO Q6H PRN PRN Reason: COUGH Last Admin: 01/16/19 22:07 Dose: 5 ml Sodium Chloride (Normal Saline -) 1,000 mls @ 75 mls/hr IV ASDIR [facility] Last Admin: 01/17/19 04:18 Dose: 75 mls/hr Mometasone Furoate (Asmanex 220mcg -) 1 puff IH [facility] Last Admin: 01/16/19 21:49 Dose: 1 puff Montelukast Sodium (Singulair -) 10 mg PO [facility] Last Admin: 01/16/19 21:49 Dose: 10 mg Nystatin/Triamcinolone Acetonide (Mycolog Ii Cream -) 1 applic TP BID [facility] Last Admin: 01/17/19 10:47 Dose: 1 applic Olanzapine (Zyprexa -) 10 mg PO [facility] Last Admin: 01/16/19 21:48 Dose: 10 mg Olanzapine 5 mg/ Olanzapine 2. (5 mg) 7.5 mg PO DAILY [facility] Last Admin: 01/17/19 10:46 Dose: 7.5 mg Oxycodone HCl (Roxicodone -) 5 mg PO Q6H PRN PRN Reason: PAIN LEVEL 7 - 10 Pantoprazole Sodium (Protonix -) 40 mg PO DAILY [facility] Last Admin: 01/17/19 10:45 Dose: 40 mg Senna (Senna -) 1 tab PO HS PRN PRN Reason: CONSTIPATION - Objective Vital Signs: Vital Signs Temperature 97.9 F 01/17/19 06:00 Pulse Rate 51 L 01/17/19 06:00 Respiratory Rate 18 01/17/19 06:00 Blood Pressure 134/71 01/17/19 06:00 O2 Sat by Pulse Oximetry (%) 90 L 01/17/19 05:21 Constitutional: Yes: Well Nourished, No Distress, Calm Cardiovascular: Yes: Regular Rate and Rhythm Respiratory: Yes: Regular Gastrointestinal: Yes: WNL Genitourinary: Yes: Hematuria Musculoskeletal: Yes: WNL Extremities: Yes: WNL Edema: No Peripheral Pulses WNL: Yes Neurological: Yes: Alert, Oriented Psychiatric: Yes: Alert, Oriented Labs: CBC, BMP 01/15/19 06:38 01/17/19 09:20 Problem List - Problems (1) JASIEL (acute kidney injury) Assessment/Plan: -resolved -monitor Cr trend Code(s): N17.9 - ACUTE KIDNEY FAILURE, UNSPECIFIED (2) COPD (chronic obstructive pulmonary disease) Assessment/Plan: -On bronchodilators -Pulmonary consult -Needs clearance for OR Code(s): J44.9 - CHRONIC OBSTRUCTIVE PULMONARY DISEASE, UNSPECIFIED (3) Hematuria Assessment/Plan: -resolved -monitor H/H Code(s): R31.9 - HEMATURIA, UNSPECIFIED Qualifiers: Hematuria type: gross Qualified Code(s): R31.0 - Gross hematuria (4) Inguinal hernia Assessment/Plan: -Left inguinal hernia is relatively asymptomatic -Recommend elective LIH repair Code(s): K40.90 - UNIL INGUINAL HERNIA, W/O OBST OR GANGR, NOT SPCF RECUR (5) Recto-urethral fistula Assessment/Plan: -Seen by Surgery -Spoke to daughter Miriam, who is agreeable to surgery -Awaiting cardiology and pulmonary clearance -Has been off eliquis since admission Code(s): N36.0 - URETHRAL FISTULA (6) Suprapubic catheter dysfunction Code(s): T83.010A - BREAKDOWN (MECHANICAL) OF CYSTOSTOMY CATHETER, INIT ENCNTR Qualifiers: Encounter type: initial encounter Qualified Code(s): T83.010A - Breakdown ( mechanical) of cystostomy catheter, initial encounter Assessment/Plan see problem list
--- NOTE | 2019-01-17 12:41 | CON.CARD ---
Consult Consult Specialty:: Cardiology Referred by:: Dr. Ortiz Reason for Consultation:: preop cardiac evaluation - History of Present Illness Chief Complaint: preop for repair of enterovesicular fistula History of Present Illness: 73 year old man with pmh Atrial flutter on eliquis, Prostate Ca, COPD, Dementia , suprapubic catheter, enterovesicular fistula admitted with suprapubic pain and hematuria planned for repair of enterovesicular fistula. Pt seen and examined today in nad. awake, alert, oriented answering questions appropriately. Pt states that he has not been active at all for approximately 2 years. he is currently living at [facility]. states that he does some physical therapy but is not exertional at all. He denies ever having any chest pain or sob either at rest or with his usual amount of exertion. states that up until approx 2 years ago he was active going out for walks for exercise without limitation to his exercise tolerance and without ever having chest pain or sob. 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: Yes: CVA (no residual), Dementia Cardio/Vascular: Yes: HTN, Hyperlipdemia, Other (aflutter) Pulmonary: Yes: COPD Renal/: Yes: Cancer (prostate s/p cyberknife/radiation ~5 yrs ago and "some other surgery"), UTI, Other (incontinence) Infectious Disease: Yes: Other (ESBL) Psych: Yes: Depression - Past Surgical History Past Surgical History: Yes: Colonoscopy - Alcohol/Substance Use Hx Alcohol Use: No History of Substance Use: reports: None - Smoking History Smoking history: Former smoker Have you smoked in the past 12 months: No Aproximately how many cigarettes per day: 0 If you are a former smoker, when did you quit?: 4-5 mos ago - Social History Usual Living Arrangement: With Significant Other ADL: Independent History of Recent Travel: No Home Medications - Allergies Allergies/Adverse Reactions: Allergies Allergy/AdvReac Type Severity Reaction Status Date / Time Carbapenems Allergy Mild Verified 01/14/19 09:46 Penicillins Allergy Unknown "SWELL UP" Verified 01/14/19 09:46 Sulfa (Sulfonamide Allergy Unknown "SWELL UP" Verified 01/14/19 09:46 Antibiotics) - Home Medications Home Medications: Ambulatory Orders Acetaminophen [Tylenol] 650 mg PO Q6H PRN 05/26/18 Albuterol 2.5/Ipratropium 0.5 [Duoneb -] 1 neb NEB Q4H PRN 05/26/18 Apixaban [Eliquis] 5 mg PO BID 05/26/18 Atorvastatin Ca [Lipitor] 20 mg PO HS 05/26/18 Docusate Sodium 300 mg PO HS 05/26/18 Fluticasone Propionate [Flovent Diskus] 50 mcg IH DAILY PRN 05/26/18 Montelukast Sodium [Singulair] 10 mg PO HS 05/26/18 Sennosides [Senokot] 8.6 mg PO HS PRN 05/26/18 oxyCODONE HCL [Roxicodone -] 5 mg PO Q6H PRN tablet MDD 4 06/03/18 Amiodarone HCl [Cordarone -] 200 mg PO DAILY tablet 06/18/18 Diltiazem Cd [Cardizem Cd -] 180 mg PO DAILY cap.cd.24h 06/18/18 Divalproex Sprinkle [Depakote Sprinkle -] 125 mg PO DAILY cap.sprink 06/18/18 Nystatin/Triamcinolone Top Cr [Mycolog II -] 1 applic TP BID applic 06/18/18 Olanzapine [ZyPREXA -] 10 mg PO HS tablet 06/18/18 Pantoprazole Sodium [Protonix -] 40 mg PO DAILY tablet.ec 06/18/18 Guaifenesin 100 mg PO PRN PRN 01/14/19 Olanzapine [Zyprexa] 7.5 mg PO DAILY 01/14/19 Family Disease History - Family Disease History Family Disease History: Other: Father ( (78) lung cancer), Mother ( (82) lung cancer), Brother (alive (84) well) Review of Systems - Review of Systems Constitutional: reports: Weakness. denies: No Symptoms, Chills, Diaphoresis, Fever, Lethargy, Loss of Appetite, Malaise, Night Sweats, Unintentional Wgt. Loss, Other Eyes: denies: No Symptoms, Blind Spots, Blurred Vision, Double Vision, Eye Pain , Floaters, Photophobia, Recent Change in Vision, Other HENT: denies: No Symptoms, Difficult Swallowing, Ear Discharge, Ear Pain, Epistaxis, Gingival Bleeding, Hearing Loss, Mouth Swelling, Nasal Congestion, Ocular Prosthesis, Throat Pain, Toothache, Ringing in Ears, Other Neck: denies: No Symptoms, Decreased ROM, Lumps, Pain on Movement, Stiffness, Swollen Glands, Tenderness, Other Cardiovascular: denies: No Symptoms, Chest Pain, Edema, Palpitations, Shortness of Breath, Other Respiratory: denies: No Symptoms, Cough, Exercise Intolerance, Hemoptysis, Orthopnea, PND, Snoring, SOB, SOB on Exertion, Wheezing, Other Gastrointestinal: denies: No Symptoms, Abdominal Pain, Bloating, Constipation, Diarrhea, Dysphagia, Indigestion, Melena, Nausea, Rectal Bleeding, Vomiting, Vomiting Blood, Other Genitourinary: reports: Hematuria, Pain. denies: No Symptoms, Burning, Discharge, Dysuria, Flank Pain, Frequency, Incontinence, Lesions, Menses, Testicular Mass, Testicular Pain, Testicular Swelling, Urgency, Vaginal Bleeding , Other Breasts: denies: No Symptoms Reported, See HPI, Breast Implants, Discharge from Nipple, Lumps, Pain, Skin Changes, Other Musculoskeletal: reports: Muscle Weakness. denies: No Symptoms, Back Pain, Crepitus, Decreased ROM, Extremity Pain, Joint Pain, Joint Swelling, Muscle Pain , Muscle Cramps, Other Integumentary: denies: No Symptoms, Blister, Bruising, Change in Color, Eczema, Erythema, Incision, Lesions, Lump, Pallor, Pruritis, Rash, Wound, Other Neurological: denies: No Symptoms, Change in LOC, Change in Speech, Confusion, Dizziness, Headache, Incoordination, Numbness, Parasthesia, Pre-Existing Deficit , Seizure, Syncope, Tremors, Unsteady Gait, Weakness, Other Endocrine: denies: No Symptoms, Excessive Sweating, Flushing, Increased Hunger, Increased Thirst, Intolerance to Cold, Intolerance to Heat, Unexplained Weight Gain, Unexplained Weight Loss, Other Hematology/Lymphatic: denies: No Symptoms, Easily Bruised, Excessive Bleeding, Swollen Glands, Other Psychiatric: denies: No Symptoms, Altered Sleep Pattern, Anxiety, Depression, Hallucinations, Panic, Paranoia, Suicidal, Other - Risk Factors Known Risk Factors: Yes: Age, Hypercholesterolemia, Hypertension, Physical Inactivity Vital Signs: Vital Signs Temperature 97.9 F 01/17/19 06:00 Pulse Rate 51 L 01/17/19 06:00 Respiratory Rate 18 01/17/19 06:00 Blood Pressure 134/71 01/17/19 06:00 O2 Sat by Pulse Oximetry (%) 90 L 01/17/19 05:21 Constitutional: Yes: No Distress, Calm Eyes: Yes: Conjunctiva Clear, EOM Intact HENT: Yes: Atraumatic, Normocephalic Neck: Yes: Supple, Trachea Midline Respiratory: Yes: Regular. No: Rales, Rhonchi, SOB, Wheezes Gastrointestinal: Yes: Normal Bowel Sounds Cardiovascular: Yes: Regular Rate and Rhythm. No: Bradycardia, Tachycardia, Pulse Irregular, Gallop, Rub, Varicosities JVD: No Carotid Bruit: No PMI: Non-Displaced Heart Sounds: Yes: S1, S2. No: Split S2, S3, S4, Clicks, Gallop, Rub, Bruit Murmur: No: Systolic Murmur, Diastolic Murmur Musculoskeletal: Yes: Muscle Weakness Edema: No Peripheral Pulses WNL: Yes Neurological: Yes: Alert, Oriented Psychiatric: Yes: Alert, Oriented - Other Data Labs, Other Data: CBC, BMP 01/15/19 06:38 01/17/19 09:20 not in emr Imaging - Results Chest X-ray: Report Reviewed, Image Reviewed EKG: Report Reviewed, Image Reviewed Other: Report Reviewed, Image Reviewed Assessment/Plan 73 year old man with pmh Atrial flutter on eliquis, Prostate Ca, COPD, Dementia , suprapubic catheter, enterovesicular fistula admitted with suprapubic pain and hematuria planned for repair of enterovesicular fistula. Pt states that he has not been active at all for approximately 2 years. he is currently living at [facility] [place] [facility]. states that he does some physical therapy but is not exertional at all. He denies ever having any chest pain or sob either at rest or with his usual amount of exertion. states that up until approx 2 years ago he was active going out for walks for exercise without limitation to his exercise tolerance and without ever having chest pain or sob. Preop cardiovascular exam -unable to evaluate pts exercise tolerance as he has not been active for approx 2 years -[facility] nuclear stress test and echo preoperatively to assist in further perioperative cardiac risk stratification -will need to be off eliquis > 48hrs prior to surgery (which thus far he has been) -BP and HR are adequately controlled for procedure will follow up after stress test and echo results.
--- NOTE | 2019-01-17 14:56 | ECHO ---
Name: JUDY ABRAHAM Exam:Adult Echocardiogram Study Date: 01/17/2019 01:43 PM Age: 73 yrs Reason For Study: Arrhythmia Height: 66 in Weight: 199 lb BSA: 2.0 m2 MMode/2D Measurements & Calculations IVSd: 0.92 cm Ao root diam: 3.5 cm LVIDd: 5.0 cm LA dimension: 3.9 cm LVIDs: 3.6 cm LVPWd: 0.90 cm EDV(Teich): 117.5 ml LVOT diam: 2.3 cm ESV(Teich): 52.9 ml Doppler Measurements & Calculations MV E max hugo: 54.3 cm/sec Ao V2 max: 50.7 cm/sec MV A max hugo: 58.7 cm/sec Ao max P.2 mmHg MV E/A: 0.92 Ao V2 mean: 62.4 cm/sec MV dec time: 0.37 sec Ao mean P.7 mmHg Ao V2 VTI: 13.2 cm CAROLYN(I,D): 3.5 cm2 CAROLYN(V,D): 4.9 cm2 LV V1 max P.5 mmHg SV(LVOT): 45.6 ml LV V1 mean P.93 mmHg LV V1 max: 62.0 cm/sec LV V1 mean: 45.4 cm/sec LV V1 VTI: 11.3 cm TR max hugo: 209.0 cm/sec Med Peak E' Hugo: 4.6 cm/sec TR max P.5 mmHg Med E/e': 11.9 Lat Peak E' Hugo: 7.4 cm/sec Lat E/e': 7.3 Procedure Images were not obtained from all of the standard acoustic windows due to the limited scope of the st ud. Left Ventricle The left ventricle is normal in size. Left ventricular systolic function is grossly normal. Right Ventricle The right ventricular systolic function is grossly normal. Atria Normal left and right atrial size and function. Mitral Valve There is mild mitral annular calcification. There is mild mitral regurgitation. Tricuspid Valve The tricuspid valve is not well visualized. There is mild tricuspid regurgitation. Aortic Valve The aortic valve is not well visualized. Pulmonic Valve The pulmonic valve is not well visualized. Great Vessels The aortic root is normal size. Normal aortic arch, descending and ascending aorta. Pericardium/Pleura There is no pericardial effusion. There is no pleural effusion. Interpretation Summary Images were not obtained from all of the standard acoustic windows due to the limited scope of the st udy. The left ventricle is normal in size. Left ventricular systolic function is grossly normal. The right ventricular systolic function is grossly normal. Normal left and right atrial size and function. There is mild mitral annular calcification. There is mild mitral regurgitation. The tricuspid valve is not well visualized. There is mild tricuspid regurgitation. The aortic valve is not well visualized. The pulmonic valve is not well visualized. The aortic root is normal size. Normal aortic arch, descending and ascending aorta There is no pericardial effusion. There is no pleural effusion. Silvano Justice 01/17/2019 02:56 PM
[2019-01-17] MEDS: guaiFENesin 200 MG/10 ML 10 ML UNIT-DOSE CUPS PO PRN (15:16)
[2019-01-17] MEDS: OLANZapine 10 MG TABLET PO SCH (21:46)
[2019-01-17] MEDS: MONTELUKAST NA 10 MG TABLET PO SCH (21:46)
[2019-01-17] MEDS: ATORVASTATIN CA 20 MG TABLET (FP) PO SCH (21:47)
[2019-01-17] MEDS: DOCUSATE SODIUM 100 MG CAPSULE (FP) PO SCH (21:47)
[2019-01-17] MEDS: MOMETASONE FUROATE 220 MCG/IH INHALER IH SCH (21:47)
[2019-01-18 08:13] LABS: BASO % 0.4 % (0-2.0); EOS % 4.3 % (0-4.5); HEMOGLOBIN 12.6 GM/dL (11.7-16.9); LYMPH % 21.6 % (8-40); MCH 33.2 pg (25.7-33.7); MCHC 34.1 g/dl (32.0-35.9); MEAN CELL VOLUME 97.1 fl (80-96); MEAN PLT VOLUME 7.9 fl (7.5-11.1); MONO % 8.6 % (3.8-10.2); NEUT % 65.1 % (42.8-82.8); PLATELET COUNT 250 K/MM3 (134-434); RBC 3.81 M/mm3 (4.00-5.60); RDW 14.9 % (11.9-15.9); WHITE BLOOD COUNT 7.1 K/mm3 (4.0-10.0)
[2019-01-18 08:27] LABS: ALBUMIN 2.7 g/dl (3.4-5.0); ALK PHOS 93 U/L (45-117); ANION GAP 5 MMOL/L (8-16); BILIRUBIN,TOTAL 0.4 mg/dL (0.2-1); BLOOD UREA NITROGEN 10 mg/dL (7-18); CHLORIDE 112 mmol/L (98-107); CO2 29 mmol/L (21-32); CREATININE 0.8 mg/dL (0.55-1.3); GLUCOSE,RANDOM 86 mg/dL (74-106); POTASSIUM 3.9 mmol/L (3.5-5.1); SGOT/AST 8 U/L (15-37); SGPT/ALT 10 U/L (13-61); SODIUM 146 mmol/L (136-145); TOT PROT 5.1 g/dl (6.4-8.2)
[2019-01-18] MEDS ORDERED: REGADENOSON 0.4 MG/5 ML PRE-FILLED SYRINGE IVPUSH ONE ×2 (09:27→09:30)
--- NOTE | 2019-01-18 11:14 | PN ---
Progress Note, Physician Chief Complaint: rectourethral fistula, hematuria History of Present Illness: NAD in bed Seen by and general surgery Needs laparoscopic diverting colostomy Echo done Seen by Cardiology Awaiting Lorraine scan - Current Medication List Current Medications: Active Medications Acetaminophen (Tylenol -) 650 mg PO Q6H PRN PRN Reason: PAIN LEVEL 1 - 3 Last Admin: 01/16/19 16:11 Dose: 650 mg Albuterol Sulfate (Ventolin 0.083% Nebulizer Soln -) 1 amp NEB Q6H PRN PRN Reason: SHORT OF BREATH/WHEEZING Albuterol/Ipratropium (Duoneb -) 1 amp NEB Q4H PRN PRN Reason: ASTHMA Amiodarone HCl (Cordarone -) 200 mg PO DAILY [facility] Last Admin: 01/17/19 10:45 Dose: 200 mg Atorvastatin Calcium (Lipitor -) 20 mg PO [facility] Last Admin: 01/17/19 21:47 Dose: 20 mg Diltiazem HCl (Cardizem Cd -) 180 mg PO DAILY [facility] Last Admin: 01/17/19 10:45 Dose: 180 mg Divalproex Sodium (Depakote Sprinkle Caps -) 125 mg PO DAILY [facility] Last Admin: 01/17/19 10:45 Dose: 125 mg Docusate Sodium (Colace -) 300 mg PO [facility] Last Admin: 01/17/19 21:47 Dose: Not Given Guaifenesin (Robitussin -) 5 ml PO Q6H PRN PRN Reason: COUGH Last Admin: 01/17/19 15:16 Dose: 5 ml Sodium Chloride (Normal Saline -) 1,000 mls @ 75 mls/hr IV ASDIR [facility] Last Admin: 01/17/19 20:01 Dose: 75 mls/hr Mometasone Furoate (Asmanex 220mcg -) 1 puff IH [facility] Last Admin: 01/17/19 21:47 Dose: 1 puff Montelukast Sodium (Singulair -) 10 mg PO [facility] Last Admin: 01/17/19 21:46 Dose: 10 mg Nystatin/Triamcinolone Acetonide (Mycolog Ii Cream -) 1 applic TP BID [facility] Last Admin: 01/17/19 21:48 Dose: 1 applic Olanzapine (Zyprexa -) 10 mg PO [facility] Last Admin: 01/17/19 21:46 Dose: 10 mg Olanzapine 5 mg/ Olanzapine 2. (5 mg) 7.5 mg PO DAILY [facility] Last Admin: 01/17/19 10:46 Dose: 7.5 mg Pantoprazole Sodium (Protonix -) 40 mg PO DAILY [facility] Last Admin: 01/17/19 10:45 Dose: 40 mg Senna (Senna -) 1 tab PO HS PRN PRN Reason: CONSTIPATION Last Admin: 01/17/19 21:47 Dose: 1 tab - Objective Vital Signs: Vital Signs Temperature 98.2 F 01/18/19 06:00 Pulse Rate 53 L 01/18/19 06:00 Respiratory Rate 18 01/18/19 06:00 Blood Pressure 123/68 01/18/19 06:00 O2 Sat by Pulse Oximetry (%) 91 L 01/18/19 06:00 Constitutional: Yes: Well Nourished, No Distress, Calm Cardiovascular: Yes: Regular Rate and Rhythm Respiratory: Yes: Regular Gastrointestinal: Yes: Normal Bowel Sounds, Soft Genitourinary: Yes: WNL Musculoskeletal: Yes: WNL Extremities: Yes: WNL Edema: No Peripheral Pulses WNL: Yes Neurological: Yes: Alert, Oriented Psychiatric: Yes: Alert, Oriented Labs: CBC, BMP 01/18/19 07:40 01/18/19 07:40 Problem List - Problems (1) JASIEL (acute kidney injury) Assessment/Plan: -resolved -monitor Cr trend Code(s): N17.9 - ACUTE KIDNEY FAILURE, UNSPECIFIED (2) COPD (chronic obstructive pulmonary disease) Assessment/Plan: -On bronchodilators -Pulmonary consult -Needs clearance for OR -Await Lorraine scan results Code(s): J44.9 - CHRONIC OBSTRUCTIVE PULMONARY DISEASE, UNSPECIFIED (3) Hematuria Assessment/Plan: -resolved -monitor H/H Code(s): R31.9 - HEMATURIA, UNSPECIFIED Qualifiers: Hematuria type: gross Qualified Code(s): R31.0 - Gross hematuria (4) Inguinal hernia Assessment/Plan: -Left inguinal hernia is relatively asymptomatic -Recommend elective LIH repair Code(s): K40.90 - UNIL INGUINAL HERNIA, W/O OBST OR GANGR, NOT SPCF RECUR (5) Recto-urethral fistula Assessment/Plan: -Seen by Surgery -Spoke to daughter Miriam, who is agreeable to surgery -Awaiting cardiology and pulmonary clearance -Has been off eliquis since admission Code(s): N36.0 - URETHRAL FISTULA (6) Suprapubic catheter dysfunction Code(s): T83.010A - BREAKDOWN (MECHANICAL) OF CYSTOSTOMY CATHETER, INIT ENCNTR Qualifiers: Encounter type: initial encounter Qualified Code(s): T83.010A - Breakdown ( mechanical) of cystostomy catheter, initial encounter Assessment/Plan see problem list
--- NOTE | 2019-01-18 14:06 | PN ---
Progress Note, Physician Chief Complaint: Hematuria History of Present Illness: 73 year old man with pmh Atrial flutter on eliquis, Prostate Ca, COPD, Dementia , suprapubic catheter, enterovesicular fistula admitted with suprapubic pain and hematuria planned for repair of enterovesicular fistula. Pt states that he has not been active at all for approximately 2 years. [facility] states that he does some physical therapy but is not exertional at all. He denies ever having any chest pain or sob either at rest or with his usual amount of exertion. states that up until approx 2 years ago he was active going out for walks for exercise without limitation to his exercise tolerance and without ever having chest pain or sob. - Current Medication List Current Medications: Active Medications Acetaminophen (Tylenol -) 650 mg PO Q6H PRN PRN Reason: PAIN LEVEL 1 - 3 Last Admin: 01/16/19 16:11 Dose: 650 mg Albuterol Sulfate (Ventolin 0.083% Nebulizer Soln -) 1 amp NEB Q6H PRN PRN Reason: SHORT OF BREATH/WHEEZING Albuterol/Ipratropium (Duoneb -) 1 amp NEB Q4H PRN PRN Reason: ASTHMA Amiodarone HCl (Cordarone -) 200 mg PO DAILY [facility] Last Admin: 01/17/19 10:45 Dose: 200 mg Atorvastatin Calcium (Lipitor -) 20 mg PO [facility] Last Admin: 01/17/19 21:47 Dose: 20 mg Diltiazem HCl (Cardizem Cd -) 180 mg PO DAILY [facility] Last Admin: 01/17/19 10:45 Dose: 180 mg Divalproex Sodium (Depakote Sprinkle Caps -) 125 mg PO DAILY [facility] Last Admin: 01/17/19 10:45 Dose: 125 mg Docusate Sodium (Colace -) 300 mg PO [facility] Last Admin: 01/17/19 21:47 Dose: Not Given Guaifenesin (Robitussin -) 5 ml PO Q6H PRN PRN Reason: COUGH Last Admin: 01/17/19 15:16 Dose: 5 ml Sodium Chloride (Normal Saline -) 1,000 mls @ 75 mls/hr IV ASDIR [facility] Last Admin: 01/17/19 20:01 Dose: 75 mls/hr Mometasone Furoate (Asmanex 220mcg -) 1 puff IH HS [facility] Last Admin: 01/17/19 21:47 Dose: 1 puff Montelukast Sodium (Singulair -) 10 mg PO HS [facility] Last Admin: 01/17/19 21:46 Dose: 10 mg Nystatin/Triamcinolone Acetonide (Mycolog Ii Cream -) 1 applic TP BID [facility] Last Admin: 01/17/19 21:48 Dose: 1 applic Olanzapine (Zyprexa -) 10 mg PO HS [facility] Last Admin: 01/17/19 21:46 Dose: 10 mg Olanzapine 5 mg/ Olanzapine 2. (5 mg) 7.5 mg PO DAILY [facility] Last Admin: 01/17/19 10:46 Dose: 7.5 mg Pantoprazole Sodium (Protonix -) 40 mg PO DAILY [facility] Last Admin: 01/17/19 10:45 Dose: 40 mg Senna (Senna -) 1 tab PO HS PRN PRN Reason: CONSTIPATION Last Admin: 01/17/19 21:47 Dose: 1 tab - Objective Vital Signs: Vital Signs Temperature 98.2 F 01/18/19 06:00 Pulse Rate 53 L 01/18/19 06:00 Respiratory Rate 18 01/18/19 06:00 Blood Pressure 123/68 01/18/19 06:00 O2 Sat by Pulse Oximetry (%) 91 L 01/18/19 06:00 Constitutional: Yes: Well Nourished, No Distress, Calm Eyes: Yes: WNL, Conjunctiva Clear, EOM Intact HENT: Yes: WNL, Atraumatic, Normocephalic Neck: Yes: WNL, Supple, Trachea Midline Cardiovascular: Yes: WNL, Regular Rate and Rhythm Respiratory: Yes: WNL, Regular, CTA Bilaterally Gastrointestinal: Yes: WNL, Normal Bowel Sounds, Soft ...Rectal Exam: Yes: Deferred Genitourinary: Yes: Hematuria Musculoskeletal: Yes: WNL Extremities: Yes: WNL Edema: No Peripheral Pulses: Left Femoral: 1+, Right Femoral: 1+ Integumentary: Yes: WNL Neurological: Yes: WNL, Alert ...Motor Strength: WNL Psychiatric: Yes: WNL Labs: CBC, BMP 01/18/19 07:40 01/18/19 07:40 Assessment/Plan 73 year old man with pmh Atrial flutter on eliquis, Prostate Ca, COPD, Dementia , suprapubic catheter, enterovesicular fistula admitted with suprapubic pain and hematuria planned for repair of enterovesicular fistula. Pt states that he has not been active at all for approximately 2 years. [facility]. states that he does some physical therapy but is not exertional at all. He denies ever having any chest pain or sob either at rest or with his usual amount of exertion. states that up until approx 2 years ago he was active going out for walks for exercise without limitation to his exercise tolerance and without ever having chest pain or sob. Yesterday's echocardiogram was essentially normal. Both ventricles are functioning normally. Nuclear stress test completed earlier today showed ischemia of the inferior and apical barger. The patient is completely asymptomatic from the cardiac standpoint. There is no need for further cardiac workup at this point. Would stop Cardizem. Start metoprolol 50 mg twice daily. Hold Eliquis temporarily for surgery area Would not pursue cardiac catheterization in this setting. Please proceed with surgery as planned. Please make sure that the patient receives the metoprolol in the morning of the surgery and perioperatively as prescribed. Try to keep hemoglobin above 10.0 at all times, as possible. Please achieve good pain control perioperatively. Please proceed as planned. We will see postoperatively.
[2019-01-18] MEDS: guaiFENesin 200 MG/10 ML 10 ML UNIT-DOSE CUPS PO PRN (15:25)
[2019-01-18] MEDS: PANTOPRAZOLE 40 MG TABLET (FP) PO SCH (15:25)
[2019-01-18] MEDS: DIVALPROEX SODIUM 125 MG SPRINKLE CAPS PO SCH (15:25)
[2019-01-18] MEDS: AMIODARONE HCL 200 MG TABLET (FP) PO SCH (15:25)
[2019-01-18] MEDS ORDERED: PT OWN MED DRAWER 7, Y5N ONE (15:27)
[2019-01-18] MEDS: OLANZAPINE 5 MG, OLANZAPINE 2.5 MG PO SCH (15:28)
[2019-01-18] MEDS: NYSTATIN/TRIAMCINOLONE TOPICAL CREAM 15 GM TUBE TP SCH ×2 (15:30→21:48)
--- NOTE | 2019-01-18 17:44 | PN ---
Progress Note, Physician History of Present Illness: No new complaints Spoke with patient's daughter yesterday and she now agrees with diverting colostomy - Current Medication List Current Medications: Active Medications Acetaminophen (Tylenol -) 650 mg PO Q6H PRN PRN Reason: PAIN LEVEL 1 - 3 Last Admin: 01/16/19 16:11 Dose: 650 mg Albuterol Sulfate (Ventolin 0.083% Nebulizer Soln -) 1 amp NEB Q6H PRN PRN Reason: SHORT OF BREATH/WHEEZING Albuterol/Ipratropium (Duoneb -) 1 amp NEB Q4H PRN PRN Reason: ASTHMA Amiodarone HCl (Cordarone -) 200 mg PO DAILY [facility] Last Admin: 01/18/19 15:25 Dose: 200 mg Atorvastatin Calcium (Lipitor -) 20 mg PO [facility] Last Admin: 01/17/19 21:47 Dose: 20 mg Diltiazem HCl (Cardizem Cd -) 180 mg PO DAILY [facility] Last Admin: 01/18/19 15:25 Dose: 180 mg Divalproex Sodium (Depakote Sprinkle Caps -) 125 mg PO DAILY [facility] Last Admin: 01/18/19 15:25 Dose: 125 mg Docusate Sodium (Colace -) 300 mg PO [facility] Last Admin: 01/17/19 21:47 Dose: Not Given Guaifenesin (Robitussin -) 5 ml PO Q6H PRN PRN Reason: COUGH Last Admin: 01/18/19 15:25 Dose: 5 ml Sodium Chloride (Normal Saline -) 1,000 mls @ 75 mls/hr IV ASDIR [facility] Last Admin: 01/17/19 20:01 Dose: 75 mls/hr Mometasone Furoate (Asmanex 220mcg -) 1 puff IH [facility] Last Admin: 01/17/19 21:47 Dose: 1 puff Montelukast Sodium (Singulair -) 10 mg PO [facility] Last Admin: 01/17/19 21:46 Dose: 10 mg Nystatin/Triamcinolone Acetonide (Mycolog Ii Cream -) 1 applic TP BID [facility] Last Admin: 01/18/19 15:30 Dose: 1 applic Olanzapine (Zyprexa -) 10 mg PO [facility] Last Admin: 01/17/19 21:46 Dose: 10 mg Olanzapine 5 mg/ Olanzapine 2. (5 mg) 7.5 mg PO DAILY [facility] Last Admin: 01/18/19 15:28 Dose: 7.5 mg Pantoprazole Sodium (Protonix -) 40 mg PO DAILY [facility] Last Admin: 01/18/19 15:25 Dose: 40 mg Senna (Senna -) 1 tab PO HS PRN PRN Reason: CONSTIPATION Last Admin: 01/17/19 21:47 Dose: 1 tab - Objective Vital Signs: Vital Signs Temperature 98.2 F 01/18/19 06:00 Pulse Rate 53 L 01/18/19 06:00 Respiratory Rate 18 01/18/19 06:00 Blood Pressure 123/68 01/18/19 06:00 O2 Sat by Pulse Oximetry (%) 91 L 01/18/19 06:00 Constitutional: Yes: No Distress Gastrointestinal: Yes: Soft, Other (SPC in place) Labs: CBC, BMP 01/18/19 07:40 01/18/19 07:40 Problem List - Problems (1) Inguinal hernia Code(s): K40.90 - UNIL INGUINAL HERNIA, W/O OBST OR GANGR, NOT SPCF RECUR (2) Recto-urethral fistula Assessment/Plan: for laparoscopic diverting colostomy on 01/20/19 under [place] Code(s): N36.0 - URETHRAL FISTULA
[2019-01-18] MEDS: ACETAMINOPHEN 325 MG TABLET (FP) PO PRN (18:34)
[2019-01-18] MEDS: SODIUM CHLORIDE 1,000 ML IV SCH (21:47)
[2019-01-18] MEDS: MOMETASONE FUROATE 220 MCG/IH INHALER IH SCH (21:48)
[2019-01-18] MEDS: OLANZapine 10 MG TABLET PO SCH (21:48)
[2019-01-18] MEDS: DOCUSATE SODIUM 100 MG CAPSULE (FP) PO SCH (21:48)
[2019-01-18] MEDS: ATORVASTATIN CA 20 MG TABLET (FP) PO SCH (21:48)
[2019-01-18] MEDS: MONTELUKAST NA 10 MG TABLET PO SCH (21:48)
[2019-01-19 07:30] LABS: BASO % 0.6 % (0-2.0); EOS % 3.4 % (0-4.5); HEMATOCRIT 37.7 % (35.4-49); HEMOGLOBIN 12.6 GM/dL (11.7-16.9); MCH 32.8 pg (25.7-33.7); MCHC 33.5 g/dl (32.0-35.9); MEAN CELL VOLUME 98.1 fl (80-96); MEAN PLT VOLUME 8.2 fl (7.5-11.1); MONO % 7.9 % (3.8-10.2); NEUT % 71.1 % (42.8-82.8); PLATELET COUNT 250 K/MM3 (134-434); RBC 3.85 M/mm3 (4.00-5.60); RDW 14.8 % (11.9-15.9); WHITE BLOOD COUNT 8.6 K/mm3 (4.0-10.0)
[2019-01-19 07:51] LABS: ALBUMIN 2.8 g/dl (3.4-5.0); ALK PHOS 92 U/L (45-117); ANION GAP 6 MMOL/L (8-16); BILIRUBIN,TOTAL 0.6 mg/dL (0.2-1); BLOOD UREA NITROGEN 12 mg/dL (7-18); CALCIUM 8.3 mg/dL (8.5-10.1); CHLORIDE 111 mmol/L (98-107); CO2 28 mmol/L (21-32); CREATININE 0.9 mg/dL (0.55-1.3); GLUCOSE,RANDOM 86 mg/dL (74-106); SGOT/AST 14 U/L (15-37); SGPT/ALT 9 U/L (13-61); SODIUM 144 mmol/L (136-145); TOT PROT 5.4 g/dl (6.4-8.2)
[2019-01-19] MEDS ORDERED: PEG 3350/NA SULF BICARB CL/KCL 4000 ML SOLN.RECON PO ONE (08:00)
[2019-01-19 08:09] LABS: INR 1.03 (0.83-1.09); PROTHROMBIN TIME (PATIENT) 12.2 SEC (9.7-13.0)
[2019-01-19 08:12] LABS: ACTIVATED PTT 35.2 SECONDS (25.2-36.5)
[2019-01-19] MEDS: guaiFENesin 200 MG/10 ML 10 ML UNIT-DOSE CUPS PO PRN (08:52)
[2019-01-19] MEDS: ACETAMINOPHEN 325 MG TABLET (FP) PO PRN ×2 (08:54→22:49)
[2019-01-19] MEDS: OLANZAPINE 5 MG, OLANZAPINE 2.5 MG PO SCH (10:28)
[2019-01-19] MEDS: NYSTATIN/TRIAMCINOLONE TOPICAL CREAM 15 GM TUBE TP SCH ×2 (10:28→22:05)
[2019-01-19] MEDS: DIVALPROEX SODIUM 125 MG SPRINKLE CAPS PO SCH (10:28)
[2019-01-19] MEDS: PANTOPRAZOLE 40 MG TABLET (FP) PO SCH (10:28)
[2019-01-19] MEDS: AMIODARONE HCL 200 MG TABLET (FP) PO SCH (10:28)
[2019-01-19] MEDS: SODIUM CHLORIDE 1,000 ML IV SCH ×3 (10:30→23:44)
--- NOTE | 2019-01-19 12:52 | PN ---
Progress Note, Physician Chief Complaint: JASIEL Suprapubic pain History of Present Illness: Previous notes and events reviewed awake and alert NAD suprapubic catheter in place patient for surgery in AM to have diverting colostomy, cleared by cardiology, pending pulmonary clearance - Current Medication List Current Medications: Active Medications Acetaminophen (Tylenol -) 650 mg PO Q6H PRN PRN Reason: PAIN LEVEL 1 - 3 Last Admin: 01/19/19 08:54 Dose: 650 mg Albuterol Sulfate (Ventolin 0.083% Nebulizer Soln -) 1 amp NEB Q6H PRN PRN Reason: SHORT OF BREATH/WHEEZING Albuterol/Ipratropium (Duoneb -) 1 amp NEB Q4H PRN PRN Reason: ASTHMA Amiodarone HCl (Cordarone -) 200 mg PO DAILY [facility] Last Admin: 01/19/19 10:28 Dose: 200 mg Atorvastatin Calcium (Lipitor -) 20 mg PO [facility] Last Admin: 01/18/19 21:48 Dose: 20 mg Diltiazem HCl (Cardizem Cd -) 180 mg PO DAILY [facility] Last Admin: 01/19/19 10:28 Dose: 180 mg Divalproex Sodium (Depakote Sprinkle Caps -) 125 mg PO DAILY [facility] Last Admin: 01/19/19 10:28 Dose: 125 mg Docusate Sodium (Colace -) 300 mg PO [facility] Last Admin: 01/18/19 21:48 Dose: 300 mg Guaifenesin (Robitussin -) 5 ml PO Q6H PRN PRN Reason: COUGH Last Admin: 01/19/19 08:52 Dose: 5 ml Sodium Chloride (Normal Saline -) 1,000 mls @ 75 mls/hr IV ASDIR [facility] Last Admin: 01/19/19 10:30 Dose: 75 mls/hr Mometasone Furoate (Asmanex 220mcg -) 1 puff IH [facility] Last Admin: 01/18/19 21:48 Dose: 1 puff Montelukast Sodium (Singulair -) 10 mg PO [facility] Last Admin: 01/18/19 21:48 Dose: 10 mg Nystatin/Triamcinolone Acetonide (Mycolog Ii Cream -) 1 applic TP BID [facility] Last Admin: 01/19/19 10:28 Dose: 1 applic Olanzapine (Zyprexa -) 10 mg PO HS [facility] Last Admin: 01/18/19 21:48 Dose: 10 mg Olanzapine 5 mg/ Olanzapine 2. (5 mg) 7.5 mg PO DAILY [facility] Last Admin: 01/19/19 10:28 Dose: 7.5 mg Pantoprazole Sodium (Protonix -) 40 mg PO DAILY [facility] Last Admin: 01/19/19 10:28 Dose: 40 mg Senna (Senna -) 1 tab PO HS PRN PRN Reason: CONSTIPATION Last Admin: 01/17/19 21:47 Dose: 1 tab - Objective Vital Signs: Vital Signs Temperature 97.7 F 01/19/19 05:55 Pulse Rate 68 01/19/19 05:55 Respiratory Rate 18 01/19/19 05:55 Blood Pressure 140/74 01/19/19 05:55 O2 Sat by Pulse Oximetry (%) 93 L 01/18/19 09:00 Constitutional: Yes: No Distress, Calm Eyes: Yes: Conjunctiva Clear HENT: Yes: Atraumatic Cardiovascular: Yes: Regular Rate and Rhythm Respiratory: Yes: Regular, CTA Bilaterally Gastrointestinal: Yes: Normal Bowel Sounds, Soft Genitourinary: Yes: Other (suprapubic catheter) Musculoskeletal: Yes: Muscle Weakness Extremities: Yes: WNL Edema: No Neurological: Yes: Alert, Oriented Psychiatric: Yes: Alert Labs: CBC, BMP 01/19/19 06:00 01/19/19 06:00 INR, PTT INR 1.03 (0.83-1.09) 01/19/19 06:00 Microbiology 01/16/19 14:00 Urine - Urine Suprapubic Urine Culture - Final Escherichia Coli Esbl Supervisor Soakers 01/14/19 09:02 Blood - Peripheral Venous Blood Culture - Preliminary NO GROWTH OBTAINED AFTER 96 HOURS, INCUBATION TO CONTINUE FOR 1 DAYS. 01/17/19 22:00 Urine - Urine Suprapubic Urine Culture - Preliminary Lactose Fermenting Neg Bacilli Group D Strep Or Entero Coccus 01/14/19 06:38 Blood - Peripheral Venous Blood Culture - Preliminary NO GROWTH OBTAINED AFTER 96 HOURS, INCUBATION TO CONTINUE FOR 1 DAYS. Problem List - Problems (1) JASIEL (acute kidney injury) Assessment/Plan: -improved -BUN/Cr 12/0.9 -monitor renal function daily Code(s): N17.9 - ACUTE KIDNEY FAILURE, UNSPECIFIED (2) COPD (chronic obstructive pulmonary disease) Assessment/Plan: -Bronchodilators -Asmanex + Singulair -O2 via NC -keep SpO2 >90% -needs pulmonary clearance for OR, pulm consult pending Code(s): J44.9 - CHRONIC OBSTRUCTIVE PULMONARY DISEASE, UNSPECIFIED (3) Hematuria Assessment/Plan: -Urology on board -Hg stable at 12.6 Code(s): R31.9 - HEMATURIA, UNSPECIFIED Qualifiers: Hematuria type: gross Qualified Code(s): R31.0 - Gross hematuria (4) Inguinal hernia Assessment/Plan: -surgical consult -A/P CT scan shows left inguinal hernia of significant size containing distal left colon without evidence of incarceration or obstruction Code(s): K40.90 - UNIL INGUINAL HERNIA, W/O OBST OR GANGR, NOT SPCF RECUR (5) Suprapubic catheter dysfunction Assessment/Plan: -urology consult Code(s): T83.010A - BREAKDOWN (MECHANICAL) OF CYSTOSTOMY CATHETER, INIT ENCNTR Qualifiers: Encounter type: initial encounter Qualified Code(s): T83.010A - Breakdown ( mechanical) of cystostomy catheter, initial encounter (6) Rectourethral fistula Assessment/Plan: -surgery on board -patient is scheduled for Diverting Colostomy in AM -cleared by cardiology for surgery--to receive Metoprolol morning of surgery and periop as prescribed, AC on hold -pending pulm clearance Code(s): N36.0 - URETHRAL FISTULA (7) Abscess Assessment/Plan: -A/P CT scan shows 3cm fluid and air filled collection seen in prostate region or prostate bed, can represent a post surgical change but abscess cannot be ruled out -surgery on board Code(s): L02.91 - CUTANEOUS ABSCESS, UNSPECIFIED (8) Atrial flutter Assessment/Plan: -continue Amiodarone and Cardizem Code(s): I48.92 - UNSPECIFIED ATRIAL FLUTTER Qualifiers: Atrial flutter type: typical Qualified Code(s): I48.3 - Typical atrial flutter Assessment/Plan see problem list dvt ppx
--- NOTE | 2019-01-19 13:19 | PN ---
Progress Note, Physician Chief Complaint: Hematuria History of Present Illness: 73 year old man with pmh Atrial flutter on eliquis, Prostate Ca, COPD, Dementia , suprapubic catheter, enterovesicular fistula admitted with suprapubic pain and hematuria planned for repair of enterovesicular fistula. Pt states that he has not been active at all for approximately 2 years. he is currently living at the senior living. states that he does some physical therapy but is not exertional at all. He denies ever having any chest pain or sob either at rest or with his usual amount of exertion. states that up until approx 2 years ago he was active going out for walks for exercise without limitation to his exercise tolerance and without ever having chest pain or sob. Yesterday's echocardiogram was essentially normal. Both ventricles are functioning normally. Nuclear stress test completed earlier today showed ischemia of the inferior and apical barger. The patient is completely asymptomatic from the cardiac standpoint. - Current Medication List Current Medications: Active Medications Acetaminophen (Tylenol -) 650 mg PO Q6H PRN PRN Reason: PAIN LEVEL 1 - 3 Last Admin: 01/19/19 08:54 Dose: 650 mg Albuterol Sulfate (Ventolin 0.083% Nebulizer Soln -) 1 amp NEB Q6H PRN PRN Reason: SHORT OF BREATH/WHEEZING Albuterol/Ipratropium (Duoneb -) 1 amp NEB Q4H PRN PRN Reason: ASTHMA Amiodarone HCl (Cordarone -) 200 mg PO DAILY [facility] Last Admin: 01/19/19 10:28 Dose: 200 mg Atorvastatin Calcium (Lipitor -) 20 mg PO HS [facility] Last Admin: 01/18/19 21:48 Dose: 20 mg Divalproex Sodium (Depakote Sprinkle Caps -) 125 mg PO DAILY [facility] Last Admin: 01/19/19 10:28 Dose: 125 mg Docusate Sodium (Colace -) 300 mg PO HS [facility] Last Admin: 01/18/19 21:48 Dose: 300 mg Guaifenesin (Robitussin -) 5 ml PO Q6H PRN PRN Reason: COUGH Last Admin: 01/19/19 08:52 Dose: 5 ml Sodium Chloride (Normal Saline -) 1,000 mls @ 75 mls/hr IV ASDIR [facility] Last Admin: 01/19/19 10:30 Dose: 75 mls/hr Metoprolol Succinate (Toprol Xl -) 50 mg PO BID [facility] Mometasone Furoate (Asmanex 220mcg -) 1 puff IH [facility] Last Admin: 01/18/19 21:48 Dose: 1 puff Montelukast Sodium (Singulair -) 10 mg PO HS [facility] Last Admin: 01/18/19 21:48 Dose: 10 mg Nystatin/Triamcinolone Acetonide (Mycolog Ii Cream -) 1 applic TP BID [facility] Last Admin: 01/19/19 10:28 Dose: 1 applic Olanzapine (Zyprexa -) 10 mg PO [facility] Last Admin: 01/18/19 21:48 Dose: 10 mg Olanzapine 5 mg/ Olanzapine 2. (5 mg) 7.5 mg PO DAILY [facility] Last Admin: 01/19/19 10:28 Dose: 7.5 mg Pantoprazole Sodium (Protonix -) 40 mg PO DAILY [facility] Last Admin: 01/19/19 10:28 Dose: 40 mg Senna (Senna -) 1 tab PO HS PRN PRN Reason: CONSTIPATION Last Admin: 01/17/19 21:47 Dose: 1 tab - Objective Vital Signs: Vital Signs Temperature 97.7 F 01/19/19 05:55 Pulse Rate 66 01/19/19 09:00 Respiratory Rate 18 01/19/19 09:00 Blood Pressure 140/74 01/19/19 09:00 O2 Sat by Pulse Oximetry (%) 93 L 01/18/19 09:00 Constitutional: Yes: Well Nourished, No Distress, Calm Eyes: Yes: WNL, Conjunctiva Clear, EOM Intact HENT: Yes: WNL, Atraumatic, Normocephalic Neck: Yes: WNL, Supple, Trachea Midline Cardiovascular: Yes: WNL, Regular Rate and Rhythm Respiratory: Yes: WNL, Regular, CTA Bilaterally Gastrointestinal: Yes: WNL, Normal Bowel Sounds, Soft ...Rectal Exam: Yes: Deferred Genitourinary: Yes: Hematuria Musculoskeletal: Yes: WNL Extremities: Yes: WNL Edema: No Peripheral Pulses: Left Femoral: 1+, Right Femoral: 1+ Integumentary: Yes: WNL Neurological: Yes: WNL, Alert, Oriented ...Motor Strength: WNL Labs: CBC, BMP 01/19/19 06:00 01/19/19 06:00 INR, PTT INR 1.03 (0.83-1.09) 01/19/19 06:00 Assessment/Plan 73 year old man with pmh Atrial flutter on eliquis, Prostate Ca, COPD, Dementia , suprapubic catheter, enterovesicular fistula admitted with suprapubic pain and hematuria planned for repair of enterovesicular fistula. Pt states that he has not been active at all for approximately 2 years. he is currently living at the senior living. states that he does some physical therapy but is not exertional at all. He denies ever having any chest pain or sob either at rest or with his usual amount of exertion. states that up until approx 2 years ago he was active going out for walks for exercise without limitation to his exercise tolerance and without ever having chest pain or sob. Yesterday's echocardiogram was essentially normal. Both ventricles are functioning normally. Nuclear stress test completed earlier today showed ischemia of the inferior and apical barger. The patient is completely asymptomatic from the cardiac standpoint. Please continue current regimen. The patient is medically optimized for surgery. Please make sure that the patient receives the metoprolol in the morning of the surgery and as prescribed perioperatively. Try to keep hemoglobin above 10.0 perioperatively. Please achieve good pain control perioperatively. Please proceed with surgery as planned. We will follow postoperatively.
--- NOTE | 2019-01-19 14:47 | PN ---
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 Code(s): Z22.39 - CARRIER OF OTHER SPECIFIED BACTERIAL DISEASES (3) Hematuria Code(s): R31.9 - HEMATURIA, UNSPECIFIED Qualifiers: Hematuria type: gross Qualified Code(s): R31.0 - Gross hematuria (4) Recto-urethral fistula Code(s): N36.0 - URETHRAL FISTULA (5) Atrial flutter Code(s): I48.92 - UNSPECIFIED ATRIAL FLUTTER Qualifiers: Atrial flutter type: typical Qualified Code(s): I48.3 - Typical atrial flutter (6) Dementia without behavioral disturbance Code(s): F03.90 - UNSPECIFIED DEMENTIA WITHOUT BEHAVIORAL DISTURBANCE Qualifiers: Dementia type: unspecified type Qualified Code(s): F03.90 - Unspecified dementia without behavioral disturbance (7) H/O prostate cancer Code(s): Z85.46 - PERSONAL HISTORY OF MALIGNANT NEOPLASM OF PROSTATE (8) Presence of suprapubic catheter Code(s): Z93.59 - OTHER CYSTOSTOMY STATUS (9) Prostate CA Code(s): C61 - MALIGNANT NEOPLASM OF PROSTATE
--- NOTE | 2019-01-19 15:04 | PN ---
Progress Note (short form) - Note Progress Note: awake and alert no complaints Vital Signs Period Temp Pulse Resp BP Sys/Nolan Pulse Ox Last 24 Hr 97.6 F-98.3 F 63-72 18-20 104-140/50-78 cor-rrr lungs clear abd soft,nt ext +spt +left inguinal hernia +drainage from penis CBC, BMP 01/19/19 06:00 01/19/19 06:00 Microbiology 01/16/19 14:00 Urine - Urine Suprapubic Urine Culture - Final Escherichia Coli Esbl Management Nurse Rn 01/14/19 09:02 Blood - Peripheral Venous Blood Culture - Preliminary NO GROWTH OBTAINED AFTER 96 HOURS, INCUBATION TO CONTINUE FOR 1 DAYS. 01/17/19 22:00 Urine - Urine Suprapubic Urine Culture - Preliminary Lactose Fermenting Neg Bacilli Group D Strep Or Entero Coccus 01/14/19 06:38 Blood - Peripheral Venous Blood Culture - Preliminary NO GROWTH OBTAINED AFTER 96 HOURS, INCUBATION TO CONTINUE FOR 1 DAYS. a/p history of prostate cancer/rectourethral fistula/prostatic abscess plan for diverting colostomy in am allergies- pen/sulfa/carbapenem tygacil/gentamicin perioperatively
[2019-01-19] MEDS ORDERED: TIGECYCLINE 100 MG in DEXTROSE 5%-WATER - 100 ML IVPB ONE (15:05)
[2019-01-19] MEDS: GENTAMICIN INJECTION 180 MG in SODIUM CHLORIDE 100 ML IVPB SCH (17:09)
--- NOTE | 2019-01-19 17:19 | CONS ---
DATE OF CONSULTATION: 01/19/2019 PULMONARY CONSULTATION REFERRING PHYSICIAN: Lexie Ortiz M.D. HISTORY OF PRESENT ILLNESS: The patient is a 73-year-old black male with a past medical history of atrial flutter maintained on Eliquis, prostate CA status post Cyberknife radiation 5 years ago, COPD, dementia, suprapubic catheter, intrafascicular fistula admitted with complaint of suprapubic pain and hematuria. Patient is planned for repair enterovesical fistula, admitted with complaint of suprapubic pain and hematuria. Patient is planned for repair of enterovesical fistula. Patient has history of smoking, quit approximately 10 months ago. Denies any complaints of shortness of breath, denies any dyspnea on exertion, PND or orthopnea. Denies any chronic cough. Denies fevers, weight loss, night sweats. Denies any hemoptysis. There is no history of occupational exposure to chemicals or fumes. PAST MEDICAL HISTORY: Again includes dementia, hypertension, hyperlipidemia, atrial flutter, prostate CA status post Cyberknife radiation and ESBL, depression. REVIEW OF SYSTEMS: No orthopnea. No PND. No chest pain. No palpitations. No cough. No abdominal pain. CURRENT MEDICATIONS: Include Tylenol, Asmanex, Cordarone, gentamicin, Depakote, Mycolog, Zyprexa, , albuterol, DuoNeb, Toprol, Colace, senna, normal saline, Robitussin, Singulair, and . PHYSICAL EXAMINATION: GENERAL: The patient is a well-developed, well-nourished male awake, alert, in no acute distress. He is afebrile. VITAL SIGNS: Blood pressure 104/50, respiratory rate 20, heart rate is 72. HEENT: Normocephalic, atraumatic. NECK: Supple without adenopathy. HEART: Regular S1, S2. CHEST: Clear. ABDOMEN: Soft, bowel sounds positive. EXTREMITIES: No cyanosis, edema. O2 saturation is 93% on room air. LABORATORY: WBC is 8.6, hemoglobin 12.6, hematocrit 37.7, platelet count 250,000, INR is 1.03, BUN 12, creatinine 0.9. Chest x-ray is pending. IMPRESSION: 1. Enterovesical fistula for surgical repair. 2. Hematuria. 3. History of prostate carcinoma. 4. Chronic obstructive pulmonary disease, currently stable. 5. Atrial flutter. 6. Prostate carcinoma status post Cyberknife. 7. History of tobacco use. PLAN: At this time, there are no pulmonary contraindications to anticipated surgery. Recommend chest x-ray preoperative and DVT prophylaxis, incentive spirometer and postoperative will follow closely with you. VANDANA PHAN M.D. JEREMY/[id number]
[2019-01-19] MEDS: ATORVASTATIN CA 20 MG TABLET (FP) PO SCH (22:05)
[2019-01-19] MEDS: MONTELUKAST NA 10 MG TABLET PO SCH (22:05)
[2019-01-19] MEDS: DOCUSATE SODIUM 100 MG CAPSULE (FP) PO SCH (22:05)
[2019-01-19] MEDS: TIGECYCLINE 50 MG in DEXTROSE 5%-WATER - 100 ML IVPB SCH (22:05)
[2019-01-19] MEDS: MOMETASONE FUROATE 220 MCG/IH INHALER IH SCH (22:05)
[2019-01-19] MEDS: OLANZapine 10 MG TABLET PO SCH (22:05)
[2019-01-19] MEDS ORDERED: LATANOPROST 0.005% OPHTH SOLN 2.5ML BOTTLE OU SCH (22:45)
[2019-01-20 07:35] LABS: BASO % 0.4 % (0-2.0); EOS % 2.8 % (0-4.5); HEMATOCRIT 38.4 % (35.4-49); HEMOGLOBIN 12.9 GM/dL (11.7-16.9); LYMPH % 25.4 % (8-40); MCH 33.2 pg (25.7-33.7); MCHC 33.6 g/dl (32.0-35.9); MEAN CELL VOLUME 98.9 fl (80-96); MEAN PLT VOLUME 8.1 fl (7.5-11.1); MONO % 8.8 % (3.8-10.2); NEUT % 62.6 % (42.8-82.8); PLATELET COUNT 284 K/MM3 (134-434); RBC 3.89 M/mm3 (4.00-5.60); WHITE BLOOD COUNT 7.5 K/mm3 (4.0-10.0)
[2019-01-20 07:52] LABS: ALBUMIN 2.8 g/dl (3.4-5.0); ALK PHOS 94 U/L (45-117); ANION GAP 7 MMOL/L (8-16); BILIRUBIN,TOTAL 0.4 mg/dL (0.2-1); BLOOD UREA NITROGEN 17 mg/dL (7-18); CHLORIDE 109 mmol/L (98-107); CO2 30 mmol/L (21-32); GLUCOSE,RANDOM 86 mg/dL (74-106); POTASSIUM 4.2 mmol/L (3.5-5.1); SGOT/AST 17 U/L (15-37); SGPT/ALT 12 U/L (13-61); SODIUM 145 mmol/L (136-145); TOT PROT 5.6 g/dl (6.4-8.2)
[2019-01-20] MEDS ORDERED: MIDAZOLAM HCL 2 MG/2 ML SINGLE DOSE VIAL ONE (09:34)
[2019-01-20] MEDS ORDERED: fentaNYL CITRATE 250 MCG/5 ML VIAL ONE (09:34)
[2019-01-20] MEDS: AMIODARONE HCL 200 MG TABLET (FP) PO SCH (09:53)
[2019-01-20] MEDS: DIVALPROEX SODIUM 125 MG SPRINKLE CAPS PO SCH (10:19)
[2019-01-20] MEDS: PANTOPRAZOLE 40 MG TABLET (FP) PO SCH (10:20)
[2019-01-20] MEDS: OLANZAPINE 5 MG, OLANZAPINE 2.5 MG PO SCH (10:20)
[2019-01-20] MEDS: NYSTATIN/TRIAMCINOLONE TOPICAL CREAM 15 GM TUBE TP SCH ×2 (10:20→22:36)
[2019-01-20] MEDS ORDERED: ONDANSETRON 4 MG/2 ML VIAL IVPUSH PRN ×2 (10:22→13:29)
[2019-01-20] MEDS ORDERED: BUPIVACAINE HCL/PF 0.5% (5MG/ML) 10 ML VIAL ONE (10:27)
[2019-01-20] MEDS ORDERED: LACTATED RINGERS SOLUTION 1,000 ML IV SCH (10:30)
[2019-01-20] MEDS ORDERED: GENTAMICIN 80MG PREMIX BAG IVPB ONE (11:01)
[2019-01-20] MEDS ORDERED: TIGECYCLINE 50 MG VIAL (RESTRICTED TO ID) IVPB ONE (11:05)
[2019-01-20] MEDS ORDERED: BUPIVACAINE HCL/PF (5 MG/ML) 30 ML VIAL IJ ONE ×2 (11:32)
[2019-01-20] MEDS ORDERED: BENZOIN TINCTURE SWABSTICK TP ONE (12:18)
[2019-01-20] MEDS ORDERED: NEOSTIGMINE METHYLSULFATE 0.5 MG/ML - 10 ML MDV ONE (12:20)
--- NOTE | 2019-01-20 12:38 | OP ---
Operative Note - Note: Operative Date: 01/20/19 Pre-Operative Diagnosis: recto-urethral fistula Operation: Laparoscopic diverting colostomy Findings: redundant transverse colon, loop colostomy at RUQ Post-Operative Diagnosis: Same as Pre-op Surgeon: Delonte Wills Anesthesiologist/MECHANIC INSULATOR: Julian Ball Anesthesia: General Estimated Blood Loss (mls): 10 Operative Report Dictated: Yes
--- NOTE | 2019-01-20 13:03 | SURG ---
Surgery Barrel Handler Note Barrel Handler: Julian Ball PA-C Date of Service: 01/20/19 Diagnosis: recto-urethral fistula Procedure: Laparoscopic diverting colostomy I was present for the entirety of the operative procedure. For further detail, please refer to operative report. Visit type - Case Type Case Type: ED Admission - Emergency Emergency Visit: Yes ED Registration Date: 01/18/19 Care time: The patient presented to the Emergency Department on the above date and was hospitalized for further evaluation of their emergent condition. - New patient This patient is new to me today: Yes Date on this admission: 01/20/19 - Critical Care Critical Care patient: No
--- NOTE | 2019-01-20 13:10 | PN ---
Progress Note, Physician Chief Complaint: Hematuria History of Present Illness: 73 year old man with pmh Atrial flutter on eliquis, Prostate Ca, COPD, Dementia , suprapubic catheter, enterovesicular fistula admitted with suprapubic pain and hematuria planned for repair of enterovesicular fistula. Pt states that he has not been active at all for approximately 2 years. he is currently living at the retirement. states that he does some physical therapy but is not exertional at all. He denies ever having any chest pain or sob either at rest or with his usual amount of exertion. states that up until approx 2 years ago he was active going out for walks for exercise without limitation to his exercise tolerance and without ever having chest pain or sob. Yesterday's echocardiogram was essentially normal. Both ventricles are functioning normally. Nuclear stress test completed earlier today showed ischemia of the inferior and apical barger. - Current Medication List Current Medications: Active Medications Acetaminophen (Tylenol -) 650 mg PO Q6H PRN PRN Reason: PAIN LEVEL 1 - 3 Last Admin: 01/19/19 22:49 Dose: 650 mg Amiodarone HCl (Cordarone -) 200 mg PO DAILY [facility] Last Admin: 01/20/19 09:53 Dose: 200 mg Apixaban (Eliquis -) 5 mg PO BID [facility] Atorvastatin Calcium (Lipitor -) 20 mg PO [facility] Last Admin: 01/19/19 22:05 Dose: 20 mg Divalproex Sodium (Depakote Sprinkle Caps -) 125 mg PO DAILY [facility] Last Admin: 01/20/19 10:19 Dose: Not Given Docusate Sodium (Colace -) 300 mg PO [facility] Last Admin: 01/19/19 22:05 Dose: 300 mg Fentanyl (Sublimaze Injection -) 25 mcg IVPUSH [id number] PRN PRN Reason: PAIN-PACU ORDER X 4 DOSES ONLY Guaifenesin (Robitussin -) 5 ml PO Q6H PRN PRN Reason: COUGH Last Admin: 01/19/19 08:52 Dose: 5 ml Tigecycline 50 mg/ Dextrose 100 mls @ 100 mls/hr IVPB BID [facility]; Protocol Last Admin: 01/19/19 22:05 Dose: 100 mls/hr Gentamicin Sulfate 180 mg/ (Sodium Chloride) 104.5 mls @ 100 mls/hr IVPB DAILY [facility]; Protocol Last Admin: 01/19/19 17:09 Dose: 100 mls/hr Lactated Ringer's (Lactated Ringers Solution) 1,000 mls @ 75 mls/hr IV ASDIR [facility] Latanoprost (Xalatan 0.005% Eye Drops -) 1 drop OU [facility] Last Admin: 01/19/19 22:49 Dose: 1 drop Metoprolol Succinate (Toprol Xl -) 50 mg PO BID [facility] Last Admin: 01/20/19 09:53 Dose: 50 mg Mometasone Furoate (Asmanex 220mcg -) 1 puff IH [facility] Last Admin: 01/19/19 22:05 Dose: 1 puff Montelukast Sodium (Singulair -) 10 mg PO [facility] Last Admin: 01/19/19 22:05 Dose: 10 mg Nystatin/Triamcinolone Acetonide (Mycolog Ii Cream -) 1 applic TP BID [facility] Last Admin: 01/20/19 10:20 Dose: Not Given Olanzapine (Zyprexa -) 10 mg PO [facility] Last Admin: 01/19/19 22:05 Dose: 10 mg Olanzapine 5 mg/ Olanzapine 2. (5 mg) 7.5 mg PO DAILY [facility] Last Admin: 01/20/19 10:20 Dose: Not Given Ondansetron HCl (Zofran Injection) 4 mg IVPUSH Q6H PRN PRN Reason: NAUSEA AND/OR VOMITING Pantoprazole Sodium (Protonix -) 40 mg PO DAILY [facility] Last Admin: 01/20/19 10:20 Dose: Not Given Senna (Senna -) 1 tab PO HS PRN PRN Reason: CONSTIPATION Last Admin: 01/17/19 21:47 Dose: 1 tab - Objective Vital Signs: Vital Signs Temperature 98.2 F 01/20/19 10:07 Pulse Rate 59 L 01/20/19 10:07 Respiratory Rate 17 01/20/19 10:07 Blood Pressure 131/74 01/20/19 10:07 O2 Sat by Pulse Oximetry (%) 95 01/20/19 09:00 Constitutional: Yes: Well Nourished, Other (Under anesthesia) Eyes: Yes: Conjunctiva Clear HENT: Yes: WNL, Atraumatic, Normocephalic Neck: Yes: WNL, Supple, Trachea Midline Cardiovascular: Yes: WNL, Regular Rate and Rhythm Respiratory: Yes: WNL, Regular, CTA Bilaterally Gastrointestinal: Yes: WNL, Normal Bowel Sounds, Soft ...Rectal Exam: Yes: Deferred Musculoskeletal: Yes: WNL Extremities: Yes: WNL Edema: No Peripheral Pulses: Left Femoral: 1+, Right Femoral: 1+ Wound/Incision: Yes: Clean/Dry (Under anesthesia) Labs: CBC, BMP 01/20/19 07:00 01/20/19 07:00 INR, PTT INR 1.03 (0.83-1.09) 01/19/19 06:00 Assessment/Plan 73 year old man with pmh Atrial flutter on eliquis, Prostate Ca, COPD, Dementia , suprapubic catheter, enterovesicular fistula admitted with suprapubic pain and hematuria planned for repair of enterovesicular fistula. Pt states that he has not been active at all for approximately 2 years. he is currently living at the retirement. states that he does some physical therapy but is not exertional at all. He denies ever having any chest pain or sob either at rest or with his usual amount of exertion. states that up until approx 2 years ago he was active going out for walks for exercise without limitation to his exercise tolerance and without ever having chest pain or sob. Yesterday's echocardiogram was essentially normal. Both ventricles are functioning normally. Nuclear stress test completed earlier today showed ischemia of the inferior and apical barger. The patient is currently in the recovery room after surgery. He is in no apparent distress. Breathing quite normally. Still under the effects of anesthesia. Hemodynamically stable. There is no need for further cardiac workup at this point. No need for cardiac monitoring. Please do not hesitate to call us PRN
[2019-01-20] MEDS ORDERED: SENNOSIDES 8.6MG TABLET (FP) PO PRN (13:29)
[2019-01-20] MEDS: LACTATED RINGERS SOLUTION 1,000 ML IV SCH ×2 (13:45→23:58)
[2019-01-20] MEDS: GENTAMICIN INJECTION 180 MG in SODIUM CHLORIDE 100 ML IVPB SCH (14:04)
[2019-01-20] MEDS: TIGECYCLINE 50 MG in DEXTROSE 5%-WATER - 100 ML IVPB SCH ×2 (14:04→22:32)
--- NOTE | 2019-01-20 15:23 | PN ---
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 no complaints of pain verbalized - Current Medication List Current Medications: Active Medications Acetaminophen (Tylenol -) 650 mg PO Q6H PRN PRN Reason: PAIN LEVEL 1 - 3 Amiodarone HCl (Cordarone -) 200 mg PO DAILY [facility] Apixaban (Eliquis -) 5 mg PO BID [facility] Atorvastatin Calcium (Lipitor -) 20 mg PO HS [facility] Divalproex Sodium (Depakote Sprinkle Caps -) 125 mg PO DAILY [facility] Docusate Sodium (Colace -) 300 mg PO HS [facility] Guaifenesin (Robitussin -) 5 ml PO Q6H PRN PRN Reason: COUGH Gentamicin Sulfate 180 mg/ (Sodium Chloride) 104.5 mls @ 100 mls/hr IVPB DAILY [facility]; Protocol Lactated Ringer's (Lactated Ringers Solution) 1,000 mls @ 75 mls/hr IV [facility] Last Admin: 01/20/19 13:45 Dose: 0 mls Tigecycline 50 mg/ Dextrose 100 mls @ 100 mls/hr IVPB BID [facility]; Protocol Latanoprost (Xalatan 0.005% Eye Drops -) 1 drop OU HS [facility] Metoprolol Succinate (Toprol Xl -) 50 mg PO BID [facility] Mometasone Furoate (Asmanex 220mcg -) 1 puff IH HS [facility] Montelukast Sodium (Singulair -) 10 mg PO HS [facility] Nystatin/Triamcinolone Acetonide (Mycolog Ii Cream -) 1 applic TP BID [facility] Olanzapine (Zyprexa -) 10 mg PO HS [facility] Olanzapine 5 mg/ Olanzapine 2. (5 mg) 7.5 mg PO DAILY [facility] Ondansetron HCl (Zofran Injection) 4 mg IVPUSH Q6H PRN PRN Reason: NAUSEA AND/OR VOMITING Pantoprazole Sodium (Protonix -) 40 mg PO DAILY [facility] Senna (Senna -) 1 tab PO HS PRN PRN Reason: CONSTIPATION - Objective Vital Signs: Vital Signs Temperature 98.0 F 01/20/19 14:43 Pulse Rate 60 01/20/19 14:43 Respiratory Rate 18 01/20/19 14:43 Blood Pressure 137/76 01/20/19 14:43 O2 Sat by Pulse Oximetry (%) 100 01/20/19 12:31 Constitutional: Yes: No Distress, Calm Eyes: Yes: Conjunctiva Clear HENT: Yes: Atraumatic Cardiovascular: Yes: Regular Rate and Rhythm Respiratory: Yes: Regular, CTA Bilaterally Gastrointestinal: Yes: Normal Bowel Sounds, Soft, Other (colostomy) Genitourinary: Yes: Other (suprapubic catheter) Musculoskeletal: Yes: Muscle Weakness Extremities: Yes: WNL Edema: No Neurological: Yes: Alert, Pre-Existing Deficit Psychiatric: Yes: Alert Labs: CBC, BMP 01/20/19 07:00 01/20/19 07:00 INR, PTT INR 1.03 (0.83-1.09) 01/19/19 06:00 Problem List - Problems (1) JASIEL (acute kidney injury) Assessment/Plan: -improved -BUN/Cr 17/1.0 -monitor renal function daily Code(s): N17.9 - ACUTE KIDNEY FAILURE, UNSPECIFIED (2) COPD (chronic obstructive pulmonary disease) Assessment/Plan: -Bronchodilators -Asmanex + Singulair -O2 via NC -keep SpO2 >90% Code(s): J44.9 - CHRONIC OBSTRUCTIVE PULMONARY DISEASE, UNSPECIFIED (3) Hematuria Assessment/Plan: -Urology on board -Hg stable at 12.9 Code(s): R31.9 - HEMATURIA, UNSPECIFIED Qualifiers: Hematuria type: gross Qualified Code(s): R31.0 - Gross hematuria (4) Inguinal hernia Assessment/Plan: -surgical consult -A/P CT scan shows left inguinal hernia of significant size containing distal left colon without evidence of incarceration or obstruction Code(s): K40.90 - UNIL INGUINAL HERNIA, W/O OBST OR GANGR, NOT SPCF RECUR (5) Suprapubic catheter dysfunction Assessment/Plan: -urology consult Code(s): T83.010A - BREAKDOWN (MECHANICAL) OF CYSTOSTOMY CATHETER, INIT ENCNTR Qualifiers: Encounter type: initial encounter Qualified Code(s): T83.010A - Breakdown ( mechanical) of cystostomy catheter, initial encounter (6) Rectourethral fistula Assessment/Plan: -surgery on board -POD #0 diverting colostomy -clear liquid diet Code(s): N36.0 - URETHRAL FISTULA (7) Abscess Assessment/Plan: -A/P CT scan shows 3cm fluid and air filled collection seen in prostate region or prostate bed, can represent a post surgical change but abscess cannot be ruled out -surgery on board Code(s): L02.91 - CUTANEOUS ABSCESS, UNSPECIFIED (8) Atrial flutter Assessment/Plan: -continue Amiodarone and Metoprolol -may resume Eliquis Code(s): I48.92 - UNSPECIFIED ATRIAL FLUTTER Qualifiers: Atrial flutter type: typical Qualified Code(s): I48.3 - Typical atrial flutter
--- NOTE | 2019-01-20 15:42 | PN ---
Progress Note, Physician History of Present Illness: pulmonary alert,no distress,s/p laproscopic diverting colostomy,tolerated procedure well - Current Medication List Current Medications: Active Medications Acetaminophen (Tylenol -) 650 mg PO Q6H PRN PRN Reason: PAIN LEVEL 1 - 3 Amiodarone HCl (Cordarone -) 200 mg PO DAILY [facility] Apixaban (Eliquis -) 5 mg PO BID [facility] Atorvastatin Calcium (Lipitor -) 20 mg PO HS [facility] Divalproex Sodium (Depakote Sprinkle Caps -) 125 mg PO DAILY [facility] Docusate Sodium (Colace -) 300 mg PO HS [facility] Guaifenesin (Robitussin -) 5 ml PO Q6H PRN PRN Reason: COUGH Gentamicin Sulfate 180 mg/ (Sodium Chloride) 104.5 mls @ 100 mls/hr IVPB DAILY [facility]; Protocol Lactated Ringer's (Lactated Ringers Solution) 1,000 mls @ 75 mls/hr IV [facility] Last Admin: 01/20/19 13:45 Dose: 0 mls Tigecycline 50 mg/ Dextrose 100 mls @ 100 mls/hr IVPB BID [facility]; Protocol Latanoprost (Xalatan 0.005% Eye Drops -) 1 drop OU HS [facility] Metoprolol Succinate (Toprol Xl -) 50 mg PO BID [facility] Mometasone Furoate (Asmanex 220mcg -) 1 puff IH HS [facility] Montelukast Sodium (Singulair -) 10 mg PO HS [facility] Nystatin/Triamcinolone Acetonide (Mycolog Ii Cream -) 1 applic TP BID [facility] Olanzapine (Zyprexa -) 10 mg PO HS [facility] Olanzapine 5 mg/ Olanzapine 2. (5 mg) 7.5 mg PO DAILY [facility] Ondansetron HCl (Zofran Injection) 4 mg IVPUSH Q6H PRN PRN Reason: NAUSEA AND/OR VOMITING Pantoprazole Sodium (Protonix -) 40 mg PO DAILY [facility] Senna (Senna -) 1 tab PO HS PRN PRN Reason: CONSTIPATION - Objective Vital Signs: Vital Signs Temperature 98.0 F 01/20/19 14:43 Pulse Rate 60 01/20/19 14:43 Respiratory Rate 18 01/20/19 14:43 Blood Pressure 137/76 01/20/19 14:43 O2 Sat by Pulse Oximetry (%) 100 01/20/19 12:31 Constitutional: Yes: Well Nourished, Calm Eyes: Yes: WNL HENT: Yes: WNL Neck: Yes: WNL Cardiovascular: Yes: Regular Rate and Rhythm, S1, S2 Respiratory: Yes: CTA Bilaterally Gastrointestinal: Yes: Soft Extremities: Yes: WNL Edema: No Labs: CBC, BMP 01/20/19 07:00 01/20/19 07:00 INR, PTT INR 1.03 (0.83-1.09) 01/19/19 06:00 - ....Imaging X-ray: Report Reviewed, Image Reviewed Problem List - Problems (1) COPD (chronic obstructive pulmonary disease) Code(s): J44.9 - CHRONIC OBSTRUCTIVE PULMONARY DISEASE, UNSPECIFIED (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 Code(s): Z22.39 - CARRIER OF OTHER SPECIFIED BACTERIAL DISEASES (3) Hematuria Code(s): R31.9 - HEMATURIA, UNSPECIFIED Qualifiers: Hematuria type: gross Qualified Code(s): R31.0 - Gross hematuria (4) Recto-urethral fistula Code(s): N36.0 - URETHRAL FISTULA (5) Atrial flutter Code(s): I48.92 - UNSPECIFIED ATRIAL FLUTTER Qualifiers: Atrial flutter type: typical Qualified Code(s): I48.3 - Typical atrial flutter (6) Dementia without behavioral disturbance Code(s): F03.90 - UNSPECIFIED DEMENTIA WITHOUT BEHAVIORAL DISTURBANCE Qualifiers: Dementia type: unspecified type Qualified Code(s): F03.90 - Unspecified dementia without behavioral disturbance (7) H/O prostate cancer Code(s): Z85.46 - PERSONAL HISTORY OF MALIGNANT NEOPLASM OF PROSTATE (8) Presence of suprapubic catheter Code(s): Z93.59 - OTHER CYSTOSTOMY STATUS (9) Prostate CA Code(s): C61 - MALIGNANT NEOPLASM OF PROSTATE Assessment/Plan IMP S/P LAPROSCOPIC DIVERTING COLOSTOMY HEMATURIA COPD STABLE AFLUTTER PROSTATE CA S/P CYBER KNIFE/RT H/O TOBACCO PLAN DVT PROPHYLAXIS INCENTIVE SPIROMETER POST OP DR PHAN Problem List - Problems (1) COPD (chronic obstructive pulmonary disease) Code(s): J44.9 - CHRONIC OBSTRUCTIVE PULMONARY DISEASE, UNSPECIFIED (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 Code(s): Z22.39 - CARRIER OF OTHER SPECIFIED BACTERIAL DISEASES (3) Hematuria Code(s): R31.9 - HEMATURIA, UNSPECIFIED Qualifiers: Hematuria type: gross Qualified Code(s): R31.0 - Gross hematuria (4) Recto-urethral fistula Code(s): N36.0 - URETHRAL FISTULA (5) Atrial flutter Code(s): I48.92 - UNSPECIFIED ATRIAL FLUTTER Qualifiers: Atrial flutter type: typical Qualified Code(s): I48.3 - Typical atrial flutter (6) Dementia without behavioral disturbance Code(s): F03.90 - UNSPECIFIED DEMENTIA WITHOUT BEHAVIORAL DISTURBANCE Qualifiers: Dementia type: unspecified type Qualified Code(s): F03.90 - Unspecified dementia without behavioral disturbance (7) H/O prostate cancer Code(s): Z85.46 - PERSONAL HISTORY OF MALIGNANT NEOPLASM OF PROSTATE (8) Presence of suprapubic catheter Code(s): Z93.59 - OTHER CYSTOSTOMY STATUS (9) Prostate CA Code(s): C61 - MALIGNANT NEOPLASM OF PROSTATE
--- NOTE | 2019-01-20 16:42 | PN ---
Progress Note (short form) - Note Progress Note: s/p surgery today doing well no complaints Vital Signs Period Temp Pulse Resp BP Sys/Nolan Pulse Ox Last 24 Hr 97.6 F-98.4 F 56-69 16-20 97-138/50-76 94-100 cor-rrr llungs clear abd soft,nt +ostomy with function ext no edema CBC, BMP 01/20/19 07:00 01/20/19 07:00 Microbiology 01/17/19 22:00 Urine - Urine Suprapubic Urine Culture - Final Escherichia Coli Esbl Referral Specialist Streptococcus Bovis 01/14/19 09:02 Blood - Peripheral Venous Blood Culture - Final NO GROWTH AFTER 5 DAYS INCUBATION 01/14/19 06:38 Blood - Peripheral Venous Blood Culture - Final NO GROWTH AFTER 5 DAYS INCUBATION 01/16/19 14:00 Urine - Urine Suprapubic Urine Culture - Final Escherichia Coli Esbl Referral Specialist a/p s/p diverting colostomy d/w Dr Johann mccarty d/c tygacil and gent in am Problem List - Problems (1) Recto-urethral fistula Code(s): N36.0 - URETHRAL FISTULA (2) Allergy to multiple antibiotics Code(s): Z88.1 - ALLERGY STATUS TO OTHER ANTIBIOTIC AGENTS STATUS (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
[2019-01-20] MEDS ORDERED: PT OWN MED DRAWER 7, Y5N ONE (20:52)
[2019-01-20] MEDS: OLANZapine 10 MG TABLET PO SCH (22:28)
[2019-01-20] MEDS: DOCUSATE SODIUM 100 MG CAPSULE (FP) PO SCH (22:29)
[2019-01-20] MEDS: ATORVASTATIN CA 20 MG TABLET (FP) PO SCH (22:29)
[2019-01-20] MEDS: LATANOPROST 0.005% OPHTH SOLN 2.5ML BOTTLE OU SCH (22:31)
[2019-01-20] MEDS: MONTELUKAST NA 10 MG TABLET PO SCH (22:35)
[2019-01-20] MEDS: MOMETASONE FUROATE 220 MCG/IH INHALER IH SCH (22:42)
[2019-01-21 07:30] LABS: BASO % 0.2 % (0-2.0); EOS % 0.1 % (0-4.5); HEMATOCRIT 37.1 % (35.4-49); HEMOGLOBIN 12.5 GM/dL (11.7-16.9); LYMPH % 9.8 % (8-40); MCH 33.2 pg (25.7-33.7); MCHC 33.7 g/dl (32.0-35.9); MEAN CELL VOLUME 98.4 fl (80-96); MEAN PLT VOLUME 8.3 fl (7.5-11.1); NEUT % 82.9 % (42.8-82.8); PLATELET COUNT 254 K/MM3 (134-434); RBC 3.77 M/mm3 (4.00-5.60); RDW 14.7 % (11.9-15.9); WHITE BLOOD COUNT 9.8 K/mm3 (4.0-10.0)
[2019-01-21 07:55] LABS: ALBUMIN 2.4 g/dl (3.4-5.0); ALK PHOS 90 U/L (45-117); ANION GAP 5 MMOL/L (8-16); BILIRUBIN,TOTAL 0.6 mg/dL (0.2-1); BLOOD UREA NITROGEN 21 mg/dL (7-18); CALCIUM 8.3 mg/dL (8.5-10.1); CHLORIDE 105 mmol/L (98-107); CO2 30 mmol/L (21-32); CREATININE 0.9 mg/dL (0.55-1.3); GLUCOSE,RANDOM 94 mg/dL (74-106); POTASSIUM 4.3 mmol/L (3.5-5.1); SGOT/AST 26 U/L (15-37); SGPT/ALT 13 U/L (13-61); SODIUM 140 mmol/L (136-145)
[2019-01-21] MEDS ORDERED: GENTAMICIN INJECTION 180 MG in SODIUM CHLORIDE 100 ML IVPB SCH (10:00)
[2019-01-21] MEDS: OLANZAPINE 5 MG, OLANZAPINE 2.5 MG PO SCH (10:37)
[2019-01-21] MEDS: DIVALPROEX SODIUM 125 MG SPRINKLE CAPS PO SCH (10:37)
[2019-01-21] MEDS: PANTOPRAZOLE 40 MG TABLET (FP) PO SCH (10:37)
[2019-01-21] MEDS: TIGECYCLINE 50 MG in DEXTROSE 5%-WATER - 100 ML IVPB SCH (10:40)
[2019-01-21] MEDS: NYSTATIN/TRIAMCINOLONE TOPICAL CREAM 15 GM TUBE TP SCH ×2 (10:57→22:06)
[2019-01-21] MEDS: AMIODARONE HCL 200 MG TABLET (FP) PO SCH (10:57)
[2019-01-21] MEDS: APIXABAN 5 MG TABLET PO SCH ×2 (10:57→22:00)
--- NOTE | 2019-01-21 10:59 | OP ---
DATE OF OPERATION: 01/20/2019 PROCEDURE: Laparoscopic diverting colostomy. PREOPERATIVE DIAGNOSIS: Rectourethral fistula. POSTOPERATIVE DIAGNOSIS: Rectourethral fistula. SURGEON: Delonte Wills MD RECOVERY ASSISTANT: Julian Ball PA-C ANESTHESIA: General endotracheal. FINDINGS AND PROCEDURE: This is a 73-year-old male with history of prostate cancer status post CyberKnife radiation, who developed a recto-urethral fistula resulting to recurrent hematuria, urinary tract infection, and feculent urine. Patient had initial suprapubic cystostomy and cystoscopy where the rectourethral fistula was visualized in 05/2018. So, patient was advised a diverting colostomy and was in the process of being referred to a tertiary care center. However, no progress was made. Patient again this time developed hematuria, pain, and ESBL infection from the urinary tract. The patient was again admitted and referred for diverting colostomy. Consent was obtained from the daughter after discussing the risks, benefits, and alternatives to the procedure. Patient was brought to the operating room and placed in supine position. General endotracheal anesthesia was administered. The abdomen was prepped and draped in usual sterile fashion. Using 0.5% Marcaine, local anesthesia was administered to the proposed incision site. The peritoneal cavity was entered using the Optiview technique with via a 5-mm umbilical incision using a 5-mm, 30-degree scope inserted in a 5-mm optical port. Pneumoperitoneum was established. Peritoneal cavity was carefully inspected and there was only flimsy adhesion of the cecum to the right paracolic gutter and the transverse colon was noted to be floppy and dilated. Two 5 mm ports were inserted at the RUQ and RLQ of the abdominal wall. A loop of the transverse colon to the right of the midline was grasped with a bowel grasper from the right upper quadrant port. The right upper quadrant port was then lengthened to about 4 cm and the loop of transverse colon was then delivered to the colostomy site. A Mongolian 14 red rubber catheter was inserted through the transverse mesocolon to prevent retraction of the transverse colon. The pneumoperitoneum was evacuated, and the ports were removed. The port sites were closed with Dermabond. The colostomy was then matured by incising the antimesenteric border of the transverse colon to about 4 cm, and the full thickness of the bowel was anchored to the skin with Vicryl 3-0 sutures. A colostomy bag was then applied. Patient was successfully extubated and transferred to the postanesthesia care unit in satisfactory condition. Estimated blood loss was about 10 mL. Wound class: Clean/contaminated. The patient was already on intravenous antibiotics since admission. Teri [id number] MTDD
--- NOTE | 2019-01-21 12:34 | PN ---
Progress Note (short form) - Note Progress Note: alert tolerating clears afebrile no complaints Vital Signs Period Temp Pulse Resp BP Sys/Nolan Pulse Ox Last 24 Hr 97.9 F-99.2 F 51-65 10-20 113-151/63-87 94-97 cor-rrr lungs clear abd soft,nt +ostomy +spt ext no edema CBC, BMP 01/21/19 05:45 01/21/19 05:45 Microbiology 01/17/19 22:00 Urine - Urine Suprapubic Urine Culture - Final Escherichia Coli Esbl Microbiology Supervisor Streptococcus Bovis 01/14/19 09:02 Blood - Peripheral Venous Blood Culture - Final NO GROWTH AFTER 5 DAYS INCUBATION 01/14/19 06:38 Blood - Peripheral Venous Blood Culture - Final NO GROWTH AFTER 5 DAYS INCUBATION 01/16/19 14:00 Urine - Urine Suprapubic Urine Culture - Final Escherichia Coli Esbl Microbiology Supervisor a/p s/p diverting colostomy d/w Dr Wills d/c antiibotics maintain contact isolation for ecoli esbl in urine please call back if needed Problem List - Problems (1) Recto-urethral fistula Code(s): N36.0 - URETHRAL FISTULA (2) Allergy to multiple antibiotics Code(s): Z88.1 - ALLERGY STATUS TO OTHER ANTIBIOTIC AGENTS STATUS (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
--- NOTE | 2019-01-21 12:51 | PN ---
Progress Note, Physician - Current Medication List Current Medications: Active Medications Acetaminophen (Tylenol -) 650 mg PO Q6H PRN PRN Reason: PAIN LEVEL 1 - 3 Amiodarone HCl (Cordarone -) 200 mg PO DAILY [facility] Last Admin: 01/21/19 10:57 Dose: 200 mg Apixaban (Eliquis -) 5 mg PO BID [facility] Last Admin: 01/21/19 10:57 Dose: 5 mg Atorvastatin Calcium (Lipitor -) 20 mg PO [facility] Last Admin: 01/20/19 22:29 Dose: 20 mg Divalproex Sodium (Depakote Sprinkle Caps -) 125 mg PO DAILY [facility] Last Admin: 01/21/19 10:37 Dose: 125 mg Docusate Sodium (Colace -) 300 mg PO [facility] Last Admin: 01/20/19 22:29 Dose: 300 mg Guaifenesin (Robitussin -) 5 ml PO Q6H PRN PRN Reason: COUGH Lactated Ringer's (Lactated Ringers Solution) 1,000 mls @ 75 mls/hr IV ASDIR [facility] Last Admin: 01/20/19 23:58 Dose: 75 mls/hr Latanoprost (Xalatan 0.005% Eye Drops -) 1 drop OU [facility] Last Admin: 01/20/19 22:31 Dose: 1 drop Metoprolol Succinate (Toprol Xl -) 50 mg PO BID [facility] Last Admin: 01/21/19 10:38 Dose: Not Given Mometasone Furoate (Asmanex 220mcg -) 1 puff IH [facility] Last Admin: 01/20/19 22:42 Dose: 1 puff Montelukast Sodium (Singulair -) 10 mg PO [facility] Last Admin: 01/20/19 22:35 Dose: 10 mg Nystatin/Triamcinolone Acetonide (Mycolog Ii Cream -) 1 applic TP BID [facility] Last Admin: 01/21/19 10:57 Dose: 1 applic Olanzapine (Zyprexa -) 10 mg PO [facility] Last Admin: 01/20/19 22:28 Dose: 10 mg Olanzapine 5 mg/ Olanzapine 2. (5 mg) 7.5 mg PO DAILY [facility] Last Admin: 01/21/19 10:37 Dose: 7.5 mg Ondansetron HCl (Zofran Injection) 4 mg IVPUSH Q6H PRN PRN Reason: NAUSEA AND/OR VOMITING Pantoprazole Sodium (Protonix -) 40 mg PO DAILY [facility] Last Admin: 01/21/19 10:37 Dose: 40 mg Senna (Senna -) 1 tab PO HS PRN PRN Reason: CONSTIPATION - Objective Vital Signs: Vital Signs Temperature 98.7 F 01/21/19 10:00 Pulse Rate 51 L 01/21/19 10:00 Respiratory Rate 20 01/21/19 10:00 Blood Pressure 113/64 01/21/19 10:00 O2 Sat by Pulse Oximetry (%) 97 01/21/19 09:00 Cardiovascular: Yes: S1, S2 Respiratory: Yes: Regular, CTA Bilaterally Gastrointestinal: Yes: Normal Bowel Sounds, Soft, Other (COLOSTOMY) Labs: CBC, BMP 01/21/19 05:45 01/21/19 05:45 INR, PTT INR 1.03 (0.83-1.09) 01/19/19 06:00 Assessment/Plan - Problems (1) JASIEL (acute kidney injury) Assessment/Plan: -improved -BUN/Cr 17/1.0 -monitor renal function daily Code(s): N17.9 - ACUTE KIDNEY FAILURE, UNSPECIFIED (2) COPD (chronic obstructive pulmonary disease) Assessment/Plan: -Bronchodilators -Asmanex + Singulair -O2 via NC -keep SpO2 >90% Code(s): J44.9 - CHRONIC OBSTRUCTIVE PULMONARY DISEASE, UNSPECIFIED (3) Hematuria Assessment/Plan: -Urology on board -Hg stable at 12.9 Code(s): R31.9 - HEMATURIA, UNSPECIFIED Qualifiers: Hematuria type: gross Qualified Code(s): R31.0 - Gross hematuria (4) Inguinal hernia Assessment/Plan: -surgical consult -A/P CT scan shows left inguinal hernia of significant size containing distal left colon without evidence of incarceration or obstruction Code(s): K40.90 - UNIL INGUINAL HERNIA, W/O OBST OR GANGR, NOT SPCF RECUR (5) Suprapubic catheter dysfunction Assessment/Plan: -urology consult Code(s): T83.010A - BREAKDOWN (MECHANICAL) OF CYSTOSTOMY CATHETER, INIT ENCNTR Qualifiers: Encounter type: initial encounter Qualified Code(s): T83.010A - Breakdown ( mechanical) of cystostomy catheter, initial encounter (6) Rectourethral fistula Assessment/Plan: -surgery on board -POD #1 diverting colostomy -clear liquid diet Code(s): N36.0 - URETHRAL FISTULA (7) Abscess Assessment/Plan: -A/P CT scan shows 3cm fluid and air filled collection seen in prostate region or prostate bed, can represent a post surgical change but abscess cannot be ruled out -surgery on board Code(s): L02.91 - CUTANEOUS ABSCESS, UNSPECIFIED (8) Atrial flutter Assessment/Plan: -continue Amiodarone and Metoprolol -may resume Eliquis Code(s): I48.92 - UNSPECIFIED ATRIAL FLUTTER Qualifiers: Atrial flutter type: typical Qualified Code(s): I48.3 - Typical atrial flutter
--- NOTE | 2019-01-21 15:01 | PN ---
Progress Note, Physician Chief Complaint: S/P laparoscoic diverting colostomy History of Present Illness: POD # 1 Tolerating clear liquids - Current Medication List Current Medications: Active Medications Acetaminophen (Tylenol -) 650 mg PO Q6H PRN PRN Reason: PAIN LEVEL 1 - 3 Amiodarone HCl (Cordarone -) 200 mg PO DAILY [facility] Last Admin: 01/21/19 10:57 Dose: 200 mg Apixaban (Eliquis -) 5 mg PO BID [facility] Last Admin: 01/21/19 10:57 Dose: 5 mg Atorvastatin Calcium (Lipitor -) 20 mg PO [facility] Last Admin: 01/20/19 22:29 Dose: 20 mg Divalproex Sodium (Depakote Sprinkle Caps -) 125 mg PO DAILY [facility] Last Admin: 01/21/19 10:37 Dose: 125 mg Docusate Sodium (Colace -) 300 mg PO [facility] Last Admin: 01/20/19 22:29 Dose: 300 mg Guaifenesin (Robitussin -) 5 ml PO Q6H PRN PRN Reason: COUGH Lactated Ringer's (Lactated Ringers Solution) 1,000 mls @ 75 mls/hr IV ASDIR [facility] Last Admin: 01/20/19 23:58 Dose: 75 mls/hr Latanoprost (Xalatan 0.005% Eye Drops -) 1 drop OU [facility] Last Admin: 01/20/19 22:31 Dose: 1 drop Metoprolol Succinate (Toprol Xl -) 50 mg PO BID [facility] Last Admin: 01/21/19 10:38 Dose: Not Given Mometasone Furoate (Asmanex 220mcg -) 1 puff IH [facility] Last Admin: 01/20/19 22:42 Dose: 1 puff Montelukast Sodium (Singulair -) 10 mg PO [facility] Last Admin: 01/20/19 22:35 Dose: 10 mg Nystatin/Triamcinolone Acetonide (Mycolog Ii Cream -) 1 applic TP BID [facility] Last Admin: 01/21/19 10:57 Dose: 1 applic Olanzapine (Zyprexa -) 10 mg PO [facility] Last Admin: 01/20/19 22:28 Dose: 10 mg Olanzapine 5 mg/ Olanzapine 2. (5 mg) 7.5 mg PO DAILY [facility] Last Admin: 01/21/19 10:37 Dose: 7.5 mg Ondansetron HCl (Zofran Injection) 4 mg IVPUSH Q6H PRN PRN Reason: NAUSEA AND/OR VOMITING Pantoprazole Sodium (Protonix -) 40 mg PO DAILY [facility] Last Admin: 01/21/19 10:37 Dose: 40 mg Senna (Senna -) 1 tab PO HS PRN PRN Reason: CONSTIPATION - Objective Vital Signs: Vital Signs Temperature 98.7 F 01/21/19 10:00 Pulse Rate 51 L 01/21/19 10:00 Respiratory Rate 20 01/21/19 10:00 Blood Pressure 113/64 01/21/19 10:00 O2 Sat by Pulse Oximetry (%) 97 01/21/19 09:00 Gastrointestinal: Yes: Soft, Other (colotomy viable and mildly edematous with small amount of "gas" and serosanguinous fluid in the bag) Labs: CBC, BMP 01/21/19 05:45 01/21/19 05:45 INR, PTT INR 1.03 (0.83-1.09) 01/19/19 06:00 Problem List - Problems (1) Inguinal hernia Code(s): K40.90 - UNIL INGUINAL HERNIA, W/O OBST OR GANGR, NOT SPCF RECUR (2) Recto-urethral fistula Assessment/Plan: Doing well Resume Eliquis Advance [facility] Code(s): N36.0 - URETHRAL FISTULA
[2019-01-21] MEDS: guaiFENesin 200 MG/10 ML 10 ML UNIT-DOSE CUPS PO PRN (15:42)
[2019-01-21] MEDS: LACTATED RINGERS SOLUTION 1,000 ML IV SCH (15:43)
[2019-01-21] MEDS ORDERED: INSULIN (NOVOLOG MIX 70/30) 100 UNITS/ML MDV SQ ONE (17:43)
[2019-01-21] MEDS: MONTELUKAST NA 10 MG TABLET PO SCH (21:59)
[2019-01-21] MEDS: ATORVASTATIN CA 20 MG TABLET (FP) PO SCH (21:59)
[2019-01-21] MEDS: DOCUSATE SODIUM 100 MG CAPSULE (FP) PO SCH (21:59)
[2019-01-21] MEDS: OLANZapine 10 MG TABLET PO SCH (21:59)
[2019-01-21] MEDS: LATANOPROST 0.005% OPHTH SOLN 2.5ML BOTTLE OU SCH (22:00)
[2019-01-21] MEDS: MOMETASONE FUROATE 220 MCG/IH INHALER IH SCH (22:01)
[2019-01-21] MEDS: ACETAMINOPHEN 325 MG TABLET (FP) PO PRN (23:55)
[2019-01-22] MEDS: guaiFENesin 200 MG/10 ML 10 ML UNIT-DOSE CUPS PO PRN (05:30)
[2019-01-22] MEDS: DIVALPROEX SODIUM 125 MG SPRINKLE CAPS PO SCH (10:30)
[2019-01-22] MEDS: OLANZAPINE 5 MG, OLANZAPINE 2.5 MG PO SCH (10:30)
[2019-01-22] MEDS: ACETAMINOPHEN 325 MG TABLET (FP) PO PRN ×2 (10:30→21:10)
[2019-01-22] MEDS: PANTOPRAZOLE 40 MG TABLET (FP) PO SCH (10:32)
[2019-01-22] MEDS: AMIODARONE HCL 200 MG TABLET (FP) PO SCH (10:32)
[2019-01-22] MEDS: APIXABAN 5 MG TABLET PO SCH ×2 (10:33→21:11)
[2019-01-22] MEDS: NYSTATIN/TRIAMCINOLONE TOPICAL CREAM 15 GM TUBE TP SCH ×2 (10:33→21:11)
--- NOTE | 2019-01-22 10:54 | PN ---
Progress Note (short form) - Note Progress Note: Pod # 3 C/O colostomy site pain(6) Tolerating diet Denies N & V Afebrile, VSS Abd: moderate bowel wall edema with sanguinous drainage, no distention noted A/P: post-op ostomy edema - expected secondary to venous congestion Table sugar application to edematous bowel wall - done to reduce edema Oral analgesics prn for pain routine ostomy care Problem List - Problems (1) Inguinal hernia Code(s): K40.90 - UNIL INGUINAL HERNIA, W/O OBST OR GANGR, NOT SPCF RECUR (2) Recto-urethral fistula Code(s): N36.0 - URETHRAL FISTULA
--- NOTE | 2019-01-22 11:07 | PN ---
Progress Note, Physician - Current Medication List Current Medications: Active Medications Acetaminophen (Tylenol -) 650 mg PO Q6H PRN PRN Reason: PAIN LEVEL 1 - 3 Last Admin: 01/22/19 10:30 Dose: 650 mg Amiodarone HCl (Cordarone -) 200 mg PO DAILY [facility] Last Admin: 01/22/19 10:32 Dose: 200 mg Apixaban (Eliquis -) 5 mg PO BID [facility] Last Admin: 01/22/19 10:33 Dose: 5 mg Atorvastatin Calcium (Lipitor -) 20 mg PO [facility] Last Admin: 01/21/19 21:59 Dose: 20 mg Divalproex Sodium (Depakote Sprinkle Caps -) 125 mg PO DAILY [facility] Last Admin: 01/22/19 10:30 Dose: 125 mg Docusate Sodium (Colace -) 300 mg PO [facility] Last Admin: 01/21/19 21:59 Dose: 300 mg Guaifenesin (Robitussin -) 5 ml PO Q6H PRN PRN Reason: COUGH Last Admin: 01/22/19 05:30 Dose: 5 ml Lactated Ringer's (Lactated Ringers Solution) 1,000 mls @ 75 mls/hr IV ASDIR [facility] Last Admin: 01/21/19 15:43 Dose: Not Given Latanoprost (Xalatan 0.005% Eye Drops -) 1 drop OU [facility] Last Admin: 01/21/19 22:00 Dose: 1 drop Metoprolol Succinate (Toprol Xl -) 50 mg PO BID [facility] Last Admin: 01/22/19 10:33 Dose: 50 mg Mometasone Furoate (Asmanex 220mcg -) 1 puff IH [facility] Last Admin: 01/21/19 22:01 Dose: 1 puff Montelukast Sodium (Singulair -) 10 mg PO [facility] Last Admin: 01/21/19 21:59 Dose: 10 mg Nystatin/Triamcinolone Acetonide (Mycolog Ii Cream -) 1 applic TP BID [facility] Last Admin: 01/22/19 10:33 Dose: 1 applic Olanzapine (Zyprexa -) 10 mg PO [facility] Last Admin: 01/21/19 21:59 Dose: 10 mg Olanzapine 5 mg/ Olanzapine 2. (5 mg) 7.5 mg PO DAILY [facility] Last Admin: 01/22/19 10:30 Dose: 7.5 mg Ondansetron HCl (Zofran Injection) 4 mg IVPUSH Q6H PRN PRN Reason: NAUSEA AND/OR VOMITING Pantoprazole Sodium (Protonix -) 40 mg PO DAILY [facility] Last Admin: 01/22/19 10:32 Dose: 40 mg Senna (Senna -) 1 tab PO HS PRN PRN Reason: CONSTIPATION - Objective Vital Signs: Vital Signs Temperature 98.5 F 01/22/19 06:00 Pulse Rate 62 01/22/19 06:00 Respiratory Rate 20 01/22/19 06:00 Blood Pressure 150/85 01/22/19 06:00 O2 Sat by Pulse Oximetry (%) 94 L 01/21/19 21:00 Cardiovascular: Yes: S1, S2 Respiratory: Yes: Regular, CTA Bilaterally Gastrointestinal: Yes: Normal Bowel Sounds, Soft, Other (colostomy with blodd and swelling) Labs: CBC, BMP 01/21/19 05:45 01/21/19 05:45 INR, PTT INR 1.03 (0.83-1.09) 01/19/19 06:00 Assessment/Plan - Problems (1) JASIEL (acute kidney injury) Assessment/Plan: -improved -BUN/Cr 17/1.0 -monitor renal function daily Code(s): N17.9 - ACUTE KIDNEY FAILURE, UNSPECIFIED (2) COPD (chronic obstructive pulmonary disease) Assessment/Plan: -Bronchodilators -Asmanex + Singulair -O2 via NC -keep SpO2 >90% Code(s): J44.9 - CHRONIC OBSTRUCTIVE PULMONARY DISEASE, UNSPECIFIED (3) Hematuria Assessment/Plan: -Urology on board -Hg stable at 12.9 Code(s): R31.9 - HEMATURIA, UNSPECIFIED Qualifiers: Hematuria type: gross Qualified Code(s): R31.0 - Gross hematuria (4) Inguinal hernia Assessment/Plan: -surgical consult -A/P CT scan shows left inguinal hernia of significant size containing distal left colon without evidence of incarceration or obstruction Code(s): K40.90 - UNIL INGUINAL HERNIA, W/O OBST OR GANGR, NOT SPCF RECUR (5) Suprapubic catheter dysfunction Assessment/Plan: -urology consult Code(s): T83.010A - BREAKDOWN (MECHANICAL) OF CYSTOSTOMY CATHETER, INIT ENCNTR Qualifiers: Encounter type: initial encounter Qualified Code(s): T83.010A - Breakdown ( mechanical) of cystostomy catheter, initial encounter (6) Rectourethral fistula Assessment/Plan: -surgery on board -POD #1 diverting colostomy -clear liquid diet Code(s): N36.0 - URETHRAL FISTULA (7) Abscess Assessment/Plan: -A/P CT scan shows 3cm fluid and air filled collection seen in prostate region or prostate bed, can represent a post surgical change but abscess cannot be ruled out -surgery on board Code(s): L02.91 - CUTANEOUS ABSCESS, UNSPECIFIED (8) Atrial flutter Assessment/Plan: -continue Amiodarone and Metoprolol -may resume Eliquis Code(s): I48.92 - UNSPECIFIED ATRIAL FLUTTER Qualifiers: Atrial flutter type: typical Qualified Code(s): I48.3 - Typical atrial flutter
--- NOTE | 2019-01-22 13:02 | PN ---
Progress Note, Physician History of Present Illness: PULMONARY SLEEPY,NO DISTRESS,-SOB - Current Medication List Current Medications: Active Medications Acetaminophen (Tylenol -) 650 mg PO Q6H PRN PRN Reason: PAIN LEVEL 1 - 3 Last Admin: 01/22/19 10:30 Dose: 650 mg Amiodarone HCl (Cordarone -) 200 mg PO DAILY [facility] Last Admin: 01/22/19 10:32 Dose: 200 mg Apixaban (Eliquis -) 5 mg PO BID [facility] Last Admin: 01/22/19 10:33 Dose: 5 mg Atorvastatin Calcium (Lipitor -) 20 mg PO [facility] Last Admin: 01/21/19 21:59 Dose: 20 mg Divalproex Sodium (Depakote Sprinkle Caps -) 125 mg PO DAILY [facility] Last Admin: 01/22/19 10:30 Dose: 125 mg Docusate Sodium (Colace -) 300 mg PO [facility] Last Admin: 01/21/19 21:59 Dose: 300 mg Guaifenesin (Robitussin -) 5 ml PO Q6H PRN PRN Reason: COUGH Last Admin: 01/22/19 05:30 Dose: 5 ml Lactated Ringer's (Lactated Ringers Solution) 1,000 mls @ 75 mls/hr IV ASDIR [facility] Last Admin: 01/21/19 15:43 Dose: Not Given Latanoprost (Xalatan 0.005% Eye Drops -) 1 drop OU [facility] Last Admin: 01/21/19 22:00 Dose: 1 drop Metoprolol Succinate (Toprol Xl -) 50 mg PO BID [facility] Last Admin: 01/22/19 10:33 Dose: 50 mg Mometasone Furoate (Asmanex 220mcg -) 1 puff IH [facility] Last Admin: 01/21/19 22:01 Dose: 1 puff Montelukast Sodium (Singulair -) 10 mg PO [facility] Last Admin: 01/21/19 21:59 Dose: 10 mg Nystatin/Triamcinolone Acetonide (Mycolog Ii Cream -) 1 applic TP BID [facility] Last Admin: 01/22/19 10:33 Dose: 1 applic Olanzapine (Zyprexa -) 10 mg PO [facility] Last Admin: 01/21/19 21:59 Dose: 10 mg Olanzapine 5 mg/ Olanzapine 2. (5 mg) 7.5 mg PO DAILY [facility] Last Admin: 01/22/19 10:30 Dose: 7.5 mg Ondansetron HCl (Zofran Injection) 4 mg IVPUSH Q6H PRN PRN Reason: NAUSEA AND/OR VOMITING Pantoprazole Sodium (Protonix -) 40 mg PO DAILY [facility] Last Admin: 01/22/19 10:32 Dose: 40 mg Senna (Senna -) 1 tab PO HS PRN PRN Reason: CONSTIPATION - Objective Vital Signs: Vital Signs Temperature 98.5 F 01/22/19 06:00 Pulse Rate 62 01/22/19 06:00 Respiratory Rate 20 01/22/19 06:00 Blood Pressure 150/85 01/22/19 06:00 O2 Sat by Pulse Oximetry (%) 94 L 01/21/19 21:00 Constitutional: Yes: Well Nourished, Calm Eyes: Yes: WNL HENT: Yes: WNL Neck: Yes: WNL Cardiovascular: Yes: Regular Rate and Rhythm, S1, S2 Respiratory: Yes: Diminished Gastrointestinal: Yes: Normal Bowel Sounds, Soft, Other (COLOSTOMY) Extremities: Yes: WNL Edema: No Labs: CBC, BMP Problem List - Problems (1) COPD (chronic obstructive pulmonary disease) Code(s): J44.9 - CHRONIC OBSTRUCTIVE PULMONARY DISEASE, UNSPECIFIED (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 Code(s): Z22.39 - CARRIER OF OTHER SPECIFIED BACTERIAL DISEASES (3) Hematuria Code(s): R31.9 - HEMATURIA, UNSPECIFIED Qualifiers: Hematuria type: gross Qualified Code(s): R31.0 - Gross hematuria (4) Recto-urethral fistula Code(s): N36.0 - URETHRAL FISTULA (5) Atrial flutter Code(s): I48.92 - UNSPECIFIED ATRIAL FLUTTER Qualifiers: Atrial flutter type: typical Qualified Code(s): I48.3 - Typical atrial flutter (6) Dementia without behavioral disturbance Code(s): F03.90 - UNSPECIFIED DEMENTIA WITHOUT BEHAVIORAL DISTURBANCE Qualifiers: Dementia type: unspecified type Qualified Code(s): F03.90 - Unspecified dementia without behavioral disturbance (7) H/O prostate cancer Code(s): Z85.46 - PERSONAL HISTORY OF MALIGNANT NEOPLASM OF PROSTATE (8) Presence of suprapubic catheter Code(s): Z93.59 - OTHER CYSTOSTOMY STATUS (9) Prostate CA Code(s): C61 - MALIGNANT NEOPLASM OF PROSTATE Assessment/Plan IMP S/P LAPROSCOPIC DIVERTING COLOSTOMY HEMATURIA COPD STABLE AFLUTTER PROSTATE CA S/P CYBER KNIFE/RT H/O TOBACCO PLAN DVT PROPHYLAXIS INCENTIVE 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 Code(s): Z22.39 - CARRIER OF OTHER SPECIFIED BACTERIAL DISEASES (3) Hematuria Code(s): R31.9 - HEMATURIA, UNSPECIFIED Qualifiers: Hematuria type: gross Qualified Code(s): R31.0 - Gross hematuria (4) Recto-urethral fistula Code(s): N36.0 - URETHRAL FISTULA (5) Atrial flutter Code(s): I48.92 - UNSPECIFIED ATRIAL FLUTTER Qualifiers: Atrial flutter type: typical Qualified Code(s): I48.3 - Typical atrial flutter (6) Dementia without behavioral disturbance Code(s): F03.90 - UNSPECIFIED DEMENTIA WITHOUT BEHAVIORAL DISTURBANCE Qualifiers: Dementia type: unspecified type Qualified Code(s): F03.90 - Unspecified dementia without behavioral disturbance (7) H/O prostate cancer Code(s): Z85.46 - PERSONAL HISTORY OF MALIGNANT NEOPLASM OF PROSTATE (8) Presence of suprapubic catheter Code(s): Z93.59 - OTHER CYSTOSTOMY STATUS (9) Prostate CA Code(s): C61 - MALIGNANT NEOPLASM OF PROSTATE
[2019-01-22] MEDS: LACTATED RINGERS SOLUTION 1,000 ML IV SCH (21:09)
[2019-01-22] MEDS: MOMETASONE FUROATE 220 MCG/IH INHALER IH SCH (21:09)
[2019-01-22] MEDS: LATANOPROST 0.005% OPHTH SOLN 2.5ML BOTTLE OU SCH (21:10)
[2019-01-22] MEDS: DOCUSATE SODIUM 100 MG CAPSULE (FP) PO SCH (21:10)
[2019-01-22] MEDS: OLANZapine 10 MG TABLET PO SCH (21:11)
[2019-01-22] MEDS: ATORVASTATIN CA 20 MG TABLET (FP) PO SCH (21:11)
[2019-01-22] MEDS: MONTELUKAST NA 10 MG TABLET PO SCH (21:11)
[2019-01-23] MEDS: guaiFENesin 200 MG/10 ML 10 ML UNIT-DOSE CUPS PO PRN (03:44)
[2019-01-23] MEDS: ACETAMINOPHEN 325 MG TABLET (FP) PO PRN ×2 (05:02→10:23)
[2019-01-23 07:51] LABS: ALBUMIN 2.7 g/dl (3.4-5.0); ALK PHOS 109 U/L (45-117); ANION GAP 7 MMOL/L (8-16); BILIRUBIN,TOTAL 0.8 mg/dL (0.2-1); BLOOD UREA NITROGEN 16 mg/dL (7-18); CALCIUM 8.3 mg/dL (8.5-10.1); CHLORIDE 104 mmol/L (98-107); CO2 32 mmol/L (21-32); CREATININE 0.9 mg/dL (0.55-1.3); GLUCOSE,RANDOM 129 mg/dL (74-106); POTASSIUM 3.9 mmol/L (3.5-5.1); SGOT/AST 26 U/L (15-37); SGPT/ALT 16 U/L (13-61); SODIUM 142 mmol/L (136-145); TOT PROT 5.5 g/dl (6.4-8.2)
[2019-01-23 07:54] LABS: BASO % 0.2 % (0-2.0); EOS % 0.1 % (0-4.5); HEMATOCRIT 41.8 % (35.4-49); LYMPH % 6.6 % (8-40); MCH 32.9 pg (25.7-33.7); MCHC 33.6 g/dl (32.0-35.9); MEAN CELL VOLUME 97.8 fl (80-96); MEAN PLT VOLUME 8.7 fl (7.5-11.1); MONO % 8.1 % (3.8-10.2); PLATELET COUNT 300 K/MM3 (134-434); RBC 4.27 M/mm3 (4.00-5.60); RDW 14.8 % (11.9-15.9); WHITE BLOOD COUNT 13.9 K/mm3 (4.0-10.0)
[2019-01-23] MEDS ORDERED: PT OWN MED DRAWER 7, Y5N ONE ×2 (08:34→22:17)
[2019-01-23] MEDS: OLANZAPINE 5 MG, OLANZAPINE 2.5 MG PO SCH (09:46)
[2019-01-23] MEDS: DIVALPROEX SODIUM 125 MG SPRINKLE CAPS PO SCH (09:46)
[2019-01-23] MEDS: PANTOPRAZOLE 40 MG TABLET (FP) PO SCH (09:46)
[2019-01-23] MEDS: APIXABAN 5 MG TABLET PO SCH (09:46)
[2019-01-23] MEDS: AMIODARONE HCL 200 MG TABLET (FP) PO SCH (09:46)
[2019-01-23] MEDS ORDERED: ALBUTEROL SO4 2.5/IPRATROPIUM 0.5 INH SOL 3 ML VIAL.NEB. NEB PRN ×2 (10:29→20:55)
--- NOTE | 2019-01-23 10:29 | PN ---
Progress Note (short form) - Note Progress Note: PULMONARY c/o surgical site pain. Denies shortness of breath. No fevers recorded. Vital Signs Period Temp Pulse Resp BP Sys/Nolan Pulse Ox Last 24 Hr 98 F-99.2 F 58-74 20-20 130-159/80-93 97-97 Gen: NAD at rest Heart: RRR Lung: decreased breath sounds at the bases Abd: soft, +ostomy pink Ext: no edema CBC, BMP 01/23/19 06:48 01/23/19 06:48 Active Medications Acetaminophen (Tylenol -) 650 mg PO Q6H PRN PRN Reason: PAIN LEVEL 1 - 3 Last Admin: 01/23/19 10:23 Dose: 650 mg Amiodarone HCl (Cordarone -) 200 mg PO DAILY [facility] Last Admin: 01/23/19 09:46 Dose: 200 mg Apixaban (Eliquis -) 5 mg PO BID [facility] Last Admin: 01/23/19 09:46 Dose: 5 mg Atorvastatin Calcium (Lipitor -) 20 mg PO [facility] Last Admin: 01/22/19 21:11 Dose: 20 mg Divalproex Sodium (Depakote Sprinkle Caps -) 125 mg PO DAILY [facility] Last Admin: 01/23/19 09:46 Dose: 125 mg Docusate Sodium (Colace -) 300 mg PO [facility] Last Admin: 01/22/19 21:10 Dose: 300 mg Guaifenesin (Robitussin -) 5 ml PO Q6H PRN PRN Reason: COUGH Last Admin: 01/23/19 03:44 Dose: 5 ml Lactated Ringer's (Lactated Ringers Solution) 1,000 mls @ 75 mls/hr IV ASDIR [facility] Last Admin: 01/22/19 21:09 Dose: Not Given Latanoprost (Xalatan 0.005% Eye Drops -) 1 drop OU [facility] Last Admin: 01/22/19 21:10 Dose: 1 drop Metoprolol Succinate (Toprol Xl -) 50 mg PO BID [facility] Last Admin: 01/23/19 09:46 Dose: 50 mg Mometasone Furoate (Asmanex 220mcg -) 1 puff IH [facility] Last Admin: 01/22/19 21:09 Dose: 1 puff Montelukast Sodium (Singulair -) 10 mg PO [facility] Last Admin: 01/22/19 21:11 Dose: 10 mg Nystatin/Triamcinolone Acetonide (Mycolog Ii Cream -) 1 applic TP BID [facility] Last Admin: 01/22/19 21:11 Dose: 1 applic Olanzapine (Zyprexa -) 10 mg PO HS [facility] Last Admin: 01/22/19 21:11 Dose: 10 mg Olanzapine 5 mg/ Olanzapine 2. (5 mg) 7.5 mg PO DAILY [facility] Last Admin: 01/23/19 09:46 Dose: 7.5 mg Ondansetron HCl (Zofran Injection) 4 mg IVPUSH Q6H PRN PRN Reason: NAUSEA AND/OR VOMITING Pantoprazole Sodium (Protonix -) 40 mg PO DAILY [facility] Last Admin: 01/23/19 09:46 Dose: 40 mg Senna (Senna -) 1 tab PO HS PRN PRN Reason: CONSTIPATION A/P Recto-uretheral Fistula s/p Laparoscopic Diverting Colostomy COPD Atrial Flutter h/o Prostate Ca - pain control - incentive spirometry - inhaled bronchodilators - O2 to keep SpO2 >90% - rate controlled - continue anticoagulation
--- NOTE | 2019-01-23 13:04 | PN ---
Progress Note, Physician Chief Complaint: JASIEL Suprapubic pain History of Present Illness: Previous notes and events reviewed awake and alert NAD suprapubic catheter in place patient is POD #3 s/p colostomy due to recto-urethral fistula abdomen noted to be hard, distended, tender on palpation, hypo BS--FUA ordered, surgical PA notified ostomy noted to be edematous - Current Medication List Current Medications: Active Medications Acetaminophen (Tylenol -) 650 mg PO Q6H PRN PRN Reason: PAIN LEVEL 1 - 3 Last Admin: 01/23/19 10:23 Dose: 650 mg Albuterol/Ipratropium (Duoneb -) 1 amp NEB Q6H PRN PRN Reason: SHORTNESS OF BREATH Amiodarone HCl (Cordarone -) 200 mg PO DAILY [facility] Last Admin: 01/23/19 09:46 Dose: 200 mg Apixaban (Eliquis -) 5 mg PO BID [facility] Last Admin: 01/23/19 09:46 Dose: 5 mg Atorvastatin Calcium (Lipitor -) 20 mg PO [facility] Last Admin: 01/22/19 21:11 Dose: 20 mg Divalproex Sodium (Depakote Sprinkle Caps -) 125 mg PO DAILY [facility] Last Admin: 01/23/19 09:46 Dose: 125 mg Docusate Sodium (Colace -) 300 mg PO [facility] Last Admin: 01/22/19 21:10 Dose: 300 mg Guaifenesin (Robitussin -) 5 ml PO Q6H PRN PRN Reason: COUGH Last Admin: 01/23/19 03:44 Dose: 5 ml Lactated Ringer's (Lactated Ringers Solution) 1,000 mls @ 75 mls/hr IV ASDIR [facility] Last Admin: 01/22/19 21:09 Dose: Not Given Latanoprost (Xalatan 0.005% Eye Drops -) 1 drop OU [facility] Last Admin: 01/22/19 21:10 Dose: 1 drop Metoprolol Succinate (Toprol Xl -) 50 mg PO BID [facility] Last Admin: 01/23/19 09:46 Dose: 50 mg Mometasone Furoate (Asmanex 220mcg -) 1 puff IH [facility] Last Admin: 01/22/19 21:09 Dose: 1 puff Montelukast Sodium (Singulair -) 10 mg PO [facility] Last Admin: 01/22/19 21:11 Dose: 10 mg Nystatin/Triamcinolone Acetonide (Mycolog Ii Cream -) 1 applic TP BID [facility] Last Admin: 01/22/19 21:11 Dose: 1 applic Olanzapine (Zyprexa -) 10 mg PO HS [facility] Last Admin: 01/22/19 21:11 Dose: 10 mg Olanzapine 5 mg/ Olanzapine 2. (5 mg) 7.5 mg PO DAILY [facility] Last Admin: 01/23/19 09:46 Dose: 7.5 mg Ondansetron HCl (Zofran Injection) 4 mg IVPUSH Q6H PRN PRN Reason: NAUSEA AND/OR VOMITING Pantoprazole Sodium (Protonix -) 40 mg PO DAILY [facility] Last Admin: 01/23/19 09:46 Dose: 40 mg Senna (Senna -) 1 tab PO HS PRN PRN Reason: CONSTIPATION - Objective Vital Signs: Vital Signs Temperature 98 F 01/23/19 09:00 Pulse Rate 74 01/23/19 09:00 Respiratory Rate 20 01/23/19 09:00 Blood Pressure 130/93 01/23/19 09:00 O2 Sat by Pulse Oximetry (%) 97 01/23/19 09:00 Constitutional: Yes: No Distress, Calm Eyes: Yes: Conjunctiva Clear HENT: Yes: Atraumatic Cardiovascular: Yes: Regular Rate and Rhythm Respiratory: Yes: Regular, CTA Bilaterally Gastrointestinal: Yes: Distention, Hypoactive Bowel Sounds, Tenderness (diffuse) , Other (Ostomy noted to be edematous) Genitourinary: Yes: Incontinence Musculoskeletal: Yes: Muscle Weakness Extremities: Yes: WNL Edema: No Neurological: Yes: Alert, Pre-Existing Deficit Psychiatric: Yes: Alert Labs: CBC, BMP 01/23/19 06:48 01/23/19 06:48 INR, PTT INR 1.03 (0.83-1.09) 01/19/19 06:00 Microbiology 01/17/19 22:00 Urine - Urine Suprapubic Urine Culture - Final Escherichia Coli Esbl Area Relief Pilot Streptococcus Bovis 01/14/19 09:02 Blood - Peripheral Venous Blood Culture - Final NO GROWTH AFTER 5 DAYS INCUBATION 01/14/19 06:38 Blood - Peripheral Venous Blood Culture - Final NO GROWTH AFTER 5 DAYS INCUBATION 01/16/19 14:00 Urine - Urine Suprapubic Urine Culture - Final Escherichia Coli Esbl Area Relief Pilot Problem List - Problems (1) JASIEL (acute kidney injury) Assessment/Plan: -improved -BUN/Cr 16/0.9 -monitor renal function daily Code(s): N17.9 - ACUTE KIDNEY FAILURE, UNSPECIFIED (2) COPD (chronic obstructive pulmonary disease) Assessment/Plan: -Bronchodilators -Asmanex + Singulair -O2 via NC -keep SpO2 >90% Code(s): J44.9 - CHRONIC OBSTRUCTIVE PULMONARY DISEASE, UNSPECIFIED (3) Hematuria Assessment/Plan: -Urology on board -Hg stable at 14 Code(s): R31.9 - HEMATURIA, UNSPECIFIED Qualifiers: Hematuria type: gross Qualified Code(s): R31.0 - Gross hematuria (4) Inguinal hernia Assessment/Plan: -surgical consult -A/P CT scan shows left inguinal hernia of significant size containing distal left colon without evidence of incarceration or obstruction Code(s): K40.90 - UNIL INGUINAL HERNIA, W/O OBST OR GANGR, NOT SPCF RECUR (5) Suprapubic catheter dysfunction Assessment/Plan: -urology consult Code(s): T83.010A - BREAKDOWN (MECHANICAL) OF CYSTOSTOMY CATHETER, INIT ENCNTR Qualifiers: Encounter type: initial encounter Qualified Code(s): T83.010A - Breakdown ( mechanical) of cystostomy catheter, initial encounter (6) Rectourethral fistula Assessment/Plan: -surgery on board -POD #3 diverting colostomy -NPO -FUA reveal marked abdominal distention with right sided ostomy, pneumatosis or free air is not seen, atelectasis at lung bases, findings have appearance of bowel obstruction -IV Tygacil--BC ordered Code(s): N36.0 - URETHRAL FISTULA (7) Abscess Assessment/Plan: -A/P CT scan shows 3cm fluid and air filled collection seen in prostate region or prostate bed, can represent a post surgical change but abscess cannot be ruled out -surgery on board Code(s): L02.91 - CUTANEOUS ABSCESS, UNSPECIFIED (8) Atrial flutter Assessment/Plan: -continue Amiodarone and Metoprolol -may resume Eliquis Code(s): I48.92 - UNSPECIFIED ATRIAL FLUTTER Qualifiers: Atrial flutter type: typical Qualified Code(s): I48.3 - Typical atrial flutter Assessment/Plan see problem list dvt ppx
--- NOTE | 2019-01-23 13:22 | PN ---
Progress Note (short form) - Note Progress Note: alert abdominal is painful Vital Signs Period Temp Pulse Resp BP Sys/Nolan Pulse Ox Last 24 Hr 98 F-99.2 F 58-74 20-20 130-159/80-93 97-97 cor-rrr lungs decreased bs at bases abd firm, tender +ostomy , +SPT, decreased bs ext no edema axray c/w obstruction CBC, BMP 01/23/19 06:48 01/23/19 06:48 Microbiology 01/17/19 22:00 Urine - Urine Suprapubic Urine Culture - Final Escherichia Coli Esbl Overlock Sleeve Setter Streptococcus Bovis 01/14/19 09:02 Blood - Peripheral Venous Blood Culture - Final NO GROWTH AFTER 5 DAYS INCUBATION 01/14/19 06:38 Blood - Peripheral Venous Blood Culture - Final NO GROWTH AFTER 5 DAYS INCUBATION 01/16/19 14:00 Urine - Urine Suprapubic Urine Culture - Final Escherichia Coli Esbl Overlock Sleeve Setter a/p s/p diverting colostomy obstruction with abdominal pain leukocytosis awaiting surgery f/u lactic acid ordered, will get blood cultures multiple antibiotic allergies resume tygacil pending further w/u maintain contact isolation for ecoli esbl in urine Problem List - Problems (1) Recto-urethral fistula Code(s): N36.0 - URETHRAL FISTULA (2) Allergy to multiple antibiotics Code(s): Z88.1 - ALLERGY STATUS TO OTHER ANTIBIOTIC AGENTS STATUS (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
[2019-01-23] MEDS ORDERED: TIGECYCLINE 100 MG in DEXTROSE 5%-WATER - 100 ML IVPB ONE (14:00)
[2019-01-23] MEDS ORDERED: LACTATED RINGERS SOLUTION 1,000 ML IV SCH (14:11)
[2019-01-23 15:17] VITALS: BMI 23.6
[2019-01-23] MEDS: NYSTATIN/TRIAMCINOLONE TOPICAL CREAM 15 GM TUBE TP SCH ×2 (15:45→22:31)
[2019-01-23] MEDS ORDERED: SUCCINYLCHOLINE CHLORIDE 200 MG/10 ML VIAL ONE (16:53)
[2019-01-23] MEDS ORDERED: PROPOFOL 20 ML ONE (16:53)
[2019-01-23] MEDS ORDERED: fentaNYL CITRATE 250 MCG/5 ML VIAL ONE (16:53)
--- NOTE | 2019-01-23 17:29 | PN ---
Progress Note, Physician Chief Complaint: S/P laparoscoic diverting colostomy History of Present Illness: Patient developed abdominal distention and moderate to severe pain at colostomy site KUB showed possible bowel obstruction - Current Medication List Current Medications: Active Medications Acetaminophen (Tylenol -) 650 mg PO Q6H PRN PRN Reason: PAIN LEVEL 1 - 3 Last Admin: 01/23/19 10:23 Dose: 650 mg Albuterol/Ipratropium (Duoneb -) 1 amp NEB Q6H PRN PRN Reason: SHORTNESS OF BREATH Amiodarone HCl (Cordarone -) 200 mg PO DAILY [facility] Last Admin: 01/23/19 09:46 Dose: 200 mg Apixaban (Eliquis -) 5 mg PO BID [facility] Last Admin: 01/23/19 09:46 Dose: 5 mg Atorvastatin Calcium (Lipitor -) 20 mg PO [facility] Last Admin: 01/22/19 21:11 Dose: 20 mg Divalproex Sodium (Depakote Sprinkle Caps -) 125 mg PO DAILY [facility] Last Admin: 01/23/19 09:46 Dose: 125 mg Docusate Sodium (Colace -) 300 mg PO [facility] Last Admin: 01/22/19 21:10 Dose: 300 mg Guaifenesin (Robitussin -) 5 ml PO Q6H PRN PRN Reason: COUGH Last Admin: 01/23/19 03:44 Dose: 5 ml Tigecycline 50 mg/ Dextrose 100 mls @ 100 mls/hr IVPB BID [facility]; Protocol Lactated Ringer's (Lactated Ringers Solution) 1,000 mls @ 42 mls/hr IV ASDIR [facility] Last Admin: 01/23/19 15:45 Dose: 42 mls/hr Latanoprost (Xalatan 0.005% Eye Drops -) 1 drop OU [facility] Last Admin: 01/22/19 21:10 Dose: 1 drop Metoprolol Succinate (Toprol Xl -) 50 mg PO BID [facility] Last Admin: 01/23/19 09:46 Dose: 50 mg Mometasone Furoate (Asmanex 220mcg -) 1 puff IH [facility] Last Admin: 01/22/19 21:09 Dose: 1 puff Montelukast Sodium (Singulair -) 10 mg PO [facility] Last Admin: 01/22/19 21:11 Dose: 10 mg Nystatin/Triamcinolone Acetonide (Mycolog Ii Cream -) 1 applic TP BID [facility] Last Admin: 01/23/19 15:45 Dose: 1 applic Olanzapine (Zyprexa -) 10 mg PO HS [facility] Last Admin: 01/22/19 21:11 Dose: 10 mg Olanzapine 5 mg/ Olanzapine 2. (5 mg) 7.5 mg PO DAILY [facility] Last Admin: 01/23/19 09:46 Dose: 7.5 mg Ondansetron HCl (Zofran Injection) 4 mg IVPUSH Q6H PRN PRN Reason: NAUSEA AND/OR VOMITING Pantoprazole Sodium (Protonix -) 40 mg PO DAILY [facility] Last Admin: 01/23/19 09:46 Dose: 40 mg Senna (Senna -) 1 tab PO HS PRN PRN Reason: CONSTIPATION - Objective Vital Signs: Vital Signs Temperature 98.1 F 01/23/19 14:38 Pulse Rate 78 01/23/19 14:38 Respiratory Rate 20 01/23/19 14:38 Blood Pressure 141/84 01/23/19 14:38 O2 Sat by Pulse Oximetry (%) 97 01/23/19 09:00 Gastrointestinal: Yes: Other (distended, firm, tenderness at colostomy site, no RLQ tenderness) Labs: CBC, BMP 01/23/19 06:48 01/23/19 06:48 INR, PTT INR 1.03 (0.83-1.09) 01/19/19 06:00 Problem List - Problems (1) Inguinal hernia Code(s): K40.90 - UNIL INGUINAL HERNIA, W/O OBST OR GANGR, NOT SPCF RECUR (2) Recto-urethral fistula Assessment/Plan: s/p diverting colostomy with post-op bowel obstruction possibly due to colostomy edema, r/o cecal volvulus ( floppy cecum at time of laparoscopy) For emergency diagnostic laparoscopy, colostomy revision, possible bowel resection. D/W with patient and daughter. Code(s): N36.0 - URETHRAL FISTULA
[2019-01-23] MEDS ORDERED: PHENYLEPHRINE HCL 10 MG/1 ML SINGLE DOSE VIAL ONE (17:44)
[2019-01-23] MEDS ORDERED: ROCURONIUM BROMIDE 50 MG/5 ML VIAL ONE (17:52)
[2019-01-23] MEDS ORDERED: TIGECYCLINE 50 MG VIAL (RESTRICTED TO ID) IVPB ONE (18:00)
[2019-01-23] MEDS ORDERED: BUPIVACAINE HCL/PF (5 MG/ML) 30 ML VIAL IJ ONE (19:00)
[2019-01-23] MEDS ORDERED: BENZOIN TINCTURE SWABSTICK TP ONE (19:24)
[2019-01-23] MEDS ORDERED: DEXAMETHASONE SOD PHOSPHATE 4 MG/1 ML VIAL ONE (19:43)
--- NOTE | 2019-01-23 19:58 | SURG ---
Surgery Order Make Up Clerk Note Order Make Up Clerk: Julian Ball PA-C Date of Service: 01/23/19 Diagnosis: Large bowel obstruction, ischemic colostomy Procedure: Revision of colostomy, colostomy resection, diagnostic laproscopy I was present for the entirety of the operative procedure. For further detail, please refer to operative report. Visit type - Case Type Case Type: ED Admission - Emergency Emergency Visit: Yes ED Registration Date: 01/18/19 Care time: The patient presented to the Emergency Department on the above date and was hospitalized for further evaluation of their emergent condition. - New patient This patient is new to me today: No
--- NOTE | 2019-01-23 20:02 | OP ---
Operative Note - Note: Operative Date: 01/23/19 Pre-Operative Diagnosis: Large bowel obstruction, colostomy ischemia Operation: Diagnostic laparoscopy, transverse loop colostomy resection and revision of colostomy Findings: ischemic transverse colostomy, large bowel obstruction, ecchymotic proximal transverse colon Post-Operative Diagnosis: Same as Pre-op Surgeon: Delonte Wills Seniour Insight Manager: Don Sin Anesthesia: General Specimens Removed: transverse colon Estimated Blood Loss (mls): 50 Operative Report Dictated: Yes
[2019-01-23] MEDS ORDERED: guaiFENesin 200 MG/10 ML 10 ML UNIT-DOSE CUPS PO PRN (20:55)
[2019-01-23] MEDS ORDERED: ACETAMINOPHEN 325 MG TABLET (FP) PO PRN (20:55)
[2019-01-23] MEDS ORDERED: SENNOSIDES 8.6MG TABLET (FP) PO PRN (20:55)
[2019-01-23] MEDS: LACTATED RINGERS SOLUTION 1,000 ML IV SCH (21:00)
[2019-01-23] MEDS ORDERED: TIGECYCLINE 50 MG in DEXTROSE 5%-WATER - 100 ML IVPB SCH (22:00)
[2019-01-23] MEDS: DOCUSATE SODIUM 100 MG CAPSULE (FP) PO SCH (22:27)
[2019-01-23] MEDS: ATORVASTATIN CA 20 MG TABLET (FP) PO SCH (22:27)
[2019-01-23] MEDS: MONTELUKAST NA 10 MG TABLET PO SCH (22:28)
[2019-01-23] MEDS: TIGECYCLINE 50 MG in DEXTROSE 5%-WATER - 100 ML IVPB SCH (22:28)
[2019-01-23] MEDS: OLANZapine 10 MG TABLET PO SCH (22:28)
[2019-01-23] MEDS: LATANOPROST 0.005% OPHTH SOLN 2.5ML BOTTLE OU SCH (22:30)
[2019-01-23] MEDS: MOMETASONE FUROATE 220 MCG/IH INHALER IH SCH (22:30)
--- NOTE | 2019-01-24 06:50 | SURG ---
Surgery Sr. Strategic Sourcing Manager Note Sr. Strategic Sourcing Manager: Don Sin PA-C Date of Service: 01/23/19 Diagnosis: Large bowel obstruction, colostomy ischemia Procedure: Diagnostic laparoscopy, transverse loop colostomy resection and revision of colostomy I was present for the entirety of the operative procedure. For further detail, please refer to operative report. Visit type - New patient This patient is new to me today: Yes Date on this admission: 01/24/19
--- NOTE | 2019-01-24 07:19 | PN ---
Progress Note (short form) - Note Progress Note: POD #1 Diagnostic laparoscopy, transverse loop colostomy resection and revision of colostomy POD #4 s/p Laparoscopic diverting colostomy 73 yo male taken back to OR last night secondary to large bowel obstruction as identified on AXR. Intraop findings of ischemic transverse colostomy, large bowel obstruction, ecchymotic proximal transverse colon. Currently resting in position of comfort. No acute events since surgery per RN notes. Last Vital Signs Temp Pulse Resp BP Pulse Ox 98.2 F 72 20 114/61 99 01/24/19 06:00 01/24/19 06:00 01/24/19 06:00 01/24/19 06:00 01/23/19 21:45 INR, PTT INR 1.03 (0.83-1.09) 01/19/19 06:00 Gen: NAD ABD: Soft. RUQ ostomy mucosa slightly edematous. Serosanguinous in bag. Bowel sounds absent. : Suprapubic tube to gravity LE: Soft. NT. warm bilat Problem List - Problems (1) Colostomy complication, unspecified Assessment/Plan: POD #1 Diagnostic laparoscopy, transverse loop colostomy resection and revision of colostomy POD #4 s/p Laparoscopic diverting colostomy NPO IVF GI PPX DVT PPX Colostomy care f/u CBC/BMP Pain management Incentive spirometer Code(s): K94.00 - COLOSTOMY COMPLICATION, UNSPECIFIED (2) Recto-urethral fistula Code(s): N36.0 - URETHRAL FISTULA (3) Presence of suprapubic catheter Code(s): Z93.59 - OTHER CYSTOSTOMY STATUS
[2019-01-24 07:36] LABS: HEMATOCRIT 43.5 % (35.4-49); HEMOGLOBIN 14.2 GM/dL (11.7-16.9); MCH 32.8 pg (25.7-33.7); MCHC 32.6 g/dl (32.0-35.9); MEAN CELL VOLUME 100.5 fl (80-96); MEAN PLT VOLUME 8.6 fl (7.5-11.1); PLATELET COUNT 233 K/MM3 (134-434); RBC 4.33 M/mm3 (4.00-5.60); RDW 14.9 % (11.9-15.9); WHITE BLOOD COUNT 16.2 K/mm3 (4.0-10.0)
[2019-01-24 10:31] LABS: ALBUMIN 2.2 g/dl (3.4-5.0); ALK PHOS 97 U/L (45-117); ANION GAP 7 MMOL/L (8-16); BILIRUBIN,TOTAL 0.9 mg/dL (0.2-1); BLOOD UREA NITROGEN 25 mg/dL (7-18); CALCIUM 8.1 mg/dL (8.5-10.1); CHLORIDE 106 mmol/L (98-107); CO2 30 mmol/L (21-32); CREATININE 1.1 mg/dL (0.55-1.3); GLUCOSE,RANDOM 107 mg/dL (74-106); POTASSIUM 4.8 mmol/L (3.5-5.1); SGOT/AST 56 U/L (15-37); SGPT/ALT 27 U/L (13-61); SODIUM 143 mmol/L (136-145); TOT PROT 4.8 g/dl (6.4-8.2)
--- NOTE | 2019-01-24 10:48 | PN ---
Progress Note (short form) - Note Progress Note: PULMONARY Taken back to OR last night for bowel obstruction s/p colostomy revision. Somnolent today but arousable Vital Signs Period Temp Pulse Resp BP Sys/Noaln Pulse Ox Last 24 Hr 97.8 F-99.2 F 71-102 10-20 106-174/59-94 95-100 Gen: NAD at rest Heart: RRR Lung: scattered rhonchi Abd: soft, +ostomy pink Ext: no edema CBC, BMP 01/24/19 06:30 01/24/19 09:10 Active Medications Acetaminophen (Tylenol -) 650 mg PO Q6H PRN PRN Reason: PAIN LEVEL 1 - 3 Albuterol/Ipratropium (Duoneb -) 1 amp NEB Q6H PRN PRN Reason: SHORTNESS OF BREATH Amiodarone HCl (Cordarone -) 200 mg PO DAILY [facility] Atorvastatin Calcium (Lipitor -) 20 mg PO [facility] Last Admin: 01/23/19 22:27 Dose: 20 mg Divalproex Sodium (Depakote Sprinkle Caps -) 125 mg PO DAILY [facility] Docusate Sodium (Colace -) 300 mg PO [facility] Last Admin: 01/23/19 22:27 Dose: 300 mg Guaifenesin (Robitussin -) 5 ml PO Q6H PRN PRN Reason: COUGH Lactated Ringer's (Lactated Ringers Solution) 1,000 mls @ 42 mls/hr IV ASDIR [facility] Last Admin: 01/23/19 21:00 Dose: 0 mls Tigecycline 50 mg/ Dextrose 100 mls @ 100 mls/hr IVPB BID [facility]; Protocol Last Admin: 01/23/19 22:28 Dose: 100 mls/hr Latanoprost (Xalatan 0.005% Eye Drops -) 1 drop OU [facility] Last Admin: 01/23/19 22:30 Dose: 1 drp Metoprolol Succinate (Toprol Xl -) 50 mg PO BID [facility] Last Admin: 01/23/19 22:27 Dose: 50 mg Mometasone Furoate (Asmanex 220mcg -) 1 puff IH [facility] Last Admin: 01/23/19 22:30 Dose: 1 puff Montelukast Sodium (Singulair -) 10 mg PO [facility] Last Admin: 01/23/19 22:28 Dose: 10 mg Nystatin/Triamcinolone Acetonide (Mycolog Ii Cream -) 1 applic TP BID [facility] Last Admin: 01/23/19 22:31 Dose: 1 applic Olanzapine (Zyprexa -) 10 mg PO HS [facility] Last Admin: 01/23/19 22:28 Dose: 10 mg Olanzapine 5 mg/ Olanzapine 2. (5 mg) 7.5 mg PO DAILY [facility] Pantoprazole Sodium (Protonix -) 40 mg PO DAILY [facility] Senna (Senna -) 1 tab PO HS PRN PRN Reason: CONSTIPATION A/P Recto-uretheral Fistula s/p Laparoscopic Diverting Colostomy COPD Atrial Flutter h/o Prostate Ca - pain control - incentive spirometry - inhaled bronchodilators - O2 to keep SpO2 >90% - rate controlled - continue anticoagulation
--- NOTE | 2019-01-24 10:52 | PN ---
Progress Note (short form) - Note Progress Note: Anesthesia postop note 73 y/o M s/p GA for colostomy revision POD#1, vss, asleep, responding to voice, responding appropriately, doesn't appear in distress. No anesthesia complications.
[2019-01-24] MEDS ORDERED: PT OWN MED DRAWER 7, Y5N ONE (10:53)
[2019-01-24] MEDS: TIGECYCLINE 50 MG in DEXTROSE 5%-WATER - 100 ML IVPB SCH ×2 (11:03→23:29)
[2019-01-24] MEDS: NYSTATIN/TRIAMCINOLONE TOPICAL CREAM 15 GM TUBE TP SCH ×2 (11:03→21:52)
[2019-01-24] MEDS: DIVALPROEX SODIUM 125 MG SPRINKLE CAPS PO SCH (12:20)
[2019-01-24] MEDS: AMIODARONE HCL 200 MG TABLET (FP) PO SCH (12:20)
[2019-01-24] MEDS: PANTOPRAZOLE 40 MG TABLET (FP) PO SCH (12:21)
[2019-01-24] MEDS: OLANZAPINE 5 MG, OLANZAPINE 2.5 MG PO SCH (12:21)
--- NOTE | 2019-01-24 13:14 | OP ---
DATE OF OPERATION: 01/23/2019 PROCEDURE: Diagnostic laparoscopy, resection of transverse loop colostomy and revision of diverting colostomy. PREOPERATIVE DIAGNOSES: Large-bowel obstruction and transverse colostomy ischemia. SURGEON: Delonte Wills MD FIRST ASSISTANTS: CANDI Hammond; CANDI Olivera ANESTHESIA: General endotracheal. FINDINGS AND PROCEDURE: This is a 73-year-old male with a history of rectourethral fistula who underwent laparoscopic diverting loop colostomy 3 days prior. Two days postoperative patient developed pain over the colostomy site and colostomy was noted to be edematous but not ischemic. On the day of the procedure patient became distended and the colostomy was noted to be more ischemic. An abdominal x-ray showed very distended colon suspicious for large-bowel obstruction at the colostomy site so patient was emergently taken back to the operating room after discussing the risks, benefits and alternatives to the procedure. Patient was placed in supine position and general endotracheal anesthesia was administered. The abdomen was prepped and draped in the usual sterile fashion. The red rubber knob was removed and the colostomy incision was enlarged to about 2 cm and fascia was also incised about 2 cm to decompress or decongest the colostomy and the proximal stoma was suctioned to decompress the distended colon. The abdominal distention resolved. The colostomy was exteriorized further and was noted to be ischemic so it was decided upon to resect the stoma using [id number] stapling device. Afterwards the abdomen was reprepped and a diagnostic laparoscopy was done. The cecum was inspected and was noted to be viable with scattered areas of ecchymosis. The proximal transverse colon was noted to be ecchymotic and edematous but viable. A double-barrel colostomy was constructed by opening the staple line and suturing the 2 ends of the transverse colon with Vicryl 3-0 suture and suturing the barger of both limbs to the skin. The mucosa of the proximal transverse colon was noted to be pink and viable. After this was done the colostomy bag was applied and the port sites were closed with Dermabond. The patient was successfully extubated and transferred to the postanesthesia care unit in satisfactory condition. Estimated blood loss was about 50 mL. Wound class clean, contaminated. Patient was already on tigecycline since admission. Teri HOLBROOK/[id number] MTDFred
--- NOTE | 2019-01-24 16:13 | PN ---
Progress Note, Physician Chief Complaint: JASIEL Suprapubic pain History of Present Illness: Previous notes and events reviewed NAD patient is POD #4 s/p divertining lapascopic colostomy due to recto-urethral fistula POD #1 diagnostic laparoscopy, transverse loop colostomy resection and revision of colostomy lethargic but responsive to verbal and tactile stimuli - Current Medication List Current Medications: Active Medications Acetaminophen (Tylenol -) 650 mg PO Q6H PRN PRN Reason: PAIN LEVEL 1 - 3 Albuterol/Ipratropium (Duoneb -) 1 amp NEB Q6H PRN PRN Reason: SHORTNESS OF BREATH Amiodarone HCl (Cordarone -) 200 mg PO DAILY [facility] Last Admin: 01/24/19 12:20 Dose: Not Given Atorvastatin Calcium (Lipitor -) 20 mg PO [facility] Last Admin: 01/23/19 22:27 Dose: 20 mg Divalproex Sodium (Depakote Sprinkle Caps -) 125 mg PO DAILY [facility] Last Admin: 01/24/19 12:20 Dose: Not Given Docusate Sodium (Colace -) 300 mg PO [facility] Last Admin: 01/23/19 22:27 Dose: 300 mg Guaifenesin (Robitussin -) 5 ml PO Q6H PRN PRN Reason: COUGH Lactated Ringer's (Lactated Ringers Solution) 1,000 mls @ 42 mls/hr IV ASDIR [facility] Last Admin: 01/23/19 21:00 Dose: 0 mls Tigecycline 50 mg/ Dextrose 100 mls @ 100 mls/hr IVPB BID [facility]; Protocol Last Admin: 01/24/19 11:03 Dose: 100 mls/hr Latanoprost (Xalatan 0.005% Eye Drops -) 1 drop OU [facility] Last Admin: 01/23/19 22:30 Dose: 1 drp Metoprolol Succinate (Toprol Xl -) 50 mg PO BID [facility] Last Admin: 01/24/19 12:21 Dose: Not Given Mometasone Furoate (Asmanex 220mcg -) 1 puff IH [facility] Last Admin: 01/23/19 22:30 Dose: 1 puff Montelukast Sodium (Singulair -) 10 mg PO [facility] Last Admin: 01/23/19 22:28 Dose: 10 mg Nystatin/Triamcinolone Acetonide (Mycolog Ii Cream -) 1 applic TP BID [facility] Last Admin: 01/24/19 11:03 Dose: 1 applic Olanzapine (Zyprexa -) 10 mg PO [facility] Last Admin: 01/23/19 22:28 Dose: 10 mg Olanzapine 5 mg/ Olanzapine 2. (5 mg) 7.5 mg PO DAILY [facility] Last Admin: 01/24/19 12:21 Dose: Not Given Pantoprazole Sodium (Protonix -) 40 mg PO DAILY [facility] Last Admin: 01/24/19 12:21 Dose: Not Given Senna (Senna -) 1 tab PO HS PRN PRN Reason: CONSTIPATION - Objective Vital Signs: Vital Signs Temperature 98 F 01/24/19 14:10 Pulse Rate 73 01/24/19 14:10 Respiratory Rate 20 01/24/19 14:10 Blood Pressure 146/77 01/24/19 14:10 O2 Sat by Pulse Oximetry (%) 99 01/24/19 09:00 Constitutional: Yes: No Distress, Calm Eyes: Yes: Conjunctiva Clear HENT: Yes: Atraumatic Cardiovascular: Yes: Regular Rate and Rhythm Respiratory: Yes: Regular, On Nasal O2, Rhonchi Gastrointestinal: Yes: Soft, Hypoactive Bowel Sounds, Tenderness (diffuse), Other (colostomy) Genitourinary: Yes: Hogan Present Musculoskeletal: Yes: Muscle Weakness Extremities: Yes: WNL Edema: No Neurological: Yes: Lethargy (but responsive to verbal stimuli) Labs: CBC, BMP 01/24/19 06:30 01/24/19 09:10 INR, PTT INR 1.03 (0.83-1.09) 01/19/19 06:00 Microbiology 01/23/19 13:50 Blood - Peripheral Venous Blood Culture - Preliminary NO GROWTH OBTAINED AFTER 24 HOURS, INCUBATION TO CONTINUE FOR 4 DAYS. 01/23/19 13:55 Blood - Peripheral Venous Blood Culture - Preliminary NO GROWTH OBTAINED AFTER 24 HOURS, INCUBATION TO CONTINUE FOR 4 DAYS. 01/17/19 22:00 Urine - Urine Suprapubic Urine Culture - Final Escherichia Coli Esbl Management Analyst Streptococcus Bovis 01/14/19 09:02 Blood - Peripheral Venous Blood Culture - Final NO GROWTH AFTER 5 DAYS INCUBATION 01/14/19 06:38 Blood - Peripheral Venous Blood Culture - Final NO GROWTH AFTER 5 DAYS INCUBATION 01/16/19 14:00 Urine - Urine Suprapubic Urine Culture - Final Escherichia Coli Esbl Management Analyst Problem List - Problems (1) JASIEL (acute kidney injury) Assessment/Plan: -improved -BUN/Cr 25/1.1 -monitor renal function daily Code(s): N17.9 - ACUTE KIDNEY FAILURE, UNSPECIFIED (2) COPD (chronic obstructive pulmonary disease) Assessment/Plan: -Bronchodilators -Asmanex + Singulair -O2 via NC -keep SpO2 >90% Code(s): J44.9 - CHRONIC OBSTRUCTIVE PULMONARY DISEASE, UNSPECIFIED (3) Hematuria Assessment/Plan: -Urology on board -Hg stable at 14.2 -resolved Code(s): R31.9 - HEMATURIA, UNSPECIFIED Qualifiers: Hematuria type: gross Qualified Code(s): R31.0 - Gross hematuria (4) Inguinal hernia Assessment/Plan: -surgical consult -A/P CT scan shows left inguinal hernia of significant size containing distal left colon without evidence of incarceration or obstruction Code(s): K40.90 - UNIL INGUINAL HERNIA, W/O OBST OR GANGR, NOT SPCF RECUR (5) Suprapubic catheter dysfunction Assessment/Plan: -urology consult Code(s): T83.010A - BREAKDOWN (MECHANICAL) OF CYSTOSTOMY CATHETER, INIT ENCNTR Qualifiers: Encounter type: initial encounter Qualified Code(s): T83.010A - Breakdown ( mechanical) of cystostomy catheter, initial encounter (6) Rectourethral fistula Assessment/Plan: -surgery on board -NPO -FUA reveal marked abdominal distention with right sided ostomy, pneumatosis or free air is not seen, atelectasis at lung bases, findings have appearance of bowel obstruction -IV Tygacil -POD #4 s/p divertining lapascopic colostomy due to recto-urethral fistula -POD #1 diagnostic laparoscopy, transverse loop colostomy resection and revision of colostomy lethargic but responsive to verbal and tactile stimuli Code(s): N36.0 - URETHRAL FISTULA (7) Abscess Assessment/Plan: -A/P CT scan shows 3cm fluid and air filled collection seen in prostate region or prostate bed, can represent a post surgical change but abscess cannot be ruled out -surgery on board Code(s): L02.91 - CUTANEOUS ABSCESS, UNSPECIFIED (8) Atrial flutter Assessment/Plan: -continue Amiodarone and Metoprolol -january resume Eliquis Code(s): I48.92 - UNSPECIFIED ATRIAL FLUTTER Qualifiers: Atrial flutter type: typical Qualified Code(s): I48.3 - Typical atrial flutter (9) Leukocytosis Assessment/Plan: -ID on board -WBC 16.2 -IV Tygacil -repeat BC neg Code(s): D72.829 - ELEVATED WHITE BLOOD CELL COUNT, UNSPECIFIED
--- NOTE | 2019-01-24 17:09 | PN ---
Progress Note (short form) - Note Progress Note: alert pod #1 s/p exlap with revision of colostomy pod #4 s/p diverting colostomy Vital Signs Period Temp Pulse Resp BP Sys/Nolan Pulse Ox Last 24 Hr 97.8 F-99.2 F 71-102 10-20 106-174/50-94 95-100 cor-rrr lungs decreased bs at bases abd soft,nt+ostomy +bs +spt ext no edema CBC, BMP 01/24/19 06:30 01/24/19 09:10 Microbiology 01/23/19 13:50 Blood - Peripheral Venous Blood Culture - Preliminary NO GROWTH OBTAINED AFTER 24 HOURS, INCUBATION TO CONTINUE FOR 4 DAYS. 01/23/19 13:55 Blood - Peripheral Venous Blood Culture - Preliminary NO GROWTH OBTAINED AFTER 24 HOURS, INCUBATION TO CONTINUE FOR 4 DAYS. 01/17/19 22:00 Urine - Urine Suprapubic Urine Culture - Final Escherichia Coli Esbl Tour Coordinator Streptococcus Bovis 01/14/19 09:02 Blood - Peripheral Venous Blood Culture - Final NO GROWTH AFTER 5 DAYS INCUBATION 01/14/19 06:38 Blood - Peripheral Venous Blood Culture - Final NO GROWTH AFTER 5 DAYS INCUBATION 01/16/19 14:00 Urine - Urine Suprapubic Urine Culture - Final Escherichia Coli Esbl Tour Coordinator a/p pod #1 s/p redo colostomy s/p diverting colostomy pod #4 continue tygacil multiple antibiotic allergies maintain contact isolation for ecoli esbl in urine Problem List - Problems (1) Recto-urethral fistula Code(s): N36.0 - URETHRAL FISTULA (2) Allergy to multiple antibiotics Code(s): Z88.1 - ALLERGY STATUS TO OTHER ANTIBIOTIC AGENTS STATUS (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
--- NOTE | 2019-01-24 20:50 | PN ---
Progress Note, Physician Chief Complaint: S/P revision of diverting colostomy History of Present Illness: Patient c/o right sided abdominal pain Denies N & V - Current Medication List Current Medications: Active Medications Acetaminophen (Tylenol -) 650 mg PO Q6H PRN PRN Reason: PAIN LEVEL 1 - 3 Albuterol/Ipratropium (Duoneb -) 1 amp NEB Q6H PRN PRN Reason: SHORTNESS OF BREATH Amiodarone HCl (Cordarone -) 200 mg PO DAILY [facility] Last Admin: 01/24/19 12:20 Dose: Not Given Atorvastatin Calcium (Lipitor -) 20 mg PO [facility] Last Admin: 01/23/19 22:27 Dose: 20 mg Divalproex Sodium (Depakote Sprinkle Caps -) 125 mg PO DAILY [facility] Last Admin: 01/24/19 12:20 Dose: Not Given Docusate Sodium (Colace -) 300 mg PO [facility] Last Admin: 01/23/19 22:27 Dose: 300 mg Guaifenesin (Robitussin -) 5 ml PO Q6H PRN PRN Reason: COUGH Lactated Ringer's (Lactated Ringers Solution) 1,000 mls @ 42 mls/hr IV ASDIR [facility] Last Admin: 01/23/19 21:00 Dose: 0 mls Tigecycline 50 mg/ Dextrose 100 mls @ 100 mls/hr IVPB BID [facility]; Protocol Last Admin: 01/24/19 11:03 Dose: 100 mls/hr Latanoprost (Xalatan 0.005% Eye Drops -) 1 drop OU [facility] Last Admin: 01/23/19 22:30 Dose: 1 drp Metoprolol Succinate (Toprol Xl -) 50 mg PO BID [facility] Last Admin: 01/24/19 12:21 Dose: Not Given Mometasone Furoate (Asmanex 220mcg -) 1 puff IH [facility] Last Admin: 01/23/19 22:30 Dose: 1 puff Montelukast Sodium (Singulair -) 10 mg PO [facility] Last Admin: 01/23/19 22:28 Dose: 10 mg Nystatin/Triamcinolone Acetonide (Mycolog Ii Cream -) 1 applic TP BID [facility] Last Admin: 01/24/19 11:03 Dose: 1 applic Olanzapine (Zyprexa -) 10 mg PO [facility] Last Admin: 01/23/19 22:28 Dose: 10 mg Olanzapine 5 mg/ Olanzapine 2. (5 mg) 7.5 mg PO DAILY [facility] Last Admin: 01/24/19 12:21 Dose: Not Given Pantoprazole Sodium (Protonix -) 40 mg PO DAILY [facility] Last Admin: 01/24/19 12:21 Dose: Not Given Senna (Senna -) 1 tab PO HS PRN PRN Reason: CONSTIPATION - Objective Vital Signs: Vital Signs Temperature 98.5 F 01/24/19 17:41 Pulse Rate 91 H 01/24/19 17:41 Respiratory Rate 20 01/24/19 17:41 Blood Pressure 108/63 01/24/19 17:41 O2 Sat by Pulse Oximetry (%) 99 01/24/19 09:00 Gastrointestinal: Yes: Distention (NONE), Tenderness (DIFFUSE), Other ( COLOSTOMY EDEMATOUS, NO "GAS" WITH SANGUINOUS DRAINAGE) Labs: CBC, BMP 01/24/19 06:30 01/24/19 09:10 INR, PTT INR 1.03 (0.83-1.09) 01/19/19 06:00 Problem List - Problems (1) Inguinal hernia Code(s): K40.90 - UNIL INGUINAL HERNIA, W/O OBST OR GANGR, NOT SPCF RECUR (2) Recto-urethral fistula Assessment/Plan: Clinically stable colonic obstruction (risk for ischemia) May need secod look laparoscopy if abdominal pain and leukocytosis worsen Code(s): N36.0 - URETHRAL FISTULA
[2019-01-24] MEDS: LACTATED RINGERS SOLUTION 1,000 ML IV SCH (21:49)
[2019-01-24] MEDS: MOMETASONE FUROATE 220 MCG/IH INHALER IH SCH (21:52)
[2019-01-24] MEDS: ATORVASTATIN CA 20 MG TABLET (FP) PO SCH (21:52)
[2019-01-24] MEDS: DOCUSATE SODIUM 100 MG CAPSULE (FP) PO SCH (21:52)
[2019-01-24] MEDS: MONTELUKAST NA 10 MG TABLET PO SCH (21:53)
[2019-01-24] MEDS: LATANOPROST 0.005% OPHTH SOLN 2.5ML BOTTLE OU SCH (21:54)
[2019-01-24] MEDS: OLANZapine 10 MG TABLET PO SCH (21:54)
[2019-01-25 07:21] LABS: HEMATOCRIT 38.4 % (35.4-49); HEMOGLOBIN 12.9 GM/dL (11.7-16.9); MCHC 33.5 g/dl (32.0-35.9); MEAN CELL VOLUME 98.3 fl (80-96); MEAN PLT VOLUME 8.7 fl (7.5-11.1); PLATELET COUNT 263 K/MM3 (134-434); RBC 3.91 M/mm3 (4.00-5.60); RDW 15.1 % (11.9-15.9); WHITE BLOOD COUNT 14.1 K/mm3 (4.0-10.0)
[2019-01-25 07:48] LABS: ALK PHOS 101 U/L (45-117); ANION GAP 3 MMOL/L (8-16); BILIRUBIN,TOTAL 0.9 mg/dL (0.2-1); BLOOD UREA NITROGEN 31 mg/dL (7-18); CHLORIDE 107 mmol/L (98-107); CO2 33 mmol/L (21-32); CREATININE 0.9 mg/dL (0.55-1.3); GLUCOSE,RANDOM 85 mg/dL (74-106); SGOT/AST 62 U/L (15-37); SGPT/ALT 26 U/L (13-61); SODIUM 143 mmol/L (136-145); TOT PROT 4.5 g/dl (6.4-8.2)
[2019-01-25] MEDS ORDERED: PT OWN MED DRAWER 7, Y5N ONE ×2 (09:28→21:00)
[2019-01-25] MEDS ORDERED: NALOXONE HCL 0.4 MG/ML VIAL IVPUSH ONE (10:00)
[2019-01-25 10:15] LABS: ARTERIAL BLD GAS O2 SATURATION 93.1 % (95-98); ARTERIAL BLOOD GAS BASE EXCESS 7.6 meq/l (-2-2); ARTERIAL BLOOD GAS PCO2 48.7 mmHg (35-45); ARTERIAL BLOOD GAS pH 7.44 (7.35-7.45)
[2019-01-25 10:23] LABS: ALLENS TEST POSITIVE
--- NOTE | 2019-01-25 10:47 | CONSULT ---
Consult - text type - Consultation Consultation Note: NEUROLOGY CONSULT GREATLY APPRECIATED: Events reviewed and discussed with SADA Tello and CANDI Brown. Last seen by me in consult 06/09/18. This 73 yo M is a [facility] resident with HTN, HLD, COPD, GERD, "dementia", "bipolar disorder," atrial flutter (on Eliquis), prostate CA. Per NH, pt ambulates with rolling walker around unit. Surgical history includes rectourethral fistula s/p suprapubic catheter. Meds: albuterol, atorvastatin, montelukast, oxycodone 5 mg q6, amiodarone, diltiazem, divalproex sprinkle 125 mg qd, olanzapine 7.5/10 mg qhs, pantoprazole. Allergies include carbapenams, penicillins, sulfa antibiotics. Admitted after krunal red blood from urethra, requiring laproscopic divertiving colostomy complicated post-op by large bowel obstruction requiring revision. Currently on Tigacycline IV for UTI. Remains NPO s/p surgery. Reporting bladder discomfort. WBC= 8.6->14.1 UA WBC (01/16/19)= 2698 UC= > 100,000 E. Coli ESBL, strep Stool occult= Pos. Head CT (reviewed): Mild atrophy. Chronic supratentorial ischemic changes. Intracranial vascular calcifications. SOLO: Cor irregular. Neck rigid in all directions. Colostomy in situ. Hogan in situ. NEURO: Responds to name. Speech sparse. Resistive to exam. Yelling "You're in my space!" +glabella, snout CNII-CNXII: Resists eye opening. Motor: Strong grasps. + Cogwheeling. Reflexes brisk throughout. 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 Thank you very much, Daniel Dallas MD
[2019-01-25] MEDS: PANTOPRAZOLE 40 MG TABLET (FP) PO SCH (11:14)
[2019-01-25] MEDS: AMIODARONE HCL 200 MG TABLET (FP) PO SCH (11:14)
[2019-01-25] MEDS: OLANZAPINE 5 MG, OLANZAPINE 2.5 MG PO SCH (11:14)
[2019-01-25] MEDS: DIVALPROEX SODIUM 125 MG SPRINKLE CAPS PO SCH (11:14)
[2019-01-25] MEDS: NYSTATIN/TRIAMCINOLONE TOPICAL CREAM 15 GM TUBE TP SCH ×2 (12:11→23:12)
[2019-01-25] MEDS: TIGECYCLINE 50 MG in DEXTROSE 5%-WATER - 100 ML IVPB SCH ×2 (12:11→23:12)
--- NOTE | 2019-01-25 13:27 | PN ---
Progress Note (short form) - Note Progress Note: POD#2/POD#4 PT nonverbal this am. Vital Signs Period Temp Pulse Resp BP Sys/Nolan Pulse Ox Last 24 Hr 97.9 F-98.5 F 73-91 20-20 108-146/59-77 97-98 GEN: non verbal, lying in bed Neruo: opens eyes to sternal rub/calling out name. Squeezes hands bilaterally( weak) when asked to. ABD: soft, non-distended, non-tender. Ostomy biable with light pink/bloody drainage CBC, BMP 01/25/19 06:05 // 06:05 Laboratory Tests 01/25/19 06:[address] scan: head, No acute hemmorrhage/mass shift A/p: 73 yo male s/p loop colostomy with revision 2 days ago. Now lethargic Would continue npo except meds until more awake and ostomy with outpt Agree with Neurology note regarding holding narcotics. D/w Dr. GAITAN. WBC improving with normal lactic acid
--- NOTE | 2019-01-25 14:03 | PN ---
Progress Note (short form) - Note Progress Note: PULMONARY Remains somnolent but more arousable today. No fevers recorded. Vital Signs Period Temp Pulse Resp BP Sys/Nolan Pulse Ox Last 24 Hr 97.6 F-98.5 F 70-91 20-20 108-146/49-77 97-98 Gen: NAD at rest Heart: RRR Lung: scattered rhonchi Abd: soft, +ostomy pink Ext: no edema CBC, BMP 01/25/19 06:05 01/25/19 06:05 Active Medications Acetaminophen (Tylenol -) 650 mg PO Q6H PRN PRN Reason: PAIN LEVEL 1 - 3 Albuterol/Ipratropium (Duoneb -) 1 amp NEB Q6H PRN PRN Reason: SHORTNESS OF BREATH Amiodarone HCl (Cordarone -) 200 mg PO DAILY [facility] Last Admin: 01/25/19 11:14 Dose: Not Given Atorvastatin Calcium (Lipitor -) 20 mg PO [facility] Last Admin: 01/24/19 21:52 Dose: Not Given Divalproex Sodium (Depakote Sprinkle Caps -) 125 mg PO DAILY [facility] Last Admin: 01/25/19 11:14 Dose: Not Given Docusate Sodium (Colace -) 300 mg PO [facility] Last Admin: 01/24/19 21:52 Dose: Not Given Guaifenesin (Robitussin -) 5 ml PO Q6H PRN PRN Reason: COUGH Lactated Ringer's (Lactated Ringers Solution) 1,000 mls @ 42 mls/hr IV ASDIR [facility] Last Admin: 01/24/19 21:49 Dose: 42 mls/hr Tigecycline 50 mg/ Dextrose 100 mls @ 100 mls/hr IVPB BID [facility]; Protocol Last Admin: 01/25/19 12:11 Dose: 100 mls/hr Latanoprost (Xalatan 0.005% Eye Drops -) 1 drop OU [facility] Last Admin: 01/24/19 21:54 Dose: 1 drp Metoprolol Succinate (Toprol Xl -) 50 mg PO BID [facility] Last Admin: 01/25/19 11:14 Dose: Not Given Mometasone Furoate (Asmanex 220mcg -) 1 puff IH [facility] Last Admin: 01/24/19 21:52 Dose: Not Given Montelukast Sodium (Singulair -) 10 mg PO [facility] Last Admin: 01/24/19 21:53 Dose: Not Given Nystatin/Triamcinolone Acetonide (Mycolog Ii Cream -) 1 applic TP BID [facility] Last Admin: 01/25/19 12:11 Dose: 1 applic Olanzapine (Zyprexa -) 10 mg PO [facility] Last Admin: 01/24/19 21:54 Dose: Not Given Olanzapine 5 mg/ Olanzapine 2. 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
--- NOTE | 2019-01-25 14:43 | PATH ---
Surgical Pathology Report Patient Name: JUDY ABRAHAM Med. Rec. #: [id number] /Age/Gender: 1945 (Age: 73) / M Account: [id number] Location: [facility] MED/SURG Taken: 01/23/2019 Received: 01/24/2019 Reported: 01/25/2019 Physicians: Teri Giraldo M.D. Specimen(s) Received TRANSVERSE COLON Clinical History Rectourethral fistula, revision of colostomy Final Diagnosis TRANSVERSE COLON, REVISION OF COLOSTOMY: SEGMENT OF COLON WITH ACUTE AND CHRONIC INFLAMMATION, AREAS OF SUPERFICIAL EPITHELIAL NECROSIS, EDEMA, AND HEMORRHAGE CONSISTENT WITH ISCHEMIC CHANGES. STAPLED SURGICAL MARGIN IS VIABLE. Electronically Signed Kerri Newman M.D. Gross Description Received in formalin labeled "transverse colon," is a 7.0 x 7.0 x 4.8 cm necrotic, edematous loop of bowel with a stapled margin of resection. No definitive skin identified. The bowel serosa is brown and ischemic. The mucosa is ischemic. No masses are identified. Engineering And Scientific Programmer sections are submitted in 4 cassettes as follows: 1-stapled margin; 2-necrotic area; 8-3-[id number] bowel. /01/24/201901/24/2019
--- NOTE | 2019-01-25 15:53 | PN ---
Progress Note, Physician Chief Complaint: JASIEL Suprapubic pain History of Present Illness: Previous notes and events reviewed NAD patient is POD #5 s/p divertining lapascopic colostomy due to recto-urethral fistula POD #2 diagnostic laparoscopy, transverse loop colostomy resection and revision of colostomy lethargic, responds to verbal commands, opens eyes when name called - Current Medication List Current Medications: Active Medications Acetaminophen (Tylenol -) 650 mg PO Q6H PRN PRN Reason: PAIN LEVEL 1 - 3 Albuterol/Ipratropium (Duoneb -) 1 amp NEB Q6H PRN PRN Reason: SHORTNESS OF BREATH Amiodarone HCl (Cordarone -) 200 mg PO DAILY [facility] Last Admin: 01/25/19 11:14 Dose: Not Given Atorvastatin Calcium (Lipitor -) 20 mg PO [facility] Last Admin: 01/24/19 21:52 Dose: Not Given Divalproex Sodium (Depakote Sprinkle Caps -) 125 mg PO DAILY [facility] Last Admin: 01/25/19 11:14 Dose: Not Given Docusate Sodium (Colace -) 300 mg PO [facility] Last Admin: 01/24/19 21:52 Dose: Not Given Guaifenesin (Robitussin -) 5 ml PO Q6H PRN PRN Reason: COUGH Lactated Ringer's (Lactated Ringers Solution) 1,000 mls @ 42 mls/hr IV ASDIR [facility] Last Admin: 01/24/19 21:49 Dose: 42 mls/hr Tigecycline 50 mg/ Dextrose 100 mls @ 100 mls/hr IVPB BID [facility]; Protocol Last Admin: 01/25/19 12:11 Dose: 100 mls/hr Latanoprost (Xalatan 0.005% Eye Drops -) 1 drop OU [facility] Last Admin: 01/24/19 21:54 Dose: 1 drp Metoprolol Succinate (Toprol Xl -) 50 mg PO BID [facility] Last Admin: 01/25/19 11:14 Dose: Not Given Mometasone Furoate (Asmanex 220mcg -) 1 puff IH [facility] Last Admin: 01/24/19 21:52 Dose: Not Given Montelukast Sodium (Singulair -) 10 mg PO [facility] Last Admin: 01/24/19 21:53 Dose: Not Given Nystatin/Triamcinolone Acetonide (Mycolog Ii Cream -) 1 applic TP BID [facility] Last Admin: 01/25/19 12:11 Dose: 1 applic Olanzapine (Zyprexa -) 10 mg PO HS [facility] Last Admin: 01/24/19 21:54 Dose: Not Given Olanzapine 5 mg/ Olanzapine 2. (5 mg) 7.5 mg PO DAILY [facility] Last Admin: 01/25/19 11:14 Dose: Not Given Pantoprazole Sodium (Protonix -) 40 mg PO DAILY [facility] Last Admin: 01/25/19 11:14 Dose: Not Given Senna (Senna -) 1 tab PO HS PRN PRN Reason: CONSTIPATION - Objective Vital Signs: Vital Signs Temperature 97.6 F 01/25/19 13:24 Pulse Rate 70 01/25/19 13:24 Respiratory Rate 20 01/25/19 13:24 Blood Pressure 120/49 L 01/25/19 13:24 O2 Sat by Pulse Oximetry (%) 97 01/25/19 09:00 Constitutional: Yes: No Distress, Calm Eyes: Yes: Conjunctiva Clear HENT: Yes: Atraumatic Cardiovascular: Yes: Regular Rate and Rhythm Respiratory: Yes: Regular, On Nasal O2, Rhonchi Gastrointestinal: Yes: Soft, Hypoactive Bowel Sounds, Tenderness (diffuse) Genitourinary: Yes: Other (suprapubic cathter) Musculoskeletal: Yes: Muscle Weakness Extremities: Yes: WNL Edema: No Neurological: Yes: Lethargy Psychiatric: Yes: Alert Labs: CBC, BMP 01/25/19 06:05 01/25/19 06:05 INR, PTT INR 1.03 (0.83-1.09) 01/19/19 06:00 Microbiology 01/23/19 13:50 Blood - Peripheral Venous Blood Culture - Preliminary NO GROWTH OBTAINED AFTER 48 HOURS, INCUBATION TO CONTINUE FOR 3 DAYS. 01/23/19 13:55 Blood - Peripheral Venous Blood Culture - Preliminary NO GROWTH OBTAINED AFTER 48 HOURS, INCUBATION TO CONTINUE FOR 3 DAYS. 01/17/19 22:00 Urine - Urine Suprapubic Urine Culture - Final Escherichia Coli [employer] Streptococcus Bovis 01/14/19 09:02 Blood - Peripheral Venous Blood Culture - Final NO GROWTH AFTER 5 DAYS INCUBATION 01/14/19 06:38 Blood - Peripheral Venous Blood Culture - Final NO GROWTH AFTER 5 DAYS INCUBATION 01/16/19 14:00 Urine - Urine Suprapubic Urine Culture - Final Escherichia Coli [employer] Problem List - Problems (1) JASIEL (acute kidney injury) Assessment/Plan: -improved -BUN/Cr 31/0.9 -monitor renal function daily Code(s): N17.9 - ACUTE KIDNEY FAILURE, UNSPECIFIED (2) COPD (chronic obstructive pulmonary disease) Assessment/Plan: -Bronchodilators -Asmanex + Singulair -O2 via NC -keep SpO2 >90% Code(s): J44.9 - CHRONIC OBSTRUCTIVE PULMONARY DISEASE, UNSPECIFIED (3) Hematuria Assessment/Plan: -Urology on board -resolved Code(s): R31.9 - HEMATURIA, UNSPECIFIED Qualifiers: Hematuria type: gross Qualified Code(s): R31.0 - Gross hematuria (4) Inguinal hernia Assessment/Plan: -surgical consult -A/P CT scan shows left inguinal hernia of significant size containing distal left colon without evidence of incarceration or obstruction Code(s): K40.90 - UNIL INGUINAL HERNIA, W/O OBST OR GANGR, NOT SPCF RECUR (5) Suprapubic catheter dysfunction Assessment/Plan: -urology consult Code(s): T83.010A - BREAKDOWN (MECHANICAL) OF CYSTOSTOMY CATHETER, INIT ENCNTR Qualifiers: Encounter type: initial encounter Qualified Code(s): T83.010A - Breakdown ( mechanical) of cystostomy catheter, initial encounter (6) Rectourethral fistula Assessment/Plan: -surgery on board -NPO -FUA reveal marked abdominal distention with right sided ostomy, pneumatosis or free air is not seen, atelectasis at lung bases, findings have appearance of bowel obstruction -IV Tygacil -WBC 14.1 -POD #5 s/p divertining lapascopic colostomy due to recto-urethral fistula -POD #2 diagnostic laparoscopy, transverse loop colostomy resection and revision of colostomy lethargic but responsive to verbal and tactile stimuli Code(s): N36.0 - URETHRAL FISTULA (7) Abscess Assessment/Plan: -A/P CT scan shows 3cm fluid and air filled collection seen in prostate region or prostate bed, can represent a post surgical change but abscess cannot be ruled out -surgery on board Code(s): L02.91 - CUTANEOUS ABSCESS, UNSPECIFIED (8) Atrial flutter Assessment/Plan: -continue Amiodarone and Metoprolol -may resume Eliquis Code(s): I48.92 - UNSPECIFIED ATRIAL FLUTTER Qualifiers: Atrial flutter type: typical Qualified Code(s): I48.3 - Typical atrial flutter (9) Leukocytosis Assessment/Plan: -ID on board -WBC 14.1 -IV Tygacil -repeat BC neg Code(s): D72.829 - ELEVATED WHITE BLOOD CELL COUNT, UNSPECIFIED (10) Lethargic Assessment/Plan: -Neurology on board -Head CT scan shows no acute pathology -avoid narcotics -NPO until mentation improves Code(s): R53.83 - OTHER FATIGUE Assessment/Plan see problem list dvt ppx
--- NOTE | 2019-01-25 19:07 | PN ---
Progress Note, Physician Chief Complaint: S/P revision of diverting colostomy POD # 2 History of Present Illness: Lethargic this morning but currently awake and c/o being hungry States he has abdominal pain - Current Medication List Current Medications: Active Medications Acetaminophen (Tylenol -) 650 mg PO Q6H PRN PRN Reason: PAIN LEVEL 1 - 3 Albuterol/Ipratropium (Duoneb -) 1 amp NEB Q6H PRN PRN Reason: SHORTNESS OF BREATH Amiodarone HCl (Cordarone -) 200 mg PO DAILY [facility] Last Admin: 01/25/19 11:14 Dose: Not Given Atorvastatin Calcium (Lipitor -) 20 mg PO [facility] Last Admin: 01/24/19 21:52 Dose: Not Given Divalproex Sodium (Depakote Sprinkle Caps -) 125 mg PO DAILY [facility] Last Admin: 01/25/19 11:14 Dose: Not Given Docusate Sodium (Colace -) 300 mg PO [facility] Last Admin: 01/24/19 21:52 Dose: Not Given Guaifenesin (Robitussin -) 5 ml PO Q6H PRN PRN Reason: COUGH Lactated Ringer's (Lactated Ringers Solution) 1,000 mls @ 42 mls/hr IV ASDIR [facility] Last Admin: 01/24/19 21:49 Dose: 42 mls/hr Tigecycline 50 mg/ Dextrose 100 mls @ 100 mls/hr IVPB BID [facility]; Protocol Last Admin: 01/25/19 12:11 Dose: 100 mls/hr Latanoprost (Xalatan 0.005% Eye Drops -) 1 drop OU [facility] Last Admin: 01/24/19 21:54 Dose: 1 drp Metoprolol Succinate (Toprol Xl -) 50 mg PO BID [facility] Last Admin: 01/25/19 11:14 Dose: Not Given Mometasone Furoate (Asmanex 220mcg -) 1 puff IH [facility] Last Admin: 01/24/19 21:52 Dose: Not Given Montelukast Sodium (Singulair -) 10 mg PO [facility] Last Admin: 01/24/19 21:53 Dose: Not Given Nystatin/Triamcinolone Acetonide (Mycolog Ii Cream -) 1 applic TP BID [facility] Last Admin: 01/25/19 12:11 Dose: 1 applic Olanzapine (Zyprexa -) 10 mg PO HS [facility] Last Admin: 01/24/19 21:54 Dose: Not Given Olanzapine 5 mg/ Olanzapine 2. (5 mg) 7.5 mg PO DAILY [facility] Last Admin: 01/25/19 11:14 Dose: Not Given Pantoprazole Sodium (Protonix -) 40 mg PO DAILY [facility] Last Admin: 01/25/19 11:14 Dose: Not Given Senna (Senna -) 1 tab PO HS PRN PRN Reason: CONSTIPATION - Objective Vital Signs: Vital Signs Temperature 97.7 F 01/25/19 18:44 Pulse Rate 71 01/25/19 18:44 Respiratory Rate 20 01/25/19 18:44 Blood Pressure 121/61 01/25/19 18:44 O2 Sat by Pulse Oximetry (%) 97 01/25/19 09:00 Constitutional: Yes: No Distress Gastrointestinal: Yes: Soft, Tenderness (No tenderness on palpation while being distracted), Other ("gas" in colostomy bag) Labs: CBC, BMP 01/25/19 06:05 01/25/19 06:05 INR, PTT INR 1.03 (0.83-1.09) 01/19/19 06:00 Problem List - Problems (1) Inguinal hernia Code(s): K40.90 - UNIL INGUINAL HERNIA, W/O OBST OR GANGR, NOT SPCF RECUR (2) Recto-urethral fistula Assessment/Plan: Clear liquid diet and JANINE in am colostomy care Code(s): N36.0 - URETHRAL FISTULA
[2019-01-25] MEDS: LATANOPROST 0.005% OPHTH SOLN 2.5ML BOTTLE OU SCH (23:09)
[2019-01-25] MEDS: DOCUSATE SODIUM 100 MG CAPSULE (FP) PO SCH (23:20)
[2019-01-25] MEDS: MOMETASONE FUROATE 220 MCG/IH INHALER IH SCH (23:20)
[2019-01-25] MEDS: ATORVASTATIN CA 20 MG TABLET (FP) PO SCH (23:20)
[2019-01-25] MEDS: MONTELUKAST NA 10 MG TABLET PO SCH (23:20)
[2019-01-25] MEDS ORDERED: OLANZapine 10 MG TABLET PO SCH (23:30)
[2019-01-25] MEDS: OLANZapine 2.5 MG TABLET PO SCH (23:40)
[2019-01-25] MEDS: OLANZapine 10 MG TABLET PO SCH (23:45)
[2019-01-26 07:14] LABS: HEMATOCRIT 36.6 % (35.4-49); HEMOGLOBIN 12.2 GM/dL (11.7-16.9); MCHC 33.4 g/dl (32.0-35.9); MEAN CELL VOLUME 98.8 fl (80-96); MEAN PLT VOLUME 8.4 fl (7.5-11.1); PLATELET COUNT 274 K/MM3 (134-434); RDW 14.9 % (11.9-15.9); WHITE BLOOD COUNT 12.3 K/mm3 (4.0-10.0)
[2019-01-26 08:04] LABS: BILIRUBIN,TOTAL 0.8 mg/dL (0.2-1); CALCIUM 7.5 mg/dL (8.5-10.1); CREATININE 0.9 mg/dL (0.55-1.3); POTASSIUM 4.1 mmol/L (3.5-5.1); TOT PROT 4.5 g/dl (6.4-8.2)
--- NOTE | 2019-01-26 08:08 | PN ---
Progress Note (short form) - Note Progress Note: surgery POD# 5divertining lapascopic colostomy due to recto-urethral fistula, POD #3 diagnostic laparoscopy, transverse loop colostomy resection and revision of colostomy. Nursing reports patient was stable overnight with no acute events. Rousable but lethargic. He c/o RLQ pain with movement. He denies anyu CP, SOB, N /V, fever or chills. Vital Signs Temp 98.5 F 01/26/19 14:00 Pulse 60 01/26/19 14:00 Resp 18 01/26/19 14:00 BP 117/68 01/26/19 14:00 Pulse Ox 95 01/26/19 09:00 Intake & Output 01/25/19 01/26/19 01/26/19 23:59 11:59 23:59 Intake Total 478 250 250 Output Total 800 600 Balance -322 -350 250 Intake: IV 378 Lactated Ringers Solution 378 1,000 ml @ 42 mls/hr IV ASDIR VIOLET Rx#:[id number] IVPB 100 Oral 250 250 Output: Urine 800 600 Supra Pubic Tube 800 600 Other: Voiding Method Indwelling Catheter Indwelling Catheter Bowel Movement No CBC, BMP 05 06:00 01/26/19 06:00 PE: GEN: lying in bed, patient refused to open his eyes for exam but responsive, NAD Squeezes hands bilaterally(weak) when asked to. ABD: soft, non-distended, non-tender. Ostomy pink, protruding and producing liquid mixed with stool. focal TTP at RLQ, remainder of abdomen benign. B/L LE compartments soft, supple and non-tender with +2 DP pulses. Problem List - Problems (1) Colostomy complication, unspecified Assessment/Plan: POD #5 and #3 patient continues to improve with WBCs trending down. 1) advance to regular diet once awake 2) colostomy care 3) limit narcotics. 4) OOB when stable 5) Surgery to follow. Evaluation and plan discussed with Dr Wills Code(s): K94.00 - COLOSTOMY COMPLICATION, UNSPECIFIED (2) Rectourethral fistula Code(s): N36.0 - URETHRAL FISTULA
[2019-01-26] MEDS: PANTOPRAZOLE 40 MG TABLET (FP) PO SCH (10:57)
[2019-01-26] MEDS: AMIODARONE HCL 200 MG TABLET (FP) PO SCH ×2 (10:57→13:08)
[2019-01-26] MEDS: OLANZapine 2.5 MG TABLET PO SCH ×3 (11:13→21:20)
[2019-01-26] MEDS: TIGECYCLINE 50 MG in DEXTROSE 5%-WATER - 100 ML IVPB SCH ×2 (11:23→21:19)
[2019-01-26] MEDS: NYSTATIN/TRIAMCINOLONE TOPICAL CREAM 15 GM TUBE TP SCH ×2 (11:23→21:20)
--- NOTE | 2019-01-26 11:45 | PN ---
Progress Note, Physician Chief Complaint: JASIEL Suprapubic pain History of Present Illness: Previous notes and events reviewed NAD patient is POD #5 s/p divertining lapascopic colostomy due to recto-urethral fistula POD #3 diagnostic laparoscopy, transverse loop colostomy resection and revision of colostomy patient is lethargic but having more periods of alertness, pt states he is hungry and wants to eat colostomy noted with liquid stool in pouch - Current Medication List Current Medications: Active Medications Acetaminophen (Tylenol -) 650 mg PO Q6H PRN PRN Reason: PAIN LEVEL 1 - 3 Albuterol/Ipratropium (Duoneb -) 1 amp NEB Q6H PRN PRN Reason: SHORTNESS OF BREATH Amiodarone HCl (Cordarone -) 200 mg PO DAILY [facility] Last Admin: 01/26/19 10:57 Dose: Not Given Atorvastatin Calcium (Lipitor -) 20 mg PO [facility] Last Admin: 01/25/19 23:20 Dose: 20 mg Docusate Sodium (Colace -) 300 mg PO [facility] Last Admin: 01/25/19 23:20 Dose: 300 mg Guaifenesin (Robitussin -) 5 ml PO Q6H PRN PRN Reason: COUGH Tigecycline 50 mg/ Dextrose 100 mls @ 100 mls/hr IVPB BID [facility]; Protocol Last Admin: 01/26/19 11:23 Dose: 100 mls/hr Latanoprost (Xalatan 0.005% Eye Drops -) 1 drop OU [facility] Last Admin: 01/25/19 23:09 Dose: 1 drp Metoprolol Succinate (Toprol Xl -) 50 mg PO BID [facility] Last Admin: 01/26/19 10:57 Dose: Not Given Mometasone Furoate (Asmanex 220mcg -) 1 puff IH [facility] Last Admin: 01/25/19 23:20 Dose: 1 puff Montelukast Sodium (Singulair -) 10 mg PO [facility] Last Admin: 01/25/19 23:20 Dose: 10 mg Nystatin/Triamcinolone Acetonide (Mycolog Ii Cream -) 1 applic TP BID [facility] Last Admin: 01/26/19 11:23 Dose: 1 applic Olanzapine (Zyprexa -) 2.5 mg PO DAILY [facility] Last Admin: 01/26/19 11:13 Dose: Not Given Olanzapine (Zyprexa -) 5 mg PO HS [facility] Last Admin: 01/25/19 23:40 Dose: 5 mg Pantoprazole Sodium (Protonix -) 40 mg PO DAILY [facility] Last Admin: 01/26/19 10:57 Dose: Not Given Senna (Senna -) 1 tab PO HS PRN PRN Reason: CONSTIPATION - Objective Vital Signs: Vital Signs Temperature 98.1 F 01/26/19 05:56 Pulse Rate 60 01/26/19 05:56 Respiratory Rate 20 01/26/19 05:56 Blood Pressure 106/58 L 01/26/19 05:56 O2 Sat by Pulse Oximetry (%) 96 01/25/19 21:00 Constitutional: Yes: No Distress, Calm Eyes: Yes: Conjunctiva Clear HENT: Yes: Atraumatic Cardiovascular: Yes: Regular Rate and Rhythm Respiratory: Yes: Regular, Diminished Gastrointestinal: Yes: Normal Bowel Sounds, Soft, Tenderness (diffuse), Other ( colostomy) Musculoskeletal: Yes: Muscle Weakness Extremities: Yes: WNL Edema: No Neurological: Yes: Lethargy Psychiatric: Yes: Alert Labs: CBC, BMP 01/26/19 06:00 01/26/19 06:00 INR, PTT INR 1.03 (0.83-1.09) 01/19/19 06:00 Problem List - Problems (1) JASIEL (acute kidney injury) Assessment/Plan: -improved -BUN/Cr 28/0.9 -monitor renal function daily Code(s): N17.9 - ACUTE KIDNEY FAILURE, UNSPECIFIED (2) COPD (chronic obstructive pulmonary disease) Assessment/Plan: -Bronchodilators -Asmanex + Singulair -O2 via NC -keep SpO2 >90% Code(s): J44.9 - CHRONIC OBSTRUCTIVE PULMONARY DISEASE, UNSPECIFIED (3) Hematuria Assessment/Plan: -Urology on board -resolved Code(s): R31.9 - HEMATURIA, UNSPECIFIED Qualifiers: Hematuria type: gross Qualified Code(s): R31.0 - Gross hematuria (4) Inguinal hernia Assessment/Plan: -surgical consult -A/P CT scan shows left inguinal hernia of significant size containing distal left colon without evidence of incarceration or obstruction Code(s): K40.90 - UNIL INGUINAL HERNIA, W/O OBST OR GANGR, NOT SPCF RECUR (5) Suprapubic catheter dysfunction Assessment/Plan: -urology consult Code(s): T83.010A - BREAKDOWN (MECHANICAL) OF CYSTOSTOMY CATHETER, INIT ENCNTR Qualifiers: Encounter type: initial encounter Qualified Code(s): T83.010A - Breakdown ( mechanical) of cystostomy catheter, initial encounter (6) Rectourethral fistula Assessment/Plan: -surgery on board -regular diet -FUA reveal marked abdominal distention with right sided ostomy, pneumatosis or free air is not seen, atelectasis at lung bases, findings have appearance of bowel obstruction -IV Tygacil -WBC 12.3 -POD #5 s/p divertining lapascopic colostomy due to recto-urethral fistula -POD #3 diagnostic laparoscopy, transverse loop colostomy resection and revision of colostomy Code(s): N36.0 - URETHRAL FISTULA (7) Abscess Assessment/Plan: -A/P CT scan shows 3cm fluid and air filled collection seen in prostate region or prostate bed, can represent a post surgical change but abscess cannot be ruled out -surgery on board Code(s): L02.91 - CUTANEOUS ABSCESS, UNSPECIFIED (8) Atrial flutter Assessment/Plan: -continue Amiodarone and Metoprolol -may resume Eliquis Code(s): I48.92 - UNSPECIFIED ATRIAL FLUTTER Qualifiers: Atrial flutter type: typical Qualified Code(s): I48.3 - Typical atrial flutter (9) Leukocytosis Assessment/Plan: -ID on board -WBC 12.3 -IV Tygacil -repeat BC neg Code(s): D72.829 - ELEVATED WHITE BLOOD CELL COUNT, UNSPECIFIED (10) Toxic metabolic encephalopathy Assessment/Plan: -Neurology on board -improving -Head CT scan shows no acute pathology -avoid narcotics Code(s): G92 - TOXIC ENCEPHALOPATHY Assessment/Plan see problem list dvt ppx
[2019-01-26] MEDS ORDERED: PT OWN MED DRAWER 7, Y5N ONE (13:06)
--- NOTE | 2019-01-26 13:56 | PN ---
Progress Note (short form) - Note Progress Note: PULMONARY More alert, awake today. No fevers recorded. Denies shortness of breath. + occasional nonproductive cough. Vital Signs Period Temp Pulse Resp BP Sys/Nolan Pulse Ox Last 24 Hr 97.7 F-98.5 F 56-87 16-20 103-121/54-61 95-96 Gen: NAD at rest Heart: RRR Lung: scattered rhonchi Abd: soft, +ostomy pink Ext: no edema CBC, BMP 01/26/19 06:00 01/26/19 06:00 Active Medications Acetaminophen (Tylenol -) 650 mg PO Q6H PRN PRN Reason: PAIN LEVEL 1 - 3 Last Admin: 01/26/19 13:31 Dose: 650 mg Albuterol/Ipratropium (Duoneb -) 1 amp NEB Q6H PRN PRN Reason: SHORTNESS OF BREATH Amiodarone HCl (Cordarone -) 200 mg PO DAILY [facility] Last Admin: 01/26/19 13:08 Dose: 200 mg Atorvastatin Calcium (Lipitor -) 20 mg PO [facility] Last Admin: 01/25/19 23:20 Dose: 20 mg Docusate Sodium (Colace -) 300 mg PO [facility] Last Admin: 01/25/19 23:20 Dose: 300 mg Guaifenesin (Robitussin -) 5 ml PO Q6H PRN PRN Reason: COUGH Tigecycline 50 mg/ Dextrose 100 mls @ 100 mls/hr IVPB BID [facility]; Protocol Last Admin: 01/26/19 11:23 Dose: 100 mls/hr Latanoprost (Xalatan 0.005% Eye Drops -) 1 drop OU [facility] Last Admin: 01/25/19 23:09 Dose: 1 drp Metoprolol Succinate (Toprol Xl -) 50 mg PO BID [facility] Last Admin: 01/26/19 10:57 Dose: Not Given Mometasone Furoate (Asmanex 220mcg -) 1 puff IH [facility] Last Admin: 01/25/19 23:20 Dose: 1 puff Montelukast Sodium (Singulair -) 10 mg PO [facility] Last Admin: 01/25/19 23:20 Dose: 10 mg Nystatin/Triamcinolone Acetonide (Mycolog Ii Cream -) 1 applic TP BID [facility] Last Admin: 01/26/19 11:23 Dose: 1 applic Olanzapine (Zyprexa -) 2.5 mg PO DAILY [facility] Last Admin: 01/26/19 13:08 Dose: 2.5 mg Olanzapine (Zyprexa -) 5 mg PO HS [facility] Last Admin: 01/25/19 23:40 Dose: 5 mg Pantoprazole Sodium (Protonix -) 40 mg PO DAILY [facility] Last Admin: 01/26/19 10:57 Dose: Not Given Senna (Senna -) 1 tab PO HS PRN PRN Reason: CONSTIPATION 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
--- NOTE | 2019-01-26 19:22 | PN ---
Progress Note, Physician Chief Complaint: S/P revision of diverting colostomy POD # 3 History of Present Illness: Liquid stool noted in colostomy bag. Tolerating regular diet - Current Medication List Current Medications: Active Medications Acetaminophen (Tylenol -) 650 mg PO Q6H PRN PRN Reason: PAIN LEVEL 1 - 3 Last Admin: 01/26/19 13:31 Dose: 650 mg Albuterol/Ipratropium (Duoneb -) 1 amp NEB Q6H PRN PRN Reason: SHORTNESS OF BREATH Amiodarone HCl (Cordarone -) 200 mg PO DAILY [facility] Last Admin: 01/26/19 13:08 Dose: 200 mg Atorvastatin Calcium (Lipitor -) 20 mg PO [facility] Last Admin: 01/25/19 23:20 Dose: 20 mg Docusate Sodium (Colace -) 300 mg PO [facility] Last Admin: 01/25/19 23:20 Dose: 300 mg Guaifenesin (Robitussin -) 5 ml PO Q6H PRN PRN Reason: COUGH Tigecycline 50 mg/ Dextrose 100 mls @ 100 mls/hr IVPB BID [facility]; Protocol Last Admin: 01/26/19 11:23 Dose: 100 mls/hr Latanoprost (Xalatan 0.005% Eye Drops -) 1 drop OU [facility] Last Admin: 01/25/19 23:09 Dose: 1 drp Metoprolol Succinate (Toprol Xl -) 50 mg PO BID [facility] Last Admin: 01/26/19 10:57 Dose: Not Given Mometasone Furoate (Asmanex 220mcg -) 1 puff IH [facility] Last Admin: 01/25/19 23:20 Dose: 1 puff Montelukast Sodium (Singulair -) 10 mg PO [facility] Last Admin: 01/25/19 23:20 Dose: 10 mg Nystatin/Triamcinolone Acetonide (Mycolog Ii Cream -) 1 applic TP BID [facility] Last Admin: 01/26/19 11:23 Dose: 1 applic Olanzapine (Zyprexa -) 2.5 mg PO DAILY [facility] Last Admin: 01/26/19 13:08 Dose: 2.5 mg Olanzapine (Zyprexa -) 5 mg PO [facility] Last Admin: 01/25/19 23:40 Dose: 5 mg Pantoprazole Sodium (Protonix -) 40 mg PO DAILY [facility] Last Admin: 01/26/19 10:57 Dose: Not Given Senna (Senna -) 1 tab PO HS PRN PRN Reason: CONSTIPATION - Objective Vital Signs: Vital Signs Temperature 98.5 F 01/26/19 17:33 Pulse Rate 62 01/26/19 17:33 Respiratory Rate 18 01/26/19 17:33 Blood Pressure 118/57 L 01/26/19 17:33 O2 Sat by Pulse Oximetry (%) 95 01/26/19 09:00 Gastrointestinal: Yes: Soft, Tenderness (minimal tenderness) Labs: CBC, BMP 01/26/19 06:00 01/26/19 06:00 INR, PTT INR 1.03 (0.83-1.09) 01/19/19 06:00 Problem List - Problems (1) Inguinal hernia Code(s): K40.90 - UNIL INGUINAL HERNIA, W/O OBST OR GANGR, NOT SPCF RECUR (2) Recto-urethral fistula Assessment/Plan: Improved continue present diet colostomy care Code(s): N36.0 - URETHRAL FISTULA
[2019-01-26] MEDS: DOCUSATE SODIUM 100 MG CAPSULE (FP) PO SCH (21:19)
[2019-01-26] MEDS: MOMETASONE FUROATE 220 MCG/IH INHALER IH SCH (21:20)
[2019-01-26] MEDS: ATORVASTATIN CA 20 MG TABLET (FP) PO SCH (21:20)
[2019-01-26] MEDS: MONTELUKAST NA 10 MG TABLET PO SCH (21:20)
[2019-01-26] MEDS: LATANOPROST 0.005% OPHTH SOLN 2.5ML BOTTLE OU SCH (21:21)
[2019-01-26] MEDS ORDERED: OLANZapine 2.5 MG TABLET PO SCH (23:30)
[2019-01-27 07:22] LABS: HEMATOCRIT 35.7 % (35.4-49); HEMOGLOBIN 11.9 GM/dL (11.7-16.9); MCH 33.3 pg (25.7-33.7); MCHC 33.5 g/dl (32.0-35.9); MEAN CELL VOLUME 99.4 fl (80-96); MEAN PLT VOLUME 8.5 fl (7.5-11.1); PLATELET COUNT 272 K/MM3 (134-434); RBC 3.59 M/mm3 (4.00-5.60); RDW 14.4 % (11.9-15.9)
[2019-01-27 07:47] LABS: BILIRUBIN,TOTAL 0.8 mg/dL (0.2-1); CREATININE 0.8 mg/dL (0.55-1.3); POTASSIUM 3.9 mmol/L (3.5-5.1); TOT PROT 4.5 g/dl (6.4-8.2)
--- NOTE | 2019-01-27 07:50 | PN ---
Progress Note (short form) - Note Progress Note: POD #6 s/p Divertining lapascopic colostomy due to recto-urethral fistula POD #4 s/p Diagnostic laparoscopy, transverse loop colostomy resection and revision of colostomy Alert. No complaints. Started on regular diet yesterday and is tolerating. Denies n/v/f/c, CP, SOB, WILDE, ABD pain. Last Vital Signs Temp Pulse Resp BP Pulse Ox 98.3 F 66 18 113/55 L 95 01/27/19 06:00 01/27/19 06:00 01/27/19 06:00 01/27/19 06:00 01/26/19 21:00 CBC, BMP 01/27/19 06:00 01/27/19 06:00 Gen: nad ABD: soft. supple. Ostomy with stool in bag (liquid). LE: soft. supple. NT bilat Problem List - Problems (1) Colostomy complication, unspecified Assessment/Plan: Reg diet OOB and ambulate with PT Ostomy care Cont medical management Code(s): K94.00 - COLOSTOMY COMPLICATION, UNSPECIFIED (2) Recto-urethral fistula Code(s): N36.0 - URETHRAL FISTULA (3) Presence of suprapubic catheter Code(s): Z93.59 - OTHER CYSTOSTOMY STATUS
[2019-01-27] MEDS ORDERED: PT OWN MED DRAWER 7, Y5N ONE ×2 (08:32→09:00)
[2019-01-27] MEDS: PANTOPRAZOLE 40 MG TABLET (FP) PO SCH (09:26)
[2019-01-27] MEDS: OLANZapine 2.5 MG TABLET PO SCH ×2 (09:26→21:49)
[2019-01-27] MEDS: AMIODARONE HCL 200 MG TABLET (FP) PO SCH (09:26)
[2019-01-27] MEDS: NYSTATIN/TRIAMCINOLONE TOPICAL CREAM 15 GM TUBE TP SCH ×2 (09:27→21:52)
[2019-01-27] MEDS: TIGECYCLINE 50 MG in DEXTROSE 5%-WATER - 100 ML IVPB SCH (09:30)
--- NOTE | 2019-01-27 11:30 | PN ---
Progress Note (short form) - Note Progress Note: PULMONARY Offers no respiratory complaints VSS/Afebrile Gen: NAD at rest Heart: RRR Lung: scattered rhonchi Abd: soft, +ostomy pink Ext: no edema Labs/meds/images/notes reviewed Active Medications noted 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 Janelle TRUJILLO MD
--- NOTE | 2019-01-27 16:09 | EKG ---
Test Reason : Blood Pressure : / mmHG Vent. Rate : 058 BPM Atrial Rate : 058 BPM P-R Int : 152 ms QRS Dur : 086 ms QT Int : 392 ms P-R-T Axes : 065 -09 054 degrees QTc Int : 384 ms SINUS BRADYCARDIA LOW VOLTAGE QRS NONSPECIFIC T WAVE ABNORMALITY ABNORMAL ECG WHEN COMPARED WITH ECG OF 11-JUN-2018 09:58, SINUS RHYTHM HAS REPLACED ATRIAL FLUTTER VENT. RATE HAS DECREASED BY 75 BPM QRS AXIS SHIFTED RIGHT CRITERIA FOR INFERIOR INFARCT ARE NO LONGER PRESENT T WAVE INVERSION NO LONGER EVIDENT IN ANTERIOR LEADS Confirmed by AZRA ECHOLS MD ([id number]) on 01/27/2019 4:09:42 PM Referred By: Confirmed By:AZRA ECHOLS MD
--- NOTE | 2019-01-27 16:15 | PN ---
Progress Note (short form) - Note Progress Note: Neurology Progress: Events reviewed and discussed with staff. Staff note patient is more arousable today. Diet advanced and patient reporting hunger. On reduced olanzepine 2.5 mg qam/5 mg po qhs. Off depakote. Reporting he is "cold" requesting extra blanket. Carotid duplex: Mild artherosclerotic plaques b/l. no hemodynamically sig. stenosis. F49=0413 pg%; TSH= 0.58; RPR nonreactive WBC 12.3-> 9.0 now off antibiotics SOLO: Allows limited SOLO or neuro exam. Colostomy in situ. Hogan in situ. Productive cough. NEURO: Responds to name. Speech sparse but fluent. Resistive to exam. 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 Thank you very much, Daniel Dallas MD
[2019-01-27] MEDS: MONTELUKAST NA 10 MG TABLET PO SCH (21:49)
[2019-01-27] MEDS: DOCUSATE SODIUM 100 MG CAPSULE (FP) PO SCH (21:49)
[2019-01-27] MEDS: ATORVASTATIN CA 20 MG TABLET (FP) PO SCH (21:50)
[2019-01-27] MEDS: LATANOPROST 0.005% OPHTH SOLN 2.5ML BOTTLE OU SCH (21:51)
[2019-01-27] MEDS: MOMETASONE FUROATE 220 MCG/IH INHALER IH SCH (21:52)
[2019-01-28 07:16] LABS: HEMATOCRIT 39.6 % (35.4-49); HEMOGLOBIN 13.2 GM/dL (11.7-16.9); MCH 33.1 pg (25.7-33.7); MCHC 33.3 g/dl (32.0-35.9); MEAN CELL VOLUME 99.4 fl (80-96); MEAN PLT VOLUME 8.4 fl (7.5-11.1); PLATELET COUNT 274 K/MM3 (134-434); RBC 3.99 M/mm3 (4.00-5.60); RDW 14.4 % (11.9-15.9); WHITE BLOOD COUNT 9.8 K/mm3 (4.0-10.0)
[2019-01-28 07:43] LABS: ALBUMIN 2.3 g/dl (3.4-5.0); BILIRUBIN,TOTAL 1.1 mg/dL (0.2-1); CALCIUM 8.1 mg/dL (8.5-10.1); CREATININE 0.9 mg/dL (0.55-1.3); POTASSIUM 4.2 mmol/L (3.5-5.1)
[2019-01-28] MEDS ORDERED: PT OWN MED DRAWER 7, Y5N ONE (09:48)
[2019-01-28] MEDS: NYSTATIN/TRIAMCINOLONE TOPICAL CREAM 15 GM TUBE TP SCH (10:33)
[2019-01-28] MEDS: OLANZapine 2.5 MG TABLET PO SCH (10:33)
[2019-01-28] MEDS: PANTOPRAZOLE 40 MG TABLET (FP) PO SCH (10:33)
[2019-01-28] MEDS: AMIODARONE HCL 200 MG TABLET (FP) PO SCH (10:33)
--- NOTE | 2019-01-28 11:59 | PN ---
Progress Note (short form) - Note Progress Note: PULMONARY More alert, awake. No fevers recorded. Denies shortness of breath. +occasional nonproductive cough. Tolerating PO. Vital Signs Period Temp Pulse Resp BP Sys/Nolan Pulse Ox Last 24 Hr 97.4 F-99.6 F 54-63 17-20 109-136/57-74 91-99 Gen: NAD at rest Heart: RRR Lung: decreased breath sounds at the bases Abd: soft, +ostomy pink Ext: no edema CBC, BMP 01/28/19 06:59 01/28/19 06:59 Active Medications Acetaminophen (Tylenol -) 650 mg PO Q6H PRN PRN Reason: PAIN LEVEL 1 - 3 Last Admin: 01/26/19 13:31 Dose: 650 mg Albuterol/Ipratropium (Duoneb -) 1 amp NEB Q6H PRN PRN Reason: SHORTNESS OF BREATH Amiodarone HCl (Cordarone -) 200 mg PO DAILY [facility] Last Admin: 01/28/19 10:33 Dose: 200 mg Atorvastatin Calcium (Lipitor -) 20 mg PO [facility] Last Admin: 01/27/19 21:50 Dose: 20 mg Docusate Sodium (Colace -) 300 mg PO [facility] Last Admin: 01/27/19 21:49 Dose: 300 mg Guaifenesin (Robitussin -) 5 ml PO Q6H PRN PRN Reason: COUGH Latanoprost (Xalatan 0.005% Eye Drops -) 1 drop OU [facility] Last Admin: 01/27/19 21:51 Dose: 1 drp Metoprolol Succinate (Toprol Xl -) 50 mg PO BID [facility] Last Admin: 01/28/19 10:33 Dose: Not Given Mometasone Furoate (Asmanex 220mcg -) 1 puff IH [facility] Last Admin: 01/27/19 21:52 Dose: 1 puff Montelukast Sodium (Singulair -) 10 mg PO [facility] Last Admin: 01/27/19 21:49 Dose: 10 mg Nystatin/Triamcinolone Acetonide (Mycolog Ii Cream -) 1 applic TP BID [facility] Last Admin: 01/28/19 10:33 Dose: 1 applic Olanzapine (Zyprexa -) 2.5 mg PO DAILY [facility] Last Admin: 01/28/19 10:33 Dose: 2.5 mg Olanzapine (Zyprexa -) 5 mg PO HS [facility] Last Admin: 01/27/19 21:49 Dose: 5 mg Pantoprazole Sodium (Protonix -) 40 mg PO DAILY [facility] Last Admin: 01/28/19 10:33 Dose: 40 mg Senna (Senna -) 1 tab PO HS PRN PRN Reason: CONSTIPATION A/P Recto-uretheral Fistula s/p Laparoscopic Diverting Colostomy COPD Atrial Flutter h/o Prostate Ca - antibiotics completed - pain control - incentive spirometry - inhaled bronchodilators - O2 to keep SpO2 >90% - rate controlled - continue anticoagulation - aspiration precautions
[2019-01-28 15:06] VITALS: BP 124/62; PULSE 71; TEMP 98
== END 2019-01-28 17:50 | DRG 981 ==
LOC: JER 09:28 → JERBED 20:20 → J6S 01-15 10:25 → OBSVTOIN 01-18 15:25 → J7W 01-19 18:57
PROVIDERS: ADMIT Family Medicine; ATTEND Family Medicine
PROC: 0D1L0Z4 Bypass Transverse Colon to Cutaneous, Open Approach (ICD-10-PCS; principal; 2019-01-20 11:00)
PROC: 0DBL4ZZ Excision of Transverse Colon, Percutaneous Endoscopic Approach (ICD-10-PCS; 2019-01-23 17:00)
DX: N36.0 Urethral fistula (principal); G92 Toxic encephalopathy; I48.92 Unspecified atrial flutter; N17.9 Acute kidney failure, unspecified; T83.010A Breakdown (mechanical) of cystostomy catheter, initial encounter; K94.09 Other complications of colostomy; I10 Essential (primary) hypertension; K21.9 Gastro-esophageal reflux disease without esophagitis; J44.9 Chronic obstructive pulmonary disease, unspecified; F03.90 Unspecified dementia, unspecified severity, without behavioral disturbance, psychotic disturbance, mood disturbance, and anxiety; Z79.01 Long term (current) use of anticoagulants; E78.5 Hyperlipidemia, unspecified; R31.0 Gross hematuria; Y83.8 Other surgical procedures as the cause of abnormal reaction of the patient, or of later complication, without mention of misadventure at the time of the procedure; K40.90 Unilateral inguinal hernia, without obstruction or gangrene, not specified as recurrent; Z85.46 Personal history of malignant neoplasm of prostate; F31.9 Bipolar disorder, unspecified; C61 Malignant neoplasm of prostate; G20 Parkinson's disease; D72.829 Elevated white blood cell count, unspecified
CPT/HCPCS: 36415; 36600; 70450-TC; 71045-TC-FY; 74018-TC-FY; 74176-TC; 76870-TC; 78452-TC; 80048; 80053; 80164; 81003; 82550; 82607; 82803; 83605; 83735; 84100; 84443; 84484; 85025; 85027; 85610; 85730; 86593; 87040; 87086; 87186; 88307-TC; 93005; 93010; 93017; 93306-TC; 93880-TC; 94640; 94760; 97116-GP; 97162-GP; 99282-25; A9502; G0378; J2785; J3243; J7030

== ENCOUNTER 2019-07-30 09:37 | Inpatient (IN) | payer OTHER ==
[2019-07-30] MEDS ORDERED: LIDOCAINE HCL 2% JELLY (5 ML/TUBE) ONE (10:17)
[2019-07-30] MEDS ORDERED: LIDOCAINE HCL 2% JELLY 10 ML CARTRIDGE ONE (10:18)
--- NOTE | 2019-07-30 10:24 | PDOC ---
History of Present Illness - General Chief Complaint: Hematuria Stated Complaint: BLOOD IN KOCH Time Seen by Provider: 07/30/19 09:47 - History of Present Illness Initial Comments: 07/30/19 10:23 74 yo M PMH atrial flutter on Eliquis, prostate CA, COPD, dementia, suprapubic catheter, rectovesicular fistula, s/p laparoscopic colostomy, R eye blidnness with skew, known L inguinal hernia containing bowel, sent from [facility] with blood in Koch. Patient with chronic Koch, replaced yesterday at assisted due to blood around meatus. Had some hematuria as well. Patient with very poor insight and is unsure when or why the Koch was replaced. Has no complaints. Specifically denies CP, SOB, abd pain, urinary changes, constipation/diarrhea, fevers/chills, ALCARAZ, N/V. Endorses incontinence. Past History - Past Medical History Allergies/Adverse Reactions: Allergies Allergy/AdvReac Type Severity Reaction Status Date / Time Carbapenems Allergy Mild Verified 07/30/19 09:42 Penicillins Allergy Unknown "SWELL UP" Verified 07/30/19 09:42 Sulfa (Sulfonamide Allergy Unknown "SWELL UP" Verified 07/30/19 09:42 Antibiotics) Home Medications: Ambulatory Orders Acetaminophen [Tylenol] 650 mg PO Q6H PRN 05/26/18 Apixaban [Eliquis] 5 mg PO BID 05/26/18 Atorvastatin Ca [Lipitor] 20 mg PO HS 05/26/18 Sennosides [Senokot] 8.6 mg PO HS PRN 05/26/18 Amiodarone HCl [Cordarone -] 200 mg PO DAILY tablet 06/18/18 Divalproex Sprinkle [Depakote Sprinkle -] 125 mg PO DAILY cap.sprink 06/18/18 Guaifenesin 100 mg PO PRN PRN 01/14/19 Travoprost [Travatan Z] 2.5 ml OP HS 01/19/19 Metoprolol Succinate [Toprol XL -] 50 mg PO BID tab.sr.24h 01/27/19 Anemia: No Asthma: No Cancer: Yes (PROSTATE) Cardiac Disorders: Yes (A FLUTTER) CVA: Yes (NO RESIDUAL) COPD: Yes (SLEEP APNEA-USES CPAP) CHF: No Dementia: Yes Diabetes: No GI Disorders: Yes Disorders: Yes HTN: No Hypercholesterolemia: Yes Liver Disease: No Seizures: No Thyroid Disease: No - Surgical History Abdominal Surgery: No Appendectomy: No Cardiac Surgery: No Cholecystectomy: No Lung Surgery: No Neurologic Surgery: No Orthopedic Surgery: No - Immunization History Immunization Up to Date: Yes - Psycho Social/Smoking Cessation Hx Smoking History: Former smoker Have you smoked in the past 12 months: No Number of Cigarettes Smoked Daily: 0 If you are a former smoker, when did you quit?: 4-5 mos ago Information on smoking cessation initiated: No 'Breaking Loose' booklet given: 03/20/15 Hx Alcohol Use: No Drug/Substance Use Hx: No Substance Use Type: None Hx Substance Use Treatment: No Review of Systems - Review of Systems Constitutional: No: Chills, Diaphoresis, Fever HEENTM: Yes: Other (skewed R eye, reportedly chronic, R eye blind). No: Hearing Loss, Difficulty Swallowing Respiratory: No: Cough, Orthopnea, Shortness of Breath Cardiac (ROS): No: Chest Pain, Lightheadedness, Palpitations, Chest Tightness ABD/GI: No: Constipated, Diarrhea, Nausea, Vomiting : Yes: Incontinence. No: Burning, Dysuria, Discharge, Frequency, Flank Pain Musculoskeletal: No: Back Pain, Muscle Pain Neurological: No: Headache, Numbness, Tingling, Weakness *Physical Exam - Vital Signs Last Vital Signs Temp Pulse Resp BP Pulse Ox 98.4 F 71 20 115/63 95 07/30/19 09:39 07/30/19 09:39 07/30/19 09:39 07/30/19 09:39 07/30/19 10:00 - Physical Exam Comments: 07/30/19 11:24 Gen: well-developed, well-nourished, NAD Neuro: AAOX4, CN II-XII intact, FTN intact, EOMI, PERRLA, 5/5 strength, SILT HEENT: atraumatic, normocephalic, dry mucous membranes. 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 Neck: trachea midline, supple CV: regular rate, regular rhythm, no murmurs, rubs, or gallops Pulm: CTA b/l, no wheezing Abd: soft, non-distended, non-tender. Colostomy in place, pale brown semi- liquid stool in bag. Hyperactive bowel sounds. : circumcised, normal penis, reducible L inguinal hernia, no apparent blood in meatus, meatus horizontal, scant blood on diaper MSK: full ROM, intact pulses Extr: no edema, no deformities Skin: warm, dry ED Treatment Course - LABORATORY CBC & Chemistry Diagram: 07/30/19 10:19 07/30/19 11:20 Medical Decision Making - Medical Decision Making 07/30/19 11:39 Patient with concern for blood from Koch, no Koch currently in place. - CBC, CMP - UA/UC - replace Koch - reassess 07/30/19 11:41 WBC 16.4. Koch inserted but without drainage. Ultrasound confirmation on bulb in bladder. 07/30/19 12:34 Still no drainage despite irrigation with 250ccs. Cr 1.3. Will do CT abd/ pelvis w/ contrast r/o fistula. 07/30/19 14:16 CT abd/pelvis: New interval right lower quadrant ostomy site. New communication between distended bladder and probable segment of bowel anterior aspect right lower quadrant almost extending to the ostomy site. Again noted is a left inguinal hernia with small bowel within the hernia sac without evidence of incarceration or obstruction. Recommend clinical correlation and correlation with recent surgical history. Recommend correlation with prior studies that are more recent to evaluate interval change. Consider surgical and GI or urologic consultation. Called radiology who confirmed that the Koch appears to be in the rectum. Spoke with Dr. Amaral who will see the patient. 07/30/19 17:35 Dr. 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 Patient will be admitted. 07/30/19 18:36 Abx coverage with cefepime 1 g. Discharge - Discharge Information Problems reviewed: Yes Clinical Impression/Diagnosis: Hematuria - Follow up/Referral - Patient Discharge Instructions - Post Discharge Activity
[2019-07-30 10:26] LABS: BASO % 0.6 % (0-2.0); EOS % 0.5 % (0-4.5); LYMPH % 6.1 % (8-40); MCH 33.1 pg (25.7-33.7); MCHC 33.4 g/dl (32.0-35.9); MEAN CELL VOLUME 99.1 fl (80-96); MEAN PLT VOLUME 8.9 fl (7.5-11.1); MONO % 6.7 % (3.8-10.2); NEUT % 86.1 % (42.8-82.8); PLATELET COUNT 242 K/MM3 (134-434); RBC 3.94 M/mm3 (4.00-5.60); RDW 16.1 % (11.9-15.9); WHITE BLOOD COUNT 16.4 K/mm3 (4.0-10.0)
--- NOTE | 2019-07-30 11:20 | PDOC ---
Documentation entered by Nevin Puentes SCRIBE, acting as scribe for Marcelina Canales MD. Marcelina Canales MD: This documentation has been prepared by the Dhaval akins Nirvannie, SCRIBE, under my direction and personally reviewed by me in its entirety. I confirm that the documentation accurately reflects all work, treatment, procedures, and medical decision making performed by me. Attending Attestation - Resident Resident Name: FergusonMackenzie - ED Attending Attestation I have performed the following: I have examined & evaluated the patient, The case was reviewed & discussed with the resident, I agree w/resident's findings & plan - HPI HPI: 07/30/19 10:19 The patient is a 74 year old male, with a significant past medical history of Dementia, COPD, Atrial Flutter(on Eliquis), Prostate CA, chronic urinary retention (chronic gil catheter) who presents to the emergency department via EMS from [facility] with, blood in the gil catheter. As per OR, patient was found to have gross blood around the gil thus, his gil catheter was removed and he was sent to the ED. While in the ED, patient is unaware of why he is present. History is limited secondary to patients dementia thus, was obtained via EMR and OR staff. Allergies: Carbapenem, Penicillins, Sulfa. Social History: Former smoker. Primary Care Physician: Dr. Bernal - Physicial Exam PE: 07/30/19 11:13 Agree with resident exam. Patient is well appearing and in no acute distress. Abdomen soft, non tender, non distended, with colostomy in place draining light brown stool. - Medical Decision Making 07/30/19 11:17 Pt presents to the ED after sent in from [facility] for blood in gil. Patient has a history of urorectal fistula and chronic indwelling gil. Gil replaced in the ED. Will check labs and UA, likely discharge home if labs are normal.
[2019-07-30] MEDS ORDERED: ACETAMINOPHEN INJECTION 100 ML IVPB ONE (12:02)
[2019-07-30 12:16] LABS: ALK PHOS 86 U/L (45-117); BILIRUBIN,TOTAL 1.3 mg/dL (0.2-1); BLOOD UREA NITROGEN 23.5 mg/dL (7-18); CALCIUM 8.6 mg/dL (8.5-10.1); CHLORIDE 110 mmol/L (98-107); CO2 29 mmol/L (21-32); CREATININE 1.3 mg/dL (0.55-1.3); GLUCOSE,RANDOM 88 mg/dL (74-106); SODIUM 142 mmol/L (136-145); TOT PROT 6.3 g/dl (6.4-8.2)
[2019-07-30 12:20] LABS: SGOT/AST 52 U/L (15-37); SGPT/ALT 13 U/L (13-61)
--- NOTE | 2019-07-30 17:16 | HP ---
Admitting History and Physical - Primary Care Physician PCP: Shekhar Joseph - Admission Chief Complaint: hematuria History of Present Illness: 74 yo M PMH atrial flutter on Eliquis, prostate CA, COPD, dementia, suprapubic catheter, rectovesicular fistula, s/p laparoscopic colostomy, R eye blindness, known L inguinal hernia containing bowel. Pt was sent from [facility] with blood in Gil. Patient with chronic Gil, replaced yesterday at [facility] due to blood around meatus. No complaints offered by pt and is unsure why he is here History Source: Patient, Medical Record Limitations to Obtaining History: Clinical Condition - Past Medical History [employer]: Yes: CVA (no residual), Dementia Cardiovascular: Yes: HTN, Hyperlipdemia, Other (aflutter) Pulmonary: Yes: COPD Renal/: Yes: Cancer (prostate s/p cyberknife/radiation ~5 yrs ago and "some other surgery"), UTI, Other (incontinence) Heme/Onc: Yes: Other (prostate cancer) Infectious Disease: Yes: Other (ESBL) Psych: Yes: Depression - Past Surgical History Past Surgical History: Yes: Colostomy (01/20/19 diverting lapascopic colostomy due to recto-urethral fistula; 01/24/19 diagnostic laparoscopy, transverse loop colostomy resection and revision of colostomy) - Smoking History Smoking history: Former smoker Have you smoked in the past 12 months: No Aproximately how many cigarettes per day: 0 If you are a former smoker, when did you quit?: 4-5 mos ago - Alcohol/Substance Use Hx Alcohol Use: No History of Substance Use: reports: None - Social History ADL: Support Services ([facility] resident) History of Recent Travel: No Home Medications - Allergies Allergies/Adverse Reactions: Allergies Allergy/AdvReac Type Severity Reaction Status Date / Time Carbapenems Allergy Mild Verified 07/30/19 09:42 Penicillins Allergy Unknown "SWELL UP" Verified 07/30/19 09:42 Sulfa (Sulfonamide Allergy Unknown "SWELL UP" Verified 07/30/19 09:42 Antibiotics) - Home Medications Home Medications: Ambulatory Orders Acetaminophen [Tylenol] 650 mg PO Q6H PRN 05/26/18 Apixaban [Eliquis] 5 mg PO BID 05/26/18 Atorvastatin Ca [Lipitor] 20 mg PO HS 05/26/18 Sennosides [Senokot] 8.6 mg PO HS PRN 05/26/18 Amiodarone HCl [Cordarone -] 200 mg PO DAILY tablet 06/18/18 Divalproex Sprinkle [Depakote Sprinkle -] 125 mg PO DAILY cap.sprink 06/18/18 Guaifenesin 100 mg PO PRN PRN 01/14/19 Travoprost [Travatan Z] 2.5 ml OP HS 01/19/19 Metoprolol Succinate [Toprol XL -] 50 mg PO BID tab.sr.24h 01/27/19 Family Medical History Family Hx Cancer: Mother ( age 82), Father (-lung Ca age 72) Review of Systems - Review of Systems Constitutional: reports: No Symptoms Eyes: reports: No Symptoms HENT: reports: No Symptoms Neck: reports: No Symptoms Cardiovascular: reports: No Symptoms Respiratory: reports: No Symptoms Gastrointestinal: reports: No Symptoms Genitourinary: reports: Incontinence Breasts: reports: No Symptoms Reported Musculoskeletal: reports: No Symptoms Integumentary: reports: No Symptoms Neurological: reports: No Symptoms Endocrine: reports: No Symptoms Hematology/Lymphatic: reports: No Symptoms Psychiatric: reports: No Symptoms Physical Examination Vital Signs: Vital Signs Temperature 97.8 F 07/30/19 14:33 Pulse Rate 69 07/30/19 14:33 Respiratory Rate 19 07/30/19 14:33 Blood Pressure 127/62 07/30/19 14:33 O2 Sat by Pulse Oximetry (%) 95 07/30/19 14:33 Constitutional: Yes: Well Nourished, No Distress, Calm Eyes: Yes: WNL, Conjunctiva Clear, EOM Intact HENT: Yes: WNL, Atraumatic, Normocephalic Neck: Yes: WNL, Supple, Trachea Midline Cardiovascular: Yes: WNL, Regular Rate and Rhythm Respiratory: Yes: WNL, Regular, CTA Bilaterally Gastrointestinal: Yes: Normal Bowel Sounds, Soft, Other ...Rectal Exam: Yes: Other (Colostomy in place, pale brown semi-liquid stool in bag. Hyperactive bowel sounds.) Renal/: Yes: Incontinence, Other (gil in place) Musculoskeletal: Yes: WNL Extremities: Yes: WNL Edema: No Peripheral Pulses WNL: Yes Peripheral Pulses: Left Radial: 2+, Right Radial: 2+, Left Doralis Pedis: 2+, Right Dorsalis Pedis: 2+, Left Femoral: 2+, Right Femoral: 2+ Integumentary: Yes: WNL Neurological: Yes: WNL, Alert, Oriented ...Motor Strength: WNL Psychiatric: Yes: Alert, Oriented Labs: CBC, BMP 07/30/19 10:19 07/30/19 11:20 Imaging - Results Cat Scan: Report Reviewed (CT A/P: new communciation between bladder and segment of bowel anterior RLQ extending to ostomy site. Left inguinal hernia with small bowel within hernia sac without incaraceration) Problem List - Problems (1) Dementia Assessment/Plan: [facility] resident continue with depakote supportive care Code(s): F03.90 - UNSPECIFIED DEMENTIA WITHOUT BEHAVIORAL DISTURBANCE (2) Colostomy complication Assessment/Plan: CT A/P: new communciation between bladder and segment of bowel anterior RLQ extending to ostomy site. Dr Wills notified and will see pt im am ostomy care Code(s): K94.00 - COLOSTOMY COMPLICATION, UNSPECIFIED (3) Blindness Assessment/Plan: right eye blindness supportive care fall precautions Code(s): H54.7 - UNSPECIFIED VISUAL LOSS (4) Hematuria Assessment/Plan: Gil in place Dr Amaral to see pt IVF Code(s): R31.9 - HEMATURIA, UNSPECIFIED (5) Atrial flutter Assessment/Plan: c/w amiodarone Code(s): I48.92 - UNSPECIFIED ATRIAL FLUTTER Qualifiers: Atrial flutter type: typical Qualified Code(s): I48.3 - Typical atrial flutter (6) COPD (chronic obstructive pulmonary disease) Assessment/Plan: supplemental O2 , maintain SPO2 >90% duo nebs PRN Code(s): J44.9 - CHRONIC OBSTRUCTIVE PULMONARY DISEASE, UNSPECIFIED (7) Prostate CA Assessment/Plan: history of Code(s): C61 - MALIGNANT NEOPLASM OF PROSTATE (8) Recto-urethral fistula Assessment/Plan: CT A/P: new communciation between bladder and segment of bowel anterior RLQ extending to ostomy site. 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 cefipime given in ED,c/w abx afebrile, monitor temp blood/urine cx pending Code(s): N36.0 - URETHRAL FISTULA (9) Prophylactic measure Assessment/Plan: FEN IVF low fat/cholesterol diet NPO past MN Monitor electrolytes, K>4.0, Mg >2.0 DVT heparin sq Dispo admit to med surg full code discharge planning back to [facility] Code(s): Z29.9 - ENCOUNTER FOR PROPHYLACTIC MEASURES, UNSPECIFIED Visit type - Emergency Visit Emergency Visit: Yes Care time: The patient presented to the Emergency Department on the above date and was hospitalized for further evaluation of their emergent condition. - New Patient This patient is new to me today: Yes Date on this admission: 07/30/19 - Critical Care Critical Care patient: No
[2019-07-30] MEDS ORDERED: ALBUTEROL SO4 2.5/IPRATROPIUM 0.5 INH SOL 3 ML VIAL.NEB. NEB PRN (17:32)
[2019-07-30] MEDS ORDERED: ACETAMINOPHEN 1000 MG/100 ML VIAL (NON FORMULARY) IVPB ONE (18:15)
[2019-07-30] MEDS ORDERED: CEFEPIME HCL/D5W 1 GM/50 ML BAG IVPB ONE (18:34)
[2019-07-30] MEDS: HEPARIN NA (PORCINE) 5,000 UNITS/ML 1ML VIAL SQ SCH (22:04)
[2019-07-30 22:37] VITALS: BMI 28.9
[2019-07-30] MEDS: ATORVASTATIN CA 20 MG TABLET (FP) PO SCH (22:38)
[2019-07-31 06:40] LABS: BASO % 0.3 % (0-2.0); EOS % 2.8 % (0-4.5); HEMOGLOBIN 12.4 GM/dL (11.7-16.9); LYMPH % 10.1 % (8-40); MCH 32.9 pg (25.7-33.7); MCHC 33.5 g/dl (32.0-35.9); MEAN CELL VOLUME 98.3 fl (80-96); MEAN PLT VOLUME 8.1 fl (7.5-11.1); NEUT % 76.8 % (42.8-82.8); PLATELET COUNT 201 K/MM3 (134-434); RBC 3.76 M/mm3 (4.00-5.60); RDW 16.1 % (11.9-15.9); WHITE BLOOD COUNT 9.7 K/mm3 (4.0-10.0)
[2019-07-31 07:02] LABS: INR 1.13 (0.83-1.09); PROTHROMBIN TIME (PATIENT) 13.3 SEC (9.7-13.0)
[2019-07-31 07:21] LABS: MAGNESIUM 2.2 mg/dL (1.8-2.4); PHOSPHOROUS 3.3 mg/dL (2.5-4.9)
--- NOTE | 2019-07-31 09:20 | PN ---
Progress Note, Physician - Current Medication List Current Medications: Active Medications Albuterol/Ipratropium (Duoneb -) 1 amp NEB Q6H PRN PRN Reason: SHORT OF BREATH/WHEEZING Amiodarone HCl (Cordarone -) 200 mg PO DAILY [facility] Atorvastatin Calcium (Lipitor -) 20 mg PO HS [facility] Last Admin: 07/30/19 22:38 Dose: 20 mg Divalproex Sodium (Depakote Sprinkle Caps -) 125 mg PO DAILY [facility] Heparin Sodium (Porcine) (Heparin -) 5,000 unit SQ BID [facility] Last Admin: 07/30/19 22:04 Dose: Not Given Metoprolol Succinate (Toprol Xl -) 50 mg PO BID [facility] Last Admin: 07/30/19 22:38 Dose: 50 mg - Objective Vital Signs: Vital Signs Temperature 98.1 F 07/31/19 05:00 Pulse Rate 60 07/31/19 05:00 Respiratory Rate 18 07/31/19 05:00 Blood Pressure 115/65 07/31/19 05:00 O2 Sat by Pulse Oximetry (%) 95 07/30/19 21:00 Labs: CBC, BMP 07/31/19 06:13 07/30/19 11:20 INR, PTT INR 1.13 (0.83-1.09) H 07/31/19 06:13 Problem List - Problems (1) Colostomy complication Assessment/Plan: CT A/P: new communciation between bladder and segment of bowel anterior RLQ extending to ostomy site. Dr Wills will see ostomy care Code(s): K94.00 - COLOSTOMY COMPLICATION, UNSPECIFIED (2) Dementia Code(s): F03.90 - UNSPECIFIED DEMENTIA WITHOUT BEHAVIORAL DISTURBANCE (3) Atrial flutter Assessment/Plan: c/w amiodarone Code(s): I48.92 - UNSPECIFIED ATRIAL FLUTTER Qualifiers: Atrial flutter type: typical Qualified Code(s): I48.3 - Typical atrial flutter (4) Recto-urethral fistula Assessment/Plan: CT A/P: new communciation between bladder and segment of bowel anterior RLQ extending to ostomy site. 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 cefipime given in ED,c/w abx afebrile, monitor temp blood/urine cx pending Code(s): N36.0 - URETHRAL FISTULA (5) Hematuria Assessment/Plan: uro on board gil Code(s): R31.9 - HEMATURIA, UNSPECIFIED
--- NOTE | 2019-07-31 09:38 | CON.GU ---
Consult Consult Specialty:: Referred by:: Jake Reason for Consultation:: rectourethral fistula - History of Present Illness Chief Complaint: hematuria History of Present Illness: 74 yo M PMH atrial flutter on Eliquis, prostate CA, COPD, dementia, suprapubic catheter, rectourethral fistula, s/p laparoscopic colostomy, R eye blindness, known L inguinal hernia containing bowel. Pt was sent from [facility] with blood in Hogan. Patient with chronic Hogan, replaced yesterday at retirement due to blood around meatus. No complaints offered by pt and is unsure why he is here . con req. History Source: Patient, Medical Record Limitations to Obtaining History: Clinical Condition - Past Medical History DIRECTOR RADIATION ONCOLOGY: Yes: CVA (no residual), Dementia Cardiovascular: Yes: HTN, Hyperlipdemia, Other (aflutter) Pulmonary: Yes: COPD Renal/: Yes: Cancer (prostate s/p cyberknife/radiation ~5 yrs ago and "some other surgery"), UTI, Other (incontinence) Heme/Onc: Yes: Other (prostate cancer) Infectious Disease: Yes: Other (ESBL) Psych: Yes: Depression - Past Surgical History Past Surgical History: Yes: Colostomy (01/20/19 diverting lapascopic colostomy due to recto-urethral fistula; 01/24/19 diagnostic laparoscopy, transverse loop colostomy resection and revision of colostomy) - Smoking History Smoking history: Former smoker Have you smoked in the past 12 months: No Aproximately how many cigarettes per day: 0 If you are a former smoker, when did you quit?: 4-5 mos ago - Alcohol/Substance Use Hx Alcohol Use: No History of Substance Use: reports: None - Social History ADL: Support Services ([facility] resident) History of Recent Travel: No - Past Medical History DIRECTOR RADIATION ONCOLOGY: Yes: CVA (no residual), Dementia Cardio/Vascular: Yes: HTN, Hyperlipdemia, Other (aflutter) Pulmonary: Yes: COPD Renal/: Yes: Cancer (prostate s/p cyberknife/radiation ~5 yrs ago and "some other surgery"), UTI, Other (incontinence) Infectious Disease: Yes: Other (ESBL) Psych: Yes: Depression - Past Surgical History Past Surgical History: Yes: Colostomy (01/20/19 diverting lapascopic colostomy due to recto-urethral fistula; 01/24/19 diagnostic laparoscopy, transverse loop colostomy resection and revision of colostomy) - Alcohol/Substance Use Hx Alcohol Use: No History of Substance Use: reports: None - Smoking History Smoking history: Former smoker Have you smoked in the past 12 months: No Aproximately how many cigarettes per day: 0 If you are a former smoker, when did you quit?: 4-5 mos ago - Social History Usual Living Arrangement: With Significant Other ADL: Support Services ([facility] resident) History of Recent Travel: No Home Medications - Allergies Allergies/Adverse Reactions: Allergies Allergy/AdvReac Type Severity Reaction Status Date / Time Carbapenems Allergy Mild Verified 07/30/19 09:42 Penicillins Allergy Unknown "SWELL UP" Verified 07/30/19 09:42 Sulfa (Sulfonamide Allergy Unknown "SWELL UP" Verified 07/30/19 09:42 Antibiotics) - Home Medications Home Medications: Ambulatory Orders Acetaminophen [Tylenol] 650 mg PO Q6H PRN 05/26/18 Apixaban [Eliquis] 5 mg PO BID 05/26/18 Atorvastatin Ca [Lipitor] 20 mg PO HS 05/26/18 Sennosides [Senokot] 8.6 mg PO HS PRN 05/26/18 Amiodarone HCl [Cordarone -] 200 mg PO DAILY tablet 06/18/18 Divalproex Sprinkle [Depakote Sprinkle -] 125 mg PO DAILY cap.sprink 06/18/18 Guaifenesin 100 mg PO PRN PRN 01/14/19 Travoprost [Travatan Z] 2.5 ml OP HS 01/19/19 Metoprolol Succinate [Toprol XL -] 50 mg PO BID tab.sr.24h 01/27/19 Physical Exam- Vital Signs: Vital Signs Temperature 98.1 F 07/31/19 05:00 Pulse Rate 60 07/31/19 05:00 Respiratory Rate 18 07/31/19 05:00 Blood Pressure 115/65 07/31/19 05:00 O2 Sat by Pulse Oximetry (%) 95 07/30/19 21:00 Gastrointestinal: Yes: Normal Bowel Sounds, Soft (colostomy) Renal/: Yes: Bladder Distention Testicles: Yes: WNL, Other Penis: Yes: WNL Prostate Exam: Yes: Deferred Labs: CBC, BMP 07/31/19 06:13 07/30/19 11:20 Imaging - Results Cat Scan: Report Reviewed, Image Reviewed Problem List - Problems (1) Hematuria Code(s): R31.9 - HEMATURIA, UNSPECIFIED (2) Inguinal hernia Code(s): K40.90 - UNIL INGUINAL HERNIA, W/O OBST OR GANGR, NOT SPCF RECUR (3) Leukocytosis Code(s): D72.829 - ELEVATED WHITE BLOOD CELL COUNT, UNSPECIFIED (4) Recto-urethral fistula Assessment/Plan: cystoscopy, cystogram, SP cystostomy Code(s): N36.0 - URETHRAL FISTULA
[2019-07-31] MEDS: ACETAMINOPHEN 325 MG TABLET (FP) PO PRN (10:46)
[2019-07-31] MEDS: AMIODARONE HCL 200 MG TABLET (FP) PO SCH (10:46)
[2019-07-31] MEDS: AMINO ACIDS 4.25%/D5W 1,000 ML IV SCH ×2 (10:48→21:37)
[2019-07-31] MEDS: HEPARIN NA (PORCINE) 5,000 UNITS/ML 1ML VIAL SQ SCH ×2 (12:14→21:37)
[2019-07-31] MEDS: DIVALPROEX SODIUM 125 MG SPRINKLE CAPS PO SCH (12:14)
--- NOTE | 2019-07-31 12:58 | OP ---
Operative Note - Note: Operative Date: 07/31/19 Pre-Operative Diagnosis: rectourethral fistula, r/o colovesical fistula Operation: cystoscopy, cystogram, SP cystostomy Findings: rectourethral fistula, no colovesical fistula Surgeon: Aurelio Amaral Anesthesia: General Estimated Blood Loss (mls): 0 Drains & Tubes with Location: 24 fr 30 ml balloon SP tube Operative Report Dictated: Yes
[2019-07-31] MEDS ORDERED: ONDANSETRON 4 MG/2 ML VIAL IVPUSH PRN (13:42)
[2019-07-31] MEDS ORDERED: LIDOCAINE HCL/PF 2% SDV 5ML VIAL ONE (13:49)
[2019-07-31] MEDS ORDERED: PROPOFOL 20 ML ONE ×2 (13:49)
[2019-07-31] MEDS ORDERED: IOHEXOL 300 MG/ML INFUS..BTL IV ONE (14:50)
[2019-07-31] MEDS ORDERED: DEXAMETHASONE SOD PHOSPHATE 4 MG/1 ML VIAL ONE (15:06)
--- NOTE | 2019-07-31 18:54 | CONSULT ---
Consult Consult Specialty:: Surgery Reason for Consultation:: rectourethral fistula - History of Present Illness Chief Complaint: hematuria History of Present Illness: 74 yo M PMH atrial flutter on Eliquis, prostate CA, COPD, dementia, suprapubic catheter, rectovesicular fistula, s/p laparoscopic colostomy, R eye blindness, known L inguinal hernia containing bowel. Pt was sent from [facility] with blood in Hogan. Patient with chronic Hogan, replaced yesterday at group home due to blood around meatus. Patient denies abdominal painn, nausea or vomiting. Patient is s/p SPC today. 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: Yes: CVA (no residual), Dementia Cardio/Vascular: Yes: HTN, Hyperlipdemia, Other (aflutter) Pulmonary: Yes: COPD Renal/: Yes: Cancer (prostate s/p cyberknife/radiation ~5 yrs ago and "some other surgery"), UTI, Other (incontinence) Infectious Disease: Yes: Other (ESBL) Psych: Yes: Depression - Past Surgical History Past Surgical History: Yes: Colostomy (01/20/19 diverting lapascopic colostomy due to recto-urethral fistula; 01/24/19 diagnostic laparoscopy, transverse loop colostomy resection and revision of colostomy) - Alcohol/Substance Use Hx Alcohol Use: No History of Substance Use: reports: None - Smoking History Smoking history: Former smoker Have you smoked in the past 12 months: No Aproximately how many cigarettes per day: 0 If you are a former smoker, when did you quit?: 4-5 mos ago - Social History Usual Living Arrangement: With Significant Other ADL: Support Services ([facility] resident) History of Recent Travel: No Home Medications - Allergies Allergies/Adverse Reactions: Allergies Allergy/AdvReac Type Severity Reaction Status Date / Time Carbapenems Allergy Mild Verified 07/30/19 09:42 Penicillins Allergy Unknown "SWELL UP" Verified 07/30/19 09:42 Sulfa (Sulfonamide Allergy Unknown "SWELL UP" Verified 07/30/19 09:42 Antibiotics) - Home Medications Home Medications: Ambulatory Orders Acetaminophen [Tylenol] 650 mg PO Q6H PRN 05/26/18 Apixaban [Eliquis] 5 mg PO BID 05/26/18 Atorvastatin Ca [Lipitor] 20 mg PO HS 05/26/18 Sennosides [Senokot] 8.6 mg PO HS PRN 05/26/18 Amiodarone HCl [Cordarone -] 200 mg PO DAILY tablet 06/18/18 Divalproex Sprinkle [Depakote Sprinkle -] 125 mg PO DAILY cap.sprink 06/18/18 Guaifenesin 100 mg PO PRN PRN 01/14/19 Travoprost [Travatan Z] 2.5 ml OP HS 01/19/19 Metoprolol Succinate [Toprol XL -] 50 mg PO BID tab.sr.24h 01/27/19 Physical Exam Vital Signs: Vital Signs Temperature 98.6 F 07/31/19 16:45 Pulse Rate 53 L 07/31/19 16:58 Respiratory Rate 12 07/31/19 16:58 Blood Pressure 109/55 L 07/31/19 16:58 O2 Sat by Pulse Oximetry (%) 96 07/31/19 16:58 Constitutional: Yes: No Distress, Calm Eyes: Yes: Conjunctiva Clear HENT: Yes: Normocephalic Neck: Yes: Supple Cardiovascular: Yes: Regular Rate and Rhythm Respiratory: Yes: CTA Bilaterally Gastrointestinal: Yes: Soft, Other (colostomy with brownish liquid stool, urine from suprapubic cystostomy clear and non-feculent) Labs: CBC, BMP 07/31/19 06:13 07/30/19 11:20 Imaging - Results Cat Scan: Report Reviewed, Image Reviewed Problem List - Problems (1) Rectourethral fistula Assessment/Plan: doubt new fistula proximal to colostomy site as patient's urine is non feculent At best, fistula may be distal to ostomy at the defunctionalized limb Will review CT with radiology No intervention necessary at this time as patient is stable Code(s): N36.0 - URETHRAL FISTULA
[2019-07-31] MEDS: ATORVASTATIN CA 20 MG TABLET (FP) PO SCH (21:38)
--- NOTE | 2019-07-31 23:08 | OP ---
DATE OF OPERATION: 07/31/2019 PREOPERATIVE DIAGNOSIS: Rectourethral fistula rule out colovesical fistula. POSTOPERATIVE DIAGNOSIS: Rectourethral fistula, no evidence of colovesical fistula. PROCEDURE: Cystoscopy, cystogram, and suprapubic cystostomy. SURGEON: Aurelio Tamez M.D. STAND UP COMEDIAN: None. ANESTHESIA: General via laryngeal mask. ANESTHESIOLOGIST: Eileen Michel MD SPECIMENS: None. CULTURES: None. DRAINS: A 24-Occitan 2-way Hogan catheter, 30 mL suprapubic. ESTIMATED BLOOD LOSS: None. COMPLICATIONS: None. DESCRIPTION OF PROCEDURE: DESCRIPTION OF PROCEDURE: Patient was brought in the operating room, placed on the operating room table in the supine position. After administration of general anesthesia via laryngeal mask, intravenous antibiotics were administered. Sequential compression devices were placed. Patient was placed in dorsal lithotomy position. Indwelling Hogan catheter was removed, and the genitals, perineum, were prepped and draped in usual sterile manner. The lower abdomen was also prepped. Now the 22 Occitan cystoscope was inserted into the bladder under direct vision. Anterior urethra was normal. The prostatic urethra demonstrated rectourethral fistula. The bladder was entered, thoroughly inspected. There were no foreign bodies, tumors, stones, inflammation. Both ureteral orifices were in their usual location with a clear efflux bilaterally. Cystogram was done demonstrated no evidence of colovesical fistula. No filling defects. No diverticula. The bladder was emptied. Post evacuation films also demonstrated no evidence of extravasation or evidence of fistula. Now the bladder was filled with sterile normal saline, and the cystoscope removed. Now the curved Lowsley retractor was inserted into the bladder, brought up against the anterior abdominal wall. 2 fingerbreadths cephalad to symphysis pubis in the midline, a 1-cm transverse incision was made overlying the previous cystotomy and the tip of the Lowsley retractor. This was carried out through the fascia with a scalpel. Now this tissue was opened with electrocautery. The Lowsley retractor was brought out through the skin incisions. The wings were opened. A 0 silk tie was passed through the Lowsley retractor and through the eye of the Hogan catheter and tied. The wings of the Lowsley retractor were closed, and the Hogan catheter suprapubic tube was now brought into the bladder, out the urethra with the Lowsley Lowsley retractor. The silk stitch was cut, and under cystoscopic guidance, the Hogan catheter balloon was withdrawn back into the bladder under direct vision. Now 30 mL were placed in the balloon, brought up against the anterior bladder wall and drainage was clear. It was connected to gravity drainage. Bladder was empty. Cystoscope removed. He tolerated procedure well. Sterile compressive dressing was applied. Transferred to recovery in stable condition. AURELIO TAMEZ M.D. [id number]
[2019-08-01] MEDS: ACETAMINOPHEN 325 MG TABLET (FP) PO PRN ×3 (06:36→21:23)
[2019-08-01 07:20] LABS: BASO % 0.1 % (0-2.0); HEMATOCRIT 36.6 % (35.4-49); HEMOGLOBIN 12.3 GM/dL (11.7-16.9); LYMPH % 7.8 % (8-40); MCHC 33.5 g/dl (32.0-35.9); MEAN CELL VOLUME 98.5 fl (80-96); MEAN PLT VOLUME 8.7 fl (7.5-11.1); MONO % 6.7 % (3.8-10.2); NEUT % 85.4 % (42.8-82.8); PLATELET COUNT 216 K/MM3 (134-434); RBC 3.72 M/mm3 (4.00-5.60); RDW 15.8 % (11.9-15.9); WHITE BLOOD COUNT 10.5 K/mm3 (4.0-10.0)
[2019-08-01 07:54] LABS: ALBUMIN 2.7 g/dl (3.4-5.0); BILIRUBIN,TOTAL 0.6 mg/dL (0.2-1); BLOOD UREA NITROGEN 16.8 mg/dL (7-18); CALCIUM 8.3 mg/dL (8.5-10.1); CREATININE 0.9 mg/dL (0.55-1.3); POTASSIUM 4.1 mmol/L (3.5-5.1); TOT PROT 5.4 g/dl (6.4-8.2)
[2019-08-01] MEDS: LACTATED RINGERS SOLUTION 1,000 ML IV SCH ×2 (11:00→16:56)
[2019-08-01] MEDS: AMINO ACIDS 4.25%/D5W 1,000 ML IV SCH ×2 (11:01→21:28)
[2019-08-01] MEDS ORDERED: PT OWN MED DRAWER 7, Y5N ONE (11:04)
[2019-08-01] MEDS: HEPARIN NA (PORCINE) 5,000 UNITS/ML 1ML VIAL SQ SCH ×2 (11:05→21:27)
[2019-08-01] MEDS: DIVALPROEX SODIUM 125 MG SPRINKLE CAPS PO SCH (11:07)
[2019-08-01] MEDS: AMIODARONE HCL 200 MG TABLET (FP) PO SCH ×2 (11:08→11:21)
--- NOTE | 2019-08-01 13:20 | EKG ---
Test Reason : Blood Pressure : / mmHG Vent. Rate : 055 BPM Atrial Rate : 055 BPM P-R Int : 150 ms QRS Dur : 088 ms QT Int : 380 ms P-R-T Axes : 070 012 079 degrees QTc Int : 363 ms SINUS BRADYCARDIA LOW VOLTAGE QRS NONSPECIFIC T WAVE ABNORMALITY ABNORMAL ECG WHEN COMPARED WITH ECG OF 27-JAN-2019 15:05, NO SIGNIFICANT CHANGE WAS FOUND Confirmed by Sunday Ortega ([id number]) on 08/01/2019 1:20:43 PM Referred By: Mauro IVEY Confirmed By:Sunday Ortega
--- NOTE | 2019-08-01 14:55 | PN ---
Progress Note, Physician Chief Complaint: Recto-Urethral Fistula History of Present Illness: Previous notes and events reviewed awake and alert NAD complain of pain to suprapubic cath site leukocytosis, afebrile noted with bradycardia s/p cystoscopy - Current Medication List Current Medications: Active Medications Acetaminophen (Tylenol -) 650 mg PO Q4H PRN PRN Reason: PAIN Last Admin: 08/01/19 06:36 Dose: 650 mg Albuterol/Ipratropium (Duoneb -) 1 amp NEB Q6H PRN PRN Reason: SHORT OF BREATH/WHEEZING Amiodarone HCl (Cordarone -) 200 mg PO DAILY [facility] Last Admin: 08/01/19 11:21 Dose: Not Given Atorvastatin Calcium (Lipitor -) 20 mg PO HS [facility] Last Admin: 07/31/19 21:38 Dose: 20 mg Divalproex Sodium (Depakote Sprinkle Caps -) 125 mg PO DAILY [facility] Last Admin: 08/01/19 11:07 Dose: 125 mg Fentanyl (Sublimaze Injection -) 50 mcg IVPUSH [id number] PRN PRN Reason: PAIN-PACU ORDER X 4 DOSES ONLY Heparin Sodium (Porcine) (Heparin -) 5,000 unit SQ BID [facility] Last Admin: 08/01/19 11:05 Dose: 5,000 unit Amino Acids (Clinimix -) 1,000 mls @ 84 mls/hr IV Q12H [facility] Last Admin: 08/01/19 11:01 Dose: Not Given Lactated Ringer's (Lactated Ringers Solution) 1,000 mls @ 125 mls/hr IV ASDIR [facility] Last Admin: 08/01/19 11:00 Dose: Not Given Metoprolol Succinate (Toprol Xl -) 50 mg PO BID [facility] Last Admin: 08/01/19 11:20 Dose: Not Given Ondansetron HCl (Zofran Injection) 4 mg IVPUSH Q6H PRN PRN Reason: NAUSEA AND/OR VOMITING - Objective Vital Signs: Vital Signs Temperature 98.6 F 08/01/19 13:08 Pulse Rate 56 L 08/01/19 13:08 Respiratory Rate 18 08/01/19 13:08 Blood Pressure 119/58 L 08/01/19 13:08 O2 Sat by Pulse Oximetry (%) 96 08/01/19 08:42 Constitutional: Yes: No Distress, Calm Eyes: Yes: Conjunctiva Clear HENT: Yes: Atraumatic Cardiovascular: Yes: Bradycardia Respiratory: Yes: Regular, Diminished Gastrointestinal: Yes: Normal Bowel Sounds, Soft, Other (colostomy) Genitourinary: Yes: Other (suprapubic catheter) Musculoskeletal: Yes: Muscle Weakness Extremities: Yes: WNL Edema: No Neurological: Yes: Alert, Pre-Existing Deficit Psychiatric: Yes: Alert Labs: CBC, BMP 08/01/19 06:30 08/01/19 06:30 INR, PTT INR 1.13 (0.83-1.09) H 07/31/19 06:13 Problem List - Problems (1) Colostomy complication Assessment/Plan: -CTAP shows new communication between distended bladder and probable segment of bowel anterior aspect RLQ almost extending to ostomy site -Surgical consult Code(s): K94.00 - COLOSTOMY COMPLICATION, UNSPECIFIED (2) Hematuria Assessment/Plan: -Urology on board -suparapubic catheter -s/p cystoscopy Code(s): R31.9 - HEMATURIA, UNSPECIFIED (3) JASIEL (acute kidney injury) Assessment/Plan: -resolved -BUN/Cr 16.8/0.9 -monitor renal function Code(s): N17.9 - ACUTE KIDNEY FAILURE, UNSPECIFIED (4) Atrial flutter Assessment/Plan: -Amiodarone and Metoprolol -noted to be bradycardic today, medication held -Cardiology consult Code(s): I48.92 - UNSPECIFIED ATRIAL FLUTTER Qualifiers: Atrial flutter type: typical Qualified Code(s): I48.3 - Typical atrial flutter (5) COPD (chronic obstructive pulmonary disease) Assessment/Plan: -Bronchodilators -keep SpO2 >90% -O2 via NC Code(s): J44.9 - CHRONIC OBSTRUCTIVE PULMONARY DISEASE, UNSPECIFIED (6) Hypertension Code(s): I10 - ESSENTIAL (PRIMARY) HYPERTENSION Qualifiers: Hypertension type: essential hypertension Qualified Code(s): I10 - Essential (primary) hypertension (7) Leukocytosis Assessment/Plan: -ID consult -afebrile -WBC 10.5 -UA/UC ordered Code(s): D72.829 - ELEVATED WHITE BLOOD CELL COUNT, UNSPECIFIED (8) Recto-urethral fistula Assessment/Plan: -Urology on board -s/p cystoscopy --CTAP shows new communication between distended bladder and probable segment of bowel anterior aspect RLQ almost extending to ostomy site -Surgery on board Code(s): N36.0 - URETHRAL FISTULA Assessment/Plan see problem list dvt ppx
[2019-08-01 18:34] LABS: EPI CELLS 5.6 /HPF (0-5/HPF); HYALINE CASTS 16 /lpf (0-8); PH,URINE 5.5 (5.0-8.0); URINE APPEARANCE CLEAR; URINE BACTERIA 6.7 /hpf (NEGATIVE); URINE BILIRUBIN NEGATIVE (NEGATIVE); URINE COLOR YELLOW; URINE GLUCOSE (UA) NEGATIVE (NEGATIVE); URINE KETONE NEGATIVE (NEGATIVE); URINE LEUK ESTERASE 2+ (NEGATIVE); URINE NITRITE NEGATIVE (NEGATIVE); URINE PROTEIN 2+ (NEGATIVE); URINE RBC 20 /hpf (0-4); URINE UROBILINOGEN 0.2 mg/dL (0.2-1.0); URINE WBC 64 /hpf (0-5)
[2019-08-01] MEDS: ATORVASTATIN CA 20 MG TABLET (FP) PO SCH (21:27)
[2019-08-02 07:40] LABS: HEMATOCRIT 35.9 % (35.4-49); HEMOGLOBIN 12.3 GM/dL (11.7-16.9); MCH 34.1 pg (25.7-33.7); MCHC 34.4 g/dl (32.0-35.9); MEAN CELL VOLUME 99.1 fl (80-96); MEAN PLT VOLUME 8.8 fl (7.5-11.1); PLATELET COUNT 229 K/MM3 (134-434); RBC 3.62 M/mm3 (4.00-5.60); RDW 15.4 % (11.9-15.9); WHITE BLOOD COUNT 7.5 K/mm3 (4.0-10.0)
[2019-08-02 07:51] LABS: ALBUMIN 2.8 g/dl (3.4-5.0); BILIRUBIN,TOTAL 0.6 mg/dL (0.2-1); BLOOD UREA NITROGEN 13.6 mg/dL (7-18); CALCIUM 8.3 mg/dL (8.5-10.1); CREATININE 0.9 mg/dL (0.55-1.3); POTASSIUM 3.9 mmol/L (3.5-5.1); TOT PROT 5.5 g/dl (6.4-8.2)
[2019-08-02] MEDS: AMIODARONE HCL 200 MG TABLET (FP) PO SCH (10:42)
[2019-08-02] MEDS: HEPARIN NA (PORCINE) 5,000 UNITS/ML 1ML VIAL SQ SCH ×2 (10:46→22:09)
[2019-08-02] MEDS: DIVALPROEX SODIUM 125 MG SPRINKLE CAPS PO SCH (10:47)
--- NOTE | 2019-08-02 13:38 | PN ---
Progress Note, Physician Chief Complaint: Recto-Urethral Fistula History of Present Illness: Previous notes and events reviewed awake and alert NAD complain of pain to suprapubic cath site no leukocytosis afebrile noted with bradycardia s/p cystoscopy - Current Medication List Current Medications: Active Medications Acetaminophen (Tylenol -) 650 mg PO Q4H PRN PRN Reason: PAIN Last Admin: 08/01/19 21:23 Dose: 650 mg Albuterol/Ipratropium (Duoneb -) 1 amp NEB Q6H PRN PRN Reason: SHORT OF BREATH/WHEEZING Amiodarone HCl (Cordarone -) 200 mg PO DAILY [facility] Last Admin: 08/02/19 10:42 Dose: 200 mg Atorvastatin Calcium (Lipitor -) 20 mg PO HS [facility] Last Admin: 08/01/19 21:27 Dose: Not Given Divalproex Sodium (Depakote Sprinkle Caps -) 125 mg PO DAILY [facility] Last Admin: 08/02/19 10:47 Dose: 125 mg Fentanyl (Sublimaze Injection -) 50 mcg IVPUSH [id number] PRN PRN Reason: PAIN-PACU ORDER X 4 DOSES ONLY Heparin Sodium (Porcine) (Heparin -) 5,000 unit SQ BID [facility] Last Admin: 08/02/19 10:46 Dose: 5,000 unit Amino Acids (Clinimix -) 1,000 mls @ 84 mls/hr IV Q12H [facility] Last Admin: 08/01/19 21:28 Dose: Not Given Lactated Ringer's (Lactated Ringers Solution) 1,000 mls @ 125 mls/hr IV ASDIR [facility] Last Admin: 08/01/19 16:56 Dose: Not Given Metoprolol Succinate (Toprol Xl -) 50 mg PO BID [facility] Last Admin: 08/02/19 10:46 Dose: 50 mg Ondansetron HCl (Zofran Injection) 4 mg IVPUSH Q6H PRN PRN Reason: NAUSEA AND/OR VOMITING - Objective Vital Signs: Vital Signs Temperature 98.9 F 08/02/19 10:00 Pulse Rate 56 L 08/02/19 10:00 Respiratory Rate 20 08/02/19 10:00 Blood Pressure 152/68 08/02/19 10:00 O2 Sat by Pulse Oximetry (%) 96 08/02/19 09:00 Constitutional: Yes: No Distress, Calm Eyes: Yes: Conjunctiva Clear HENT: Yes: Atraumatic Cardiovascular: Yes: Regular Rate and Rhythm Respiratory: Yes: Regular, CTA Bilaterally Gastrointestinal: Yes: Normal Bowel Sounds, Soft Genitourinary: Yes: Other (suprapubic) Musculoskeletal: Yes: Muscle Weakness Extremities: Yes: WNL Edema: No Neurological: Yes: Alert, Pre-Existing Deficit Psychiatric: Yes: Alert Labs: CBC, BMP 08/02/19 06:45 08/02/19 06:45 INR, PTT INR 1.13 (0.83-1.09) H 07/31/19 06:13 Problem List - Problems (1) Colostomy complication Assessment/Plan: -CTAP shows new communication between distended bladder and probable segment of bowel anterior aspect RLQ almost extending to ostomy site -Surgical consult Code(s): K94.00 - COLOSTOMY COMPLICATION, UNSPECIFIED (2) Hematuria Assessment/Plan: -Urology on board -suparapubic catheter -s/p cystoscopy Code(s): R31.9 - HEMATURIA, UNSPECIFIED (3) JASIEL (acute kidney injury) Assessment/Plan: -resolved -BUN/Cr 13.6/0.9 -monitor renal function Code(s): N17.9 - ACUTE KIDNEY FAILURE, UNSPECIFIED (4) Atrial flutter Assessment/Plan: -Amiodarone and Metoprolol -hold meds if HR <60bpm -Cardiology consult Code(s): I48.92 - UNSPECIFIED ATRIAL FLUTTER Qualifiers: Atrial flutter type: typical Qualified Code(s): I48.3 - Typical atrial flutter (5) COPD (chronic obstructive pulmonary disease) Assessment/Plan: -Bronchodilators -keep SpO2 >90% -O2 via NC Code(s): J44.9 - CHRONIC OBSTRUCTIVE PULMONARY DISEASE, UNSPECIFIED (6) Hypertension Code(s): I10 - ESSENTIAL (PRIMARY) HYPERTENSION Qualifiers: Hypertension type: essential hypertension Qualified Code(s): I10 - Essential (primary) hypertension (7) Leukocytosis Assessment/Plan: -ID consult -afebrile -WBC 10.5 -UA with 2+ leuks, 2+ blood -UC pending Code(s): D72.829 - ELEVATED WHITE BLOOD CELL COUNT, UNSPECIFIED (8) Recto-urethral fistula Assessment/Plan: -Urology on board -s/p cystoscopy --CTAP shows new communication between distended bladder and probable segment of bowel anterior aspect RLQ almost extending to ostomy site -Surgery on board Code(s): N36.0 - URETHRAL FISTULA Assessment/Plan see problem list dvt ppx
--- NOTE | 2019-08-02 15:22 | CON.CARD ---
Consult Consult Specialty:: cardiology Referred by:: Jake Reason for Consultation:: bleed - History of Present Illness Chief Complaint: gU bleed History of Present Illness: The patient is a 74-year-old ma with dementia, history of hypertension, COPD, paroxysmal atrial flutter on and liquids, rectal bleed,suprapubic catheter with a rectovesicular fistula, now admittedwith blood in the Hogan catheter. The patient looks fairly comfortable this afternoon. He offers no specific complaints. Breathing normally. 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: CVA (no residual), Dementia Cardio/Vascular: Yes: HTN, Hyperlipdemia, Other (aflutter) Pulmonary: Yes: COPD Renal/: Yes: Cancer (prostate s/p cyberknife/radiation ~5 yrs ago and "some other surgery"), UTI, Other (incontinence) Infectious Disease: Yes: Other (ESBL) Psych: Yes: Depression - Past Surgical History Past Surgical History: Yes: Colostomy (01/20/19 diverting lapascopic colostomy due to recto-urethral fistula; 01/24/19 diagnostic laparoscopy, transverse loop colostomy resection and revision of colostomy) - Alcohol/Substance Use Hx Alcohol Use: No History of Substance Use: reports: None - Smoking History Smoking history: Former smoker Have you smoked in the past 12 months: No Aproximately how many cigarettes per day: 0 If you are a former smoker, when did you quit?: 4-5 mos ago - Social History Usual Living Arrangement: With Significant Other ADL: Support Services ([facility] resident) History of Recent Travel: No Home Medications - Allergies Allergies/Adverse Reactions: Allergies Allergy/AdvReac Type Severity Reaction Status Date / Time Carbapenems Allergy Mild Verified 07/30/19 09:42 Penicillins Allergy Unknown "SWELL UP" Verified 07/30/19 09:42 Sulfa (Sulfonamide Allergy Unknown "SWELL UP" Verified 07/30/19 09:42 Antibiotics) - Home Medications Home Medications: Ambulatory Orders Acetaminophen [Tylenol] 650 mg PO Q6H PRN 05/26/18 Apixaban [Eliquis] 5 mg PO BID 05/26/18 Atorvastatin Ca [Lipitor] 20 mg PO HS 05/26/18 Sennosides [Senokot] 8.6 mg PO HS PRN 05/26/18 Amiodarone HCl [Cordarone -] 200 mg PO DAILY tablet 06/18/18 Divalproex Sprinkle [Depakote Sprinkle -] 125 mg PO DAILY cap.sprink 06/18/18 Guaifenesin 100 mg PO PRN PRN 01/14/19 Travoprost [Travatan Z] 2.5 ml OP HS 01/19/19 Metoprolol Succinate [Toprol XL -] 50 mg PO BID tab.sr.24h 01/27/19 Review of Systems - Review of Systems Constitutional: reports: No Symptoms Eyes: reports: No Symptoms HENT: reports: No Symptoms Neck: reports: No Symptoms Cardiovascular: reports: No Symptoms Respiratory: reports: No Symptoms Gastrointestinal: reports: No Symptoms Genitourinary: reports: Hematuria Breasts: reports: No Symptoms Reported Musculoskeletal: reports: No Symptoms Integumentary: reports: No Symptoms Neurological: reports: No Symptoms Endocrine: reports: No Symptoms Hematology/Lymphatic: reports: No Symptoms Vital Signs: Vital Signs Temperature 98.7 F 08/02/19 14:59 Pulse Rate 52 L 08/02/19 14:59 Respiratory Rate 17 08/02/19 14:59 Blood Pressure 126/60 08/02/19 14:59 O2 Sat by Pulse Oximetry (%) 96 08/02/19 09:00 Constitutional: Yes: Well Nourished, No Distress, Calm Eyes: Yes: WNL, Conjunctiva Clear, EOM Intact HENT: Yes: WNL, Atraumatic, Normocephalic Neck: Yes: WNL, Supple, Trachea Midline Respiratory: Yes: WNL, Regular, CTA Bilaterally Gastrointestinal: Yes: WNL, Normal Bowel Sounds, Soft Renal/: Yes: Hematuria Cardiovascular: Yes: WNL, Regular Rate and Rhythm JVD: No Carotid Bruit: No PMI: Non-Displaced Heart Sounds: Yes: S1, S2 Murmur: Yes: Systolic Murmur, Grade 2 Musculoskeletal: Yes: WNL Extremities: Yes: WNL Edema: No Peripheral Pulses WNL: No Peripheral Pulses: 1+ Left Carotid, 1+ Right Carotid, 1+ Left Femoral, 1+ Right Femoral, 1+ Left Popliteal, 1+ Right Popliteal, 1+ Left Doralis Pedis, 1+ Right Dorsalis Pedis Neurological: Yes: Alert - Other Data Labs, Other Data: CBC, BMP 08/02/19 06:45 08/02/19 06:45 INR, PTT INR 1.13 (0.83-1.09) H 07/31/19 06:13 Assessment/Plan The patient is a 74-year-old ma with dementia, history of hypertension, COPD, paroxysmal atrial flutter on and liquids, rectal bleed,suprapubic catheter with a rectovesicular fistula, now admittedwith blood in the Hogan catheter. The patient looks fairly comfortable this afternoon. He offers no specific complaints. Breathing normally. the patient has been off anticoagulation because of recurrent hematuria.He should stay off anticoagulation until did bleeding is controlled. Patient is stable from the cardiac standpoint. He offers no specific complaints. Continue his current medications. No need for further cardiac workup at this point. Please do not hesitate to call us PRN
[2019-08-02] MEDS: AMINO ACIDS 4.25%/D5W 1,000 ML IV SCH ×2 (19:43→22:09)
[2019-08-02] MEDS: LACTATED RINGERS SOLUTION 1,000 ML IV SCH (19:43)
[2019-08-02] MEDS: ATORVASTATIN CA 20 MG TABLET (FP) PO SCH (22:09)
--- NOTE | 2019-08-02 23:56 | PN ---
Progress Note (short form) - Note Progress Note: ID CONSULT DICTATED RECTO-UREATHRAL FISTULA S/P SUPRAPUBIC CATHETER LEUKOCYTOSIS RESOLVED NO EVIDENCE OF SYSTEMIC INFECTION OBSERVE OFF ANTIBIOTICS
[2019-08-03] MEDS ORDERED: PT OWN MED DRAWER 7, Y5N ONE (09:54)
[2019-08-03] MEDS: DIVALPROEX SODIUM 125 MG SPRINKLE CAPS PO SCH (10:51)
[2019-08-03] MEDS: HEPARIN NA (PORCINE) 5,000 UNITS/ML 1ML VIAL SQ SCH (10:51)
[2019-08-03] MEDS: AMIODARONE HCL 200 MG TABLET (FP) PO SCH (10:51)
[2019-08-03] MEDS: AMINO ACIDS 4.25%/D5W 1,000 ML IV SCH (10:52)
--- NOTE | 2019-08-03 12:06 | DS ---
Physical Examination Vital Signs: Vital Signs Temperature 97.9 F 08/03/19 09:16 Pulse Rate 62 08/03/19 09:16 Respiratory Rate 18 08/03/19 09:16 Blood Pressure 151/86 08/03/19 09:16 O2 Sat by Pulse Oximetry (%) 96 08/03/19 09:00 Constitutional: Yes: No Distress, Calm Eyes: Yes: Conjunctiva Clear HENT: Yes: Atraumatic Cardiovascular: Yes: Regular Rate and Rhythm Respiratory: Yes: Regular, CTA Bilaterally Gastrointestinal: Yes: Normal Bowel Sounds, Soft, Other (colostomy) Renal/: Yes: Other (suprapubic catheter) Musculoskeletal: Yes: Muscle Weakness Extremities: Yes: WNL Edema: No Neurological: Yes: Alert, Pre-Existing Deficit Psychiatric: Yes: Alert Labs: CBC, BMP 08/02/19 06:45 08/02/19 06:45 Discharge Summary Problems reviewed: Yes Reason For Visit: RECTOURETHRAL FISTULA Current Active Problems Blindness (Acute) Colostomy complication (Acute) Dementia (Acute) Hematuria (Acute) Hospital Course: 74 yo M PMH atrial flutter on Eliquis, prostate CA, COPD, dementia, suprapubic catheter, rectovesicular fistula, s/p laparoscopic colostomy, R eye blindness, known L inguinal hernia containing bowel. Pt was sent from [facility] with blood in Hogan. Patient with chronic Hogan, replaced yesterday at shelter due to blood around meatus. No complaints offered by pt and is unsure why he is here Patient was evaluated by Urology and had cystoscopy/cystogram performed. Evaluated by surgery for recto-urethral fistula and no surgical intervention needed at present. ID was consulted due to fistula if antibiotic therapy was needed and recommended to observe off. Labs showed downtrend in WBC from leukocytosis on admission and was afebrile for in patient stay. Condition: Stable - Instructions Diet, Activity, Other Instructions: Follow up with PMD Follow up with Urologist Dr Amaral for management of recto-urethral fistula continue with medication as prescribed low Na diet return to ER if develop severe pain, respiratory distress, chest pain Referrals: Rio Bernal MD [Primary Care Provider] - Aurelio Amaral MD [Staff Physician] - [facility]position[facility] - Home Medications Comprehensive Discharge Medication List: Ambulatory Orders Acetaminophen [Tylenol] 650 mg PO Q6H PRN 05/26/18 Apixaban [Eliquis] 5 mg PO BID 05/26/18 Atorvastatin Ca [Lipitor] 20 mg PO HS 05/26/18 Sennosides [Senokot] 8.6 mg PO HS PRN 05/26/18 Amiodarone HCl [Cordarone -] 200 mg PO DAILY tablet 06/18/18 Divalproex Sprinkle [Depakote Sprinkle -] 125 mg PO DAILY cap.sprink 06/18/18 Guaifenesin 100 mg PO PRN PRN 01/14/19 Travoprost [Travatan Z] 2.5 ml OP HS 01/19/19 Metoprolol Succinate [Toprol XL -] 50 mg PO BID tab.sr.24h 01/27/19 Albuterol 2.5/Ipratropium 0.5 [Duoneb -] 1 amp NEB Q6H PRN amp 08/03/19 Heparin - 5,000 unit SQ BID vial 08/03/19
--- NOTE | 2019-08-03 12:17 | CONS ---
INFECTIOUS DISEASE CONSULTATION DATE OF CONSULTATION: DATE OF DICTATION: 08/03/2019 The patient is a 74-year-old male who is evaluated for urinary tract infection. He was admitted to the hospital from the assisted on July 30, 2019. He was noted to have bloody fluid in his Hogan catheter. On initial evaluation, his white blood cell count was 16.4. He was seen in consultation by Urology and General Surgery. The patient has a history of a colostomy. A urological evaluation was performed to rule out a possible rectovesical fistula. 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 No evidence of colovesical fistula. A suprapubic catheter was inserted. His course was significant for improvement in his white blood cell count. He remains afebrile. He was treated perioperatively with antibiotics. Urine culture was negative. PAST MEDICAL HISTORY: Positive for dementia, COPD, atrial flutter, prostate cancer, chronic indwelling Hogan catheter, left inguinal hernia. PAST SURGICAL HISTORY: Status post laparoscopic colectomy and colostomy, now status post suprapubic catheter. ALLERGIES: PENICILLIN, CARBAPENEMS, SULFA. MEDICATIONS: At the present time include Tylenol, albuterol, amiodarone, Lipitor, metoprolol. SOCIAL HISTORY: [facility]. He is a former smoker, nondrinker. SYSTEMS REVIEW: Neurologic: No loss of consciousness, seizure activity, focal weakness. Cardiac: Negative chest pain or palpitations. Respiratory: Negative cough or sputum production. Gastrointestinal: Negative vomiting or diarrhea. Genitourinary: As per HPI. LABORATORY DATA: White count 7.5, hematocrit 35.9, platelets 229. Creatinine 0.9. Urine culture negative. PHYSICAL EXAMINATION: General: He is awake. He is not acutely toxic appearing. Vital Signs: Temperature 97.9; blood pressure 151/85; pulse 82, regular; respirations 18 per minute. HEENT: Sclerae are anicteric. Heart: Sounds S1, S2. Lungs: Clear. Abdomen: Soft. There is a patent colostomy and suprapubic tube present. No tenderness elicited. No mass, rebound, or rigidity. Extremities: Edema 1+. IMPRESSION: 1. Rectourethral fistula, status post suprapubic catheter. 2. Leukocytosis, resolved. 3. History of colostomy. No evidence for systemic infection. Leukocytosis resolved. Would observe off antibiotic therapy. Thank you for the kind referral. CONCHA DICKERSON M.D. EDUARDO/[id number]
[2019-08-03 12:52] LABS: HEMATOCRIT 40.7 % (35.4-49); HEMOGLOBIN 13.3 GM/dL (11.7-16.9); MCH 32.5 pg (25.7-33.7); MCHC 32.6 g/dl (32.0-35.9); MEAN CELL VOLUME 99.7 fl (80-96); MEAN PLT VOLUME 8.7 fl (7.5-11.1); PLATELET COUNT 243 K/MM3 (134-434); RBC 4.09 M/mm3 (4.00-5.60); RDW 15.5 % (11.9-15.9); WHITE BLOOD COUNT 8.2 K/mm3 (4.0-10.0)
[2019-08-03 13:28] LABS: ALBUMIN 2.8 g/dl (3.4-5.0); BILIRUBIN,TOTAL 0.6 mg/dL (0.2-1); BLOOD UREA NITROGEN 11.9 mg/dL (7-18); CALCIUM 8.8 mg/dL (8.5-10.1); CREATININE 0.8 mg/dL (0.55-1.3); POTASSIUM 3.7 mmol/L (3.5-5.1); TOT PROT 5.7 g/dl (6.4-8.2)
[2019-08-03 15:36] VITALS: PULSE 60
[2019-08-03] MEDS ORDERED: IBUPROFEN 200 MG TABLET PO ONE (18:16)
[2019-08-03 18:38] VITALS: BP 120/60; TEMP 99.2
[2019-08-03] MEDS: LACTATED RINGERS SOLUTION 1,000 ML IV SCH (18:51)
== END 2019-08-03 19:15 | DRG 699 ==
LOC: JER 09:37 → JERBED 14:37 → J4S 18:36 → JSAMEDAYSX 07-31 14:54 → J7W 07-31 17:12
PROVIDERS: ADMIT Family Medicine; ATTEND Family Medicine
PROC: 0T9B40Z Drainage of Bladder with Drainage Device, Percutaneous Endoscopic Approach (ICD-10-PCS; principal; 2019-07-31 10:00)
DX: N36.0 Urethral fistula (principal); N17.9 Acute kidney failure, unspecified; I48.3 Typical atrial flutter; R31.9 Hematuria, unspecified; K94.00 Colostomy complication, unspecified; J44.9 Chronic obstructive pulmonary disease, unspecified; F03.90 Unspecified dementia, unspecified severity, without behavioral disturbance, psychotic disturbance, mood disturbance, and anxiety; D72.829 Elevated white blood cell count, unspecified; R00.1 Bradycardia, unspecified
CPT/HCPCS: 36415; 74177-TC; 76000-TC-FY; 80053; 81003; 83735; 84100; 85025; 85027; 85610; 87086; 93005; 93010; 94760; 97116-GP; 97161-GP; 99284-25; J0131; J1644; Q9967

== ENCOUNTER 2021-01-31 15:23 | Emergency (ER) | payer OTHER ==
[2021-01-31 15:50] VITALS: TEMP 98.8; BMI 22.5
[2021-01-31] MEDS ORDERED: ACETAMINOPHEN 325 MG TABLET (FP) PO ONE (16:53)
[2021-01-31] MEDS ORDERED: ACETAMINOPHEN 325 MG TABLET (FP) ONE (16:56)
[2021-02-01] MEDS ORDERED: ACETAMINOPHEN 325 MG TABLET (FP) PO ONE (05:12)
[2021-02-01 05:18] VITALS: BP 142/80; PULSE 68
== END 2021-02-01 05:21 | disposition home or self-care (01) ==
LOC: JER 15:23
DX: T83.090A Other mechanical complication of cystostomy catheter, initial encounter (principal)
CPT/HCPCS: 99283-25

== ENCOUNTER 2022-02-21 13:50 | Inpatient (IN) | payer OTHER ==
[2022-02-21 14:12] VITALS: BMI 33.3
[2022-02-21 15:23] LABS: BASO % 0.6 % (0-2.0); EOS % 6.1 % (0-4.5); HEMATOCRIT 39.7 % (35.4-49); HEMOGLOBIN 13.3 GM/dL (11.7-16.9); LYMPH % 19.7 % (8-40); MCH 32.9 pg (25.7-33.7); MCHC 33.5 g/dl (32.0-35.9); MEAN CELL VOLUME 98.2 fl (80-96); MEAN PLT VOLUME 8.2 fl (7.5-11.1); NEUT % 66.6 % (42.8-82.8); PLATELET COUNT 279 10^3/uL (134-434); RBC 4.04 M/mm3 (4.00-5.60); RDW 14.4 % (11.9-15.9); WHITE BLOOD COUNT 7.4 K/mm3 (4.0-10.0)
[2022-02-21 15:25] LABS: EPI CELLS 22 /uL (0-25.1); HYALINE CASTS 0 /uL (0-3.1); PH,URINE 8.5 (5.0-8.0); URINE APPEARANCE TURBID; URINE BACTERIA >9,000 /uL (0-1359); URINE BILIRUBIN NEGATIVE (NEGATIVE); URINE COLOR ORANGE; URINE GLUCOSE (UA) NEGATIVE (NEGATIVE); URINE KETONE NEGATIVE (NEGATIVE); URINE LEUK ESTERASE 3+ (NEGATIVE); URINE NITRITE NEGATIVE (NEGATIVE); URINE PROTEIN 3+ (NEGATIVE); URINE UROBILINOGEN 0.2 mg/dL (0.2-1.0); URINE WBC 1273 /uL (0-25.8)
[2022-02-21 15:37] LABS: URINE CRYSTALS NONE SEEN /hpf; URINE RBC 2695.1 /uL (0-23.9); YEAST NONE SEEN (NEGATIVE)
[2022-02-21] MEDS ORDERED: TIGECYCLINE 50 MG in DEXTROSE 5%-WATER - 100 ML IVPB ONE (15:40)
[2022-02-21 15:51] LABS: CALCIUM 8.9 mg/dL (8.5-10.1)
[2022-02-21 15:53] LABS: ALBUMIN 3.2 g/dl (3.4-5.0); BLOOD UREA NITROGEN 12.8 mg/dL (7-18)
[2022-02-21 15:56] LABS: CREATININE 0.8 mg/dL (0.55-1.3)
[2022-02-21 15:57] LABS: BILIRUBIN,TOTAL 0.6 mg/dL (0.2-1); TOT PROT 6.2 g/dl (6.4-8.2)
[2022-02-21] MEDS ORDERED: ACETAMINOPHEN 1000 MG/100 ML BAG IVPB ONE (23:11)
[2022-02-22] MEDS ORDERED: ACETAMINOPHEN INJECTION 100 ML IVPB ONE (01:51)
[2022-02-22] MEDS ORDERED: SENNOSIDES 8.6MG TABLET (FP) PO PRN (04:55)
[2022-02-22] MEDS ORDERED: metoPROLOL SUCCINATE 25 MG TAB.SR.24H (FP) ONE (09:28)
[2022-02-22] MEDS: metoPROLOL SUCCINATE 25 MG TAB.SR.24H (FP) PO SCH (09:31)
[2022-02-22 12:47] LABS: HEMATOCRIT 39.2 % (35.4-49); HEMOGLOBIN 12.9 GM/dL (11.7-16.9); MCH 32.5 pg (25.7-33.7); MEAN CELL VOLUME 98.5 fl (80-96); MEAN PLT VOLUME 8.1 fl (7.5-11.1); PLATELET COUNT 267 10^3/uL (134-434); RBC 3.97 M/mm3 (4.00-5.60); RDW 14.1 % (11.9-15.9)
[2022-02-22 13:09] LABS: BLOOD UREA NITROGEN 13.4 mg/dL (7-18); CALCIUM 8.8 mg/dL (8.5-10.1)
[2022-02-22 13:12] LABS: CREATININE 0.7 mg/dL (0.55-1.3)
[2022-02-23] MEDS: LATANOPROST 0.005% OPHTH SOLN 2.5ML BOTTLE OU SCH ×2 (06:53→23:08)
[2022-02-23] MEDS ORDERED: ACETAMINOPHEN 325 MG TABLET (FP) ONE (08:34)
[2022-02-23] MEDS ORDERED: CEFTRIAXONE 1 GM in DEXTROSE 5%-WATER - 50 ML IVPB SCH (10:00)
[2022-02-23] MEDS: VANCOMYCIN 1,000 MG in DEXTROSE 5%-WATER - 250 ML IVPB ONE ×2 (12:27→12:34)
[2022-02-23] MEDS: metoPROLOL SUCCINATE 25 MG TAB.SR.24H (FP) PO SCH (12:27)
[2022-02-23] MEDS ORDERED: metoPROLOL SUCCINATE 25 MG TAB.SR.24H (FP) ONE (12:30)
[2022-02-23] MEDS ORDERED: VANCOMYCIN 1 GRAM (PRE-DOCKED) 1,000 MG/250 ML BAG IVPB ONE (14:54)
[2022-02-23] MEDS ORDERED: VANCOMYCIN 1,000 MG in DEXTROSE 5%-WATER - 250 ML IVPB ONE (15:45)
[2022-02-24] MEDS ORDERED: metoPROLOL SUCCINATE 25 MG TAB.SR.24H (FP) ONE (09:58)
[2022-02-24] MEDS: metoPROLOL SUCCINATE 25 MG TAB.SR.24H (FP) PO SCH (10:03)
[2022-02-25] MEDS: LATANOPROST 0.005% OPHTH SOLN 2.5ML BOTTLE OU SCH ×2 (01:18→22:45)
[2022-02-25] MEDS: metoPROLOL SUCCINATE 25 MG TAB.SR.24H (FP) PO SCH (09:37)
[2022-02-26] MEDS: ACETAMINOPHEN 325 MG TABLET (FP) PO PRN ×2 (09:16→20:35)
[2022-02-26] MEDS: metoPROLOL SUCCINATE 25 MG TAB.SR.24H (FP) PO SCH (09:16)
[2022-02-26] MEDS: LATANOPROST 0.005% OPHTH SOLN 2.5ML BOTTLE OU SCH (23:40)
[2022-02-27] MEDS: metoPROLOL SUCCINATE 25 MG TAB.SR.24H (FP) PO SCH (12:02)
[2022-02-27] MEDS: ESCITALOPRAM OXALATE 10 MG TABLET PO SCH (12:02)
[2022-02-27] MEDS: LATANOPROST 0.005% OPHTH SOLN 2.5ML BOTTLE OU SCH (23:35)
[2022-02-28] MEDS: ACETAMINOPHEN 325 MG TABLET (FP) PO PRN ×2 (04:04→13:27)
[2022-02-28] MEDS: metoPROLOL SUCCINATE 25 MG TAB.SR.24H (FP) PO SCH (09:40)
[2022-02-28] MEDS: ESCITALOPRAM OXALATE 10 MG TABLET PO SCH (09:40)
[2022-02-28] MEDS: LATANOPROST 0.005% OPHTH SOLN 2.5ML BOTTLE OU SCH (21:45)
[2022-03-01] MEDS: ACETAMINOPHEN 325 MG TABLET (FP) PO PRN ×2 (01:26→21:43)
[2022-03-01] MEDS: metoPROLOL SUCCINATE 25 MG TAB.SR.24H (FP) PO SCH (11:40)
[2022-03-01] MEDS: ESCITALOPRAM OXALATE 10 MG TABLET PO SCH (11:40)
[2022-03-01] MEDS: LATANOPROST 0.005% OPHTH SOLN 2.5ML BOTTLE OU SCH (21:43)
[2022-03-01] MEDS ORDERED: guaiFENesin/D-METHORPHAN HB 10 ML UNIT-DOSE CUPS PO PRN (22:39)
[2022-03-02] MEDS: metoPROLOL SUCCINATE 25 MG TAB.SR.24H (FP) PO SCH (10:00)
[2022-03-02] MEDS: ESCITALOPRAM OXALATE 10 MG TABLET PO SCH (10:00)
[2022-03-02 15:23] LABS: HEMATOCRIT 38.2 % (35.4-49); HEMOGLOBIN 12.8 GM/dL (11.7-16.9); MCH 32.7 pg (25.7-33.7); MCHC 33.6 g/dl (32.0-35.9); MEAN CELL VOLUME 97.3 fl (80-96); MEAN PLT VOLUME 8.1 fl (7.5-11.1); PLATELET COUNT 216 10^3/uL (134-434); RBC 3.93 M/mm3 (4.00-5.60); WHITE BLOOD COUNT 7.6 K/mm3 (4.0-10.0)
[2022-03-02 15:35] LABS: ACTIVATED PTT 33.7 SECONDS (25.2-36.5); INR 1.09 (0.83-1.09); PROTHROMBIN TIME (PATIENT) 12.6 SEC (9.7-13.0)
[2022-03-02] MEDS ORDERED: MIDAZOLAM HCL 2 MG/2 ML SINGLE DOSE VIAL ONE ×2 (15:39→16:19)
[2022-03-02] MEDS ORDERED: PROPOFOL 20 ML ONE ×2 (16:05→16:20)
[2022-03-02 16:15] LABS: CREATININE 0.7 mg/dL (0.55-1.3)
[2022-03-02] MEDS ORDERED: ePHEDrine SULFATE 50 MG/1 ML AMPULE ONE (16:25)
[2022-03-02] MEDS ORDERED: PROMETHAZINE HCL 25 MG/1 ML VIAL IVPUSH PRN ×2 (17:37→17:51)
[2022-03-02] MEDS ORDERED: ONDANSETRON 4 MG/2 ML VIAL IVPUSH PRN ×2 (17:37→17:51)
[2022-03-02] MEDS ORDERED: LACTATED RINGERS SOLUTION 1,000 ML IV SCH (17:45)
[2022-03-02] MEDS ORDERED: SENNOSIDES 8.6MG TABLET (FP) PO PRN (17:51)
[2022-03-02] MEDS ORDERED: guaiFENesin/D-METHORPHAN HB 10 ML UNIT-DOSE CUPS PO PRN (17:51)
[2022-03-02] MEDS ORDERED: FENTANYL CITRATE/PF 50 MCG/ML VIAL ONE (18:00)
[2022-03-02] MEDS ORDERED: LATANOPROST 0.005% OPHTH SOLN 2.5ML BOTTLE OU SCH (22:00)
[2022-03-02] MEDS: LACTATED RINGERS SOLUTION 1,000 ML IV SCH (22:13)
[2022-03-03] MEDS: ACETAMINOPHEN 325 MG TABLET (FP) PO PRN ×3 (04:13→18:05)
[2022-03-03] MEDS ORDERED: metoPROLOL SUCCINATE 25 MG TAB.SR.24H (FP) PO SCH (10:00)
[2022-03-03] MEDS ORDERED: ESCITALOPRAM OXALATE 10 MG TABLET PO SCH (10:00)
[2022-03-03] MEDS: LACTATED RINGERS SOLUTION 1,000 ML IV SCH ×2 (11:35→19:53)
[2022-03-03 19:54] VITALS: BP 140/64; PULSE 86; TEMP 97.7
== END 2022-03-03 19:13 | DRG 699 ==
LOC: JER 13:50 → JERBED 20:23 → J7W 02-24 14:59 → J5S 02-26 13:25
PROVIDERS: ADMIT Internal Medicine; ATTEND Family Medicine
PROC: 0T7D8ZZ Dilation of Urethra, Via Natural or Artificial Opening Endoscopic (ICD-10-PCS; principal; 2022-03-02 14:00)
PROC: 0T2BX0Z Change Drainage Device in Bladder, External Approach (ICD-10-PCS; 2022-03-02 14:00)
PROC: BT0BYZZ Plain Radiography of Bladder and Urethra using Other Contrast (ICD-10-PCS; 2022-03-02 14:00)
PROC: 0TCB8ZZ Extirpation of Matter from Bladder, Via Natural or Artificial Opening Endoscopic (ICD-10-PCS; 2022-03-02 14:00)
DX: N32.0 Bladder-neck obstruction (principal); N39.0 Urinary tract infection, site not specified; T83.010A Breakdown (mechanical) of cystostomy catheter, initial encounter; I48.92 Unspecified atrial flutter; N36.0 Urethral fistula; N21.0 Calculus in bladder; J44.9 Chronic obstructive pulmonary disease, unspecified; F03.90 Unspecified dementia, unspecified severity, without behavioral disturbance, psychotic disturbance, mood disturbance, and anxiety; H54.40 Blindness, one eye, unspecified eye; E78.5 Hyperlipidemia, unspecified; F32.A Depression, unspecified; I10 Essential (primary) hypertension; Z88.1 Allergy status to other antibiotic agents; Z93.50 Unspecified cystostomy status; Z85.46 Personal history of malignant neoplasm of prostate; Y83.8 Other surgical procedures as the cause of abnormal reaction of the patient, or of later complication, without mention of misadventure at the time of the procedure; Z86.73 Personal history of transient ischemic attack (TIA), and cerebral infarction without residual deficits
CPT/HCPCS: 0241U-QW; 36415; 74177-TC; 76000-TC-FY; 80048; 80053; 81003; 82360; 85025; 85027; 85610; 85730; 87040; 87086; 87186; 88300-TC; 94760; 99285-25; C9803-CS; J3243; Q9967; U0003; U0005

== ENCOUNTER 2022-07-28 04:20 | Inpatient (IN) | payer OTHER ==
[2022-07-28] MEDS ORDERED: SODIUM CHLORIDE 0.9% 500 ML INFUS.BAG IV ONE ×2 (04:26→12:30)
[2022-07-28] MEDS ORDERED: ACETAMINOPHEN 1000 MG/100 ML BAG IVPB ONE (04:27)
[2022-07-28] MEDS ORDERED: RAPID SEQUENCE INTUBATION KIT NR ONE ×2 (04:37→04:40)
[2022-07-28] MEDS ORDERED: ROCURONIUM BROMIDE 50 MG/5 ML VIAL IVPUSH ONE (05:07)
[2022-07-28] MEDS ORDERED: ETOMIDATE 20 MG/10 ML VIAL IVPUSH ONE (05:07)
[2022-07-28 05:36] LABS: BASO % 0.3 % (0-2.0); EOS % 0.5 % (0-4.5); HEMOGLOBIN 13.2 GM/dL (11.7-16.9); LYMPH % 6.3 % (8-40); MCH 32.8 pg (25.7-33.7); MCHC 33.1 g/dl (32.0-35.9); MEAN CELL VOLUME 99.1 fl (80-96); MEAN PLT VOLUME 8.3 fl (7.5-11.1); MONO % 7.7 % (3.8-10.2); NEUT % 85.2 % (42.8-82.8); PLATELET COUNT 307 10^3/uL (134-434); RBC 4.04 M/mm3 (4.00-5.60); RDW 14.4 % (11.9-15.9); WHITE BLOOD COUNT 14.3 K/mm3 (4.0-10.0)
[2022-07-28] MEDS ORDERED: VANCOMYCIN 1 GM in D5W (PRE-DOCKED) 1,000 MG/250 ML IVPB ONE (05:40)
[2022-07-28] MEDS ORDERED: ACETAMINOPHEN INJECTION 100 ML IVPB ONE (05:59)
[2022-07-28] MEDS ORDERED: DEXMEDETOMIDINE PREMIX 400 MCG/100 ML BAG IVPB SCH (06:00)
[2022-07-28 06:02] LABS: CALCIUM 8.9 mg/dL (8.5-10.1)
[2022-07-28 06:03] LABS: ALBUMIN 3.3 g/dl (3.4-5.0); BLOOD UREA NITROGEN 15.6 mg/dL (7-18)
[2022-07-28] MEDS ORDERED: ALBUTEROL SO4 2.5/IPRATROPIUM 0.5 INH SOL 3 ML VIAL.NEB. NEB ONE (06:04)
[2022-07-28 06:06] LABS: CREATININE 1.5 mg/dL (0.55-1.3)
[2022-07-28 06:07] LABS: TOT PROT 6.6 g/dl (6.4-8.2)
[2022-07-28 06:08] LABS: BILIRUBIN,TOTAL 0.4 mg/dL (0.2-1)
[2022-07-28] MEDS ORDERED: PROPOFOL 200 MG/20 ML VIAL IVPUSH ONE ×2 (06:11→12:30)
[2022-07-28 06:12] LABS: LACTIC ACID 11.8 mmol/L (0.4-2.0)
[2022-07-28] MEDS ORDERED: LACTATED RINGERS SOLUTION 1000 ML INFUS.BAG IV ONE ×2 (06:14→07:40)
[2022-07-28 06:20] LABS: INR 1.16 (0.83-1.09); PROTHROMBIN TIME (PATIENT) 13.4 SEC (9.7-13.0)
[2022-07-28 06:23] LABS: ACTIVATED PTT 30.6 SECONDS (25.2-36.5)
[2022-07-28 07:09] LABS: ARTERIAL BLD GAS O2 SATURATION 99.7 % (95-98); ARTERIAL BLOOD GAS BASE EXCESS -2.1 mmol/L (-2-2); ARTERIAL BLOOD GAS PO2 341.9 mmHg (80-100); ARTERIAL BLOOD GAS pH 7.297 (7.350-7.450)
[2022-07-28 07:12] LABS: ALLENS TEST POSITIVE; VENT MODE A/C; VENT RATE 15
[2022-07-28] MEDS ORDERED: VANCOMYCIN/WATER FOR INJ (PEG) 1,000 MG/200 ML BAG IVPB ONE ×2 (07:24→13:40)
[2022-07-28 08:25] LABS: URINE APPEARANCE TURBID; URINE BILIRUBIN NEGATIVE (NEGATIVE); URINE COLOR YELLOW; URINE GLUCOSE (UA) NEGATIVE (NEGATIVE); URINE KETONE NEGATIVE (NEGATIVE); URINE LEUK ESTERASE 3+ (NEGATIVE); URINE NITRITE POSITIVE (NEGATIVE); URINE PROTEIN 1+ (NEGATIVE); URINE UROBILINOGEN 0.2 mg/dL (0.2-1.0)
[2022-07-28] MEDS ORDERED: PROPOFOL 20 ML ONE (11:30)
[2022-07-28] MEDS ORDERED: SUCCINYLCHOLINE CHLORIDE 200 MG/10 ML VIAL ONE (11:36)
[2022-07-28] MEDS: MIDAZOLAM IN 0.9 % SOD.CHLORID 100 MG/100 ML PLAST..BAG IVPB SCH (12:00)
[2022-07-28] MEDS ORDERED: SUCCINYLCHOLINE CHLORIDE 200 MG/10 ML VIAL IVPUSH ONE (12:30)
[2022-07-28 12:33] LABS: EPI CELLS 2 /uL (0-25.1); HYALINE CASTS 0 /uL (0-3.1); URINE BACTERIA 3 /uL (0-1359); URINE RBC 2 /uL (0-23.9); URINE WBC 3 /uL (0-25.8)
[2022-07-28] MEDS: NOREPINEPHRINE 0.9 % NACL 8 MG/250 ML BAG IVPB SCH (13:00)
[2022-07-28] MEDS ORDERED: LACTATED RINGERS SOLUTION 1,000 ML/1,000 ML INFUS.BAG IV SCH (13:30)
[2022-07-28 13:49] LABS: ARTERIAL BLD GAS O2 SATURATION 99.7 % (95-98); ARTERIAL BLOOD GAS BASE EXCESS 0.8 mmol/L (-2-2); ARTERIAL BLOOD GAS PO2 307.4 mmHg (80-100); ARTERIAL BLOOD GAS pH 7.389 (7.350-7.450)
[2022-07-28 13:50] LABS: ALLENS TEST POSITIVE
[2022-07-28 13:51] LABS: VENT MODE V-AC; VENT RATE 13
[2022-07-28] MEDS ORDERED: HEPARIN NA (PORCINE) 5,000 UNITS/ML 1ML VIAL SQ SCH (14:00)
[2022-07-28] MEDS: AZTREONAM 1 GM in DEXTROSE 5%-WATER - 50 ML IVPB SCH ×2 (15:19→18:19)
[2022-07-28] MEDS: methylPREDNISolone NA SUCC 40 MG/1 ML VIAL IVPUSH SCH ×2 (15:30→18:16)
[2022-07-28 17:27] LABS: BASO % 0.1 % (0-2.0); EOS % 0.3 % (0-4.5); HEMATOCRIT 35.8 % (35.4-49); HEMOGLOBIN 11.7 GM/dL (11.7-16.9); LYMPH % 8.5 % (8-40); MCH 32.1 pg (25.7-33.7); MCHC 32.7 g/dl (32.0-35.9); MEAN CELL VOLUME 97.9 fl (80-96); MEAN PLT VOLUME 8.1 fl (7.5-11.1); MONO % 8.5 % (3.8-10.2); NEUT % 82.6 % (42.8-82.8); PLATELET COUNT 251 10^3/uL (134-434); RBC 3.66 M/mm3 (4.00-5.60); RDW 14.1 % (11.9-15.9); WHITE BLOOD COUNT 9.4 K/mm3 (4.0-10.0)
[2022-07-28] MEDS: ALBUTEROL SO4 2.5/IPRATROPIUM 0.5 INH SOL 3 ML VIAL.NEB. NEB SCH ×2 (17:41→20:35)
[2022-07-28 17:48] LABS: CALCIUM 8.4 mg/dL (8.5-10.1)
[2022-07-28 17:49] LABS: ALBUMIN 2.9 g/dl (3.4-5.0); BLOOD UREA NITROGEN 12.5 mg/dL (7-18)
[2022-07-28 17:52] LABS: CREATININE 0.9 mg/dL (0.55-1.3)
[2022-07-28 17:53] LABS: TOT PROT 5.5 g/dl (6.4-8.2)
[2022-07-28] MEDS: PANTOPRAZOLE SODIUM 40 MG VIAL IVPUSH SCH (18:14)
[2022-07-28] MEDS: ACETAMINOPHEN 1000 MG/100 ML BAG IVPB PRN (18:46)
[2022-07-28] MEDS: MUPIROCIN 2% TOPICAL OINTMENT FOR DECOLONIZATION NS SCH (21:10)
[2022-07-28] MEDS: APIXABAN 5 MG TABLET PO SCH (21:11)
[2022-07-28] MEDS: CHLORHEXIDINE GLUCONATE 4% CLEANSER FOR DECOLONIZATION TP SCH (21:11)
[2022-07-29] MEDS: AZTREONAM 1 GM in DEXTROSE 5%-WATER - 50 ML IVPB SCH ×3 (01:10→17:28)
[2022-07-29] MEDS: MIDAZOLAM IN 0.9 % SOD.CHLORID 100 MG/100 ML PLAST..BAG IVPB SCH ×2 (01:10→10:13)
[2022-07-29] MEDS: methylPREDNISolone NA SUCC 40 MG/1 ML VIAL IVPUSH SCH ×3 (01:10→17:29)
[2022-07-29 05:54] LABS: ARTERIAL BLD GAS O2 SATURATION 98.8 % (95-98); ARTERIAL BLOOD GAS BASE EXCESS 3.5 mmol/L (-2-2); ARTERIAL BLOOD GAS PO2 142.1 mmHg (80-100); ARTERIAL BLOOD GAS pH 7.414 (7.350-7.450)
[2022-07-29] MEDS: ACETAMINOPHEN 1000 MG/100 ML BAG IVPB PRN (05:58)
[2022-07-29 06:02] LABS: ALLENS TEST POSITIVE; VENT MODE A/C; VENT RATE 15
[2022-07-29 06:58] LABS: HEMATOCRIT 37.3 % (35.4-49); HEMOGLOBIN 12.5 GM/dL (11.7-16.9); MCH 32.8 pg (25.7-33.7); MCHC 33.6 g/dl (32.0-35.9); MEAN CELL VOLUME 97.7 fl (80-96); MEAN PLT VOLUME 8.4 fl (7.5-11.1); PLATELET COUNT 263 10^3/uL (134-434); RBC 3.81 M/mm3 (4.00-5.60); WHITE BLOOD COUNT 10.1 K/mm3 (4.0-10.0)
[2022-07-29 07:05] LABS: INR 1.39 (0.83-1.09)
[2022-07-29 07:06] LABS: ACTIVATED PTT 32.6 SECONDS (25.2-36.5)
[2022-07-29 07:29] LABS: ALBUMIN 3.1 g/dl (3.4-5.0); CALCIUM 8.4 mg/dL (8.5-10.1)
[2022-07-29 07:30] LABS: BLOOD UREA NITROGEN 9.9 mg/dL (7-18); MAGNESIUM 2.1 mg/dL (1.8-2.4)
[2022-07-29 07:32] LABS: PHOSPHOROUS 2.2 mg/dL (2.5-4.9)
[2022-07-29 07:33] LABS: CREATININE 0.9 mg/dL (0.55-1.3)
[2022-07-29 07:34] LABS: BILIRUBIN,TOTAL 1.5 mg/dL (0.2-1); TOT PROT 6.1 g/dl (6.4-8.2)
[2022-07-29 08:08] LABS: ANISOCYTOSIS 1+; MACROCYTOSIS 1+
[2022-07-29] MEDS: ALBUTEROL SO4 2.5/IPRATROPIUM 0.5 INH SOL 3 ML VIAL.NEB. NEB SCH ×4 (08:26→20:35)
[2022-07-29] MEDS ORDERED: VANCOMYCIN PREMIX 1.5 GM 1,500 MG/300 ML BAG IVPB SCH ×2 (10:00→18:00)
[2022-07-29] MEDS: MUPIROCIN 2% TOPICAL OINTMENT FOR DECOLONIZATION NS SCH ×2 (10:15→21:35)
[2022-07-29] MEDS: APIXABAN 5 MG TABLET PO SCH ×2 (10:16→21:36)
[2022-07-29] MEDS: PANTOPRAZOLE SODIUM 40 MG VIAL IVPUSH SCH (10:16)
[2022-07-29] MEDS: VANCOMYCIN PREMIX 1.5 GM 1,500 MG/300 ML BAG IVPB SCH ×2 (11:28→22:58)
[2022-07-29] MEDS ORDERED: POTASSIUM PHOSPHATE 30 MM in DEXTROSE 5%-WATER - 250 ML IVPB ONE (15:38)
[2022-07-29] MEDS ORDERED: LACTATED RINGERS SOLUTION 1,000 ML/1,000 ML INFUS.BAG IV SCH (16:00)
[2022-07-29] MEDS: NOREPINEPHRINE 0.9 % NACL 8 MG/250 ML BAG IVPB SCH (17:28)
[2022-07-29] MEDS: CHLORHEXIDINE GLUCONATE 4% CLEANSER FOR DECOLONIZATION TP SCH (21:35)
[2022-07-30] MEDS: methylPREDNISolone NA SUCC 40 MG/1 ML VIAL IVPUSH SCH ×3 (01:03→17:05)
[2022-07-30] MEDS: AZTREONAM 1 GM in DEXTROSE 5%-WATER - 50 ML IVPB SCH ×3 (01:08→17:04)
[2022-07-30] MEDS: MIDAZOLAM IN 0.9 % SOD.CHLORID 100 MG/100 ML PLAST..BAG IVPB SCH (05:32)
[2022-07-30 07:18] LABS: HEMATOCRIT 33.5 % (35.4-49); HEMOGLOBIN 11.7 GM/dL (11.7-16.9); MCH 34.3 pg (25.7-33.7); MEAN CELL VOLUME 97.9 fl (80-96); MEAN PLT VOLUME 8.1 fl (7.5-11.1); PLATELET COUNT 217 10^3/uL (134-434); RBC 3.42 M/mm3 (4.00-5.60); RDW 14.1 % (11.9-15.9); WHITE BLOOD COUNT 10.7 K/mm3 (4.0-10.0)
[2022-07-30 07:24] LABS: INR 1.4 (0.83-1.09); PROTHROMBIN TIME (PATIENT) 16.2 SEC (9.7-13.0)
[2022-07-30 07:27] LABS: ACTIVATED PTT 30.3 SECONDS (25.2-36.5)
[2022-07-30 07:46] LABS: ALBUMIN 2.7 g/dl (3.4-5.0); BLOOD UREA NITROGEN 11.5 mg/dL (7-18); CALCIUM 8.1 mg/dL (8.5-10.1); MAGNESIUM 2.2 mg/dL (1.8-2.4)
[2022-07-30 07:50] LABS: CREATININE 0.6 mg/dL (0.55-1.3); PHOSPHOROUS 2.2 mg/dL (2.5-4.9)
[2022-07-30 07:51] LABS: TOT PROT 5.6 g/dl (6.4-8.2)
[2022-07-30] MEDS: ALBUTEROL SO4 2.5/IPRATROPIUM 0.5 INH SOL 3 ML VIAL.NEB. NEB SCH ×4 (08:17→20:55)
[2022-07-30] MEDS ORDERED: NAPH,MB-DB/K PH,MBDB POWDER PACKET PO ONE (08:30)
[2022-07-30 08:47] LABS: ANISOCYTOSIS 0; MACROCYTOSIS 0
[2022-07-30] MEDS: APIXABAN 5 MG TABLET PO SCH ×2 (09:07→21:10)
[2022-07-30] MEDS: PANTOPRAZOLE SODIUM 40 MG VIAL IVPUSH SCH (09:15)
[2022-07-30] MEDS: MUPIROCIN 2% TOPICAL OINTMENT FOR DECOLONIZATION NS SCH ×2 (09:25→21:10)
[2022-07-30 11:04] LABS: EPI CELLS 33 /uL (0-25.1); HYALINE CASTS 104 /uL (0-3.1); URINE APPEARANCE TURBID; URINE BILIRUBIN NEGATIVE (NEGATIVE); URINE COLOR YELLOW; URINE GLUCOSE (UA) NEGATIVE (NEGATIVE); URINE KETONE 2+ (NEGATIVE); URINE LEUK ESTERASE 3+ (NEGATIVE); URINE NITRITE POSITIVE (NEGATIVE); URINE PROTEIN 2+ (NEGATIVE); URINE RBC 663 /uL (0-23.9); URINE UROBILINOGEN 0.2 mg/dL (0.2-1.0); URINE WBC 4712 /uL (0-25.8)
[2022-07-30] MEDS: VANCOMYCIN PREMIX 1.5 GM 1,500 MG/300 ML BAG IVPB SCH ×2 (11:30→22:00)
[2022-07-30] MEDS ORDERED: METOPROLOL TARTRATE 5 MG/5 ML VIAL IVPUSH ONE ×2 (11:40→12:00)
[2022-07-30] MEDS ORDERED: METOPROLOL TARTRATE 5 MG/5 ML VIAL ONE (11:41)
[2022-07-30] MEDS: PROPOFOL 1,000,000 MCG/100 ML VIAL IVPB SCH ×2 (11:59→17:05)
[2022-07-30] MEDS: METOPROLOL TARTRATE 25 MG TABLET (FP) NGT SCH ×2 (12:04→21:10)
[2022-07-30 13:19] LABS: URINE BACTERIA 473 /uL (0-1359)
[2022-07-30 13:43] VITALS: BMI 29.1
[2022-07-30] MEDS: AMINO ACIDS/PROTEIN HYDROLYS 30 ML LIQUID.PKT PO SCH (17:05)
[2022-07-30] MEDS: NOREPINEPHRINE 0.9 % NACL 8 MG/250 ML BAG IVPB SCH (18:23)
[2022-07-30] MEDS: DEXMEDETOMIDINE PREMIX 400 MCG/100 ML BAG IVPB SCH (18:25)
[2022-07-30] MEDS: CHLORHEXIDINE GLUCONATE 4% CLEANSER FOR DECOLONIZATION TP SCH (21:10)
[2022-07-31] MEDS: AZTREONAM 1 GM in DEXTROSE 5%-WATER - 50 ML IVPB SCH ×3 (01:00→17:36)
[2022-07-31] MEDS: methylPREDNISolone NA SUCC 40 MG/1 ML VIAL IVPUSH SCH ×3 (01:52→17:36)
[2022-07-31] MEDS: PROPOFOL 1,000,000 MCG/100 ML VIAL IVPB SCH ×4 (01:54→23:52)
[2022-07-31 07:58] LABS: HEMATOCRIT 35.4 % (35.4-49); HEMOGLOBIN 11.7 GM/dL (11.7-16.9); MCH 32.3 pg (25.7-33.7); MEAN CELL VOLUME 97.7 fl (80-96); MEAN PLT VOLUME 8.6 fl (7.5-11.1); PLATELET COUNT 251 10^3/uL (134-434); RBC 3.62 M/mm3 (4.00-5.60); RDW 14.2 % (11.9-15.9); WHITE BLOOD COUNT 12.8 K/mm3 (4.0-10.0)
[2022-07-31 08:14] LABS: INR 1.28 (0.83-1.09); PROTHROMBIN TIME (PATIENT) 14.7 SEC (9.7-13.0)
[2022-07-31] MEDS: ALBUTEROL SO4 2.5/IPRATROPIUM 0.5 INH SOL 3 ML VIAL.NEB. NEB SCH ×2 (08:15→12:20)
[2022-07-31 08:16] LABS: ACTIVATED PTT 28.7 SECONDS (25.2-36.5)
[2022-07-31 08:26] LABS: ALBUMIN 2.7 g/dl (3.4-5.0); CALCIUM 8.4 mg/dL (8.5-10.1)
[2022-07-31 08:28] LABS: MAGNESIUM 2.3 mg/dL (1.8-2.4)
[2022-07-31 08:29] LABS: ANISOCYTOSIS 1+; MACROCYTOSIS 0
[2022-07-31 08:30] LABS: CREATININE 0.7 mg/dL (0.55-1.3)
[2022-07-31 08:31] LABS: BILIRUBIN,TOTAL 0.5 mg/dL (0.2-1); PHOSPHOROUS 2.2 mg/dL (2.5-4.9); TOT PROT 5.6 g/dl (6.4-8.2)
[2022-07-31] MEDS: PANTOPRAZOLE SODIUM 40 MG VIAL IVPUSH SCH (09:23)
[2022-07-31] MEDS ORDERED: POTASSIUM PHOSPHATE 30 MM in DEXTROSE 5%-WATER - 500 ML IVPB ONE (10:00)
[2022-07-31] MEDS: AMINO ACIDS/PROTEIN HYDROLYS 30 ML LIQUID.PKT PO SCH ×2 (10:23→17:36)
[2022-07-31] MEDS: APIXABAN 5 MG TABLET PO SCH ×2 (10:23→22:02)
[2022-07-31] MEDS: METOPROLOL TARTRATE 25 MG TABLET (FP) NGT SCH ×2 (10:23→22:02)
[2022-07-31] MEDS: MUPIROCIN 2% TOPICAL OINTMENT FOR DECOLONIZATION NS SCH ×2 (10:24→22:02)
[2022-07-31] MEDS: VANCOMYCIN PREMIX 1.5 GM 1,500 MG/300 ML BAG IVPB SCH ×2 (10:55→22:03)
[2022-07-31] MEDS: ACETYLCYSTEINE 20% 200MG/ML 4 ML VIAL *FOR ORAL / INH USE ONLY NEB SCH ×2 (15:17→20:50)
[2022-07-31] MEDS: ALBUTEROL SO4 0.083% IH SOL 2.5 MG/3 ML VIAL.NEB. NEB SCH ×2 (15:18→20:50)
[2022-07-31] MEDS: NOREPINEPHRINE 0.9 % NACL 8 MG/250 ML BAG IVPB SCH (17:36)
[2022-07-31] MEDS: DEXMEDETOMIDINE PREMIX 400 MCG/100 ML BAG IVPB SCH (17:36)
[2022-07-31] MEDS: CHLORHEXIDINE GLUCONATE 4% CLEANSER FOR DECOLONIZATION TP SCH (22:02)
[2022-07-31] MEDS ORDERED: ACETAMINOPHEN 1000 MG/100 ML BAG IVPB STA (23:11)
[2022-08-01] MEDS: methylPREDNISolone NA SUCC 40 MG/1 ML VIAL IVPUSH SCH ×3 (01:40→17:02)
[2022-08-01] MEDS: AZTREONAM 1 GM in DEXTROSE 5%-WATER - 50 ML IVPB SCH ×3 (01:40→17:09)
[2022-08-01] MEDS: PROPOFOL 1,000,000 MCG/100 ML VIAL IVPB SCH ×3 (05:26→18:00)
[2022-08-01 07:06] LABS: HEMATOCRIT 33.5 % (35.4-49); MCH 32.3 pg (25.7-33.7); MCHC 32.8 g/dl (32.0-35.9); MEAN CELL VOLUME 98.5 fl (80-96); MEAN PLT VOLUME 8.6 fl (7.5-11.1); PLATELET COUNT 231 10^3/uL (134-434); RDW 14.1 % (11.9-15.9); WHITE BLOOD COUNT 11.3 K/mm3 (4.0-10.0)
[2022-08-01 07:13] LABS: INR 1.29 (0.83-1.09); PROTHROMBIN TIME (PATIENT) 14.9 SEC (9.7-13.0)
[2022-08-01 07:14] LABS: ACTIVATED PTT 28.6 SECONDS (25.2-36.5)
[2022-08-01 07:29] LABS: ALBUMIN 2.4 g/dl (3.4-5.0); BLOOD UREA NITROGEN 18.8 mg/dL (7-18); CALCIUM 8.5 mg/dL (8.5-10.1); MAGNESIUM 2.2 mg/dL (1.8-2.4)
[2022-08-01 07:32] LABS: CREATININE 0.7 mg/dL (0.55-1.3)
[2022-08-01 07:34] LABS: BILIRUBIN,TOTAL 0.2 mg/dL (0.2-1); TOT PROT 5.1 g/dl (6.4-8.2)
[2022-08-01] MEDS: ACETYLCYSTEINE 20% 200MG/ML 4 ML VIAL *FOR ORAL / INH USE ONLY NEB SCH ×4 (07:49→20:35)
[2022-08-01] MEDS: ALBUTEROL SO4 0.083% IH SOL 2.5 MG/3 ML VIAL.NEB. NEB SCH ×4 (07:49→20:35)
[2022-08-01 10:02] LABS: ANISOCYTOSIS 0; HELMET CELLS 0; HOWELL-JOLLY BODIES 0; MACROCYTOSIS 0; OVALOCYTE 0; ROULEAU 0; SICKELED CELLS 0; TARGET CELLS 0; TEAR DROP CELLS 0; TOXIC GRANULATION 0
[2022-08-01] MEDS: VANCOMYCIN/WATER 1250 MG 1,250 MG/250 ML BAG IVPB SCH (10:59)
[2022-08-01] MEDS: AMINO ACIDS/PROTEIN HYDROLYS 30 ML LIQUID.PKT PO SCH ×2 (10:59→17:02)
[2022-08-01] MEDS: METOPROLOL TARTRATE 25 MG TABLET (FP) NGT SCH ×2 (11:00→21:08)
[2022-08-01] MEDS: APIXABAN 5 MG TABLET PO SCH ×2 (11:00→21:08)
[2022-08-01] MEDS: MUPIROCIN 2% TOPICAL OINTMENT FOR DECOLONIZATION NS SCH ×2 (11:12→21:08)
[2022-08-01] MEDS: PANTOPRAZOLE SODIUM 40 MG VIAL IVPUSH SCH (11:13)
[2022-08-01] MEDS: NOREPINEPHRINE 0.9 % NACL 8 MG/250 ML BAG IVPB SCH (17:01)
[2022-08-01] MEDS: DEXMEDETOMIDINE PREMIX 400 MCG/100 ML BAG IVPB SCH (17:02)
[2022-08-01] MEDS: CHLORHEXIDINE GLUCONATE 4% CLEANSER FOR DECOLONIZATION TP SCH (21:09)
[2022-08-02] MEDS: VANCOMYCIN/WATER 1250 MG 1,250 MG/250 ML BAG IVPB SCH ×3 (00:15→22:10)
[2022-08-02] MEDS: AZTREONAM 1 GM in DEXTROSE 5%-WATER - 50 ML IVPB SCH ×3 (02:50→17:40)
[2022-08-02] MEDS: methylPREDNISolone NA SUCC 40 MG/1 ML VIAL IVPUSH SCH ×3 (03:27→17:41)
[2022-08-02] MEDS: ALBUTEROL SO4 0.083% IH SOL 2.5 MG/3 ML VIAL.NEB. NEB SCH ×4 (07:30→20:44)
[2022-08-02] MEDS: ACETYLCYSTEINE 20% 200MG/ML 4 ML VIAL *FOR ORAL / INH USE ONLY NEB SCH ×4 (07:30→20:45)
[2022-08-02] MEDS: MUPIROCIN 2% TOPICAL OINTMENT FOR DECOLONIZATION NS SCH (09:53)
[2022-08-02] MEDS: AMINO ACIDS/PROTEIN HYDROLYS 30 ML LIQUID.PKT PO SCH ×2 (09:53→17:41)
[2022-08-02] MEDS: PANTOPRAZOLE SODIUM 40 MG VIAL IVPUSH SCH (09:53)
[2022-08-02] MEDS: METOPROLOL TARTRATE 25 MG TABLET (FP) NGT SCH ×2 (09:54→21:17)
[2022-08-02] MEDS: APIXABAN 5 MG TABLET PO SCH ×2 (09:54→21:16)
[2022-08-02] MEDS: PROPOFOL 1,000,000 MCG/100 ML VIAL IVPB SCH ×3 (10:20→21:17)
[2022-08-02] MEDS: NOREPINEPHRINE 0.9 % NACL 8 MG/250 ML BAG IVPB SCH (14:43)
[2022-08-02] MEDS: DEXMEDETOMIDINE PREMIX 400 MCG/100 ML BAG IVPB SCH (16:52)
[2022-08-02] MEDS: CHLORHEXIDINE GLUCONATE 4% CLEANSER FOR DECOLONIZATION TP SCH (21:16)
[2022-08-03] MEDS: PROPOFOL 1,000,000 MCG/100 ML VIAL IVPB SCH ×3 (02:50→17:14)
[2022-08-03] MEDS: methylPREDNISolone NA SUCC 40 MG/1 ML VIAL IVPUSH SCH ×3 (02:51→17:16)
[2022-08-03] MEDS: AZTREONAM 1 GM in DEXTROSE 5%-WATER - 50 ML IVPB SCH ×3 (02:51→17:17)
[2022-08-03 05:46] LABS: ARTERIAL BLD GAS O2 SATURATION 97.1 % (95-98); ARTERIAL BLOOD GAS BASE EXCESS 8.7 mmol/L (-2-2); ARTERIAL BLOOD GAS pH 7.435 (7.350-7.450)
[2022-08-03 06:01] LABS: ALLENS TEST POSITIVE
[2022-08-03 06:02] LABS: VENT MODE A/C; VENT RATE 12
[2022-08-03 07:29] LABS: HEMOGLOBIN 11.6 GM/dL (11.7-16.9); MCH 33.3 pg (25.7-33.7); MCHC 34.1 g/dl (32.0-35.9); MEAN CELL VOLUME 97.7 fl (80-96); MEAN PLT VOLUME 8.5 fl (7.5-11.1); PLATELET COUNT 248 10^3/uL (134-434); RBC 3.48 M/mm3 (4.00-5.60); RDW 14.1 % (11.9-15.9)
[2022-08-03 07:38] LABS: ALBUMIN 2.4 g/dl (3.4-5.0); CALCIUM 8.3 mg/dL (8.5-10.1)
[2022-08-03 07:39] LABS: BLOOD UREA NITROGEN 14.2 mg/dL (7-18); MAGNESIUM 2.1 mg/dL (1.8-2.4)
[2022-08-03 07:41] LABS: PHOSPHOROUS 2.7 mg/dL (2.5-4.9)
[2022-08-03 07:42] LABS: CREATININE 0.6 mg/dL (0.55-1.3)
[2022-08-03 07:43] LABS: BILIRUBIN,TOTAL 0.2 mg/dL (0.2-1); TOT PROT 5.2 g/dl (6.4-8.2)
[2022-08-03] MEDS: ALBUTEROL SO4 0.083% IH SOL 2.5 MG/3 ML VIAL.NEB. NEB SCH ×4 (08:00→20:15)
[2022-08-03] MEDS: ACETYLCYSTEINE 20% 200MG/ML 4 ML VIAL *FOR ORAL / INH USE ONLY NEB SCH ×4 (08:00→20:15)
[2022-08-03] MEDS: AMINO ACIDS/PROTEIN HYDROLYS 30 ML LIQUID.PKT PO SCH ×2 (09:46→17:16)
[2022-08-03] MEDS: PANTOPRAZOLE SODIUM 40 MG VIAL IVPUSH SCH (09:47)
[2022-08-03] MEDS: METOPROLOL TARTRATE 25 MG TABLET (FP) NGT SCH ×2 (09:47→21:34)
[2022-08-03] MEDS: APIXABAN 5 MG TABLET PO SCH ×2 (09:48→21:34)
[2022-08-03 10:37] LABS: ANISOCYTOSIS 0; MACROCYTOSIS 0; OVALOCYTE 1+
[2022-08-03] MEDS: DEXMEDETOMIDINE PREMIX 400 MCG/100 ML BAG IVPB SCH (13:02)
[2022-08-03] MEDS: VANCOMYCIN/WATER 1250 MG 1,250 MG/250 ML BAG IVPB SCH ×2 (13:02→23:47)
[2022-08-03] MEDS: NOREPINEPHRINE 0.9 % NACL 8 MG/250 ML BAG IVPB SCH (14:21)
[2022-08-03] MEDS: SCOPOLAMINE HYDROBROMIDE 1 PATCH PATCH.TD72 TD SCH (15:40)
[2022-08-03] MEDS: CHLORHEXIDINE GLUCONATE 4% CLEANSER FOR DECOLONIZATION TP SCH (21:34)
[2022-08-04] MEDS: methylPREDNISolone NA SUCC 40 MG/1 ML VIAL IVPUSH SCH ×3 (01:14→21:17)
[2022-08-04] MEDS: AZTREONAM 1 GM in DEXTROSE 5%-WATER - 50 ML IVPB SCH ×3 (01:15→18:53)
[2022-08-04] MEDS: ACETYLCYSTEINE 20% 200MG/ML 4 ML VIAL *FOR ORAL / INH USE ONLY NEB SCH (08:10)
[2022-08-04] MEDS: ALBUTEROL SO4 0.083% IH SOL 2.5 MG/3 ML VIAL.NEB. NEB SCH ×4 (08:10→20:05)
[2022-08-04] MEDS: DEXMEDETOMIDINE PREMIX 400 MCG/100 ML BAG IVPB SCH ×3 (08:30→18:56)
[2022-08-04] MEDS: VANCOMYCIN/WATER 1250 MG 1,250 MG/250 ML BAG IVPB SCH ×2 (10:44→22:15)
[2022-08-04] MEDS: AMINO ACIDS/PROTEIN HYDROLYS 30 ML LIQUID.PKT PO SCH ×2 (10:44→18:53)
[2022-08-04] MEDS: METOPROLOL TARTRATE 25 MG TABLET (FP) NGT SCH ×2 (10:45→21:17)
[2022-08-04] MEDS: PANTOPRAZOLE SODIUM 40 MG VIAL IVPUSH SCH (10:45)
[2022-08-04] MEDS: APIXABAN 5 MG TABLET PO SCH ×2 (10:45→21:17)
[2022-08-04] MEDS: IPRATROPIUM BR 0.02% 0.5 MG/2.5 ML VIAL.NEB. NEB SCH ×3 (11:52→20:05)
[2022-08-04 12:39] LABS: HEMATOCRIT 35.3 % (35.4-49); HEMOGLOBIN 11.7 GM/dL (11.7-16.9); MCH 32.6 pg (25.7-33.7); MCHC 33.1 g/dl (32.0-35.9); MEAN CELL VOLUME 98.4 fl (80-96); PLATELET COUNT 276 10^3/uL (134-434); RBC 3.58 M/mm3 (4.00-5.60); RDW 14.3 % (11.9-15.9); WHITE BLOOD COUNT 12.6 K/mm3 (4.0-10.0)
[2022-08-04 12:47] LABS: CALCIUM 8.3 mg/dL (8.5-10.1)
[2022-08-04 12:48] LABS: ALBUMIN 2.4 g/dl (3.4-5.0); BLOOD UREA NITROGEN 16.3 mg/dL (7-18); MAGNESIUM 2.4 mg/dL (1.8-2.4)
[2022-08-04 12:51] LABS: CREATININE 0.5 mg/dL (0.55-1.3); PHOSPHOROUS 3.4 mg/dL (2.5-4.9)
[2022-08-04 12:52] LABS: BILIRUBIN,TOTAL 0.3 mg/dL (0.2-1)
[2022-08-04 12:53] LABS: TOT PROT 5.2 g/dl (6.4-8.2)
[2022-08-04] MEDS: PROPOFOL 1,000,000 MCG/100 ML VIAL IVPB SCH ×2 (13:00→18:58)
[2022-08-04] MEDS ORDERED: PROPOFOL 1,000,000 MCG/100 ML VIAL ONE (17:43)
[2022-08-04] MEDS: NOREPINEPHRINE 0.9 % NACL 8 MG/250 ML BAG IVPB SCH (18:55)
[2022-08-04] MEDS: CHLORHEXIDINE GLUCONATE 4% CLEANSER FOR DECOLONIZATION TP SCH (21:17)
[2022-08-05] MEDS: AZTREONAM 1 GM in DEXTROSE 5%-WATER - 50 ML IVPB SCH ×3 (01:42→17:44)
[2022-08-05 07:54] LABS: HEMOGLOBIN 11.2 GM/dL (11.7-16.9); MCH 32.3 pg (25.7-33.7); MEAN CELL VOLUME 97.9 fl (80-96); MEAN PLT VOLUME 8.6 fl (7.5-11.1); PLATELET COUNT 287 10^3/uL (134-434); RBC 3.47 M/mm3 (4.00-5.60); RDW 14.4 % (11.9-15.9); WHITE BLOOD COUNT 12.2 K/mm3 (4.0-10.0)
[2022-08-05] MEDS: AMINO ACIDS/PROTEIN HYDROLYS 30 ML LIQUID.PKT PO SCH ×2 (08:10→17:28)
[2022-08-05] MEDS: IPRATROPIUM BR 0.02% 0.5 MG/2.5 ML VIAL.NEB. NEB SCH ×4 (08:20→20:34)
[2022-08-05] MEDS: ALBUTEROL SO4 0.083% IH SOL 2.5 MG/3 ML VIAL.NEB. NEB SCH ×4 (08:20→20:34)
[2022-08-05 09:07] LABS: ALBUMIN 2.2 g/dl (3.4-5.0); BLOOD UREA NITROGEN 18.2 mg/dL (7-18); MAGNESIUM 2.4 mg/dL (1.8-2.4)
[2022-08-05 09:10] LABS: CREATININE 0.5 mg/dL (0.55-1.3); PHOSPHOROUS 3.5 mg/dL (2.5-4.9)
[2022-08-05 09:11] LABS: BILIRUBIN,TOTAL 0.3 mg/dL (0.2-1); TOT PROT 4.9 g/dl (6.4-8.2)
[2022-08-05] MEDS: PANTOPRAZOLE SODIUM 40 MG VIAL IVPUSH SCH (09:40)
[2022-08-05] MEDS: methylPREDNISolone NA SUCC 40 MG/1 ML VIAL IVPUSH SCH ×2 (09:40→21:59)
[2022-08-05] MEDS: APIXABAN 5 MG TABLET PO SCH ×2 (09:40→21:59)
[2022-08-05] MEDS: VANCOMYCIN/WATER 1250 MG 1,250 MG/250 ML BAG IVPB SCH ×2 (11:54→22:00)
[2022-08-05] MEDS ORDERED: DEXTROSE 50%-WATER 25 GM/50 ML DISP.SYRIN ONE (13:45)
[2022-08-05] MEDS ORDERED: DEXTROSE 50%-WATER - 25 GM/50 ML VIAL IVPUSH ONE (13:47)
[2022-08-05] MEDS ORDERED: DEXTROSE 5%-0.45% SALINE 1,000 ML IV SCH (14:00)
[2022-08-05] MEDS: DEXMEDETOMIDINE PREMIX 400 MCG/100 ML BAG IVPB SCH (19:00)
[2022-08-05 21:29] LABS: HIV INTERPRETATION NEGATIVE (NEGATIVE)
[2022-08-05] MEDS: CHLORHEXIDINE GLUCONATE 4% CLEANSER FOR DECOLONIZATION TP SCH (22:00)
[2022-08-05] MEDS: PROPOFOL 1,000,000 MCG/100 ML VIAL IVPB SCH (22:00)
[2022-08-05] MEDS: NOREPINEPHRINE 0.9 % NACL 8 MG/250 ML BAG IVPB SCH (22:20)
[2022-08-06] MEDS: AZTREONAM 1 GM in DEXTROSE 5%-WATER - 50 ML IVPB SCH ×3 (01:07→17:03)
[2022-08-06 07:13] LABS: HEMATOCRIT 34.2 % (35.4-49); HEMOGLOBIN 11.2 GM/dL (11.7-16.9); MCH 32.3 pg (25.7-33.7); MCHC 32.9 g/dl (32.0-35.9); MEAN CELL VOLUME 98.3 fl (80-96); MEAN PLT VOLUME 8.8 fl (7.5-11.1); PLATELET COUNT 298 10^3/uL (134-434); RBC 3.48 M/mm3 (4.00-5.60); RDW 14.6 % (11.9-15.9); WHITE BLOOD COUNT 13.3 K/mm3 (4.0-10.0)
[2022-08-06] MEDS: ALBUTEROL SO4 0.083% IH SOL 2.5 MG/3 ML VIAL.NEB. NEB SCH ×4 (07:25→20:44)
[2022-08-06] MEDS: IPRATROPIUM BR 0.02% 0.5 MG/2.5 ML VIAL.NEB. NEB SCH ×4 (07:25→20:43)
[2022-08-06 07:38] LABS: ALBUMIN 2.3 g/dl (3.4-5.0); BLOOD UREA NITROGEN 17.3 mg/dL (7-18)
[2022-08-06 07:41] LABS: CREATININE 0.5 mg/dL (0.55-1.3)
[2022-08-06 07:43] LABS: BILIRUBIN,TOTAL 0.6 mg/dL (0.2-1)
[2022-08-06] MEDS: AMINO ACIDS/PROTEIN HYDROLYS 30 ML LIQUID.PKT PO SCH (09:15)
[2022-08-06] MEDS: METOPROLOL TARTRATE 25 MG TABLET (FP) NGT SCH (09:16)
[2022-08-06] MEDS: PANTOPRAZOLE SODIUM 40 MG VIAL IVPUSH SCH (09:16)
[2022-08-06] MEDS: methylPREDNISolone NA SUCC 40 MG/1 ML VIAL IVPUSH SCH ×2 (09:16→21:21)
[2022-08-06] MEDS: APIXABAN 5 MG TABLET PO SCH ×2 (09:16→21:21)
[2022-08-06] MEDS ORDERED: METOPROLOL TARTRATE 25 MG TABLET (FP) NGT SCH (11:59)
[2022-08-06] MEDS: VANCOMYCIN/WATER 1250 MG 1,250 MG/250 ML BAG IVPB SCH ×2 (12:29→23:42)
[2022-08-06] MEDS: DEXMEDETOMIDINE PREMIX 400 MCG/100 ML BAG IVPB SCH (12:30)
[2022-08-06] MEDS: SCOPOLAMINE HYDROBROMIDE 1 PATCH PATCH.TD72 TD SCH (14:58)
[2022-08-06] MEDS ORDERED: POTASSIUM CHLORIDE 10 MEQ in AMINO ACIDS 4.25%/D5W 1,000 ML IV SCH (15:00)
[2022-08-06] MEDS: NOREPINEPHRINE 0.9 % NACL 8 MG/250 ML BAG IVPB SCH (17:03)
[2022-08-06] MEDS: CHLORHEXIDINE GLUCONATE 4% CLEANSER FOR DECOLONIZATION TP SCH (21:21)
[2022-08-06] MEDS: ASCORBIC ACID 250 MG TABLET (FP) PO SCH (21:22)
[2022-08-07] MEDS: AZTREONAM 1 GM in DEXTROSE 5%-WATER - 50 ML IVPB SCH ×3 (04:00→17:33)
[2022-08-07 08:56] LABS: HEMATOCRIT 35.6 % (35.4-49); HEMOGLOBIN 11.9 GM/dL (11.7-16.9); MCH 32.9 pg (25.7-33.7); MCHC 33.5 g/dl (32.0-35.9); MEAN CELL VOLUME 98.3 fl (80-96); MEAN PLT VOLUME 9.1 fl (7.5-11.1); PLATELET COUNT 202 10^3/uL (134-434); RBC 3.62 M/mm3 (4.00-5.60); RDW 14.6 % (11.9-15.9); WHITE BLOOD COUNT 15.9 K/mm3 (4.0-10.0)
[2022-08-07] MEDS: IPRATROPIUM BR 0.02% 0.5 MG/2.5 ML VIAL.NEB. NEB SCH ×4 (08:56→21:11)
[2022-08-07] MEDS: ALBUTEROL SO4 0.083% IH SOL 2.5 MG/3 ML VIAL.NEB. NEB SCH ×4 (08:57→21:12)
[2022-08-07] MEDS ORDERED: methylPREDNISolone NA SUCC 40 MG/1 ML VIAL IVPUSH SCH (10:00)
[2022-08-07 10:14] LABS: BLOOD UREA NITROGEN 20.2 mg/dL (7-18); CALCIUM 8.2 mg/dL (8.5-10.1)
[2022-08-07 10:16] LABS: ALBUMIN 2.4 g/dl (3.4-5.0)
[2022-08-07 10:17] LABS: MAGNESIUM 2.4 mg/dL (1.8-2.4); PHOSPHOROUS 1.8 mg/dL (2.5-4.9)
[2022-08-07 10:18] LABS: CREATININE 0.6 mg/dL (0.55-1.3)
[2022-08-07 10:19] LABS: BILIRUBIN,TOTAL 0.8 mg/dL (0.2-1); TOT PROT 5.4 g/dl (6.4-8.2)
[2022-08-07] MEDS: ASCORBIC ACID 250 MG TABLET (FP) PO SCH ×2 (10:23→21:53)
[2022-08-07] MEDS: MULTIVITAMINS (DAILY MVI) TABLET (FP) PO SCH (10:23)
[2022-08-07] MEDS: APIXABAN 5 MG TABLET PO SCH ×2 (10:23→21:53)
[2022-08-07] MEDS: METOPROLOL TARTRATE 25 MG TABLET (FP) NGT SCH ×2 (10:23→21:53)
[2022-08-07] MEDS: PANTOPRAZOLE SODIUM 40 MG VIAL IVPUSH SCH (10:24)
[2022-08-07] MEDS: VANCOMYCIN/WATER 1250 MG 1,250 MG/250 ML BAG IVPB SCH ×2 (10:24→22:00)
[2022-08-07] MEDS ORDERED: hydrALAZINE HCL 20 MG/ML VIAL IVPUSH PRN (10:45)
[2022-08-07] MEDS ORDERED: METOPROLOL TARTRATE 5 MG/5 ML VIAL IVPUSH PRN ×2 (10:49→10:51)
[2022-08-07] MEDS ORDERED: POTASSIUM PHOSPHATE 30 MM in DEXTROSE 5%-WATER - 500 ML IVPB ONE (15:32)
[2022-08-07] MEDS ORDERED: POTASSIUM CHLORIDE 10 MEQ in DEXTROSE 5%-WATER - 1,000 ML IV SCH (15:45)
[2022-08-07] MEDS: amLODIPine BESYLATE 5 MG TABLET (FP) PO SCH (16:42)
[2022-08-07] MEDS: methylPREDNISolone NA SUCC 40 MG/1 ML VIAL IVPUSH SCH (21:53)
[2022-08-08] MEDS: ALBUTEROL SO4 0.083% IH SOL 2.5 MG/3 ML VIAL.NEB. NEB SCH ×4 (07:45→20:05)
[2022-08-08] MEDS: IPRATROPIUM BR 0.02% 0.5 MG/2.5 ML VIAL.NEB. NEB SCH ×4 (07:45→20:05)
[2022-08-08 07:50] LABS: BASO % 0.1 % (0-2.0); HEMATOCRIT 34.1 % (35.4-49); HEMOGLOBIN 11.6 GM/dL (11.7-16.9); LYMPH % 3.7 % (8-40); MCH 33.4 pg (25.7-33.7); MEAN CELL VOLUME 98.1 fl (80-96); MEAN PLT VOLUME 8.2 fl (7.5-11.1); MONO % 8.5 % (3.8-10.2); NEUT % 87.7 % (42.8-82.8); PLATELET COUNT 301 10^3/uL (134-434); RBC 3.48 M/mm3 (4.00-5.60); RDW 14.4 % (11.9-15.9)
[2022-08-08 08:10] LABS: ALBUMIN 2.4 g/dl (3.4-5.0); BLOOD UREA NITROGEN 15.1 mg/dL (7-18); CALCIUM 7.9 mg/dL (8.5-10.1)
[2022-08-08 08:14] LABS: CREATININE 0.6 mg/dL (0.55-1.3)
[2022-08-08 08:16] LABS: BILIRUBIN,TOTAL 0.9 mg/dL (0.2-1); TOT PROT 5.4 g/dl (6.4-8.2)
[2022-08-08] MEDS: PANTOPRAZOLE SODIUM 40 MG VIAL IVPUSH SCH (09:00)
[2022-08-08] MEDS: MULTIVITAMINS (DAILY MVI) TABLET (FP) PO SCH (09:00)
[2022-08-08] MEDS: ASCORBIC ACID 250 MG TABLET (FP) PO SCH ×2 (09:00→22:02)
[2022-08-08] MEDS: methylPREDNISolone NA SUCC 40 MG/1 ML VIAL IVPUSH SCH ×2 (09:00→22:02)
[2022-08-08] MEDS: APIXABAN 5 MG TABLET PO SCH ×2 (09:00→22:02)
[2022-08-08] MEDS: amLODIPine BESYLATE 5 MG TABLET (FP) PO SCH (09:00)
[2022-08-08] MEDS: METOPROLOL TARTRATE 25 MG TABLET (FP) NGT SCH ×2 (09:00→22:02)
[2022-08-09] MEDS: IPRATROPIUM BR 0.02% 0.5 MG/2.5 ML VIAL.NEB. NEB SCH ×3 (08:30→20:50)
[2022-08-09] MEDS: ALBUTEROL SO4 0.083% IH SOL 2.5 MG/3 ML VIAL.NEB. NEB SCH ×4 (08:30→20:50)
[2022-08-09] MEDS: MULTIVITAMINS (DAILY MVI) TABLET (FP) PO SCH (10:22)
[2022-08-09] MEDS: ASCORBIC ACID 250 MG TABLET (FP) PO SCH ×2 (10:22→22:49)
[2022-08-09] MEDS: METOPROLOL TARTRATE 25 MG TABLET (FP) NGT SCH ×2 (10:22→22:49)
[2022-08-09] MEDS: methylPREDNISolone NA SUCC 40 MG/1 ML VIAL IVPUSH SCH ×2 (10:22→22:48)
[2022-08-09] MEDS: PANTOPRAZOLE SODIUM 40 MG VIAL IVPUSH SCH (10:22)
[2022-08-09] MEDS: amLODIPine BESYLATE 5 MG TABLET (FP) PO SCH (10:22)
[2022-08-09] MEDS: APIXABAN 5 MG TABLET PO SCH ×2 (10:22→22:49)
[2022-08-10] MEDS: IPRATROPIUM BR 0.02% 0.5 MG/2.5 ML VIAL.NEB. NEB SCH ×4 (07:15→20:13)
[2022-08-10] MEDS: ALBUTEROL SO4 0.083% IH SOL 2.5 MG/3 ML VIAL.NEB. NEB SCH ×4 (07:15→20:13)
[2022-08-10] MEDS: amLODIPine BESYLATE 5 MG TABLET (FP) PO SCH (10:34)
[2022-08-10] MEDS: MULTIVITAMINS (DAILY MVI) TABLET (FP) PO SCH (10:34)
[2022-08-10] MEDS: APIXABAN 5 MG TABLET PO SCH ×2 (10:34→22:10)
[2022-08-10] MEDS: ASCORBIC ACID 250 MG TABLET (FP) PO SCH ×2 (10:34→22:10)
[2022-08-10] MEDS: METOPROLOL TARTRATE 25 MG TABLET (FP) NGT SCH ×2 (10:34→22:10)
[2022-08-10] MEDS: PANTOPRAZOLE SODIUM 40 MG VIAL IVPUSH SCH (10:34)
[2022-08-10] MEDS: methylPREDNISolone NA SUCC 40 MG/1 ML VIAL IVPUSH SCH (10:34)
[2022-08-10] MEDS: predniSONE 20 MG TABLET (UD) PO SCH (22:10)
[2022-08-11 08:18] LABS: ALBUMIN 2.6 g/dl (3.4-5.0); CALCIUM 8.5 mg/dL (8.5-10.1)
[2022-08-11 08:19] LABS: BLOOD UREA NITROGEN 17.8 mg/dL (7-18)
[2022-08-11 08:21] LABS: CREATININE 0.7 mg/dL (0.55-1.3)
[2022-08-11 08:23] LABS: BILIRUBIN,TOTAL 0.9 mg/dL (0.2-1); TOT PROT 5.3 g/dl (6.4-8.2)
[2022-08-11] MEDS: IPRATROPIUM BR 0.02% 0.5 MG/2.5 ML VIAL.NEB. NEB SCH ×4 (08:59→20:05)
[2022-08-11] MEDS: ALBUTEROL SO4 0.083% IH SOL 2.5 MG/3 ML VIAL.NEB. NEB SCH ×4 (08:59→20:05)
[2022-08-11] MEDS: MULTIVITAMINS (DAILY MVI) TABLET (FP) PO SCH (10:38)
[2022-08-11] MEDS: predniSONE 20 MG TABLET (UD) PO SCH ×2 (10:38→21:59)
[2022-08-11] MEDS: APIXABAN 5 MG TABLET PO SCH ×2 (10:38→21:58)
[2022-08-11] MEDS: ASCORBIC ACID 250 MG TABLET (FP) PO SCH ×2 (10:38→21:58)
[2022-08-11] MEDS: METOPROLOL TARTRATE 25 MG TABLET (FP) NGT SCH ×2 (10:38→21:58)
[2022-08-11] MEDS: amLODIPine BESYLATE 5 MG TABLET (FP) PO SCH (10:38)
[2022-08-11] MEDS: PANTOPRAZOLE SODIUM 40 MG VIAL IVPUSH SCH (10:39)
[2022-08-11] MEDS: DEXTROSE 5%-WATER - 1,000 ML IV SCH (12:50)
[2022-08-11 17:20] LABS: HEMATOCRIT 37.9 % (35.4-49); HEMOGLOBIN 12.2 GM/dL (11.7-16.9); MCH 31.8 pg (25.7-33.7); MCHC 32.2 g/dl (32.0-35.9); MEAN CELL VOLUME 98.8 fl (80-96); PLATELET COUNT 352 10^3/uL (134-434); RBC 3.84 M/mm3 (4.00-5.60); WHITE BLOOD COUNT 13.9 K/mm3 (4.0-10.0)
[2022-08-11 17:42] LABS: CALCIUM 8.8 mg/dL (8.5-10.1)
[2022-08-11 17:43] LABS: ALBUMIN 2.8 g/dl (3.4-5.0); BLOOD UREA NITROGEN 14.6 mg/dL (7-18)
[2022-08-11 17:46] LABS: CREATININE 0.7 mg/dL (0.55-1.3)
[2022-08-11 17:47] LABS: TOT PROT 5.6 g/dl (6.4-8.2)
[2022-08-11 17:48] LABS: BILIRUBIN,TOTAL 0.7 mg/dL (0.2-1)
[2022-08-11 19:20] LABS: ANISOCYTOSIS 0; MACROCYTOSIS 1+
[2022-08-12] MEDS: DEXTROSE 5%-WATER - 1,000 ML IV SCH ×2 (01:51→18:00)
[2022-08-12 09:33] LABS: BASO % 0.2 % (0-2.0); EOS % 0.2 % (0-4.5); HEMOGLOBIN 11.5 GM/dL (11.7-16.9); LYMPH % 5.9 % (8-40); MCH 32.4 pg (25.7-33.7); MEAN CELL VOLUME 98.2 fl (80-96); NEUT % 88.7 % (42.8-82.8); PLATELET COUNT 311 10^3/uL (134-434); RBC 3.56 M/mm3 (4.00-5.60); RDW 14.6 % (11.9-15.9); WHITE BLOOD COUNT 13.1 K/mm3 (4.0-10.0)
[2022-08-12] MEDS: predniSONE 20 MG TABLET (UD) PO SCH (09:39)
[2022-08-12] MEDS: METOPROLOL TARTRATE 25 MG TABLET (FP) NGT SCH ×2 (09:39→22:04)
[2022-08-12] MEDS: PANTOPRAZOLE SODIUM 40 MG VIAL IVPUSH SCH (09:39)
[2022-08-12] MEDS: ASCORBIC ACID 250 MG TABLET (FP) PO SCH ×2 (09:39→22:05)
[2022-08-12] MEDS: APIXABAN 5 MG TABLET PO SCH ×2 (09:39→22:05)
[2022-08-12] MEDS: amLODIPine BESYLATE 5 MG TABLET (FP) PO SCH (09:39)
[2022-08-12] MEDS: MULTIVITAMINS (DAILY MVI) TABLET (FP) PO SCH (09:39)
[2022-08-12 10:55] LABS: CALCIUM 8.4 mg/dL (8.5-10.1)
[2022-08-12 10:56] LABS: ALBUMIN 2.6 g/dl (3.4-5.0); BLOOD UREA NITROGEN 12.3 mg/dL (7-18)
[2022-08-12 10:59] LABS: CREATININE 0.6 mg/dL (0.55-1.3)
[2022-08-12 11:01] LABS: BILIRUBIN,TOTAL 0.9 mg/dL (0.2-1); TOT PROT 5.2 g/dl (6.4-8.2)
[2022-08-12] MEDS ORDERED: predniSONE 20 MG TABLET (UD) PO SCH (12:34)
[2022-08-12] MEDS: predniSONE 10 MG, predniSONE 5 MG PO SCH (22:05)
[2022-08-13] MEDS: amLODIPine BESYLATE 5 MG TABLET (FP) PO SCH (09:27)
[2022-08-13] MEDS: predniSONE 10 MG, predniSONE 5 MG PO SCH ×2 (09:27→22:21)
[2022-08-13] MEDS: METOPROLOL TARTRATE 25 MG TABLET (FP) NGT SCH ×2 (09:27→22:24)
[2022-08-13] MEDS: PANTOPRAZOLE SODIUM 40 MG VIAL IVPUSH SCH (09:27)
[2022-08-13] MEDS: APIXABAN 5 MG TABLET PO SCH ×2 (09:27→22:21)
[2022-08-13] MEDS: MULTIVITAMINS (DAILY MVI) TABLET (FP) PO SCH (09:27)
[2022-08-13] MEDS: ASCORBIC ACID 250 MG TABLET (FP) PO SCH ×2 (09:27→22:21)
[2022-08-13] MEDS: CITALOPRAM HYDROBROMIDE 10 MG TABLET PO SCH (09:34)
[2022-08-13] MEDS: DEXTROSE 5%-WATER - 1,000 ML IV SCH (17:00)
[2022-08-14] MEDS: METOPROLOL TARTRATE 25 MG TABLET (FP) NGT SCH ×2 (12:21→21:35)
[2022-08-14] MEDS: APIXABAN 5 MG TABLET PO SCH ×2 (12:21→21:35)
[2022-08-14] MEDS: amLODIPine BESYLATE 5 MG TABLET (FP) PO SCH (12:21)
[2022-08-14] MEDS: CITALOPRAM HYDROBROMIDE 10 MG TABLET PO SCH (12:21)
[2022-08-14] MEDS: ASCORBIC ACID 250 MG TABLET (FP) PO SCH ×2 (12:21→21:35)
[2022-08-14] MEDS: predniSONE 10 MG, predniSONE 5 MG PO SCH ×2 (12:21→21:35)
[2022-08-14] MEDS: MULTIVITAMINS (DAILY MVI) TABLET (FP) PO SCH (12:22)
[2022-08-14] MEDS: PANTOPRAZOLE SODIUM 40 MG VIAL IVPUSH SCH (13:37)
[2022-08-15] MEDS: APIXABAN 5 MG TABLET PO SCH ×2 (10:59→21:30)
[2022-08-15] MEDS: predniSONE 10 MG, predniSONE 5 MG PO SCH ×2 (10:59→21:30)
[2022-08-15] MEDS: METOPROLOL TARTRATE 25 MG TABLET (FP) NGT SCH ×2 (10:59→21:30)
[2022-08-15] MEDS: ASCORBIC ACID 250 MG TABLET (FP) PO SCH ×2 (10:59→21:30)
[2022-08-15] MEDS: CITALOPRAM HYDROBROMIDE 10 MG TABLET PO SCH (10:59)
[2022-08-15] MEDS: amLODIPine BESYLATE 5 MG TABLET (FP) PO SCH (10:59)
[2022-08-15] MEDS: MULTIVITAMINS (DAILY MVI) TABLET (FP) PO SCH (10:59)
[2022-08-15] MEDS: PANTOPRAZOLE SODIUM 40 MG VIAL IVPUSH SCH (11:00)
[2022-08-16 07:47] VITALS: RESP 20
[2022-08-16] MEDS: predniSONE 10 MG, predniSONE 5 MG PO SCH ×2 (10:07→22:41)
[2022-08-16] MEDS: METOPROLOL TARTRATE 25 MG TABLET (FP) NGT SCH ×2 (10:07→22:41)
[2022-08-16] MEDS: APIXABAN 5 MG TABLET PO SCH ×2 (10:07→22:41)
[2022-08-16] MEDS: ASCORBIC ACID 250 MG TABLET (FP) PO SCH ×2 (10:07→22:42)
[2022-08-16] MEDS: amLODIPine BESYLATE 5 MG TABLET (FP) PO SCH (10:07)
[2022-08-16] MEDS: MULTIVITAMINS (DAILY MVI) TABLET (FP) PO SCH (10:07)
[2022-08-16] MEDS: PANTOPRAZOLE SODIUM 40 MG VIAL IVPUSH SCH (10:58)
[2022-08-16] MEDS: CITALOPRAM HYDROBROMIDE 10 MG TABLET PO SCH (10:58)
[2022-08-17 09:04] VITALS: BP 92/52; PULSE 74; TEMP 98.8
[2022-08-17] MEDS: amLODIPine BESYLATE 5 MG TABLET (FP) PO SCH (10:07)
[2022-08-17] MEDS: APIXABAN 5 MG TABLET PO SCH (10:07)
[2022-08-17] MEDS: METOPROLOL TARTRATE 25 MG TABLET (FP) NGT SCH (10:07)
[2022-08-17] MEDS: MULTIVITAMINS (DAILY MVI) TABLET (FP) PO SCH (10:07)
[2022-08-17] MEDS: predniSONE 10 MG, predniSONE 5 MG PO SCH (10:07)
[2022-08-17] MEDS: ASCORBIC ACID 250 MG TABLET (FP) PO SCH (10:07)
[2022-08-17] MEDS: CITALOPRAM HYDROBROMIDE 10 MG TABLET PO SCH (10:09)
[2022-08-17] MEDS: PANTOPRAZOLE SODIUM 40 MG VIAL IVPUSH SCH (10:09)
== END 2022-08-17 11:58 | DRG 870 ==
LOC: JER 04:20 → JERBED 06:00 → JICU 11:07 → J4W 08-06 22:21
PROVIDERS: ADMIT Internal Medicine; ATTEND Family Medicine
PROC: 5A1955Z Respiratory Ventilation, Greater than 96 Consecutive Hours (ICD-10-PCS; principal; 2022-07-28)
PROC: 0BH17EZ Insertion of Endotracheal Airway into Trachea, Via Natural or Artificial Opening (ICD-10-PCS; 2022-07-28)
PROC: 05HM33Z Insertion of Infusion Device into Right Internal Jugular Vein, Percutaneous Approach (ICD-10-PCS; 2022-07-28)
PROC: B543ZZA Ultrasonography of Right Jugular Veins, Guidance (ICD-10-PCS; 2022-07-28)
DX: A41.1 Sepsis due to other specified staphylococcus (principal); J96.01 Acute respiratory failure with hypoxia; R65.21 Severe sepsis with septic shock; J18.9 Pneumonia, unspecified organism; I48.92 Unspecified atrial flutter; N17.9 Acute kidney failure, unspecified; E87.20 Acidosis, unspecified; J44.1 Chronic obstructive pulmonary disease with (acute) exacerbation; N39.0 Urinary tract infection, site not specified; E87.0 Hyperosmolality and hypernatremia; R00.0 Tachycardia, unspecified; D72.829 Elevated white blood cell count, unspecified; R41.82 Altered mental status, unspecified; E78.5 Hyperlipidemia, unspecified; R91.1 Solitary pulmonary nodule; B96.20 Unspecified Escherichia coli [E. coli] as the cause of diseases classified elsewhere; F03.90 Unspecified dementia, unspecified severity, without behavioral disturbance, psychotic disturbance, mood disturbance, and anxiety; B95.2 Enterococcus as the cause of diseases classified elsewhere; B96.5 Pseudomonas (aeruginosa) (mallei) (pseudomallei) as the cause of diseases classified elsewhere; Z86.73 Personal history of transient ischemic attack (TIA), and cerebral infarction without residual deficits; Z85.46 Personal history of malignant neoplasm of prostate
CPT/HCPCS: 0241U-QW; 31500; 36415; 36600; 70450-TC; 71045-TC-FY; 71250-TC; 72125-TC; 74176-TC; 80053; 81003; 82550; 82553; 82803; 82962; 83605; 83735; 84100; 84439; 84443; 84484; 85025; 85027; 85610; 85730; 86704; 86705; 86803; 86850; 86900; 86901; 87040; 87070; 87086; 87186; 87205; 87340; 87389; 87517; 93005; 93010; 93306-TC; 94002; 94640; 97116-GP; 97162-GP; 99291; 99292; C9803-CS; G0480; U0003; U0005